=== PATIENT | female | born 1945 | race Caucasian/White ===

== ENCOUNTER 2016-06-20 07:09 | Inpatient (IN) | payer OTHER ==
[~2016-06-20] VITALS: Ht 154.9 cm; Wt 57.9 kg
[2016-06-20] MEDS ORDERED: MULT-506 PO (07:33)
[2016-06-20] MEDS ORDERED: ASCO10003 PO (07:33)
--- NOTE | 2016-06-20 07:47 | DIAGNOSTIC IMAGING REPORT ---
CHEST ONE VIEW PORTABLE CLINICAL HISTORY: Shortness of breath COMPARISON STUDY: 08/23/2013 FINDINGS: Postmastectomy changes are visualized in the right. The heart is normal in size. There is no failure. There is no focal pulmonary consolidation. There are no pleural effusions.[ IMPRESSION: AP portable study. No acute findings. Electronically signed by: Rock Epstein M.D. 06/20/2016 7:46 AM Dictated Date/Time: 06/20/2016 7:45 AM
[2016-06-20 08:09] LABS: BASO % 0.4 %; BASO ABS # 0.04 K/uL (0-0.2); EOS % 1.4 %; HEMATOCRIT 27.2 % (37-47); IG% 0.3 %; LYMPH % 24.8 %; LYMPH ABS # 2.33 K/uL (1.2-3.4); MEAN CELL VOLUME 68.7 fL (80-100); MEAN CORPUSCULAR HEMOGLOBIN 21.5 pg (25-34); MEAN CORPUSCULAR HGB CONC 31.3 g/dl (32-36); MEAN PLATELET VOLUME 8.9 fL (7.4-10.4); MONO % 6.4 %; NEUT % 66.7 %; PLATELET COUNT 407 K/uL (130-400); RED BLOOD COUNT 3.96 M/uL (4.2-5.4); WHITE BLOOD COUNT 9.41 K/uL (4.8-10.8)
[2016-06-20 08:18] LABS: PARTIAL THROMBOPLASTIN RATIO 0.9; PROTHROMBIN TIME (PATIENT) 10.6 SECONDS (9.0-12.0)
[2016-06-20 08:37] LABS: COMPLETE YES; MICROCYTOSIS PRESENT; TARGET CELLS 1+
[2016-06-20 08:39] LABS: BUN/CREATININE RATIO 23.9 (10-20); CALCIUM 9.9 mg/dl (8.5-10.1); CREATININE 0.88 mg/dl (0.60-1.20)
[2016-06-20 08:45] LABS: ALB/GLOB RATIO 0.8 (0.9-2); CKMB/CK RATIO 1.7 (0-3.0)
--- NOTE | 2016-06-20 09:54 | DIAGNOSTIC IMAGING REPORT ---
CHEST CTA for PULMONARY ARTERIES CT DOSE: 625.99 mGycm HISTORY: Chest pain. Dyspnea. TECHNIQUE: Multiaxial CT images of the chest were performed following the intravenous administration of contrast to evaluate the pulmonary arteries. Maximal intensity projection images were also obtained. COMPARISON STUDY: 08/23/2013 FINDINGS: Moderate atherosclerotic change thoracic aorta. Intraluminal thrombus formation considered to be a nonacute finding. Anterior mediastinal node measuring 2.2 cm versus residual findings. Right breast mass moderately increased in volume to a maximum dimension of 5.1 cm transaxially. Additional mass medial aspect right breast currently measuring 1.7 cm. Increased right axillary adenopathy with nodes measuring up to 1.4 cm anterior chest wall collaterals unchanged several indeterminate mediastinal nodes. Lungs are considered clear. Findings of diffuse lytic metastatic change throughout all major components of the chest and vertebral column. Lytic changes are also seen in the shoulders bilaterally.. IMPRESSION: 1. Study is negative for pulmonary embolus. 2. lungs are grossly clear. 3. Progressive right breast multifocal masses with pathologic right axillary adenopathy. 4. Interval diffuse bony metastatic disease Electronically signed by: Cresencio Melo M.D. 06/20/2016 9:53 AM Dictated Date/Time: 06/20/2016 9:45 AM
--- NOTE | 2016-06-20 10:32 | EMERGENCY ROOM VISIT NOTE ---
History Report prepared by Tierney: Idnia Schaefer Under the Supervision of: Dr. Mook Carlisle D.O. First contact with patient: 07:14 Chief Complaint: SHORTNESS OF BREATH Stated Complaint: SOB History of Present Illness The patient is a 70 year old female who presents to the Emergency Room with complaints of a worsening mass on the right breast starting about 3 years ago. She has applied Neosporin on the mass without relief. She also complains of severe weakness, shortness of breath, right sided chest pain radiating to the right side of the back, right arm pain, and right leg pain. 3 years ago, she was diagnosed with right sided breast cancer but did not receive treatment for it. She denies fevers, chills, or any other complaints. Source of History: patient Onset: 3 years ago Position: other (right breast) Quality: other (mass) Timing: worsening Modifying Factors (Relieving): other (Neosporin without relief) Associated Symptoms: + SOB, + chest pain, + weakness, No chills, No fevers Review of Systems See HPI for pertinent positives & negatives. A total of 10 systems reviewed and were otherwise negative. Past Medical & Surgical Medical Problems: (1) AAA (abdominal aortic aneurysm) (2) Hyperkalemia (3) Hypoxia (4) Hypoxia (5) Pleural effusion, right (6) Respiratory acidosis (7) Respiratory acidosis (8) Respiratory failure (9) Respiratory failure (10) UTI (lower urinary tract infection) (11) UTI (lower urinary tract infection) (12) UTI (lower urinary tract infection) Surgical Problems: (1) H/O tracheostomy (2) S/P cholecystectomy Family History Patient reports no known family medical history. Social History Smoking Status: Former Smoker Alcohol Use: none Marital Status: Housing Status: lives with family Current/Historical Medications Scheduled Ascorbic Acid (Vitamin C), 3,000 MG PO BID Multivitamin (Multivitamin), 1 TAB PO DAILY Allergies Coded Allergies: No Known Allergies (Unverified , 06/20/16) Physical Exam Vital Signs Date Time Temp Pulse Resp B/P Pulse Ox O2 Delivery O2 Flow Rate FiO2 06/20/16 09:22 104 20 153/90 96 Room Air 06/20/16 08:23 105 20 160/94 95 Room Air 06/20/16 07:18 113 06/20/16 07:10 95 Room Air 06/20/16 07:10 36.7 108 18 179/98 95 Room Air Physical Exam CONSTITUTIONAL/VITAL SIGNS: Reviewed / noted above. GENERAL: Non-toxic in appearance. INTEGUMENTARY: Warm, dry, and [place]. HEAD: Normocephalic. EYES: without scleral icterus or trauma. ENT/OROPHARYNX: clear and moist. LYMPHADENOPATHY/NECK: Is supple without lymphadenopathy or meningismus. CHEST: Large mass on the right breast likely related to malignancy. Discomfort with movement in the right posterior chest wall. RESPIRATORY: Lungs clear and equal. CARDIOVASCULAR: Regular rate and rhythm. GI/ABDOMEN: Soft and nontender. No organomegaly or pulsatile mass. No rebound or guarding. Normal bowel sounds. EXTREMITIES: Warm and well perfused. BACK: No CVA tenderness. NEUROLOGICAL: Intact without focal deficits. PSYCHIATRIC: normal affect. MUSCULOSKELETAL: Normally developed with good muscle tone. Medical Decision & Procedures ER Provider Diagnostic Interpretation: X ray results and stated below per my interpretation and radiologist interpretation. CTA results and stated below per my review and radiologist interpretation: CHEST CTA for PULMONARY ARTERIES CT DOSE: 625.99 mGycm HISTORY: Chest pain. Dyspnea. TECHNIQUE: Multiaxial CT images of the chest were performed following the intravenous administration of contrast to evaluate the pulmonary arteries. Maximal intensity projection images were also obtained. COMPARISON STUDY: 08/23/2013 FINDINGS: Moderate atherosclerotic change thoracic aorta. Intraluminal thrombus formation considered to be a nonacute finding. Anterior mediastinal node measuring 2.2 cm versus residual findings. Right breast mass moderately increased in volume to a maximum dimension of 5.1 cm transaxially. Additional mass medial aspect right breast currently measuring 1.7 cm. Increased right axillary adenopathy with nodes measuring up to 1.4 cm anterior chest wall collaterals unchanged several indeterminate mediastinal nodes. Lungs are considered clear. Findings of diffuse lytic metastatic change throughout all major components of the chest and vertebral column. Lytic changes are also seen in the shoulders bilaterally.. IMPRESSION: 1. Study is negative for pulmonary embolus. 2. lungs are grossly clear. 3. Progressive right breast multifocal masses with pathologic right axillary adenopathy. 4. Interval diffuse bony metastatic disease Electronically signed by: Cresencio Melo M.D. 06/20/2016 9:53 AM Dictated Date/Time: 06/20/2016 9:45 AM CHEST ONE VIEW PORTABLE CLINICAL HISTORY: Shortness of breath COMPARISON STUDY: 08/23/2013 FINDINGS: Postmastectomy changes are visualized in the right. The heart is normal in size. There is no failure. There is no focal pulmonary consolidation. There are no pleural effusions.[ IMPRESSION: AP portable study. No acute findings. Electronically signed by: Rock Epstein M.D. 06/20/2016 7:46 AM Dictated Date/Time: 06/20/2016 7:45 AM Laboratory Results 06/20/16 07:55 Red Blood Count 3.96, Mean Corpuscular Volume 68.7, Mean Corpuscular Hemoglobin 21.5, Mean Corpuscular Hemoglobin Concent 31.3, Mean Platelet Volume 8.9, Neutrophils (%) (Auto) 66.7, Lymphocytes (%) (Auto) 24.8, Monocytes (%) (Auto) 6.4, Eosinophils (%) (Auto) 1.4, Basophils (%) (Auto) 0.4, Neutrophils # (Auto) 6.28, Lymphocytes # (Auto) 2.33, Monocytes # (Auto) 0.60, Eosinophils # (Auto) 0.13, Basophils # (Auto) 0.04 06/20/16 07:55 Test 06/20/16 07:55 White Blood Count 9.41 K/uL (4.8-10.8) Red Blood Count 3.96 M/uL (4.2-5.4) Hemoglobin 8.5 g/dL (12.0-16.0) Hematocrit 27.2 % (37-47) Mean Corpuscular Volume 68.7 fL (80-100) Mean Corpuscular Hemoglobin 21.5 pg (25-34) Mean Corpuscular Hemoglobin Concent 31.3 g/dl (32-36) Platelet Count 407 K/uL (130-400) Mean Platelet Volume 8.9 fL (7.4-10.4) Neutrophils (%) (Auto) 66.7 % Lymphocytes (%) (Auto) 24.8 % Monocytes (%) (Auto) 6.4 % Eosinophils (%) (Auto) 1.4 % Basophils (%) (Auto) 0.4 % Neutrophils # (Auto) 6.28 K/uL (1.4-6.5) Lymphocytes # (Auto) 2.33 K/uL (1.2-3.4) Monocytes # (Auto) 0.60 K/uL (0.11-0.59) Eosinophils # (Auto) 0.13 K/uL (0-0.5) Basophils # (Auto) 0.04 K/uL (0-0.2) RDW Standard Deviation 46.4 fL (36.4-46.3) RDW Coefficient of Variation 18.4 % (11.5-14.5) Immature Granulocyte % (Auto) 0.3 % Immature Granulocyte # (Auto) 0.03 K/uL (0.00-0.02) Microcytosis PRESENT Target Cells 1+ Prothrombin Time 10.6 SECONDS (9.0-12.0) Prothromb Time International Ratio 1.0 (0.9-1.1) Activated Partial Thromboplast Time 22.9 SECONDS (21.0-31.0) Partial Thromboplastin Ratio 0.9 Anion Gap 11.0 mmol/L (3-11) Est Creatinine Clear Calc Drug Dose 50.9 ml/min Estimated GFR () 77.2 Estimated GFR (Non- 66.6 BUN/Creatinine Ratio 23.9 (10-20) Calcium Level 9.9 mg/dl (8.5-10.1) Total Bilirubin 0.8 mg/dl (0.2-1) Aspartate Amino Transf (AST/SGOT) 33 U/L (15-37) Alanine Aminotransferase (ALT/SGPT) 45 U/L (12-78) Alkaline Phosphatase 241 U/L (45-117) Total Creatine Kinase 41 U/L (26-192) Creatine Kinase MB 0.7 ng/ml (0.5-3.6) Creatine Kinase MB Ratio 1.7 (0-3.0) Troponin I 0.075 ng/ml (0-0.045) Pro-B-Type Natriuretic Peptide 1441 pg/ml (0-900) Total Protein 7.2 gm/dl (6.4-8.2) Albumin 3.3 gm/dl (3.4-5.0) Globulin 3.9 gm/dl (2.5-4.0) Albumin/Globulin Ratio 0.8 (0.9-2) Laboratory results as stated above per my review. ECG Indication: SOB/dyspnea Rate (beats per minute): 111 Rhythm: sinus tachycardia Findings: no acute ischemic change, no ectopy ED Course 0714: Previous medical records were reviewed. The patient was evaluated in room A02. A complete history and physical examination was performed. 1033: On reevaluation, the patient is resting comfortably. I discussed the results and findings with her. She verbalized agreement of the treatment plan. The patient will be evaluated for further management and care. 1039: I spoke with Arianne Lozada of the [facility] Service. Medical Decision the differential was considered includes acute myocardial infarction, acute coronary syndrome, myocarditis, pericarditis, pericardial effusions /tamponad, esophageal perforation, pulmonary embolism, pneumonia, pneumothorax, cardiomyopathy, congestive heart, anemia , COPD/asthma exacerbation. This is a 70-year-old female who presents to the ED with a chief complaint of shortness of breath. The patient states that she is very weak as well. She is unable to get around well at home. She significant pain in her chest wall with movement. The patient's symptoms have progressively worsened. The patient reports that she has been told that she has right breast cancer previously after having had open heart surgery. The patient has not had this addressed. She states that she is at a point where she needs help. The patient's vital signs are stable. She is afebrile. Exam reveals a large right breast mass consistent with neoplasm. The patient has immediate pain with attempting to roll or move. She is unable to sit up because of pain. EKG shows a sinus tach at a rate of 111. Her hemoglobin is 8.5. Troponin is elevated at 0.075. BNP is 1441. Chest x-ray did not show acute disease. CT scan of the chest reveals no evidence of PE. There is a right breast mass that has pathologic right axillary lymphadenopathy as well as diffuse bony metastases. The patient was told the results. I spoke with the hospitalist, who will see the patient for further inpatient care and evaluation. Consults Time Called: 1035 Consulting Physician: Arianne Lozada of the [facility] Returned Call: [phone] I spoke with Arianne Lozada of the [facility]. Impression Primary Impression: Metastatic breast carcinoma Additional Impressions: Elevated troponin Anemia Weakness Pain, chest wall Bony metastasis Scribe Attestation The scribe's documentation has been prepared under my direction and personally reviewed by me in its entirety. I confirm that the note above accurately reflects all work, treatment, procedures, and medical decision making performed by me. Departure Information Dispostion Being Evaluated By Hospitalist Referrals SnyderTadeo (PCP) Forms HOME CARE DOCUMENTATION FORM, IMPORTANT VISIT INFORMATION Patient Instructions My [facility] Health Problem Qualifiers
[2016-06-20] MEDS ORDERED: MoRPHine SULFATE 2 MG/ML CARP IV PRN (12:30)
[2016-06-20] MEDS ORDERED: ALUMINUM/MAGNESIUM/SIMETH (MAALOX MAX) 30 ML UDC PO PRN (12:30)
[2016-06-20] MEDS ORDERED: MAGNESIUM HYDROXIDE SUSP 30 ML UDC PO PRN (12:30)
[2016-06-20] MEDS ORDERED: HydrALAZINE HCL 20 MG/ML VIAL IV. PRN (12:30)
[2016-06-20] MEDS ORDERED: ONDANSETRON INJ 2 MG/ML 2 ML VIAL IV PRN (12:30)
[2016-06-20] MEDS ORDERED: METOPROLOL TARTRATE 25 MG TAB PO ONE ×2 (12:30→14:00)
--- NOTE | 2016-06-20 13:43 | HISTORY & PHYSICAL EXAMINATION ---
DATE OF ADMISSION: 06/20/2016 CHIEF COMPLAINT: Generalized weakness, shortness of breath. HISTORY OF PRESENT ILLNESS: This 70-year-old female with past history significant for abdominal aortic aneurysm rupture status post repair at [place]. She had a non-ST elevated NV during the procedure and postop was complicated by C. diff diarrhea which got improved and at that time she was found to have acute systolic and diastolic CHF with EF of around 30% and also severe mitral regurgitation. At that time she was also found to have a right breast mass fungating. Biopsy was done which showed adenocarcinoma. She was advised to follow with oncology, but patient refused. The patient did not accept of the diagnosis and never went to see oncologist as per the documented notes on the follow-up exam by vascular surgery. The patient says she was at [facility] and she was discharged home, she was taking care of her fungating mass herself, she thought it could be sebaceous cyst but it has gotten worse and worse and she states she has a strong personality and she wanted to take care herself all the things. But the mass was getting bigger and bigger and yesterday it started to bleed. When her told her that we needed to get help but patient says tomorrow might be a better day but when she got up in the morning she felt short of breath and at that time she decided to come to the ER. She says she gets pain in the right breast mass area and also feeling weakness in his lower extremities, thinks muscle weakness. She uses walker but not walking much. She is using a walker since her surgery in [place] but not walking much lately and she sits in a chair for most of the time. She states that her appetite is okay. No weight loss or weight gain. Normal bowel and bladder movements. Once in a while she feels dizzy. She has chronic blurred visions. Uses glasses. No nausea, vomiting, no abdominal pain. Currently somewhat tearful but is comfortably, hemodynamically stable. She is supposed to be taking medications for heart failure, hypertension and hypothyroidism but currently she is taking only multivitamin and ascorbic acid and she does not follow with any doctors. ALLERGIES: No known drug allergies. PAST MEDICAL HISTORY: As mentioned above. PAST SURGICAL HISTORY: Partial hysterectomy, tonsillectomy, cholecystectomy, open repair of the ruptured abdominal aortic aneurysm on 08/24/2013 at [facility]. MEDICATIONS: Supposed to be on metoprolol, levothyroxine, furosemide, lisinopril, aspirin, nitroglycerin, Klor-Con, multivitamins, but patient is taking only multivitamins and vitamin C tablets. FAMILY HISTORY: Significant for no family history on file. SOCIAL HISTORY: Former smoker, quit in 2013, smoked 1 pack a day for 40 years. No alcohol use. No drug use. Lives with her . REVIEW OF SYMPTOMS: As per HPI. Rest of review of systems negative. PHYSICAL EXAMINATION: GENERAL: The patient is of moderate build, not in distress. VITAL SIGNS: Temperature 36.7, pulse 108, respiratory rate 18, blood pressure 149/80, oxygen 93% on room air. HEAD, EYES, EARS, NOSE, AND THROAT: No pallor, no icterus. Pupils equal, round, and reactive to light. NECK: No JVD, no neck masses, no carotid bruits. CARDIOVASCULAR: S1, S2 heard, regular rate and rhythm, no murmur, no gallop. RESPIRATORY SYSTEM: Clear to auscultation bilaterally. No wheezing, no crackles. ABDOMEN: Soft, bowel sounds present, nontender, no distention. BREAST EXAMINATION: Has fungating mass on the right breast about 5 x 5 x 2 cm. Some mild drainage and some mild bleeding seen. EXTREMITIES: Mild pedal edema present. No erythema seen. LABORATORIES: Sodium 143, potassium 4, chloride 107, bicarbonate 25, BUN 21, creatinine 0.8, serum glucose 88, calcium 9.9, total bilirubin 0.8, AST 33, ALT 45, alkaline phosphatase 241. Troponin I 0.075. BNP 14 and 41. WBC 9.4, hemoglobin 8.5, hematocrit 27.2, platelets 407. PT 10.6, INR 1, PTT 22.9. CT of the chest negative for pulmonary embolism. Lungs are grossly clear. Progressive right breast multifocal masses with pathological right axillary adenopathy, interval diffuse bony metastatic disease. EKG: Shows sinus tachycardia at rate of 111. Prior infarct, age undetermined. No acute ST changes seen. ASSESSMENT AND PLAN: This is a 70-year-old female who presents with shortness of breath, generalized weakness and found to have diffuse metastatic breast cancer. 1. Metastatic breast cancer, large fungating mass in the right breast. The patient was found to have this fungating mass in 2013, but does not seek any help and it is getting bigger, not able to take care of at home. The patient decided to get help now. She is okay with being seen by oncologist now. CAT scan shows diffuse bony metastatic disease, involvement of axillary lymph nodes. We will admit to medical floor. Pain control. Consult oncology. . We will follow the oncologist's recommendations. 2. Shortness of breath currently is stable. Could be from above disease, but she has history of chronic systolic and diastolic CHF not take any medications. Has mild pedal edema. Chest x-ray is clear. We will follow the repeat echocardiogram. 3. History of hypertension. Not taking any medications. Blood pressure is slightly on the higher side. Supposed to be on lisinopril, Lopressor, and Lasix. Will start Lopressor low dose and titrate the medications and follow the blood pressure in the hospital. 4. History of hypothyroidism, not on any medication. We will follow thyroid profile. 5. History of abdominal aortic aneurysm status post repair. 6. History of systolic and diastolic CHF with EF 30%, severe mitral regurgitation due to diastolic dysfunction. Not on any diuretics. We will follow the echocardiogram. 7. Mild troponin elevation. HAs chest pain secondary to breast mass mostly. we will trend o the enzymes and follow echocardiogram. 8. Anemia, probably from the breast cancer. We will follow the stool for Hemoccult and iron studies, vitamin B12 and folic levels and follow the hemoglobin. If it goes below 8 we will transfuse PRBCs. 9. Deep venous thrombosis prophylaxis, SCDs and Lovenox for now. 10. Disposition: Admit to medical floor. LEVEL 1 FULL CODE. Social service to help with discharge planning. Await oncology evaluation. MTDD
[2016-06-20 14:00] VITALS: Ht 154.9 cm; Wt 57.9 kg
[2016-06-20 14:03] VITALS: BP 161/79; PULSE 103; TEMP 36.9; O2SAT 94
[2016-06-20 16:14] VITALS: BP 130/81; PULSE 100; TEMP 37.2; O2SAT 94
[2016-06-20 16:22] VITALS: O2SAT 94
--- NOTE | 2016-06-20 18:03 | Medical Consult ---
Consultation Date of Consultation: Jun 20, 2016. Attending Physician: Linda Mckeon DO Reason for Consultation: Stage IV breast cancer with locally advanced tumor burden and extensive bone metastases on admission imaging History of Present Illness Mrs. Paige is a pleasant 70 yr old female new to the consulting medical oncology service; Consult was placed when upon admission to the emergency room it was noted that she had a locally advanced right breast tumor, fungating, and with right axillary adenopathy and diffuse bone metastases when CT of the chest was obtained. 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 Her aneurysm repair surgery was complicated by an intraoperative NSTEMI. The tumor was estrogen positive, progesterone negative, Her [address] scans from this hospitalization showed the breast mass at 4 cm and with borderline right axillary lymph nodes. Prior to this hospitalization in 2013, she had not seen a physician in 18 years , per the records. She states that by the time she was released from the hospital, she was completely overwhelmed by her cardiac issues and states " could not deal with the breast cancer issue." There is an element to her history where it is apparent that she may not have believed her breast cancer diagnosis. She states that when she was hospitalized at [facility] that the right breast had blisters on it (though the discharge summary physical exam describes a large ulcerated fungating mass draining foul purulent material). Over the past 3 years, the area has progressively grown to involve most of the bottom portion of her breast, replacing the nipple. She went from using 3 bandages over the area to very large bandage is across her chest. She is unable to say when the area really enlarged, broke down started to bleed. She repeatedly stated that at times the area seemed to be healing. Although, she states that her has had to help her with many of the grizzlyman is over the past year or more due to her physical limitations with her chest. In the past few months, she got to the point where her had to help her with ADLs. The patient reports that her insisted she come to the emergency room today when she was unable to get herself up out of bed. She states that her right shoulder became sore today when she awoke and this precluded her from being able to get out of bed. In general, her chest mass has inhibited her ability to perform ADLs or grizzlyman over the past year or two. She also states that she injured her right ankle a few years ago when her left knee jammed into it on a fall. She did not follow up for this injury. Ever since, she has had right ankle pain that intermittently radiates up to her knee. She started using a walker to get around around the time of the injury and has continued to require it. She also has middle thoracic spine pain, more recent in onset. She has not noted cervical or axillary adenopathy. She denies cough, dyspnea. She reports a good appetite and has not had nausea, bowel irregularity , hematochezia or melena. She denies any hematuria. She has not noted dizziness or headaches. Her vision remains unchanged, she requires magnification lenses. Past Medical/Surgical History Medical Problems: (1) Anemia Status: Acute (2) Bony metastasis Status: Acute (3) Elevated troponin Status: Acute (4) Metastatic breast carcinoma Status: Acute (5) Pain, chest wall Status: Acute (6) Weakness Status: Acute Family History Patient reports no known family medical history. Social History Smoking Status: Former Smoker Marital Status: Housing Status: lives with family Allergies Coded Allergies: No Known Allergies (Unverified , 07/08/16) Current Inpatient Medications Current Inpatient Medications Medications (Trade) Dose Ordered Sig/Sudarshan Route Start Time Stop Time Status Last Admin Dose Admin Enoxaparin Sodium (Lovenox Inj) 40 mg Q24H SQ 06/20/16 21:00 07/20/16 20:59 Acetaminophen (Tylenol Tab) 650 mg Q4H PRN PO 06/20/16 12:30 07/20/16 12:29 Al Hydrox/Mg Hydrox/Simethicone (Maalox Max Susp) 15 ml Q4H PRN PO 06/20/16 12:30 07/20/16 12:29 Magnesium Hydroxide (Milk Of Magnesia Susp) 30 ml Q6H PRN PO 06/20/16 12:30 07/20/16 12:29 Ondansetron HCl (Zofran Inj) 4 mg Q6H PRN IV 06/20/16 12:30 07/20/16 12:29 Multivitamins (Multivitamin Tab) 1 tab DAILY PO 06/21/16 08:00 07/21/16 08:59 Ascorbic Acid (Vitamin C Tab) 3,000 mg BID PO 06/20/16 20:00 07/20/16 20:59 Morphine Sulfate (MoRPHine SULFATE INJ) 2 mg Q3HWA PRN IV 06/20/16 12:30 07/04/16 12:29 Hydralazine HCl (HydrALAZINE INJ) 5 mg Q6 PRN IV. 06/20/16 12:30 07/20/16 12:29 Metoprolol Tartrate (Lopressor Tab) 25 mg BID PO 06/20/16 20:00 07/20/16 20:59 Review of Systems Constitutional: + weakness, No chills, No fever Eyes: No diplopia, No worsening of vision Respiratory: No cough, No shortness of breath, No sputum, No wheezing Cardiovascular: No chest pain, No edema Abdomen: No GI bleeding, No constipation, No diarrhea, No nausea, No pain, No vomiting Musculoskeletal: + problem reported (see HPI- multiple areas of pain) Genitourinary - Female: No hematuria Neurologic: + weakness (of right arm- s), No memory loss, No vertigo Psychiatric: No anxiety, No depression symptoms Integumentary: + problem reported (see HPI) Physical Exam Date Time Temp Pulse Resp B/P Pulse Ox O2 Delivery O2 Flow Rate FiO2 06/20/16 16:14 37.2 100 16 130/81 94 Room Air 06/20/16 14:03 36.9 103 17 161/79 94 Room Air 06/20/16 14:00 Room Air 06/20/16 12:36 109 18 160/83 96 Room Air 06/20/16 12:11 108 06/20/16 11:12 107 18 149/80 93 Room Air 06/20/16 09:22 104 20 153/90 96 Room Air 06/20/16 08:23 105 20 160/94 95 Room Air 06/20/16 07:18 113 06/20/16 07:10 95 Room Air 06/20/16 07:10 36.7 108 18 179/98 95 Room Air General Appearance: WD/WN, no apparent distress, + pertinent finding (appears older than stated age) ENT: hearing grossly normal Neck: supple, + adenopathy present (?right supraclavicular adenopathy, no other cervical or left supraclavicular adenopathy noted) Respiratory/Chest: lungs clear, no respiratory distress, no accessory muscle use Cardiovascular: regular rate, rhythm, no edema Abdomen/GI: normal bowel sounds, non tender, soft Back: + pertinent finding (unable to assess due to pain of patient's right chest/arm, cannot sit up unsupported) Extremities/Musculoskelatal: no calf tenderness, no pedal edema, + pertinent finding (right ankle joint enlarged, from prior reported injury, tender) Neurologic/Psych: alert, normal mood/affect, oriented x 3 Skin: warm/dry, + pertinent finding (right breast with lare fungating mass replacing bottom half of right breast, no discernible nipple, medial satellite lesion to this about the size of a quarter, fungating, 2 smaller erythematous nodules medial ) Lymphatic: + axillary node abnormality (right axillary tiffany induration) Laboratory Results 06/20/16 07:55 Red Blood Count 3.96, Mean Corpuscular Volume 68.7, Mean Corpuscular Hemoglobin 21.5, Mean Corpuscular Hemoglobin Concent 31.3, Mean Platelet Volume 8.9, Neutrophils (%) (Auto) 66.7, Lymphocytes (%) (Auto) 24.8, Monocytes (%) (Auto) 6.4, Eosinophils (%) (Auto) 1.4, Basophils (%) (Auto) 0.4, Neutrophils # (Auto) 6.28, Lymphocytes # (Auto) 2.33, Monocytes # (Auto) 0.60, Eosinophils # (Auto) 0.13, Basophils # (Auto) 0.04 06/20/16 07:55 Test 06/20/16 07:55 06/20/16 17:00 White Blood Count 9.41 K/uL (4.8-10.8) Red Blood Count 3.96 M/uL (4.2-5.4) Hemoglobin 8.5 g/dL (12.0-16.0) Hematocrit 27.2 % (37-47) Mean Corpuscular Volume 68.7 fL (80-100) Mean Corpuscular Hemoglobin 21.5 pg (25-34) Mean Corpuscular Hemoglobin Concent 31.3 g/dl (32-36) Platelet Count 407 K/uL (130-400) Mean Platelet Volume 8.9 fL (7.4-10.4) Neutrophils (%) (Auto) 66.7 % Lymphocytes (%) (Auto) 24.8 % Monocytes (%) (Auto) 6.4 % Eosinophils (%) (Auto) 1.4 % Basophils (%) (Auto) 0.4 % Neutrophils # (Auto) 6.28 K/uL (1.4-6.5) Lymphocytes # (Auto) 2.33 K/uL (1.2-3.4) Monocytes # (Auto) 0.60 K/uL (0.11-0.59) Eosinophils # (Auto) 0.13 K/uL (0-0.5) Basophils # (Auto) 0.04 K/uL (0-0.2) RDW Standard Deviation 46.4 fL (36.4-46.3) RDW Coefficient of Variation 18.4 % (11.5-14.5) Immature Granulocyte % (Auto) 0.3 % Immature Granulocyte # (Auto) 0.03 K/uL (0.00-0.02) Microcytosis PRESENT Target Cells 1+ Prothrombin Time 10.6 SECONDS (9.0-12.0) Prothromb Time International Ratio 1.0 (0.9-1.1) Activated Partial Thromboplast Time 22.9 SECONDS (21.0-31.0) Partial Thromboplastin Ratio 0.9 Anion Gap 11.0 mmol/L (3-11) Est Creatinine Clear Calc Drug Dose 50.9 ml/min Estimated GFR () 77.2 Estimated GFR (Non- 66.6 BUN/Creatinine Ratio 23.9 (10-20) Calcium Level 9.9 mg/dl (8.5-10.1) Total Bilirubin 0.8 mg/dl (0.2-1) Aspartate Amino Transf (AST/SGOT) 33 U/L (15-37) Alanine Aminotransferase (ALT/SGPT) 45 U/L (12-78) Alkaline Phosphatase 241 U/L (45-117) Total Creatine Kinase 41 U/L (26-192) Creatine Kinase MB 0.7 ng/ml (0.5-3.6) Creatine Kinase MB Ratio 1.7 (0-3.0) Troponin I 0.075 ng/ml (0-0.045) Pro-B-Type Natriuretic Peptide 1441 pg/ml (0-900) Total Protein 7.2 gm/dl (6.4-8.2) Albumin 3.3 gm/dl (3.4-5.0) Globulin 3.9 gm/dl (2.5-4.0) Albumin/Globulin Ratio 0.8 (0.9-2) Chest x-ray from 06/20/2016: The heart is normal in size without failure. No focal pulmonary consolidation. No pleural effusions. CT of the chest from 06/20/2016: Moderate atherosclerotic change of the thoracic aorta. Intraluminal thrombus formation considered to be non acute finding. Anterior mediastinal node measuring 2.2 cm versus residual findings. Right breast mass moderately increase in volume to maximum dimension of 5.1 cm. Additional mass medial aspect right breast measuring 1.7 cm. Increased right axillary adenopathy with nodes measuring up to 1.4 cm. Anterior chest wall collaterals unchanged, several indeterminate mediastinal nodes. Findings of diffuse lytic metastatic change throughout all major components of the chest and vertebral column. Also with lytic changes in the shoulders bilaterally. No pulmonary embolus. Assessment & Plan (1) Metastatic breast carcinoma Status: Acute Permanent Comment: [id number], stage IV Invasive ductal carcinoma, ER positive/MD negative/Her2 positive, grade 2 Last Edited By: Clau Sinha on Jun 21, 2016 14:24 (2) Secondary malignant neoplasm of bone and bone marrow Permanent Comment: Reason for Deletion: Last Edited By: Minda Guillen on Jun 21, 2016 16:33 Assessment & Plan: See above discussion- will defer to RO about further imaging of right humerus and thoracic spine, as these areas are most painful for patient and may benefit from palliative RT. (3) Microcytic anemia Permanent Comment: Reason for Deletion: Last Edited By: Minda Guillen on Jun 21, 2016 16:33 Assessment & Plan: Iron studies, FOBT ordered by hospitalist. Likely from prolonged blood loss from fungating right breast mass. Patient denies any other active bleeding. Treatment can be advised pending results. Patient was diagnosed with ductal caricinoma, ER+, MD-, Her-2 alessia + on 08/25/13 at [facility] when she was hospitalized for ruptured AAA. The mass was apparently [address] imaging at that time and the skin was also involved at that time per the discharge summary stating she had a large fungating breast mass. She may have had right axillary adenopathy at that time as well, as on CT imaging they are noted as borderline. She refused to follow up after her hospitalization because she stated she wanted to focus on her cardiac issues. Of note, she was essentially lost to follow up from PCP and specialty aspects until she has been brought to the ER today. There is a record from 08/2013 where [facility] was contacted to set up an appt and the documentation sates patient refused appt. She now has locally advanced disease of her right breast/axilla. She has been losing blood from this lesion for an undetermined amount of time, per the patient, but likely since diagnosis if the mass was fungating at that time, probably accounting for her microcytic anemia, iron studies and FOBT pending. Discussed with patient that she needs complete restaging evaluation to include CT of abdomen/pelvis w/ contrast, brain MRI w/ contrast and bone scan. She is agreeable to this work up while in the hospital. Discussed for local control of the right breast mass- discussed having radiation oncology meet with patient as well as breast surgery. The patient was not agreeable at this time for breast surgery to meet with her, but she would like to see what radiation oncology could offer for palliation of the breast mass. We also discussed as she is symptomatic in her right humerus and midthoracic spine (unable to examine today), that she could potentially receive palliative RT to these areas. We discussed briefly about hormonal oral agents for systemic treatment, unable to discuss with her about Xgeva or Zometa for bone metastasis as she was somewhat overwhelmed about work up/treatment. As her tumor was Her-2 positive at diagnosis, typically we would consider for Her-2 directed therapy. However, her last echocardiogram in 2013 revealed decreased LVEF around 30%. Repeat echocardiogram is planned for this hospitalization, but at this time we are not planning for Her-2 directed therapy based on prior history of CHF. Discussed above plan with Dr. Corrigan and he is agreeable. I performed a history and physical examination of the patient and discussed the management with Lucrecia Beltre PA-C . I reviewed her note and agree with the documented findings and plan of care. In summary she is a case of locally advanced breast carcinoma for which she did not seek any medical or surgical treatment, now she has fungating breast mass with bony metastatic disease, will start anastrozole, she is not a candidate for Herceptin based chemotherapy for Her2/Alessia positive breast cancer because of abnormal cardiac function tests. Will have radiation oncology consultation. Will start bone modifying agent is an outpatient. Dr. Casey Sinah Hem/Onc (This note was completed using the dictation program Fluency Direct. As such, there may be misspellings, word substitutions, or other variations that should not change the essence of the clinical content of this encounter note. If there is need for further clarification, please direct questions to the provider listed above.)
[2016-06-20] MEDS: METOPROLOL TARTRATE 25 MG TAB PO SCH (20:35)
[2016-06-20] MEDS: ACETAMINOPHEN 325 MG TAB PO PRN (20:35)
[2016-06-20] MEDS: ASCORBIC ACID 500 MG TAB PO SCH (20:36)
[2016-06-20] MEDS: ENOXAPARIN 40 MG/0.4 ML SYR SQ SCH (20:37)
[2016-06-20] MEDS ORDERED: METOPROLOL TARTRATE 25 MG TAB PO SCH (21:00)
[2016-06-20 23:26] VITALS: BP 111/71; PULSE 78; TEMP 36.8; O2SAT 95
[2016-06-21] MEDS: ACETAMINOPHEN 325 MG TAB PO PRN (00:15)
[2016-06-21] MEDS: ACETAMINOPHEN IV 650 MG in EMPTY BAG 0 ML IV SCH ×4 (03:21→21:05)
[2016-06-21 06:31] LABS: BASO % 0.2 %; BASO ABS # 0.02 K/uL (0-0.2); EOS % 3.1 %; HEMATOCRIT 26.6 % (37-47); IG% 0.3 %; LYMPH % 29.8 %; LYMPH ABS # 2.76 K/uL (1.2-3.4); MEAN CELL VOLUME 68.7 fL (80-100); MEAN CORPUSCULAR HEMOGLOBIN 21.2 pg (25-34); MEAN CORPUSCULAR HGB CONC 30.8 g/dl (32-36); MEAN PLATELET VOLUME 9.1 fL (7.4-10.4); MONO % 7.8 %; NEUT % 58.8 %; PLATELET COUNT 444 K/uL (130-400); RED BLOOD COUNT 3.87 M/uL (4.2-5.4); WHITE BLOOD COUNT 9.27 K/uL (4.8-10.8)
[2016-06-21] MEDS: OXYCODONE HCL IR 5 MG TAB (IMMEDIATE RELEASE) PO PRN ×2 (06:34→21:14)
[2016-06-21 06:55] LABS: COMPLETE YES; GIANT PLATELETS 1+; MICROCYTOSIS PRESENT; POLYCHROMASIA 1+
[2016-06-21 06:59] LABS: CALCIUM 10.2 mg/dl (8.5-10.1); CREATININE 0.91 mg/dl (0.60-1.20); MAGNESIUM 2.3 mg/dl (1.8-2.4); POTASSIUM 4.1 mmol/L (3.5-5.1)
[2016-06-21 07:11] LABS: FERRITIN 26.8 ng/ml (8.0-388.0); PHOSPHORUS 3.6 mg/dl (2.5-4.9); THYROID STIMULATING HORMONE 9.45 uIu/ml (0.300-4.500)
[2016-06-21 08:00] VITALS: BP 109/77; PULSE 85; TEMP 36.9; O2SAT 94
[2016-06-21] MEDS: METOPROLOL TARTRATE 25 MG TAB PO SCH ×2 (08:08→21:04)
[2016-06-21 08:09] VITALS: O2SAT 94
[2016-06-21] MEDS: MULTIVITAMIN TAB PO SCH (08:09)
[2016-06-21] MEDS: ASCORBIC ACID 500 MG TAB PO SCH ×3 (08:10→17:01)
--- NOTE | 2016-06-21 10:41 | DIAGNOSTIC IMAGING REPORT ---
CT ABD/PELVIS IV CONTRAST ONLY CLINICAL HISTORY: metastatic breast cancer COMPARISON STUDY: 08/23/2013 TECHNIQUE: Following the IV administration of 93 mL of Optiray-320, CT scan of the abdomen and pelvis was performed from the lung bases to the proximal femurs. Images are reviewed in the axial, sagittal, and coronal planes. IV contrast was administered without complication. CT DOSE: 732.81 mGycm FINDINGS: Lower chest: There is a 7.4 cm right breast/chest wall mass. There is a 1 cm soft tissue nodule within the right anterior lateral chest wall. There are moderate atherosclerotic changes with thin the distal thoracic aorta. Liver: There is mild central ductal prominence. No space-occupying masses are visualized. Gallbladder: Surgically absent Spleen: Normal in size and attenuation. Pancreas: Unremarkable. Adrenal glands: Unremarkable. Kidneys: There is a 9 mm left renal cyst. No solid renal masses are visualized Bowel: There are no transition zones indicate bowel obstruction. There is no acute diverticulitis. There is no evidence of acute appendicitis. Peritoneum: There is no intraperitoneal free air or abdominal ascites. There is a fat-containing left inguinal hernia Vasculature: The patient is status post abdominal aortic aneurysm repair. There are advanced atheromatous changes within the lower thoracic and upper abdominal aorta with areas of ulcerated plaque. Adenopathy: None. Pelvic viscera: The uterus appears surgically absent Skeletal structures: There is extensive lytic bony disease with involvement of multiple ribs, all the visible vertebra, as well as the bony pelvis. IMPRESSION: 1. Widespread lytic bony metastatic disease 2. 7.5 cm right breast/chest wall mass consistent with neoplasm. There is a 1 cm soft tissue satellite nodule 3. No evidence of hepatic metastasis 4. No evidence of bowel obstruction. No evidence of free air 5. Advanced atheromatous changes within the distal thoracic and upper abdominal aorta with areas of ulcerated plaque Electronically signed by: Rock Epstein M.D. 06/21/2016 10:40 AM Dictated Date/Time: 06/21/2016 10:34 AM
[2016-06-21] MEDS ORDERED: OPTIRAY 320 IV PRN (10:45)
--- NOTE | 2016-06-21 11:19 | Radiation Oncology Consult ---
Radiation Oncology Consult Date / Reason Jun 21, 2016. Physicians Radiation Oncologist: Dr. 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 Paige in consultation at the request of Dr. Mckeon. ECOG PS: 3 - 4 Ms. Paige is a 70-year-old female who was initially diagnosed with right breast cancer in July 2013 during hospital admission at [facility] in [place], [place] for CHF and ruptured AAA. The patient did have an FNA biopsy of the left breast on 08/25/2013 which revealed malignant ductal adenocarcinoma that was estrogen receptor positive and HER-2 receptor positive and progesterone receptor negative. According to the patient, she did not pursue any therapy at all and she has developed a large right necrotic breast mass. More recently, the patient is a been having significant weakness and pain involving her right shoulder and right hip. The patient could not further take care of herself so she did present to the emergency room at [facility]. During her admission, she did have a CT chest angiogram on which revealed: "IMPRESSION: 1. Study is negative for pulmonary embolus. 2. lungs are grossly clear. 3. Progressive right breast multifocal masses with pathologic right axillary adenopathy. 4. Interval diffuse bony metastatic disease." We were asked to evaluate the patient for consideration of palliative radiation therapy. Medical oncology has also been consult to see the patient as well. Currently, the patient is complaining of pain in her right shoulder as well as her right hip and right chest wall. She notes that there is some discomfort in her right breast as well. Social History Smoking Status: Former Smoker Hx Tobacco Use In Past Year?: No (quit smoking in 2001 ) Do You Dip or Chew Tobacco: No Hx Alcohol Use: No Hx Substance Use : No Allergies Coded Allergies: No Known Allergies (Unverified , 06/20/16) Home Medications Scheduled Ascorbic Acid (Vitamin C), 3,000 MG PO BID Multivitamin (Multivitamin), 1 TAB PO DAILY Review of Systems Edema: Present?: Yes Location Body Site Modifier: Right Type: Non-pitting Degree: Trace Sexuality-Female: Patient ?: No Pain Management Side: Right Pain Location: Right chest Patient Preferred Pain Scale: 0 - 10 Initial Pain Intensity: 4.0 Physical Exam Height: 5 (Feet) 1.00 (Inches) 154.9 (Centimeters) 1.5494 (Meters) Weight: 132 (Pounds) 7.9 (Ounces) 60.100 (Kilograms) 34283.000 (Grams) Date Time Temp Pulse Resp B/P Pulse Ox O2 Delivery O2 Flow Rate FiO2 06/21/16 08:09 94 Room Air 06/21/16 08:00 94 Room Air 06/21/16 08:00 36.9 85 14 109/77 94 Room Air 06/21/16 01:30 Room Air 06/20/16 23:26 36.8 78 20 111/71 95 Room Air 06/20/16 16:22 94 Room Air 06/20/16 16:14 37.2 100 16 130/81 94 Room Air 06/20/16 14:03 36.9 103 17 161/79 94 Room Air 06/20/16 14:00 Room Air 06/20/16 12:36 109 18 160/83 96 Room Air 06/20/16 12:11 108 06/20/16 11:12 107 18 149/80 93 Room Air General Appearance: + mild distress Head: normocephalic, atraumatic Eyes: normal inspection, PERRL, EOMI ENT: normal ENT inspection Neck: supple, no adenopathy Breast: Right breast: Locally advanced breast mass involving the skin (red, vascular) with several satelite cutaneous lesions at least 3 - 4 cm in diameter. Minimal bleeding from the masses. Masses were partially covered by wound dressings. 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 Dyspnea. TECHNIQUE: Multiaxial CT images of the chest were performed following the intravenous administration of contrast to evaluate the pulmonary arteries. Maximal intensity projection images were also obtained. COMPARISON STUDY: 08/23/2013 FINDINGS: Moderate atherosclerotic change thoracic aorta. Intraluminal thrombus formation considered to be a nonacute finding. Anterior mediastinal node measuring 2.2 cm versus residual findings. Right breast mass moderately increased in volume to a maximum dimension of 5.1 cm transaxially. Additional mass medial aspect right breast currently measuring 1.7 cm. Increased right axillary adenopathy with nodes measuring up to 1.4 cm anterior chest wall collaterals unchanged several indeterminate mediastinal nodes. Lungs are considered clear. Findings of diffuse lytic metastatic change throughout all major components of the chest and vertebral column. Lytic changes are also seen in the shoulders bilaterally.. IMPRESSION: 1. Study is negative for pulmonary embolus. 2. lungs are grossly clear. 3. Progressive right breast multifocal masses with pathologic right axillary adenopathy. 4. Interval diffuse bony metastatic disease CT ABD/PELVIS IV CONTRAST ONLY - 06/20/2016 CLINICAL HISTORY: metastatic breast cancer COMPARISON STUDY: 08/23/2013 TECHNIQUE: Following the IV administration of 93 mL of Optiray-320, CT scan of the abdomen and pelvis was performed from the lung bases to the proximal femurs. Images are reviewed in the axial, sagittal, and coronal planes. IV contrast was administered without complication. CT DOSE: 732.81 mGycm FINDINGS: Lower chest: There is a 7.4 cm right breast/chest wall mass. There is a 1 cm soft tissue nodule within the right anterior lateral chest wall. There are moderate atherosclerotic changes with thin the distal thoracic aorta. Liver: There is mild central ductal prominence. No space-occupying masses are visualized. Gallbladder: Surgically absent Spleen: Normal in size and attenuation. Pancreas: Unremarkable. Adrenal glands: Unremarkable. Kidneys: There is a 9 mm left renal cyst. No solid renal masses are visualized Bowel: There are no transition zones indicate bowel obstruction. There is no acute diverticulitis. There is no evidence of acute appendicitis. Peritoneum: There is no intraperitoneal free air or abdominal ascites. There is a fat-containing left inguinal hernia Vasculature: The patient is status post abdominal aortic aneurysm repair. There are advanced atheromatous changes within the lower thoracic and upper abdominal aorta with areas of ulcerated plaque. Adenopathy: None. Pelvic viscera: The uterus appears surgically absent Skeletal structures: There is extensive lytic bony disease with involvement of multiple ribs, all the visible vertebra, as well as the bony pelvis. IMPRESSION: 1. Widespread lytic bony metastatic disease 2. 7.5 cm right breast/chest wall mass consistent with neoplasm. There is a 1 cm soft tissue satellite nodule 3. No evidence of hepatic metastasis 4. No evidence of bowel obstruction. No evidence of free air 5. Advanced atheromatous changes within the distal thoracic and upper abdominal aorta with areas of ulcerated plaque Assessment & Recommendations Ms. Paige is a 70-year-old female with widespread metastatic breast cancer to bone. She was initially diagnosed in 2013 and her pathology revealed invasive ductal carcinoma that was estrogen receptor positive and HER-2 positive. The patient did not pursue any form of therapy. Unfortunately, the breast mass became more locally advanced is involve the skin with multiple satellite cutaneous masses. Additionally, the patient now has widespread disease involving the bones and is now having significant pain in several regions. We have been asked to evaluate the patient for consideration of radiation therapy. The patient is still pending medical oncology consultation. Today, I did have a linwood conversation with the patient that we are now unfortunately dealing with incurable metastatic breast cancer. I did explain to her that she should talk with medical oncology and discuss potential systemic options including anti-hormonal therapy which may or may not be an option for the patient. We then focused our conversation on the role of radiation therapy. At this point, I am recommending palliative radiation therapy to the areas where she is having significant pain (potentially right humerus, thoracic/ lumbar spine and right hip). The patient is agreeable and we will have the patient come to our department today for CT simulation for treatment planning. We will appreciate input from medical oncology. Palliative care consultation would also be reasonable. We have explained the indications, alternatives, benefits, risks and side effects of radiation therapy. We have explained the most common side effects including but are not limited to skin erythema, skin break down, hair loss, fibrosis, adhesion development, radiation pneumonitis, rib and bone fracture, heart failure and heart disease, esophagitis, bowel obstruction, urinary symptoms, thyroid disorders, mucositis, nauesea, vomiting, diarrhea, anemia, fatigue and development of secondary malignancy. Women may also have early onset ovarian failure leading to premature menopause and may experience infertility issues depending on her age. We have explained the CT simulation process and treatment planning. We explained what to expect before, during and after treatment on a regular basis. The patient understands and would be willing to consent to treatment. The patient and family had multiple questions which were answered to their full satisfaction. Thank you for allowing us to participate in the care of this patient. This chart was completed in part utilizing [employer] Speech Voice Recognition software. Attempts were made to minimize the grammatical errors, random word insertions, pronoun errors and incomplete sentences. Any formal questions or concerns about the content, text or information contained within the body of this dictation should be directly addressed to the provider for clarification. Clau Sinha MD Department of Radiation Oncology [facility] jeff Benitez Efraín [facility] Total Time In Consultation I spent 30 minutes examining and counseling the patient. I spent 15 minutes completing this note.
--- NOTE | 2016-06-21 14:12 | DIAGNOSTIC IMAGING REPORT ---
NUCLEAR MEDICINE WHOLE-BODY BONE SCAN CLINICAL HISTORY: metastatic breast cancer COMPARISON STUDY: Abdominal pelvic CT scan dated 06/19/2016 FINDINGS: The patient was injected with 26.1 mCi of technetium 99m MDP. Three-hour delayed whole body images were acquired. There are extensive foci of abnormal increased uptake involving the cervical, thoracic, and lumbar spines. There is abnormal increased uptake within the pelvis left proximal humerus multiple ribs as well as both proximal femurs. The findings are consistent with widespread skeletal metastasis. IMPRESSION: Scintigraphic evidence of widespread skeletal metastasis. Electronically signed by: Rock Epstein M.D. 06/21/2016 2:11 PM Dictated Date/Time: 06/21/2016 2:08 PM
--- NOTE | 2016-06-21 14:45 | DIAGNOSTIC IMAGING REPORT ---
MRI OF THE BRAIN WITHOUT AND WITH IV CONTRAST CLINICAL HISTORY: metastatic breast cancer mental status change COMPARISON STUDY: No previous studies for comparison. TECHNIQUE: Utilizing a 1.5 Amara magnet and dedicated coil, multiplanar, multiecho imaging of the brain was performed pre and postcontrast administration. IV administration of 8.5 mL of Gadavist contrast was uneventful. FINDINGS: Small old infarct left occipital lobe. Age-related chronic small vessel change. Mild atrophic change. No evidence for postcontrast enhancement of significance. No midline shift. IMPRESSION: 1. Old left occipital infarct. 2. No evidence for intracranial metastatic disease Electronically signed by: Cresencio Melo M.D. 06/21/2016 2:44 PM Dictated Date/Time: 06/21/2016 2:41 PM
[2016-06-21 16:21] VITALS: BP 144/74; PULSE 81; TEMP 36.8; O2SAT 95
[2016-06-21 17:00] VITALS: O2SAT 95
--- NOTE | 2016-06-21 19:09 | Progress Note ---
Subjective Date of Service: Jun 21, 2016. Subjective Pt evaluation today including: conversation w/ patient, physical exam, lab review, review of studies, conversation w/ [facility] consultant, review of inpatient medication list Saw/examined the patient in room 418 She presented to the ER with some shortness of breath states that those symptoms have since resolved She also has chronic back pain and bone pain; also has a mass on the right breast with ulceration She has a history of breast CA for which she has not received any treatment. 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, grade 2 Status: Acute Review of Systems Constitutional: + fatigue, + weakness, No chills, No fever Respiratory: No cough, No dyspnea at rest, No dyspnea on exertion, No hemoptysis, No shortness of breath, No sputum, No wheezing Cardiac: No chest pain Abdomen: No diarrhea, No nausea, No pain, No vomiting Musculoskeletal: + joint pain (back pain, leg pain) Heme: No abnormal bleeding/bruising Skin: + problem reported (wound on right breast) Medications Current Inpatient Medications Medications (Trade) Dose Ordered Sig/Sudarshan Route Start Time Stop Time Status Last Admin Dose Admin Enoxaparin Sodium (Lovenox Inj) 40 mg Q24H SQ 06/20/16 21:00 07/20/16 20:59 06/20/16 20:37 40 MG Acetaminophen (Tylenol Tab) 650 mg Q4H PRN PO 06/20/16 12:30 07/20/16 12:29 Future Hold 06/21/16 00:15 650 MG Al Hydrox/Mg Hydrox/Simethicone (Maalox Max Susp) 15 ml Q4H PRN PO 06/20/16 12:30 07/20/16 12:29 Magnesium Hydroxide (Milk Of Magnesia Susp) 30 ml Q6H PRN PO 06/20/16 12:30 07/20/16 12:29 Ondansetron HCl (Zofran Inj) 4 mg Q6H PRN IV 06/20/16 12:30 07/20/16 12:29 Multivitamins (Multivitamin Tab) 1 tab DAILY PO 06/21/16 08:00 07/21/16 08:59 06/21/16 08:09 1 TAB Ascorbic Acid (Vitamin C Tab) 3,000 mg BID PO 06/20/16 20:00 07/20/16 20:59 06/21/16 17:01 1,500 MG Morphine Sulfate (MoRPHine SULFATE INJ) 2 mg Q3HWA PRN IV 06/20/16 12:30 07/04/16 12:29 Hydralazine HCl (HydrALAZINE INJ) 5 mg Q6 PRN IV. 06/20/16 12:30 07/20/16 12:29 Metoprolol Tartrate 25 mg 25 mg BID PO 06/20/16 20:00 07/20/16 20:59 06/21/16 08:08 25 MG Acetaminophen/ Empty Bag (Ofirmev IV/ Empty Iv Bag 100ml) 65 ml @ 260 mls/hr Q6H IV 06/21/16 03:00 06/23/16 02:59 06/21/16 16:16 260 MLS/HR Oxycodone HCl (Roxicodone Immediate Rel Tab) 5 mg Q4H PRN PO 06/21/16 03:00 07/05/16 02:59 06/21/16 06:34 5 MG Ioversol (Optiray 320) 125 ml UD PRN IV 06/21/16 10:45 06/25/16 10:44 Enteral Nutritional Formula (Boost) 1 can BID PO 06/21/16 20:00 07/21/16 19:59 Objective Vital Signs Date Time Temp Pulse Resp B/P Pulse Ox O2 Delivery O2 Flow Rate FiO2 06/21/16 17:00 95 Room Air 06/21/16 16:21 36.8 81 16 144/74 95 Room Air 06/21/16 08:09 94 Room Air 06/21/16 08:00 94 Room Air 06/21/16 08:00 36.9 85 14 109/77 94 Room Air 06/21/16 01:30 Room Air 06/20/16 23:26 36.8 78 20 111/71 95 Room Air Physical Exam General Appearance: no apparent distress ENT: + pertinent finding (chronic dental issues) Respiratory/Chest: lungs clear, normal breath sounds, no respiratory distress, no accessory muscle use, + pertinent finding (right breast with ulcerative wound noted, it is bandaged) Cardiovascular: regular rate, rhythm, no edema, no murmur Abdomen: normal bowel sounds, non tender, soft Extremities: normal inspection, no pedal edema, + pertinent finding (painful ROM, difficulty with back flexion) 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, no motor/sensory deficits, alert, normal mood/affect, oriented x 3 Skin: normal color Laboratory Results Last 24 Hours Test 06/21/16 05:34 White Blood Count 9.27 K/uL Red Blood Count 3.87 M/uL Hemoglobin 8.2 g/dL Hematocrit 26.6 % Mean Corpuscular Volume 68.7 fL Mean Corpuscular Hemoglobin 21.2 pg Mean Corpuscular Hemoglobin Concent 30.8 g/dl Platelet Count 444 K/uL Mean Platelet Volume 9.1 fL Neutrophils (%) (Auto) 58.8 % Lymphocytes (%) (Auto) 29.8 % Monocytes (%) (Auto) 7.8 % Eosinophils (%) (Auto) 3.1 % Basophils (%) (Auto) 0.2 % Neutrophils # (Auto) 5.45 K/uL Lymphocytes # (Auto) 2.76 K/uL Monocytes # (Auto) 0.72 K/uL Eosinophils # (Auto) 0.29 K/uL Basophils # (Auto) 0.02 K/uL RDW Standard Deviation 47.1 fL RDW Coefficient of Variation 18.7 % Immature Granulocyte % (Auto) 0.3 % Immature Granulocyte # (Auto) 0.03 K/uL Giant Platelets 1+ Polychromasia 1+ Microcytosis PRESENT Sodium Level 143 mmol/L Potassium Level 4.1 mmol/L Chloride Level 107 mmol/L Carbon Dioxide Level 24 mmol/L Anion Gap 12.0 mmol/L Blood Urea Nitrogen 25 mg/dl Creatinine 0.91 mg/dl Est Creatinine Clear Calc Drug Dose 47.9 ml/min Estimated GFR () 74.1 Estimated GFR (Non- 63.9 BUN/Creatinine Ratio 27.0 Random Glucose 84 mg/dl Calcium Level 10.2 mg/dl Phosphorus Level 3.6 mg/dl Magnesium Level 2.3 mg/dl Iron Level 14 mcg/dl Total Iron Binding Capacity 389 mcg/dl Transferrin 276 mg/dl Transferrin % Saturation 4 % Ferritin 26.8 ng/ml Troponin I 0.070 ng/ml Vitamin B12 Level 827 pg/mL Folate > 24.00 ng/mL Thyroid Stimulating Hormone (TSH) 9.450 uIu/ml Free Thyroxine 0.79 ng/dl Free Triiodothyronine 2.24 pg/ml Assessment and Plan This is a 70 year old female with PMH of AAA rupture and repair, systolic/ diastolic CHF, valvular disease with severe mitral regurgitation, and adenocarcinoma of the right breast presents with some shortness of breath as well as bleeding right breast mass Metastatic Right Breast Adenocarcinoma patient has had this diagnosed in the past but did not want any treatment at that time She has been managing the breast mass ulceration/bleeding wound herself at home Noted that the bleeding worsened yesterday presented here: had imaging done including CT abdominal/pelvis, bone scan, Brain MRI Bone Scan and CT abdomen/pelvis confirm widespread lytic bony metastatic lesions Brain MRI - no acute process appreciate medical oncology and radiation oncology input Plan in terms of radiation is for palliative radiation which will be started on 06/22 Possible medications for palliation purposes as per medical oncology placed a palliative care consultation as well Wound care nurse consulted for the bleeding mass on the right breast IV morphine, IV Tylenol and PO Percocet PRN for pain Shortness of Breath in the setting of Mixed Systolic-Diastolic CHF Valvular Heart Disease/Severe Mitral Regurgitation currently breathing status is at baseline repeat echo is pending - may be difficult with the fungating mass on the right breast monitor for fluid overload Anemia anemia of inflammation secondary to metastatic cancer will check anemia studies, iron, etc. Hgb is around 8, will monitor Hypothyroidism TSH elevated at ~9 low Free T4 started low dose Synthroid HTN blood pressure improved since admission will monitor and adjust medications accordingly DVT ppx Lovenox FULL CODE
[2016-06-21] MEDS: BOOST VANILLA PO SCH ×2 (20:00)
[2016-06-21] MEDS: ENOXAPARIN 40 MG/0.4 ML SYR SQ SCH (21:03)
[2016-06-22 00:14] VITALS: BP 120/72; PULSE 82; TEMP 36.6; O2SAT 97
[2016-06-22] MEDS: ACETAMINOPHEN IV 650 MG in EMPTY BAG 0 ML IV SCH ×4 (03:23→20:57)
[2016-06-22 06:26] LABS: BASO % 0.2 %; BASO ABS # 0.02 K/uL (0-0.2); HEMATOCRIT 24.8 % (37-47); IG% 0.5 %; LYMPH % 25.1 %; LYMPH ABS # 2.14 K/uL (1.2-3.4); MEAN CELL VOLUME 68.7 fL (80-100); MEAN CORPUSCULAR HEMOGLOBIN 21.6 pg (25-34); MEAN CORPUSCULAR HGB CONC 31.5 g/dl (32-36); MEAN PLATELET VOLUME 8.6 fL (7.4-10.4); MONO % 8.6 %; NEUT % 61.6 %; PLATELET COUNT 392 K/uL (130-400); RED BLOOD COUNT 3.61 M/uL (4.2-5.4); WHITE BLOOD COUNT 8.53 K/uL (4.8-10.8)
[2016-06-22] MEDS: LEVOTHYROXINE 25 MCG TAB PO SCH (06:30)
[2016-06-22 06:55] LABS: BUN/CREATININE RATIO 27.6 (10-20); CALCIUM 9.5 mg/dl (8.5-10.1); MAGNESIUM 2.2 mg/dl (1.8-2.4); POTASSIUM 3.7 mmol/L (3.5-5.1)
[2016-06-22 07:00] LABS: ANISOCYTOSIS PRESENT; COMPLETE YES; HYPOCHROMIA PRESENT; POLYCHROMASIA 1+; TARGET CELLS 1+
[2016-06-22 07:19] VITALS: BP 118/75; PULSE 84; TEMP 36.6; O2SAT 93
[2016-06-22] MEDS: METOPROLOL TARTRATE 25 MG TAB PO SCH ×2 (09:18→20:59)
[2016-06-22] MEDS: BOOST VANILLA PO SCH ×4 (09:19→20:00)
[2016-06-22] MEDS: MULTIVITAMIN TAB PO SCH (09:20)
[2016-06-22] MEDS: ASCORBIC ACID 500 MG TAB PO SCH ×3 (09:20→21:00)
--- NOTE | 2016-06-22 13:08 | Palliative Care Consultation ---
Consultation Date of Consultation: Jun 22, 2016. Requesting Physician: Dr. Mckeon Attending Physician: Dr. Mckeon Reason for Consultation: Goals of care History of Present Illness This 70 year old female patient presented to the ED two days ago with complaints of SOB, weakness, pain in her right shoulder and right breast, and a bleeding mass on her right breast. Apparently this patient has had a growing mass of the right breast for the last three years, which was diagnosed as breast adenocarcinoma at that time. In July of 2013, patient had a ruptured AAA which she had repaired at [facility] in [place]. The breast was found at that time and she had a biopsy. After her stay in [place], she was released to [facility] for rehab. It was while she was in [facility] that she received the diagnosis of breast adenocarcinoma. She states that she was so overwhelmed that she chose to "take care of it herself," and never sought out treatment. Up until recently, patient was functioning normally and living her life until the pain and weakness developed. The day that she came into the hospital, she couldn't even get out of bed, her pain was much worse, and the mass on her breast began to bleed. In ED, a fungating right breast mass was discovered. Patient had been covering it with Neosporin and band-aids. Inpatient wound images available in EMR. CTA of the chest showed, "IMPRESSION: 1. Study is negative for pulmonary embolus. 2. lungs are grossly clear. 3. Progressive right breast multifocal masses with pathologic right axillary adenopathy. 4. Interval diffuse bony metastatic disease." She was seen by medical oncology and was subsequently referred to radiation oncology as she declined meeting with a breast surgeon but did agree to talk about radiation. They ordered an MRI of brain which showed no metastatic disease, and a nuclear medicine bone scan which showed, "There are extensive foci of abnormal increased uptake involving the cervical, thoracic, and lumbar spines. There is abnormal increased uptake within the pelvis left proximal humerus multiple ribs as well as both proximal femurs. The findings are consistent with widespread skeletal metastasis." She has agreed to and been marked for radiation therapy that was to begin today. Palliative care consulted to establish goals of care and provide support. I met with the patient in her room. She is awake, alert and oriented. She c/o pain 4/10 in her right shoulder and pain in her back only when she moves. Patient appeared uncomfortable in the bed, as if she was afraid to move. We had a long discussion about her diagnoses. She states that back in 2013, after her AAA repair, she was feeling so overwhelmed that she could not possibly deal with this diagnosis of breast cancer. Patient began to cry while speaking with me and stated that the ruptured AAA was so traumatic for her that she was afraid to even discuss the breast cancer. She decided at that time that she was just going to go home and, "live the life that I chose." She frequently was tearful during our conversation. She now just wants to get some pain relief from the radiation therapy so that she can go home and continue to do the things she enjoys. She understands that this will not cure her disease. When I discussed her symptoms, patient was very resistant towards any further pain medication. She stated, "I want to feel the pain. I want to know what I'm going through and not be numb." I gave education on pain medication, but she continues to decline at this time and states that the IV Tylenol and PRN Roxicodone work well enough for her. She had one episode of vomiting on Sunday, but states she is no longer nauseated. Denies any other complaints. Past Medical/Surgical History Medical History: AAA rupture NSTEMI C. difficile CHF, systolic and diastolic Severe mitral regurgitation Right breast adenocarcinoma Surgical History: AAA repair Partial hysterectomy Tonsillectomy Cholecystectomy Social History Smoking Status: Former Smoker History of Alcohol Use: No Marital Status: Housing Status: lives with family Review of Systems Constitutional: + weakness, No chills, No fever Respiratory: No cough, No shortness of breath (resolved) Cardiac: No chest pain, No edema Abdomen: No nausea, No pain Female : No problem reported Psychiatric: + anxiety (due to situation) Heme: + problem reported (bleeding from right breast fungating mass) Allergies Coded Allergies: No Known Allergies (Unverified , 06/20/16) Medications Current Inpatient Medications Medications (Trade) Dose Ordered Sig/Sudarshan Route Start Time Stop Time Status Last Admin Dose Admin Enoxaparin Sodium (Lovenox Inj) 40 mg Q24H SQ 06/20/16 21:00 07/20/16 20:59 06/21/16 21:03 40 MG Acetaminophen (Tylenol Tab) 650 mg Q4H PRN PO 2/21/17 12:30 07/20/16 12:29 Future Hold 06/21/16 00:15 650 MG Al Hydrox/Mg Hydrox/Simethicone (Maalox Max Susp) 15 ml Q4H PRN PO 06/20/16 12:30 07/20/16 12:29 Magnesium Hydroxide (Milk Of Magnesia Susp) 30 ml Q6H PRN PO 06/20/16 12:30 07/20/16 12:29 Ondansetron HCl (Zofran Inj) 4 mg Q6H PRN IV 06/20/16 12:30 07/20/16 12:29 Multivitamins (Multivitamin Tab) 1 tab DAILY PO 06/21/16 08:00 07/21/16 08:59 06/22/16 09:20 1 TAB Ascorbic Acid (Vitamin C Tab) 3,000 mg BID PO 06/20/16 20:00 07/20/16 20:59 06/22/16 09:20 3,000 MG Morphine Sulfate (MoRPHine SULFATE INJ) 2 mg Q3HWA PRN IV 06/20/16 12:30 07/04/16 12:29 Hydralazine HCl (HydrALAZINE INJ) 5 mg Q6 PRN IV. 06/20/16 12:30 07/20/16 12:29 Metoprolol Tartrate 25 mg 25 mg BID PO 06/20/16 20:00 07/20/16 20:59 06/21/16 21:04 25 MG Acetaminophen/ Empty Bag (Ofirmev IV/ Empty Iv Bag 100ml) 65 ml @ 260 mls/hr Q6H IV 06/21/16 03:00 06/23/16 02:59 06/22/16 09:26 260 MLS/HR Oxycodone HCl (Roxicodone Immediate Rel Tab) 5 mg Q4H PRN PO 06/21/16 03:00 07/05/16 02:59 06/21/16 21:14 5 MG Ioversol (Optiray 320) 125 ml UD PRN IV 06/21/16 10:45 06/25/16 10:44 Enteral Nutritional Formula (Boost) 1 can BID PO 06/21/16 20:00 07/21/16 19:59 Levothyroxine Sodium (Synthroid Tab) 25 mcg DAILYBB PO 06/22/16 06:30 07/22/16 06:29 Physical Exam Date Time Temp Pulse Resp B/P Pulse Ox O2 Delivery O2 Flow Rate FiO2 06/22/16 07:19 36.6 84 20 118/75 93 06/22/16 00:45 Room Air 06/22/16 00:14 36.6 82 20 120/72 97 Room Air 06/21/16 17:00 95 Room Air 06/21/16 16:21 36.8 81 16 144/74 95 Room Air General Appearance: no apparent distress Neck: no JVD Respiratory: normal breath sounds, no respiratory distress, no accessory muscle use, + decreased breath sounds Cardiovascular: regular rate, rhythm, no edema, + normal peripheral pulses Abdomen: normal bowel sounds, non tender, soft Neurologic/Psychiatric: alert, normal mood/affect, oriented x 3 Skin: + pertinent finding (right breast fungating mass, taking up most of breast. See inpatient wound images. Currently has a bandage on) Laboratory Results Last 24 Hours Test 06/22/16 06:10 White Blood Count 8.53 K/uL Red Blood Count 3.61 M/uL Hemoglobin 7.8 g/dL Hematocrit 24.8 % Mean Corpuscular Volume 68.7 fL Mean Corpuscular Hemoglobin 21.6 pg Mean Corpuscular Hemoglobin Concent 31.5 g/dl Platelet Count 392 K/uL Mean Platelet Volume 8.6 fL Neutrophils (%) (Auto) 61.6 % Lymphocytes (%) (Auto) 25.1 % Monocytes (%) (Auto) 8.6 % Eosinophils (%) (Auto) 4.0 % Basophils (%) (Auto) 0.2 % Neutrophils # (Auto) 5.26 K/uL Lymphocytes # (Auto) 2.14 K/uL Monocytes # (Auto) 0.73 K/uL Eosinophils # (Auto) 0.34 K/uL Basophils # (Auto) 0.02 K/uL RDW Standard Deviation 47.2 fL RDW Coefficient of Variation 18.6 % Immature Granulocyte % (Auto) 0.5 % Immature Granulocyte # (Auto) 0.04 K/uL Polychromasia 1+ Hypochromasia PRESENT Anisocytosis PRESENT Target Cells 1+ Sodium Level 137 mmol/L Potassium Level 3.7 mmol/L Chloride Level 104 mmol/L Carbon Dioxide Level 25 mmol/L Anion Gap 8.0 mmol/L Blood Urea Nitrogen 28 mg/dl Creatinine 1.00 mg/dl Est Creatinine Clear Calc Drug Dose 43.9 ml/min Estimated GFR () 66.1 Estimated GFR (Non- 57.0 BUN/Creatinine Ratio 27.6 Random Glucose 86 mg/dl Calcium Level 9.5 mg/dl Magnesium Level 2.2 mg/dl Assessment & Plan Palliative Performance Scale: 50 % Problem list: Pain, back and right shoulder Anxiety Shortness of breath- resolved Weakness Fungating mass of right breast Metastatic breast adenocarcinoma Bony metastases Goals of care (Z51.5) Palliative care plan: -Patient's goal is to be at home and maintain quality of life. She does not yet know how much strength she is going to be able to regain, but she wants to be home with her . -Plan is to receive palliative radiation as recommended and managed by Dr. Sinha with radiation oncology. Patient still being followed by medical oncology- - she is uncertain about hormone therapy. -Continue current pain medications. Patient was resistant to idea of fentanyl patch and declines at this time. -Discharge planning will be ongoing as well as goals of care conversation. Thank you kindly for this consult. I will continue to follow.
[2016-06-22 15:33] VITALS: BP 100/64; PULSE 95; TEMP 37.1; O2SAT 95
--- NOTE | 2016-06-22 17:35 | Progress Note ---
Subjective Date of Service: Jun 22, 2016. 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, grade 2 Status: Acute Review of Systems Constitutional: No chills, No fever Respiratory: No cough, No shortness of breath, No sputum Cardiac: No chest pain, No edema, No palpitations Breast: + problem reported (+wound, right breast) Musculoskeletal: + joint pain (back pain) Medications Current Inpatient Medications Medications (Trade) Dose Ordered Sig/Sudarshan Route Start Time Stop Time Status Last Admin Dose Admin Enoxaparin Sodium (Lovenox Inj) 40 mg Q24H SQ 06/20/16 21:00 07/20/16 20:59 06/21/16 21:03 40 MG Acetaminophen (Tylenol Tab) 650 mg Q4H PRN PO 06/20/16 12:30 07/20/16 12:29 Future Hold 06/21/16 00:15 650 MG Al Hydrox/Mg Hydrox/Simethicone (Maalox Max Susp) 15 ml Q4H PRN PO 06/20/16 12:30 07/20/16 12:29 Magnesium Hydroxide (Milk Of Magnesia Susp) 30 ml Q6H PRN PO 06/20/16 12:30 07/20/16 12:29 Ondansetron HCl (Zofran Inj) 4 mg Q6H PRN IV 06/20/16 12:30 07/20/16 12:29 Multivitamins (Multivitamin Tab) 1 tab DAILY PO 06/21/16 08:00 07/21/16 08:59 06/22/16 09:20 1 TAB Ascorbic Acid (Vitamin C Tab) 3,000 mg BID PO 06/20/16 20:00 07/20/16 20:59 06/22/16 09:20 3,000 MG Morphine Sulfate (MoRPHine SULFATE INJ) 2 mg Q3HWA PRN IV 06/20/16 12:30 07/04/16 12:29 Hydralazine HCl (HydrALAZINE INJ) 5 mg Q6 PRN IV. 06/20/16 12:30 07/20/16 12:29 Metoprolol Tartrate 25 mg 25 mg BID PO 06/20/16 20:00 07/20/16 20:59 06/21/16 21:04 25 MG Acetaminophen/ Empty Bag (Ofirmev IV/ Empty Iv Bag 100ml) 65 ml @ 260 mls/hr Q6H IV 06/21/16 03:00 06/23/16 02:59 06/22/16 15:00 260 MLS/HR Oxycodone HCl (Roxicodone Immediate Rel Tab) 5 mg Q4H PRN PO 06/21/16 03:00 07/05/16 02:59 06/21/16 21:14 5 MG Ioversol (Optiray 320) 125 ml UD PRN IV 06/21/16 10:45 06/25/16 10:44 Enteral Nutritional Formula (Boost) 1 can BID PO 06/21/16 20:00 07/21/16 19:59 Levothyroxine Sodium (Synthroid Tab) 25 mcg DAILYBB PO 06/22/16 06:30 07/22/16 06:29 Objective Vital Signs Date Time Temp Pulse Resp B/P Pulse Ox O2 Delivery O2 Flow Rate FiO2 06/22/16 15:33 37.1 95 18 100/64 95 Room Air 06/22/16 09:15 Room Air 06/22/16 07:19 36.6 84 20 118/75 93 06/22/16 00:45 Room Air 06/22/16 00:14 36.6 82 20 120/72 97 Room Air Physical Exam General Appearance: no apparent distress Respiratory/Chest: chest non-tender, lungs clear, normal breath sounds, no respiratory distress, no accessory muscle use, + pertinent finding (+breast ulceration/wound) Cardiovascular: regular rate, rhythm, no edema, no murmur Abdomen: normal bowel sounds, non tender, soft Laboratory Results Last 24 Hours Test 06/22/16 06:10 White Blood Count 8.53 K/uL Red Blood Count 3.61 M/uL Hemoglobin 7.8 g/dL Hematocrit 24.8 % Mean Corpuscular Volume 68.7 fL Mean Corpuscular Hemoglobin 21.6 pg Mean Corpuscular Hemoglobin Concent 31.5 g/dl Platelet Count 392 K/uL Mean Platelet Volume 8.6 fL Neutrophils (%) (Auto) 61.6 % Lymphocytes (%) (Auto) 25.1 % Monocytes (%) (Auto) 8.6 % Eosinophils (%) (Auto) 4.0 % Basophils (%) (Auto) 0.2 % Neutrophils # (Auto) 5.26 K/uL Lymphocytes # (Auto) 2.14 K/uL Monocytes # (Auto) 0.73 K/uL Eosinophils # (Auto) 0.34 K/uL Basophils # (Auto) 0.02 K/uL RDW Standard Deviation 47.2 fL RDW Coefficient of Variation 18.6 % Immature Granulocyte % (Auto) 0.5 % Immature Granulocyte # (Auto) 0.04 K/uL Polychromasia 1+ Hypochromasia PRESENT Anisocytosis PRESENT Target Cells 1+ Sodium Level 137 mmol/L Potassium Level 3.7 mmol/L Chloride Level 104 mmol/L Carbon Dioxide Level 25 mmol/L Anion Gap 8.0 mmol/L Blood Urea Nitrogen 28 mg/dl Creatinine 1.00 mg/dl Est Creatinine Clear Calc Drug Dose 43.9 ml/min Estimated GFR () 66.1 Estimated GFR (Non- 57.0 BUN/Creatinine Ratio 27.6 Random Glucose 86 mg/dl Calcium Level 9.5 mg/dl Magnesium Level 2.2 mg/dl Assessment and Plan This is a 70 year old female with PMH of AAA rupture and repair, systolic/ diastolic CHF, valvular disease with severe mitral regurgitation, and adenocarcinoma of the right breast presents with some shortness of breath as well as bleeding right breast mass Metastatic Right Breast Adenocarcinoma 06/22 patient is doing okay today; pain is controlled she is using IV tylenol and oxycodone at night plan is to have palliative care talk to the patient palliative radiation as per rad/onc medical oncology to discuss medication options will recheck Hgb in AM, if remains < 8, may need to transfuse 06/21 patient has had this diagnosed in the past but did not want any treatment at that time She has been managing the breast mass ulceration/bleeding wound herself at home Noted that the bleeding worsened yesterday presented here: had imaging done including CT abdominal/pelvis, bone scan, Brain MRI Bone Scan and CT abdomen/pelvis confirm widespread lytic bony metastatic lesions Brain MRI - no acute process appreciate medical oncology and radiation oncology input Plan in terms of radiation is for palliative radiation which will be started on 06/22 Possible medications for palliation purposes as per medical oncology placed a palliative care consultation as well Wound care nurse consulted for the bleeding mass on the right breast IV morphine, IV Tylenol and PO Percocet PRN for pain Shortness of Breath in the setting of Mixed Systolic-Diastolic CHF Valvular Heart Disease/Severe Mitral Regurgitation currently breathing status is at baseline repeat echo is pending - may be difficult with the fungating mass on the right breast monitor for fluid overload Anemia anemia of inflammation secondary to metastatic cancer will check anemia studies, iron, etc. Hgb is around 8, will monitor Hypothyroidism TSH elevated at ~9 low Free T4 started low dose Synthroid HTN blood pressure improved since admission will monitor and adjust medications accordingly DVT ppx Lovenox FULL CODE
--- NOTE | 2016-06-22 17:35 | ECHOCARDIOGRAM REPORT ---
*NOTICE TO RECEIVING [employer] This information is strictly Confidential and protected under [place] law. [place] law prohibits you from making any further disclosure of this information unless further disclosure is expressly permitted by the written consent of the person to whom it pertains or is authorized by law. A general authorization for the release of medical or other information is not sufficient for this purpose. Hospital accepts no responsibility if the information is made available to any other person, INCLUDING THE PATIENT. Interpretation Summary * Name: TING SOLIS Study Date: 06/21/2016 11:04 AM BP: 160/83 mmHg * Patient Location: .4E\S\E418\S\1 HR: 78 * : 1945 (M/d/yyy) Gender: Female Height: 61 in * Age: 70 yrs Ethnicity: [place] Weight: 140 lb * Ordering Physician: Raj Corrigan * Referring Physician: Self, Referred * Performed By: Gail Heck RCS * * Reason For Study: Hx of CHF, SOB, Breast CA Mets * BSA: 1.6 m2 * -- Conclusions -- * There is a large sized apical, inferior and inferalateral wall motion abnormalities with akinesis of the segments. * Left ventricular systolic function is moderately reduced. * The qualitative LV ejection fraction is 35-39% (moderately reduced). * Aortic valve sclerosis mild, without significant aortic valvular stenosis. * There is severe mitral regurgitation. * Doppler findings do not suggest pulmonary hypertension. * Grade I diastolic dysfunction, (abnormal relaxation pattern). * Compared to the report of the study dated, 08/25/2013, the LVEF and mitral regurgiation is unchanged. Procedure Details * A complete two-dimensional transthoracic echocardiogram was performed (2D, M-mode, Doppler and color flow Doppler). * There were technical limitations due to patient'spoor positioning * Patient supine for imagining Left Ventricle * The left ventricle is normal in size. * There is normal left ventricular wall thickness. * The qualitative LV ejection fraction is 35-39% (moderately reduced). * Left ventricular systolic function is moderately reduced. * There is a large sized apical, inferior and inferalateral wall motion abnormalities with akinesis of the segments. Right Ventricle * The right ventricle is normal size. * The right ventricular systolic function is normal as assessed by tricuspid annular plane systolic excursion (TAPSE) (normal >1.5 cm). Atria * The left atrial size is normal. * Right atrial size is normal. * There is no evidence of atrial septal defect, but resolution does not allow assessment for a patent foramen ovale. Mitral Valve * The mitral valve is normal. * There is no mitral valve stenosis. * There is severe mitral regurgitation. Tricuspid Valve * The tricuspid valve is normal. * There is no tricuspid stenosis. * Significant tricuspid regurgitation is absent. * Doppler findings do not suggest pulmonary hypertension. Aortic Valve * The aortic valve is trileaflet. * Aortic valve sclerosis mild, without significant aortic valvular stenosis. * Aortic stenosis is absent. * There is no significant aortic regurgitation. Pulmonic Valve * The pulmonary valve is not well seen, but the Doppler examination is normal without significant regurgitation or stenosis. Great Vessels * The aortic root and proximal ascending aorta are normal sized. Pericardium/Pleural * There is no pericardial effusion. Great Vessels * Normal inferior vena cava diameter and respiratory variation suggests normal central venous pressure. * Normal inferior vena cava size and collapsability with sniff indicates a normal right atrial pressure of 3 mmHg Left Ventricular Diastolic Function * Grade I diastolic dysfunction, (abnormal relaxation pattern). MMode 2D Measurements and Calculations IVSd 1.0 cm IVSs 1.2 cm LVIDd 4.4 cm LVIDs 3.0 cm LVPWd 1.0 cm LVPWs 1.2 cm IVS/LVPW 0.97 FS 32.4 % EDV(Teich) 88.5 ml ESV(Teich) 34.6 ml EF(Teich) 60.8 % EDV(cubed) 86.2 ml ESV(cubed) 26.7 ml EF(cubed) 69.1 % % IVS thick 15.6 % % LVPW thick 16.1 % LV mass(C)d 153.6 grams LV mass(C)dI 94.6 grams/m\S\2 LV mass(C)s 106.5 grams LV mass(C)sI 65.6 grams/m\S\2 CO(Teich) 4.1 l/min CI(Teich) 2.5 l/min/m\S\2 SV(Teich) 53.8 ml SI(Teich) 33.2 ml/m\S\2 CO(cubed) 4.5 l/min CI(cubed) 2.8 l/min/m\S\2 SV(cubed) 59.5 ml SI(cubed) 36.6 ml/m\S\2 Ao root diam 3.3 cm Ao root area 8.3 cm\S\2 ACS 1.4 cm LA dimension 2.5 cm LA/Ao 0.76 LVAd ap4 37.5 cm\S\2 LVLd ap4 8.9 cm EDV(MOD-sp4) 132.0 ml LVAs ap4 24.8 cm\S\2 LVLs ap4 7.9 cm ESV(MOD-sp4) 67.0 ml EF(MOD-sp4) 49.2 % LVAd ap2 35.9 cm\S\2 LVLd ap2 9.2 cm EDV(MOD-sp2) 114.0 ml LVAs ap2 24.8 cm\S\2 LVLs ap2 7.8 cm ESV(MOD-sp2) 66.0 ml EF(MOD-sp2) 42.1 % CO(MOD-sp4) 4.9 l/min CI(MOD-sp4) 3.0 l/min/m\S\2 SV(MOD-sp4) 65.0 ml SI(MOD-sp4) 40.0 ml/m\S\2 CO(MOD-sp2) 3.6 l/min CI(MOD-sp2) 2.2 l/min/m\S\2 SV(MOD-sp2) 48.0 ml SI(MOD-sp2) 29.6 ml/m\S\2 Doppler Measurements and Calculations MV E max aliza 127.8 cm/sec MV A max aliza 124.5 cm/sec MV E/A 1.0 MV P1/2t max aliza 120.0 cm/sec MV P1/2t 50.6 msec MVA(P1/2t) 4.3 cm\S\2 MV dec slope 693.9 cm/sec\S\2 MV dec time 0.19 sec Ao V2 max 173.6 cm/sec Ao max PG 12.0 mmHg Ao max PG (full) 8.4 mmHg LV V1 max PG 3.6 mmHg LV V1 max 95.4 cm/sec PA V2 max 116.4 cm/sec PA max PG 5.4 mmHg TR max aliza 188.4 cm/sec
[2016-06-22] MEDS: OXYCODONE HCL IR 5 MG TAB (IMMEDIATE RELEASE) PO PRN (20:57)
[2016-06-22] MEDS: ENOXAPARIN 40 MG/0.4 ML SYR SQ SCH (21:00)
[2016-06-22 21:04] VITALS: BP 134/83; PULSE 97
[2016-06-22 23:37] VITALS: BP 122/77; PULSE 87; TEMP 36.5; O2SAT 94
[2016-06-23] MEDS: OXYCODONE HCL IR 5 MG TAB (IMMEDIATE RELEASE) PO PRN ×4 (02:26→20:37)
[2016-06-23] MEDS: LEVOTHYROXINE 25 MCG TAB PO SCH (06:20)
[2016-06-23 06:24] LABS: BASO % 0.2 %; BASO ABS # 0.03 K/uL (0-0.2); EOS % 2.9 %; HEMATOCRIT 24.5 % (37-47); IG% 0.4 %; LYMPH % 14.4 %; LYMPH ABS # 1.79 K/uL (1.2-3.4); MEAN CELL VOLUME 68.4 fL (80-100); MEAN CORPUSCULAR HEMOGLOBIN 21.5 pg (25-34); MEAN CORPUSCULAR HGB CONC 31.4 g/dl (32-36); MEAN PLATELET VOLUME 9.1 fL (7.4-10.4); MONO % 5.1 %; PLATELET COUNT 385 K/uL (130-400); RED BLOOD COUNT 3.58 M/uL (4.2-5.4)
[2016-06-23 07:00] LABS: BUN/CREATININE RATIO 33.1 (10-20); CREATININE 0.84 mg/dl (0.60-1.20); MAGNESIUM 2.2 mg/dl (1.8-2.4); POTASSIUM 3.9 mmol/L (3.5-5.1)
[2016-06-23 07:12] LABS: CALCIUM 9.7 mg/dl (8.5-10.1)
[2016-06-23 07:23] LABS: COMPLETE YES; MICROCYTOSIS PRESENT; POLYCHROMASIA 1+; TARGET CELLS 1+
[2016-06-23 07:41] VITALS: BP 112/65; PULSE 89; TEMP 36.8; O2SAT 91
[2016-06-23] MEDS: ASCORBIC ACID 500 MG TAB PO SCH ×2 (08:58→20:42)
[2016-06-23] MEDS: MULTIVITAMIN TAB PO SCH (08:58)
[2016-06-23] MEDS: BOOST VANILLA PO SCH ×4 (08:59→20:42)
[2016-06-23] MEDS: METOPROLOL TARTRATE 25 MG TAB PO SCH ×2 (08:59→20:42)
[2016-06-23 16:36] VITALS: BP 99/64; PULSE 85; TEMP 37; O2SAT 91
--- NOTE | 2016-06-23 18:40 | Progress Note ---
Subjective Date of Service: Jun 23, 2016. 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, grade 2 Status: Acute Review of Systems Constitutional: + weakness, No chills, No fever Respiratory: No cough, No shortness of breath, No sputum Cardiac: No chest pain, No edema, No palpitations Breast: + problem reported (+wound at right breast) Abdomen: No diarrhea, No nausea, No pain, No vomiting Musculoskeletal: + joint pain (back pain) Medications Current Inpatient Medications Medications (Trade) Dose Ordered Sig/Sudarshan Route Start Time Stop Time Status Last Admin Dose Admin Enoxaparin Sodium (Lovenox Inj) 40 mg Q24H SQ 06/20/16 21:00 07/20/16 20:59 06/21/16 21:03 40 MG Acetaminophen (Tylenol Tab) 650 mg Q4H PRN PO 06/20/16 12:30 07/20/16 12:29 Future Hold 06/21/16 00:15 650 MG Al Hydrox/Mg Hydrox/Simethicone (Maalox Max Susp) 15 ml Q4H PRN PO 06/20/16 12:30 07/20/16 12:29 Magnesium Hydroxide (Milk Of Magnesia Susp) 30 ml Q6H PRN PO 06/20/16 12:30 07/20/16 12:29 Ondansetron HCl (Zofran Inj) 4 mg Q6H PRN IV 06/20/16 12:30 07/20/16 12:29 Multivitamins (Multivitamin Tab) 1 tab DAILY PO 06/21/16 08:00 07/21/16 08:59 06/23/16 08:58 1 TAB Ascorbic Acid (Vitamin C Tab) 3,000 mg BID PO 06/20/16 20:00 07/20/16 20:59 06/23/16 08:58 3,000 MG Morphine Sulfate (MoRPHine SULFATE INJ) 2 mg Q3HWA PRN IV 06/20/16 12:30 07/04/16 12:29 Hydralazine HCl (HydrALAZINE INJ) 5 mg Q6 PRN IV. 06/20/16 12:30 07/20/16 12:29 Metoprolol Tartrate (Lopressor Tab) 25 mg BID PO 06/20/16 20:00 07/20/16 20:59 06/23/16 08:59 25 MG Oxycodone HCl (Roxicodone Immediate Rel Tab) 5 mg Q4H PRN PO 06/21/16 03:00 07/05/16 02:59 06/23/16 14:43 5 MG Ioversol (Optiray 320) 125 ml UD PRN IV 06/21/16 10:45 06/25/16 10:44 Enteral Nutritional Formula (Boost) 1 can BID PO 06/21/16 20:00 07/21/16 19:59 Levothyroxine Sodium (Synthroid Tab) 25 mcg DAILYBB PO 06/22/16 06:30 07/22/16 06:29 Objective Vital Signs Date Time Temp Pulse Resp B/P Pulse Ox O2 Delivery O2 Flow Rate FiO2 06/23/16 16:36 37.0 85 24 99/64 91 Room Air 06/23/16 09:00 Room Air 06/23/16 07:41 36.8 89 22 112/65 91 Room Air 06/23/16 00:00 Room Air 06/22/16 23:37 36.5 87 20 122/77 94 Room Air 06/22/16 21:04 97 134/83 06/22/16 21:00 Room Air Physical Exam General Appearance: no apparent distress Respiratory/Chest: chest non-tender, lungs clear, normal breath sounds, no respiratory distress, no accessory muscle use, + pertinent finding (+fungating mass at the right breast, dressing changed today) Cardiovascular: regular rate, rhythm, no edema, no murmur Abdomen: normal bowel sounds, non tender, soft Extremities: normal inspection, no pedal edema, + pertinent finding (decreased and painful ROM of the back) Laboratory Results Last 24 Hours Test 06/23/16 05:55 White Blood Count 12.40 K/uL Red Blood Count 3.58 M/uL Hemoglobin 7.7 g/dL Hematocrit 24.5 % Mean Corpuscular Volume 68.4 fL Mean Corpuscular Hemoglobin 21.5 pg Mean Corpuscular Hemoglobin Concent 31.4 g/dl Platelet Count 385 K/uL Mean Platelet Volume 9.1 fL Neutrophils (%) (Auto) 77.0 % Lymphocytes (%) (Auto) 14.4 % Monocytes (%) (Auto) 5.1 % Eosinophils (%) (Auto) 2.9 % Basophils (%) (Auto) 0.2 % Neutrophils # (Auto) 9.54 K/uL Lymphocytes # (Auto) 1.79 K/uL Monocytes # (Auto) 0.63 K/uL Eosinophils # (Auto) 0.36 K/uL Basophils # (Auto) 0.03 K/uL RDW Standard Deviation 47.0 fL RDW Coefficient of Variation 18.6 % Immature Granulocyte % (Auto) 0.4 % Immature Granulocyte # (Auto) 0.05 K/uL Polychromasia 1+ Microcytosis PRESENT Target Cells 1+ Sodium Level 144 mmol/L Potassium Level 3.9 mmol/L Chloride Level 109 mmol/L Carbon Dioxide Level 25 mmol/L Anion Gap 10.0 mmol/L Blood Urea Nitrogen 28 mg/dl Creatinine 0.84 mg/dl Est Creatinine Clear Calc Drug Dose 51.7 ml/min Estimated GFR () 81.6 Estimated GFR (Non- 70.4 BUN/Creatinine Ratio 33.1 Random Glucose 88 mg/dl Calcium Level 9.7 mg/dl Magnesium Level 2.2 mg/dl Assessment and Plan This is a 70 year old female with PMH of AAA rupture and repair, systolic/ diastolic CHF, valvular disease with severe mitral regurgitation, and adenocarcinoma of the right breast presents with some shortness of breath as well as bleeding right breast mass Metastatic Right Breast Adenocarcinoma 06/23 clinically stable radiation treatments to the back, hip, and right arm today continue tylenol and oxycodone for pain wound care for her right breast mass/wound ordered PT and OT evaluations - uses walker at baseline will most likely need rehab on discharge with outpatient Hem/Onc and Rad/Onc follow-ups 06/22 patient is doing okay today; pain is controlled she is using IV tylenol and oxycodone at night plan is to have palliative care talk to the patient palliative radiation as per rad/onc medical oncology to discuss medication options will recheck Hgb in AM, if remains < 8, may need to transfuse 06/21 patient has had this diagnosed in the past but did not want any treatment at that time She has been managing the breast mass ulceration/bleeding wound herself at home Noted that the bleeding worsened yesterday presented here: had imaging done including CT abdominal/pelvis, bone scan, Brain MRI Bone Scan and CT abdomen/pelvis confirm widespread lytic bony metastatic lesions Brain MRI - no acute process appreciate medical oncology and radiation oncology input Plan in terms of radiation is for palliative radiation which will be started on 06/22 Possible medications for palliation purposes as per medical oncology placed a palliative care consultation as well Wound care nurse consulted for the bleeding mass on the right breast IV morphine, IV Tylenol and PO Percocet PRN for pain Shortness of Breath in the setting of Mixed Systolic-Diastolic CHF Valvular Heart Disease/Severe Mitral Regurgitation currently breathing status is at baseline repeat echo is pending - may be difficult with the fungating mass on the right breast monitor for fluid overload Anemia anemia of inflammation secondary to metastatic cancer will check anemia studies, iron, etc. Hgb is around 8, will monitor Hypothyroidism TSH elevated at ~9 low Free T4 started low dose Synthroid HTN blood pressure improved since admission will monitor and adjust medications accordingly DVT ppx Lovenox FULL CODE
[2016-06-23 19:31] VITALS: BP 96/73; PULSE 90; TEMP 37; O2SAT 92
[2016-06-23] MEDS: ENOXAPARIN 40 MG/0.4 ML SYR SQ SCH (20:43)
[2016-06-24] VITALS (20 sets, daily range): BP systolic 100–139; BP diastolic 58–85; PULSE 70–102; TEMP 36.5–37.2; O2SAT 91–97
[2016-06-24 07:07] LABS: HEMATOCRIT 21.8 % (37-47); MEAN CORPUSCULAR HEMOGLOBIN 21.5 pg (25-34); MEAN CORPUSCULAR HGB CONC 31.2 g/dl (32-36); MEAN PLATELET VOLUME 8.6 fL (7.4-10.4); PLATELET COUNT 409 K/uL (130-400); RED BLOOD COUNT 3.16 M/uL (4.2-5.4); WHITE BLOOD COUNT 7.94 K/uL (4.8-10.8)
[2016-06-24 07:19] LABS: BUN/CREATININE RATIO 35.2 (10-20); CALCIUM 9.6 mg/dl (8.5-10.1); CREATININE 0.94 mg/dl (0.60-1.20); MAGNESIUM 2.1 mg/dl (1.8-2.4); POTASSIUM 4.4 mmol/L (3.5-5.1)
[2016-06-24] MEDS: OXYCODONE HCL IR 5 MG TAB (IMMEDIATE RELEASE) PO PRN ×2 (08:13→11:15)
[2016-06-24] MEDS: MULTIVITAMIN TAB PO SCH (08:23)
[2016-06-24] MEDS: ASCORBIC ACID 500 MG TAB PO SCH ×2 (08:25→20:00)
[2016-06-24] MEDS: BOOST VANILLA PO SCH ×4 (09:48→20:00)
[2016-06-24] MEDS: METOPROLOL TARTRATE 25 MG TAB PO SCH (09:48)
[2016-06-24] MEDS: LEVOTHYROXINE 25 MCG TAB PO SCH (09:48)
[2016-06-24] MEDS ORDERED: FUROSEMIDE INJ 20 MG in SYRINGE 0 ML IV SCH (10:00)
[2016-06-24] MEDS ORDERED: LORAZEPAM 0.5 MG TAB PO PRN (11:00)
[2016-06-24] MEDS ORDERED: LORAZEPAM 2 MG/ML 1 ML VIAL IV PRN (11:00)
[2016-06-24] MEDS ORDERED: BISACODYL 10 MG SUPP PR PRN (11:00)
[2016-06-24] MEDS ORDERED: LORAZEPAM INJ 0.5 MG in SYRINGE 0.75 ML IV PRN (11:15)
[2016-06-24] MEDS: FENTANYL 12 MCG/HR TDSY TD SCH (11:22)
[2016-06-24] MEDS: POLYETHYLENE (MIRALAX) 17 GM PACK PO SCH ×2 (12:00→17:00)
--- NOTE | 2016-06-24 15:58 | Progress Note ---
Internal Med Progress Note Date of Service: Jun 24, 2016. Provider Documentation: SUBJECTIVE: complains of pain in back and hip area no fever or chills unable to move or lift left arm , having worsening of swelling no fever or chills generalized weakness /fatigue no bleeding episode form the Fungating rt breath mass OBJECTIVE: Vital Signs-as noted below Exam: General-chronically ill appearing Eyes-sclera non icteric ENT-very poor dentition Neck-no thyromegaly Lungs-breath sound diminished Heart-regular S1/S2 Abdomen-soft, non tender Extremities-rt arm -significant lymphadenopathy , pitting edema , fungating mass on rt breath , bandage present Neuro-no focal neurological deficit Lab data as noted below. ASSESSMENT & PLAN: STAGE 4 METASTATIC DUCTAL ADENOCA OF BREAST : advanced stage with widespread bone mets , fungating/ulcerative rt breast mass with rt axillary lymph node involvement Dx in July [address] [facility] as ductal Adeno Carcinoma of rt breast tumor was estrogen positive , progesterone negative, Her [address] scan in 2013 shoed beast mas at 4 cm with borderline rt axially lymph node involvement pt refused to have follow up and seek treatment for her breast malignancy presented with worsening of SOB , diffuse bone pain bleeding ulcerative mass of rt breast -destroying rt lower breast and rt Nipple Malignancy work up so far : CTA of chest: no evidence of PE progressively right breath multifocal masses with pathologic rt axillary lymphadenopathy Interval diffuse bony metastatic disease CT abdomen /pelvis : wide spread lytic bony metastatic disease 7.5 cm rt breast /chest wall mass consistent with neoplasm , There is a 1 cm soft tissue satellite nodule NC BONE SCAN : extensive foci of abnormal increased uptake involving cervical , thoracic and lumber spines, There is abnormal increased uptake within the pelvis left proximal humerus, multiple ribs as well both proximal femurs-findings consistent with widespread skeletal metastasis . Heme onc and Radiation oncology consulted started on Palliative radiation tx -on Rt humerus and mid thoracic area extremely poor prognosis limited option for systemic chemo due to poor functional status /underlying CHF palliative care consulted pt still having hard time coping with her diagnosis , every step of the management and discussion regarding treatment option causing anxiety attack wound culture on rt breast mass : staph aureus IV Vancomycin ordered RT ARM SWELLING : due to above -has rt axially LN mets avoid lab draws , BP measure on rt arm ANEMIA: due to wide spread metastatic process and acute on chronic blood loss has locally advanced disease of rt breast and Axilla with ongoing bleeding for indeterminate time pt mentions her dress was saturated with blood , shoes were soaked due to bleeding she continued to apply bandages , did not seek any medical help Hb 6.8 today , with microcytic anemia MCV 68 suggestive of acute on chronic blood loss ordered to transfuse 2 units of PRBC today pt was initially reluctant for transfusion -later agreed very poor prognosis DIFFUSE BONY METASTATIC DISEASE due to metastatic breast ca getting Palliative Radiation tx appreciate input form Radiation oncology cont pain control ordered for Fentanyl Patch on PRN oxy IR , IV Morphine bowel regimen ordered to prevent narcotic induced constipation Pain management consulted HX OF NSTEMI : required emergent infrarenal ruptured aortic aneurysm repair in July 2013 - surgery complicated by intra operative NSTEMI ECHO : in 2013 ischemic cardiomyopathy EF 30 % repeat ECHO 06/22/16 There is a large sized apical, inferior and inferalateral wall motion abnormalities with akinesis of the segments. Left ventricular systolic function is moderately reduced. The qualitative LV ejection fraction is 35-39% (moderately reduced). Aortic valve sclerosis mild, without significant aortic valvular stenosis. There is severe mitral regurgitation. Doppler findings do not suggest pulmonary hypertension. Grade I diastolic dysfunction, (abnormal relaxation pattern). mild elevation of troponin could be secondary to cardiac strain due to severe anemia /ischemia cardiomyopathy very poor medication compliance not a candidate for Aspirin -fungating bleed mass /profound anemia pt refused to take Metoprolol -feels she does not need it any more poor prognosis COMBINED SYSTOLIC AND DIASTOLIC HEART FAILURE ISCHEMIC CARDIOMYOPATHY : due to above pt has not be taking Lasix /ACEI in past no evidence of vol overload at present monitor vol status while receiving PRBC transfusion 20 mg IV Lasix in between units to prevent vol over load ( CHF with EF 30 % ) HYPOTHYROIDISM : TSH elevated > 9 pt does not want to take Levothyroxine given the extent of her disease process /palliative care is appropriate HTN BP now on lower side Metoprolol D/yovani as pt refused to take any additional meds other than her Malignancy treatment FULL CODE DVT PROPHYLAXIS High risk for DVT due to metastatic breath ca sub Q Lovenox DISPOSITION to be determined very poor prognosis with wide spread metastatic breast CA terminal stage no curable treatment possible except for palliative care -Rad tx /chemo for pain control Palliative care consulted -appreciate input given pt's disease process Hospice would be appropriate However pt is still in denial to the extent of her disease process feels that she will be able to survive the malignancy now in its advance stage , while refused to seek medical help in last 3 years gets extremely anxious while discussing prognosis social service consulted for discharge planning Functional status remains extremely poor to return home independently options are either return home with Hospice -if adequate family support available or Nursing facility with Hospice care -which pt may not be agreeable Vital Signs: Date Time Temp Pulse Resp B/P Pulse Ox O2 Delivery O2 Flow Rate FiO2 06/24/16 15:31 86 122/76 06/24/16 14:22 36.6 89 18 108/67 06/24/16 13:00 36.9 91 18 109/70 93 06/24/16 12:30 37.1 97 18 100/65 93 06/24/16 12:01 37.2 95 20 105/67 06/24/16 11:45 37.2 96 18 107/68 06/24/16 11:20 37.2 96 18 118/72 06/24/16 08:35 36.9 95 16 103/69 93 Room Air 06/24/16 08:00 Room Air 06/24/16 04:17 36.9 78 16 113/58 93 Room Air 06/24/16 00:25 37.0 94 16 107/69 97 Room Air 06/24/16 00:00 92 Room Air 06/23/16 19:31 37.0 90 16 96/73 92 Room Air Lab Results: Results Past 24 Hours Test 06/24/16 06:41 Range/Units White Blood Count 7.94 4.8-10.8 K/uL Red Blood Count 3.16 4.2-5.4 M/uL Hemoglobin 6.8 12.0-16.0 g/dL Hematocrit 21.8 37-47 % Mean Corpuscular Volume 69.0 80-100 fL Mean Corpuscular Hemoglobin 21.5 25-34 pg Mean Corpuscular Hemoglobin Concent 31.2 32-36 g/dl RDW Standard Deviation 48.0 36.4-46.3 fL RDW Coefficient of Variation 18.9 11.5-14.5 % Platelet Count 409 130-400 K/uL Mean Platelet Volume 8.6 7.4-10.4 fL Sodium Level 138 136-145 mmol/L Potassium Level 4.4 3.5-5.1 mmol/L Chloride Level 103 98-107 mmol/L Carbon Dioxide Level 26 21-32 mmol/L Anion Gap 9.0 3-11 mmol/L Blood Urea Nitrogen 33 7-18 mg/dl Creatinine 0.94 0.60-1.20 mg/dl Est Creatinine Clear Calc Drug Dose 46.7 ml/min Estimated GFR () 71.2 Estimated GFR (Non- 61.5 BUN/Creatinine Ratio 35.2 10-20 Random Glucose 85 70-99 mg/dl Calcium Level 9.6 8.5-10.1 mg/dl Magnesium Level 2.1 1.8-2.4 mg/dl
[2016-06-24] MEDS: CHECK FENTANYL PATCH PLACEMENT SCH (16:00)
--- NOTE | 2016-06-24 16:12 | Pharmacy Progress Note ---
Pharmacy Antibiotic Consult Date of Service: Jun 24, 2016. Pharmacy Dosing Scope Pharmacy is consulted to initiate vancomycin IV dosing therapy, order appropriate labs and adjust drug dose/frequency. Subjective The patient is a 70 year old female admitted on Jun 20, 2016 at 12:24 with difficulty breathing, pain, and weakness from right breast mass. She was diagnosed with breast cancer three years ago but has not sought treatment. The tumor has continued to grow until now. She is now receiving palliative radiation to the location. Objective Height (Feet): 5 Height (Inches): 1.00 Weight (Kilograms): 61.000 Lab Results (24hrs): Laboratory Tests Test 06/24/16 06:41 BUN/Creatinine Ratio 35.2 Blood Urea Nitrogen 33 mg/dl Creatinine 0.94 mg/dl White Blood Count 7.94 K/uL Micro Results: RUN DATE: 06/22/16 [facility] PAGE 1 RUN TIME: 1011 Specimen Inquiry PATIENT: TING SOLIS LOC: [facility] U # : [id number] AGE/SX: 70/F ROOM: E418 REG : 06/20/[address]: Linda Mckeon, DO : 1945 BED: 1 DIS : STATUS: ADM IN TLOC: SPEC #: [id number] MAITE: 06/20/16 STATUS: COMP REQ #: [id number] RECD: 06/20/[address]: Raj Corrigan MD SOURCE: SKIN ENTR: 06/20/[address]: Linda Mckeon DO SPDESC: BREAST, R Arianne Lozada CRNP No Doctor, Casey Robledo M.D. ORDERED: SURF OLIMPIA ALMANZAR/KANIKA COMMENTS: Has Specimen Been Obtained/Collected? Y Procedure Result Verified Site GRAM STAIN Final 06/21/16 RESULT RARE EPITHELIAL CELLS NO ORGANISMS SEEN SURFACE WOUND CULTURE Final 06/22/16-1011 Organism 1 COAG NEG STAPHYLOCOCCUS QUANITY MODERATE SENS NO SENSITIVITY TO FOLLOW Organism 2 COAG NEG STAPHYLOCOCCUS#2 QUANITY MODERATE SENS NO SENSITIVITY TO FOLLOW Assessment & Plan Loading dose: vancomycin 1500 mg IV X 1 dose then: vancomycin 900 mg IV every 18 hours (population pharmacokinetics suggest a half-life of 16 hours with an elimination constant of 0.043 hr-1). Goal peak level estimate: between 35 - 40 mcg/mL. Goal trough level estimate: between 10 - 15 mcg/mL (diagnosis is cellulitis and may be higher due to risk for MRSA). Trough has been ordered for: prior to the fourth dose Pharmacy will continue to follow and will adjust dose/frequency as necessary. Thank you
[2016-06-24] MEDS ORDERED: VANCOMYCIN INJ 1,500 MG in SODIUM CHLORIDE 0.9% 500ML 500 ML IV ONE (16:15)
[2016-06-24] MEDS ORDERED: VANCOMYCIN CONSULT ACTIVE PRN (16:15)
[2016-06-24] MEDS: DOCUSATE SODIUM 100 MG CAP PO SCH (20:00)
[2016-06-24] MEDS: ENOXAPARIN 40 MG/0.4 ML SYR SQ SCH (20:16)
[2016-06-24] MEDS: SENNA 8.6 MG TAB PO SCH (20:16)
[2016-06-25] MEDS: CHECK FENTANYL PATCH PLACEMENT SCH ×3 (00:01→15:49)
[2016-06-25 03:41] VITALS: BP 116/73; PULSE 97; TEMP 36.7; O2SAT 92
[2016-06-25 06:52] LABS: MEAN CELL VOLUME 73.7 fL (80-100); MEAN CORPUSCULAR HEMOGLOBIN 24.3 pg (25-34); MEAN PLATELET VOLUME 9.1 fL (7.4-10.4); PLATELET COUNT 343 K/uL (130-400); RED BLOOD COUNT 4.07 M/uL (4.2-5.4)
[2016-06-25 07:20] LABS: CREATININE 0.72 mg/dl (0.60-1.20)
[2016-06-25] MEDS: BOOST VANILLA PO SCH ×4 (08:00→20:00)
[2016-06-25 08:01] VITALS: BP 121/77; PULSE 98; TEMP 36.9; O2SAT 94
[2016-06-25] MEDS: DOCUSATE SODIUM 100 MG CAP PO SCH ×2 (08:26→20:00)
[2016-06-25] MEDS: MULTIVITAMIN TAB PO SCH (08:28)
[2016-06-25] MEDS: ASCORBIC ACID 500 MG TAB PO SCH ×2 (08:28→20:00)
[2016-06-25] MEDS: POLYETHYLENE (MIRALAX) 17 GM PACK PO SCH (08:31)
[2016-06-25 11:41] VITALS: BP 100/66; PULSE 88; TEMP 36.9; O2SAT 92
[2016-06-25] MEDS: OXYCODONE HCL IR 5 MG TAB (IMMEDIATE RELEASE) PO PRN ×2 (14:31→21:50)
[2016-06-25] MEDS: VANCOMYCIN INJ 900 MG in SODIUM CHLORIDE 0.9% 250ML 250 ML IV SCH (14:31)
[2016-06-25 16:00] VITALS: O2SAT 92
[2016-06-25 19:18] VITALS: BP 111/71; PULSE 92; TEMP 36.8; O2SAT 91
[2016-06-25] MEDS: SENNA 8.6 MG TAB PO SCH (20:34)
[2016-06-25] MEDS: ENOXAPARIN 40 MG/0.4 ML SYR SQ SCH (20:34)
--- NOTE | 2016-06-25 21:30 | Progress Note ---
Internal Med Progress Note Date of Service: Jun 25, 2016. Provider Documentation: SUBJECTIVE: experiencing more back pain today no bleeding form the rt breast fungating mass OBJECTIVE: Vital Signs-as noted below Exam: General-chronically ill appearing Eyes-sclera non icteric ENT-very poor dentition Neck-no thyromegaly Lungs-breath sound diminished Heart-regular S1/S2 Abdomen-soft, non tender Extremities-rt arm -significant lymphadenopathy , pitting edema , fungating mass on rt breath , bandage present Neuro-no focal neurological deficit Lab data as noted below. ASSESSMENT & PLAN: STAGE 4 METASTATIC DUCTAL ADENOCA OF BREAST : advanced stage with widespread bone mets , fungating/ulcerative rt breast mass with rt axillary lymph node involvement Dx in July 2013 in [facility] as ductal Adeno Carcinoma of rt breast tumor was estrogen positive , progesterone negative, Her [address] scan in 2013 shoed beast mas at 4 cm with borderline rt axially lymph node involvement pt refused to have follow up and seek treatment for her breast malignancy presented with worsening of SOB , diffuse bone pain bleeding ulcerative mass of rt breast -destroying rt lower breast and rt Nipple Malignancy work up so far : CTA of chest: no evidence of PE progressively right breath multifocal masses with pathologic rt axillary lymphadenopathy Interval diffuse bony metastatic disease CT abdomen /pelvis : wide spread lytic bony metastatic disease 7.5 cm rt breast /chest wall mass consistent with neoplasm , There is a 1 cm soft tissue satellite nodule NC BONE SCAN : extensive foci of abnormal increased uptake involving cervical , thoracic and lumber spines, There is abnormal increased uptake within the pelvis left proximal humerus, multiple ribs as well both proximal femurs-findings consistent with widespread skeletal metastasis . Heme onc and Radiation oncology consulted started on Palliative radiation tx -on Rt humerus and mid thoracic area extremely poor prognosis limited option for systemic chemo due to poor functional status /underlying CHF palliative care consulted -appreciate input pt still having hard time coping with her diagnosis , every step of the management and discussion regarding treatment option causing anxiety attack wound culture on rt breast mass : staph aureus IV Vancomycin ordered RT ARM SWELLING : due to above -has rt axially LN mets avoid lab draws , BP measure on rt arm ANEMIA: microcytic anemia MCV 68 suggestive of acute on chronic blood loss due to wide spread metastatic process and acute on chronic blood loss has locally advanced disease of rt breast and Axilla with ongoing bleeding for indeterminate time pt mentions her dress was saturated with blood , shoes were soaked due to bleeding she continued to apply bandages , did not seek any medical help Hb improved 6.8 _> 9 remains stable post 2 units PRBC transfusion very poor prognosis DIFFUSE BONY METASTATIC DISEASE due to metastatic breast ca getting Palliative Radiation tx appreciate input form Radiation oncology cont pain control ordered for Fentanyl Patch on PRN oxy IR , IV Morphine bowel regimen ordered to prevent narcotic induced constipation Pain management consulted HX OF NSTEMI : required emergent infrarenal ruptured aortic aneurysm repair in July 2013 - surgery complicated by intra operative NSTEMI ECHO : in 2013 ischemic cardiomyopathy EF 30 % repeat ECHO 06/22/16 There is a large sized apical, inferior and inferalateral wall motion abnormalities with akinesis of the segments. Left ventricular systolic function is moderately reduced. The qualitative LV ejection fraction is 35-39% (moderately reduced). Aortic valve sclerosis mild, without significant aortic valvular stenosis. There is severe mitral regurgitation. Doppler findings do not suggest pulmonary hypertension. Grade I diastolic dysfunction, (abnormal relaxation pattern). mild elevation of troponin could be secondary to cardiac strain due to severe anemia /ischemia cardiomyopathy very poor medication compliance not a candidate for Aspirin -fungating bleed mass /profound anemia pt refused to take Metoprolol -feels she does not need it any more poor prognosis COMBINED SYSTOLIC AND DIASTOLIC HEART FAILURE ISCHEMIC CARDIOMYOPATHY : due to above pt has not be taking Lasix /ACEI in past no evidence of vol overload at present monitor vol status while receiving PRBC transfusion 20 mg IV Lasix in between units to prevent vol over load ( CHF with EF 30 % ) HYPOTHYROIDISM : TSH elevated > 9 pt does not want to take Levothyroxine given the extent of her disease process /palliative care is appropriate HTN BP now on lower side Metoprolol D/yovani as pt refused to take any additional meds other than her Malignancy treatment FULL CODE DVT PROPHYLAXIS High risk for DVT due to metastatic breath ca sub Q Lovenox DISPOSITION to be determined very poor prognosis with wide spread metastatic breast CA terminal stage no curable treatment possible except for palliative care -Rad tx /chemo for pain control Palliative care consulted -appreciate input given pt's disease process Hospice would be appropriate However pt is still in denial to the extent of her disease process feels that she will be able to survive the malignancy now in its advance stage , while refused to seek medical help in last 3 years gets extremely anxious while discussing prognosis social service consulted for discharge planning Functional status remains extremely poor to return home independently options are either return home with Hospice -if adequate family support available or Nursing facility with Hospice care -which pt may not be agreeable Vital Signs: Date Time Temp Pulse Resp B/P Pulse Ox O2 Delivery O2 Flow Rate FiO2 06/26/16 19:42 37.4 93 20 124/79 98 Nasal Cannula 1.0 06/26/16 17:00 97 Nasal Cannula 2.0 06/26/16 15:55 37.3 96 16 119/60 97 2.0 06/26/16 11:29 37.1 91 20 98/63 90 06/26/16 08:00 Room Air 06/26/16 07:55 36.8 88 20 108/69 92 06/26/16 03:56 36.8 92 18 114/74 91 Room Air 06/26/16 00:14 36.8 70 16 133/76 94 Room Air 06/26/16 00:00 92 Room Air Lab Results: Results Past 24 Hours Test 06/26/16 01:19 06/26/16 06:30 Range/Units Vancomycin Level Trough 14.9 SEE COMMENT mcg/ml Creatinine 0.75 0.60-1.20 mg/dl Est Creatinine Clear Calc Drug Dose 58.5 ml/min Estimated GFR () 93.6 Estimated GFR (Non- 80.8
[2016-06-26] VITALS (10 sets, daily range): BP systolic 98–133; BP diastolic 60–79; PULSE 70–97; TEMP 36.8–37.4; O2SAT 90–98
[2016-06-26] MEDS: OXYCODONE HCL IR 5 MG TAB (IMMEDIATE RELEASE) PO PRN ×5 (01:06→19:00)
[2016-06-26] MEDS: CHECK FENTANYL PATCH PLACEMENT SCH ×3 (01:07→16:38)
[2016-06-26] MEDS ORDERED: VANCOMYCIN TROUGH SCH (01:30)
[2016-06-26 07:40] LABS: CREATININE 0.75 mg/dl (0.60-1.20)
[2016-06-26] MEDS: VANCOMYCIN INJ 900 MG in SODIUM CHLORIDE 0.9% 250ML 250 ML IV SCH ×2 (07:43→14:42)
[2016-06-26] MEDS: DOCUSATE SODIUM 100 MG CAP PO SCH ×2 (07:43→20:01)
[2016-06-26] MEDS: ASCORBIC ACID 500 MG TAB PO SCH ×2 (07:44→20:03)
[2016-06-26] MEDS: MULTIVITAMIN TAB PO SCH (07:44)
[2016-06-26] MEDS: POLYETHYLENE (MIRALAX) 17 GM PACK PO SCH (07:44)
[2016-06-26] MEDS: BOOST VANILLA PO SCH ×4 (07:56→20:00)
[2016-06-26] MEDS ORDERED: MICONAZOLE NITRATE POWDER 43 GM ONE (08:02)
[2016-06-26] MEDS ORDERED: NURSING VERBAL MED ORDER ONE (08:15)
[2016-06-26] MEDS ORDERED: MICONAZOLE NITRATE POWDER 43 GM EXT PRN (08:30)
--- NOTE | 2016-06-26 10:11 | CONSULTATION REPORT ---
DATE OF CONSULTATION: 06/26/2016 Plan of care discussed with Dr. Aguilera. CHIEF COMPLAINT: Chest wall and axial back pain in the setting of metastatic breast cancer. HISTORY OF PRESENT ILLNESS: Ms. Paige is a 70-year-old female who was recently admitted due to worsening mass on the right breast which initially began approximately 3 years ago. The patient was found to have a right-sided fungating breast mass approximately 3 years ago in which she has refused oncology treatment. The patient reported onset of some bleeding and progressive increase in size of the mass which led to inpatient admission. She is describing pain in the right breast area as well as the chest wall slightly left greater than right sided as well as the axial spine extending from the lumbar region through the upper thoracic spinal location. She has been found to have diffuse metastatic disease upon this admission involving the cervical, thoracic and lumbar spines as well as the left proximal humerus, multiple ribs as well as proximal femurs bilaterally. The patient is receiving palliative radiation treatment upon this admission. She reports minimal pain while in the supine position. She reports any movement tends to exacerbate pain in multiple locations which is nonlocalized. She is indicating improved pain control with initiation of fentanyl at 12 mcg q. 72 hours. She is also finding utilization of oxycodone to be efficacious at pain control with planned activities such as transporting for radiation therapy. She is reportedly tolerating the medication without notable side effects. The patient denies radicular pattern to her pain complaints. She is not experiencing any bowel or bladder incontinence. She has no further constitutional complaints at this time. PAST MEDICAL HISTORY: 1. Anemia. 2. Diffuse bony metastatic disease. 3. Metastatic breast carcinoma with right-sided fungating mass. 4. Chest wall pain. 5. Hypertension. 6. History of NE. 7. CHF. 8. Hypothyroidism. PAST SURGICAL HISTORY: 1. Partial hysterectomy. 2. Tonsillectomy. 3. Cholecystectomy. 4. Open repair of ruptured abdominal aortic aneurysm 08/24/2013 at [facility] in [place]. FAMILY HISTORY: Unremarkable. SOCIAL HISTORY: The patient is a former smoker, quitting in 2013; she reports a 13-ikps-pvax history. She denies alcohol or illicit drug use. The patient is currently residing at home with her . ALLERGIES: No known drug allergies. CURRENT MEDICATIONS: Reviewed extensively in EMR -- refer to current listing. REVIEW OF SYSTEMS: The patient denies complaints related to cardiac, pulmonary, GI, , endocrine, neurologic, hepatic, renal, ENT, dermatologic, musculoskeletal other than described above in the HPI. PHYSICAL EXAMINATION: VITAL SIGNS: Temperature 36.8 degrees Celsius, pulse 88, respirations 20, BP 108/69, pulse oximetry 92 on room air. GENERAL: Ms. Paige is lying flat upon entering the room, in no obvious acute distress. Speech and thought process appeared to be appropriate. Her cognition was intact. HEAD: Normocephalic and atraumatic. NECK: Without adenopathy. CHEST: The patient is moderately tender to palpation over the lateral and anterior chest wall bilaterally, left greater than right sided. The patient has a large bandage in place over the right breast which was not removed for visual inspection at the site of reported fungating mass. The area was malodorous. ABDOMEN: Soft and nondistended. No organomegaly is appreciated. 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 No intrinsic muscular atrophy. The patient has some generalized weakness of the right arm with biceps and triceps maneuvering. LOWER EXTREMITIES: No evidence of edema. She is generally tender to palpation over the pretibial location bilaterally, slightly right greater than left sided. NEUROLOGIC: Ambulatory function was not witnessed. IMAGING: Were reviewed in EMR -- refer to EMR for reports on bone scan, brain MRI, chest/thorax CT and chest x-ray. ASSESSMENT: 1. Right breast mass - large, fungating, with metastasis. 2. Extensive bony metastatic disease secondary to #1. TREATMENT AND RECOMMENDATIONS: 1. The patient will remain undergoing palliative radiation therapy at this time per radiation oncology. 2. Would recommend maintaining fentanyl at 12 mcg q. 72 hours at this time as she has used minimal oxycodone for p.r.n. breakthrough pain over the past 24 hours. Would plan to follow and adjust fentanyl based on oxycodone utilization moving forward. The patient was encouraged to utilize oxycodone on an as-needed basis for breakthrough pain. Her need will likely increase along with increased ambulatory activities. 3. The patient may utilize morphine IV for p.r.n. breakthrough pain not well controlled with oxycodone. 4. We discussed involvement with behavioral health but the patient deferred. 5. Will continue to follow during hospitalization. Thank you for the consultation of Ms. Paige. DENNIS
[2016-06-26] MEDS ORDERED: VANCOMYCIN INJ 900 MG in SODIUM CHLORIDE 0.9% 250ML 250 ML IV SCH (14:00)
--- NOTE | 2016-06-26 15:58 | Hematology/Oncology Prog Note ---
Hematology/Onc Progress Note Date of Service Jun 26, 2016. Diagnoses 1. Stage IV hormonal positive, Her-2 positive breast cancer with extensive bone metastases 2. Iron deficiency anemia secondary to chronic blood loss from breast lesion 3. Bilateral calf tenderness 4. Acute onset of left anterior lower rib pain x 2 days Medications the patient reports feeling overall fair. She started on palliative radiation on Sunday to her right humerus, thoracolumbar spine and the right femur. She states she is no longer experiencing back pain. Over the weekend she started to have lower anterior left rib pain. She states any movement or breathing deeply makes the pain worse. she also has the pain at rest. She reports feeling generally weak. She states her appetite is decreased, but she is eating regularly. She has not had nausea or vomiting, but her last bowel movement was greater than week ago prior to admission. She is currently on stool softener MiraLax. She has been started on fentanyl 12 mcg and has morphine 2 mg and oxycodone 5 mg PRN. She does not have cough, feels mild dyspnea if she were to sit up. She stated that her catheterization felt sore, only during examination. She is currently on vancomycin for superinfection of her breast mass. Vital Signs Vital Signs Past 12 Hours Date Time Temp Pulse Resp B/P Pulse Ox O2 Delivery O2 Flow Rate FiO2 06/26/16 11:29 37.1 91 20 98/63 90 06/26/16 08:00 Room Air 06/26/16 07:55 36.8 88 20 108/69 92 06/26/16 03:56 36.8 92 18 114/74 91 Room Air Physical Exam Constitutional: General Apperance: well-nourished, well-developed Level of Distress: chronically ill ENMT: hearing grossly normal Lungs: Respiratory Effort: good air movement Auscuitation: no wheezing, no rhonchi Cardiovascular: Heart Auscultation: RRR Abdomen: Inspection & Palpation: soft, non-distended, pertinent finding (tender to palpation of LUQ, anterior portion of lower left ribs) Extremities: no cyanosis, edema (left ankle), pertinent finding (tender to palpation of bilateral calves) Laboratory 06/24/16 06:41 06/25/16 06:15 06/24/16 06:41 06/25/16 06:15 06/26/16 06:30 Test 06/24/16 06:41 06/25/16 06:15 06/26/16 01:19 06/26/16 06:30 Red Blood Count 3.16 M/uL (4.2-5.4) 4.07 M/uL (4.2-5.4) Mean Corpuscular Volume 69.0 fL (80-100) 73.7 fL (80-100) Mean Corpuscular Hemoglobin 21.5 pg (25-34) 24.3 pg (25-34) Mean Corpuscular Hemoglobin Concent 31.2 g/dl (32-36) 33.0 g/dl (32-36) RDW Standard Deviation 48.0 fL (36.4-46.3) 53.5 fL (36.4-46.3) RDW Coefficient of Variation 18.9 % (11.5-14.5) 19.7 % (11.5-14.5) Mean Platelet Volume 8.6 fL (7.4-10.4) 9.1 fL (7.4-10.4) Anion Gap 9.0 mmol/L (3-11) Est Creatinine Clear Calc Drug Dose 46.7 ml/min 60.8 ml/min 58.5 ml/min Estimated GFR () 71.2 98.3 93.6 Estimated GFR (Non- 61.5 84.9 80.8 BUN/Creatinine Ratio 35.2 (10-20) Calcium Level 9.6 mg/dl (8.5-10.1) Magnesium Level 2.1 mg/dl (1.8-2.4) Nucleated RBC Absolute Count (auto) 0.04 K/uL (0-0) Nucleated Red Blood Cells % 0.5 % Vancomycin Level Trough 14.9 mcg/ml (SEE COMMENT) Date/Time Source Procedure Growth Status 06/24/16 23:20 Nasal MRSA DNA Surveillance Screen - Final Specimen Negative for MRSA by DNA Probe Complete CT of the abdomen/pelvis from 06/20/2016: 7.4 centimeter right breast/chest wall mass. 1 centimeter soft tissue nodule within the right anterior lateral chest wall. No space-occupying masses of the liver. No adenopathy intra- abdominally. Extensive lytic bony disease with involvement of multiple ribs, vertebra and the bony pelvis. Brain MRI from 06/21/2016: Old left occipital infarct. No evidence for intracranial metastatic disease. Bone scan from 06/21/2016: Widespread skeletal metastasis. Extensive foci of abnormal increased uptake involving the cervical, thoracic and lumbar spines. Abnormal increased uptake within the pelvis and left proximal humerus, multiple ribs as well as both proximal femurs. 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 She has locally advanced disease with a large necrotic breast mass and axillary adenopathy. She has widespread bony metastatic disease. Radiation Oncology has evaluated the patient and started her on palliative RT of the right humerus, thoracolumbar spine and the right femur. Discuss with Radiation Oncology today to consider for palliative breast radiation to control bleeding, as patient developed iron deficiency anemia from blood loss over [address] lesion[address] Sinha of Radiation Oncology plans to discuss palliative breast radiation further with Dr. Sinha of Medical Oncology in the near future. Dr. Sinha is agreeable with starting the patient while hospitalized on anastrozole 1 milligram daily for the hormonal component of her breast cancer. Her echocardiogram during this hospitalization has revealed decreased LVEF from 35-39%, so anti her 2 Alina therapy would not be considered in her case. Patient was seen by pain mgmt today and is been recommend to continue to titrate fentanyl based upon pain, utilization of p.r.n. oxycodone. Plan to start patient on Xgeva in the outpatient setting for her bone metastasis. (2) Iron deficiency anemia due to chronic blood loss Status: Chronic Assessment & Plan: Discussed with Dr. Vernon today to administer Venofer 300 milligram x 1 dose hospitalized for blood loss from advanced right breast mass. (3) Rib pain on left side Permanent Comment: Reason for Deletion: Last Edited By: Arianne Lozada on Jun 10:57 Assessment & Plan: Discussed with Dr. Vernon to obtain left-sided rib series to evaluate if acute pathologic fracture has occurred from bony metastasis. Also discussed the onset of this symptom with Dr. Sinha of Radiation Oncology and he will take a look at her films to see if a lesion is present amenable to radiation therapy. (4) Calf tenderness Permanent Comment: Reason for Deletion: Last Edited By: Arianne Lozada on Jun 10:57 Assessment & Plan: Discussed with Dr. Vernon, we will obtain bilateral Doppler to evaluate for DVT. She is currently on Lovenox for DVT prophylaxis.
--- NOTE | 2016-06-26 16:44 | Progress Note ---
Progress Note Date of Service Jun 26, 2016. 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
[2016-06-26] MEDS ORDERED: IRON SUCROSE INJ 300 MG in SODIUM CHLORIDE 0.9% 100ML 100 ML IV SCH (18:00)
--- NOTE | 2016-06-26 19:55 | DIAGNOSTIC IMAGING REPORT ---
BILATERAL LOWER EXTREMITY VENOUS DOPPLER CLINICAL HISTORY: Lower extremity pain and swelling. Metastatic breast cancer. COMPARISON STUDY: No previous studies for comparison. TECHNIQUE: Sonography of the deep venous system of the bilateral lower extremities was performed. Compression and augmentation were evaluated. FINDINGS: Deep venous thrombus was noted within the right common femoral and superficial femoral veins. No deep venous thrombus was identified within the left lower extremity. IMPRESSION: 1. Deep venous thrombus within the right common femoral and superficial femoral veins. 2. No deep venous thrombus within the left lower extremity. Electronically signed by: Michael Almonte M.D. 06/26/2016 7:54 PM Dictated Date/Time: 06/26/2016 7:52 PM
[2016-06-26] MEDS: SENNA 8.6 MG TAB PO SCH (20:03)
[2016-06-26] MEDS: ENOXAPARIN 40 MG/0.4 ML SYR SQ SCH (20:07)
--- NOTE | 2016-06-26 21:29 | Progress Note ---
Internal Med Progress Note Date of Service: Jun 26, 2016. Provider Documentation: SUBJECTIVE: complaining of more pain on left rib area worsened with taking deep breath had radiation tx earlier today -feels pain has improved some what taking Oxycodone as needed having pain /soreness on rt lower ext , specially on upper calf area remains anxious and partial denial of her advanced malignancy Lang catheter ordered as pt was having pain with minimum movement OBJECTIVE: Vital Signs-as noted below Exam: General-chronically ill appearing , anxious Eyes-sclera non icteric ENT-very poor dentition Neck-no thyromegaly Lungs-breath sound diminished Heart-regular S1/S2 Abdomen-soft, non tender Extremities-rt arm -significant lymphadenopathy , pitting edema , fungating mass on rt breath , bandage present pain and tenderness on left upper chest wall /rib area pain on rt lower ext on palpation , no erythema or edema noted on bilat lower ext Neuro-no focal neurological deficit Lab data as noted below. ASSESSMENT & PLAN: STAGE 4 METASTATIC DUCTAL ADENOCA OF BREAST : advanced stage with widespread bone mets , fungating/ulcerative rt breast mass with rt axillary lymph node involvement Dx in July [address] [facility] as ductal Adeno Carcinoma of rt breast tumor was estrogen positive , progesterone negative, Her [address] scan in 2013 shoed beast mas at 4 cm with borderline rt axially lymph node involvement pt refused to have follow up and seek treatment for her breast malignancy presented with worsening of SOB , diffuse bone pain bleeding ulcerative mass of rt breast -destroying rt lower breast and rt Nipple Malignancy work up so far : CTA of chest: no evidence of PE progressively right breath multifocal masses with pathologic rt axillary lymphadenopathy Interval diffuse bony metastatic disease CT abdomen /pelvis : wide spread lytic bony metastatic disease 7.5 cm rt breast /chest wall mass consistent with neoplasm , There is a 1 cm soft tissue satellite nodule NC BONE SCAN : extensive foci of abnormal increased uptake involving cervical , thoracic and lumber spines, There is abnormal increased uptake within the pelvis left proximal humerus, multiple ribs as well both proximal femurs-findings consistent with widespread skeletal metastasis . Heme onc and Radiation oncology consulted started on Palliative radiation tx -on Rt humerus and mid thoracic area , and right femur extremely poor prognosis limited option for systemic chemo due to poor functional status /underlying CHF palliative care consulted -appreciate input pt still having hard time coping with her diagnosis , every step of the management and discussion regarding treatment option causing anxiety attack wound culture on rt breast mass : staph aureus IV Vancomycin ordered RT LOWER EXT DVT : Doppler shows : 1. Deep venous thrombus within the right common femoral and superficial femoral veins. 2. No deep venous thrombus within the left lower extremity. pt is ordered Lovenox sc daily for DVT prophylaxis since admission has been refusing for concern for bleeding of her breast mass got 2 doses on 06/20 and 06/21 no Lovenox shot form 06/22 to 06/26 as pt refused pt is counselled the risk for DVT leading to fatal PE high risk given wide spread metastatic process agreeable for now , but wants to discontinue with any evidence of bleeding repeat CT of chest ordered to R/O PE Lovenox therapeutic dose 1 mg /Kg Q12 SC Vascular surgery consulted for IVC filter placement very poor prognosis RT ARM SWELLING : due to above -has rt axially LN mets avoid lab draws , BP measure on rt arm ANEMIA: Hb improved ~ 9 post transfusion ' remains stable no active bleeding noted on rt breast mass microcytic anemia MCV 68 suggestive of acute on chronic blood loss due to wide spread metastatic process and acute on chronic blood loss has locally advanced disease of rt breast and Axilla with ongoing bleeding for indeterminate time pt mentions her dress was saturated with blood , shoes were soaked due to bleeding she continued to apply bandages , did not seek any medical help Hb improved 6.8 _> 9 remains stable post 2 units PRBC transfusion very poor prognosis DIFFUSE BONY METASTATIC DISEASE due to metastatic breast ca getting Palliative Radiation tx appreciate input form Radiation oncology cont pain control ordered for Fentanyl Patch on PRN oxy IR , IV Morphine bowel regimen ordered to prevent narcotic induced constipation Pain management consulted -appreciate input will be started on Xgeva ( Denosumab ) by Oncology as out patient HX OF NSTEMI : required emergent infrarenal ruptured aortic aneurysm repair in July 2013 - surgery complicated by intra operative NSTEMI ECHO : in 2013 ischemic cardiomyopathy EF 30 % repeat ECHO 06/22/16 There is a large sized apical, inferior and inferalateral wall motion abnormalities with akinesis of the segments. Left ventricular systolic function is moderately reduced. The qualitative LV ejection fraction is 35-39% (moderately reduced). Aortic valve sclerosis mild, without significant aortic valvular stenosis. There is severe mitral regurgitation. Doppler findings do not suggest pulmonary hypertension. Grade I diastolic dysfunction, (abnormal relaxation pattern). mild elevation of troponin could be secondary to cardiac strain due to severe anemia /ischemia cardiomyopathy very poor medication compliance not a candidate for Aspirin -fungating bleed mass /profound anemia pt refused to take Metoprolol -feels she does not need it any more poor prognosis COMBINED SYSTOLIC AND DIASTOLIC HEART FAILURE ISCHEMIC CARDIOMYOPATHY : due to above pt has not be taking Lasix /ACEI in past no evidence of vol overload at present monitor vol status while receiving PRBC transfusion 20 mg IV Lasix in between units to prevent vol over load ( CHF with EF 30 % ) HYPOTHYROIDISM : TSH elevated > 9 pt does not want to take Levothyroxine given the extent of her disease process /palliative care is appropriate HTN BP now on lower side Metoprolol D/yovani as pt refused to take any additional meds other than her Malignancy treatment FULL CODE DVT PROPHYLAXIS High risk for DVT has been refusing DVT prophylaxis with Lovenox therapeutic sub Q Lovenox -ordered for Rt lower ext DVT DISPOSITION to be determined very poor prognosis with wide spread metastatic breast CA terminal stage no curable treatment possible except for palliative care -Rad tx /chemo for pain control Palliative care consulted -appreciate input given pt's disease process Hospice would be appropriate However pt is still in denial to the extent of her disease process feels that she will be able to survive the malignancy now in its advance stage , while refused to seek medical help in last 3 years gets extremely anxious while discussing prognosis social service consulted for discharge planning Functional status remains extremely poor to return home independently options are either return home with Hospice -if adequate family support available or Nursing facility with Hospice care -which pt may not be agreeable Vital Signs: Date Time Temp Pulse Resp B/P Pulse Ox O2 Delivery O2 Flow Rate FiO2 06/26/16 19:42 37.4 93 20 124/79 98 Nasal Cannula 1.0 06/26/16 17:00 97 Nasal Cannula 2.0 06/26/16 15:55 37.3 96 16 119/60 97 2.0 06/26/16 11:29 37.1 91 20 98/63 90 06/26/16 08:00 Room Air 06/26/16 07:55 36.8 88 20 108/69 92 06/26/16 03:56 36.8 92 18 114/74 91 Room Air 06/26/16 00:14 36.8 70 16 133/76 94 Room Air 06/26/16 00:00 92 Room Air Lab Results: Results Past 24 Hours Test 06/26/16 01:19 06/26/16 06:30 Range/Units Vancomycin Level Trough 14.9 SEE COMMENT mcg/ml Creatinine 0.75 0.60-1.20 mg/dl Est Creatinine Clear Calc Drug Dose 58.5 ml/min Estimated GFR () 93.6 Estimated GFR (Non- 80.8
[2016-06-26] MEDS: ENOXAPARIN 60 MG/0.6 ML SYR SQ SCH (21:37)
[2016-06-26] MEDS: LIDODERM (LIDOCAINE) PATCH 5% TD SCH (22:20)
--- NOTE | 2016-06-26 22:33 | DIAGNOSTIC IMAGING REPORT ---
RIBS UNILATERAL WITH PA CHEST CLINICAL HISTORY: Left-sided chest pain. Metastatic breast cancer. No recent trauma. COMPARISON STUDY: Chest radiograph and chest CT June 20, 2016. FINDINGS: There is no pneumothorax or pleural effusion. Cardiomediastinal silhouette is stable. Asymmetric density projecting over the right chest wall likely corresponds to the right breast masses shown on prior CT. Innumerable lytic lesions are identified within visualized skeletal structures including the ribs and the midshaft of the right humerus. There are acute minimally displaced pathologic fractures of the anterior left eighth and ninth ribs. There may also be pathologic fractures of the anterior left 10th and 11th ribs. IMPRESSION: 1. No pneumothorax. 2. Acute minimally displaced pathologic fractures of the anterior left eighth and ninth ribs with possible minimally displaced pathologic fractures of the anterior left 10th and 11th ribs. 3. Innumerable lytic lesions within visualized skeletal structures consistent with metastatic disease. Electronically signed by: Michael Almonte M.D. 06/26/2016 10:32 PM Dictated Date/Time: 06/26/2016 10:20 PM
[2016-06-27] VITALS (11 sets, daily range): BP systolic 105–131; BP diastolic 67–77; PULSE 96–107; TEMP 36.8–37.5; O2SAT 91–98
[2016-06-27] MEDS: CHECK FENTANYL PATCH PLACEMENT SCH ×3 (00:27→16:11)
[2016-06-27] MEDS ORDERED: VANCOMYCIN TROUGH SCH (03:30)
[2016-06-27 03:51] LABS: CREATININE 0.81 mg/dl (0.60-1.20)
[2016-06-27] MEDS: VANCOMYCIN INJ 900 MG in SODIUM CHLORIDE 0.9% 250ML 250 ML IV SCH ×2 (04:14→19:53)
[2016-06-27] MEDS: POLYETHYLENE (MIRALAX) 17 GM PACK PO SCH (07:52)
[2016-06-27] MEDS: DOCUSATE SODIUM 100 MG CAP PO SCH ×2 (07:53→19:56)
[2016-06-27] MEDS: ASCORBIC ACID 500 MG TAB PO SCH ×2 (07:53→19:57)
[2016-06-27] MEDS: ENOXAPARIN 60 MG/0.6 ML SYR SQ SCH (07:53)
[2016-06-27] MEDS: MULTIVITAMIN TAB PO SCH (07:54)
[2016-06-27] MEDS: OXYCODONE HCL IR 5 MG TAB (IMMEDIATE RELEASE) PO PRN (07:54)
[2016-06-27] MEDS: BOOST VANILLA PO SCH ×4 (07:55→20:00)
[2016-06-27] MEDS: FENTANYL 12 MCG/HR TDSY TD SCH (07:57)
[2016-06-27] MEDS: ANASTROZOLE 1 MG TAB PO SCH (08:00)
[2016-06-27] MEDS: FENTANYL PATCH REMOVE & WASTE SCH (08:01)
[2016-06-27] MEDS ORDERED: OPTIRAY 320 IV PRN (09:15)
[2016-06-27 09:20] LABS: URINE APPEARANCE TURBID (CLEAR); URINE BILIRUBIN NEG (NEG); URINE COLOR DK YELLOW; URINE EPITHELIAL CELL AUTO >30 /lpf (0-5); URINE NITRITE NEG (NEG); URINE SPECIFIC GRAVITY 1.025 (1.000-1.030); UROBILINOGEN NEG (NEG); ZZURINE CULT IF INDIC CATH YES
--- NOTE | 2016-06-27 09:25 | DIAGNOSTIC IMAGING REPORT ---
CHEST CTA for PULMONARY ARTERIES CT DOSE: 529.87 mGy.cm HISTORY: Chest pain metastatic disease. TECHNIQUE: Multiaxial CT images of the chest were performed following the intravenous administration of contrast to evaluate the pulmonary arteries. Maximal intensity projection images were also obtained. COMPARISON STUDY: 06/20/2016 FINDINGS: Pulmonary vasculature remains negative for filling defect. Atherosclerotic change and ectasia thoracic aorta is again noted and is stable. Diffuse metastatic bone disease with several pathologic left-sided rib fractures are similar. The right breast mass or pathologic adenopathy involving the right chest wall and right axillary region are similar. Patient is developing retrocrural adenopathy. No evidence for compression deformity. Extensive lytic and blastic metastatic change throughout. IMPRESSION: 1. Study is negative for pulmonary embolus. 2. Lungs are grossly clear. 3. Diffuse metastatic change involving the osseous structures throughout with several pathologic rib fractures which have been discussed previously. 4. Mildly progressive upper abdominal retroperitoneal adenopathy Electronically signed by: Cresencio Melo M.D. 06/27/2016 9:24 AM Dictated Date/Time: 06/27/2016 9:12 AM
[2016-06-27 09:26] LABS: MANUAL MICROSCOPIC REQUIRED? NO; REVIEW REQ? YES
--- NOTE | 2016-06-27 09:41 | Progress Note ---
Progress Note Date of Service Jun 27, 2016. Progress Note Patient was seen, examined, and chart reviewed. Agree with exam and treatment plan of the Vascular PA. Recommend insertion of IVC filter. This will be done this morning. I have discussed the risks options and benefits of the procedure with the patient. The patient understands the risks options and benefits and agrees to the procedure. Thank you very much for letting me participate in the care of this patient.
--- NOTE | 2016-06-27 10:11 | Surgery Consultation ---
Consultation Date of Service Jun 27, 2016. Chief Complaint DVT, bleeding History of Present Illness The patient is a 70 year old female with hx of noncompliance, admitted with bleeding fungating R breast mass and metastatic breast ca, seen in consultation today for possible IVC filter insertion d/t DVT and bleeding. Pt states hx of previous DVT/PE 4 yrs ago. Pt states she was feeling SOB and generally weak from the bleeding from her R breast "wound," and came to [facility] for eval. Pt denies GOMEZ, fever, chills, chest pain, SOB presently, abd pain, N/V, rest pain, claudication, other complaints. Vitals Vital Signs Past 12 Hours Date Time Temp Pulse Resp B/P Pulse Ox O2 Delivery O2 Flow Rate FiO2 06/27/16 09:58 37.5 99 17 114/71 94 Room Air 1.0 06/27/16 09:56 37.5 99 17 114/71 94 Room Air 1.0 06/27/16 08:00 Room Air 06/27/16 07:15 37.5 99 17 114/71 94 Room Air 06/27/16 04:20 36.9 96 18 120/77 97 Nasal Cannula 1.0 06/27/16 00:00 Nasal Cannula 1.0 06/26/16 23:29 37.2 97 18 127/77 93 Nasal Cannula 1.0 Allergies Coded Allergies: No Known Allergies (Unverified , 06/20/16) Home Medications Scheduled Ascorbic Acid (Vitamin C), 3,000 MG PO BID Multivitamin (Multivitamin), 1 TAB PO DAILY Problem List Medical Problems: (1) AAA (abdominal aortic aneurysm) (2) CAD (coronary artery disease) (3) Calf tenderness (4) Heart failure, systolic (5) HTN (hypertension) (6) Hypothyroidism (7) Iron deficiency anemia due to chronic blood loss (8) Rib pain on left side Surgical Problems: (1) H/O tracheostomy (2) History of AAA (abdominal aortic aneurysm) repair (3) History of hysterectomy (4) History of tonsillectomy (5) S/P cholecystectomy Surgical / Medical History Hx Cardiac Surgery: Yes Hx Abdominal Surgery: Yes (Cholecystectomy and Appendectomy 1973) Hx Cancer Surgery: No Hx Thoracic Surgery: Yes (Viral pneumonia 1969 with tracheotomy ) Hx Orthopedic: No Hx Urinary Tract Surgery: No HX Other Surgery: Yes (Tonsillectomy ) Past Medical/Surgical History: Hypertension, Thyroid Disease Family History Patient reports no known family medical history. Social History Smoking Status: Former Smoker Hx Tobacco Use In Past Year?: No (quit smoking in 2001 ) Hx Alcohol Use - Type & Amnt: No Hx Substance Use -Type & Amnt: No Review of Systems Constitutional: + malaise, No chills, No fever Skin: + lesions, No change in color Eyes: No visual changes ENMT: No sore throat Respiratory: No FULLER, No cough, No hemoptysis Cardiovascular: No chest pain, No edema, No intermittent claudication, No palpitations, No syncope Gastrointestinal: No abdominal pain, No nausea, No vomiting Genitourinary - Female: No dysuria, No hematuria Neurologic: + weakness, No dizziness, No headache, No lethargy, No numbness, No tingling Physical Exam Constitutional: General Apperance: well-nourished, well-developed Level of Distress: NAD, acutely ill, chronically ill Psychiatric: Mental Status: active & alert, normal mood, normal affect Orientation: oriented except where noted, to time, to place, to person Memory: recent memory normal, remote memory normal Head: normocephalic, atraumatic Eyes: EOM: EOMI ENMT: normal ENT inspection, hearing grossly normal Neck: supple, trachea midline Lungs: Respiratory effort: no dyspnea, pertinent finding (R breast fungating mass, + mild bleeding noted) Auscultation: no wheezing, no rales/crackles, no rhonchi Cardiovascular: Apical Impulse: not displaced Heart Auscultation: RRR, no murmurs, no rubs, no gallops Peripheral Pulses: Pulses: full and equal, in all extremities except if noted Bruits: none appreciated Carotid Pulse: normal on the left, normal on the right Brachial Pulses: normal on the left, normal on the right Radial Pulse: normal on the left, normal on the right Femoral Pulse: normal on the left, normal on the right Posterior Tibialis Pulse: decreased on the left, decreased on the right Dorsalis Pedis Pulse: decreased on the left, decreased on the right Abdomen: Bowel Sounds: normal Inspection & Palpation: soft, non-distended, no tenderness, guarding & rebound Musculoskeletal: normal strength (5/5 throughout), normal tone Extremities: Upper Right: no cyanosis, no varicosities, edema (+2) Upper Left: no cyanosis, no edema, no varicosities Lower Right: no cyanosis, no edema, no varicosities Lower Left: no cyanosis, no edema, no varicosities Neurologic: Cranial Nerves: grossly intact Sensation: grossly intact Assessment and Plan ASSESSMENT and PLAN: DVT Failed anticoagulation Bleeding R breast mass Metastatic breast ca Pt also seen by Dr Moon, recommends IVC filter insertion this AM. Procedure, risks, benefits, and alternatives discussed with pt, she expresses understanding and agreement.
--- NOTE | 2016-06-27 10:18 | Pharmacy Progress Note ---
Pharmacy Antibiotic Prog Note Date of Service: Jun 27, 2016. Subjective: The patient is currently receiving vancomycin 900 mg IV every 14 hours (has had one dose of vancomycin 900 mg on the q14 hours). The patient is currently on day # 4 of IV therapy. Objective: Height (Feet): 5 Height (Inches): 1.00 Weight (Kilograms): 62.300 Levels: Item Value Date Time Vancomycin Level Trough 14.9 mcg/ml 06/26/16 0119 Vancomycin Level Trough 19.4 mcg/ml 06/27/16 0326 Lab Results (24hrs): Laboratory Tests Test 06/27/16 03:26 Creatinine 0.81 mg/dl Micro Results: RUN DATE: 06/22/16 [facility] LAB PAGE 1 RUN TIME: 1011 Specimen Inquiry PATIENT: TING SOLIS LOC: [facility] U # : [id number] AGE/SX: 70/F ROOM: 18 REG : 06/20/[address]: Linda Mckeon DO : 1945 BED: 1 DIS : STATUS: ADM IN TLOC: SPEC #: [id number] MAITE: 06/20/16 STATUS: WILLIAMS REQ #: [id number] RECD: 06/20/[address]: Raj Corrigan MD SOURCE: SKIN ENTR: 06/20/16-[address]: Linda Mckeon DO SPDESC: BREAST, R Arianne Lozada, ANDREA No Doctor, Casey Robledo M.D. ORDERED: SURF WND CU/KANIKA COMMENTS: Has Specimen Been Obtained/Collected? Y Procedure Result Verified Site GRAM STAIN Final 06/21/16-810 RESULT RARE EPITHELIAL CELLS NO ORGANISMS SEEN SURFACE WOUND CULTURE Final 06/22/16-1011 Organism 1 COAG NEG STAPHYLOCOCCUS QUANITY MODERATE SENS NO SENSITIVITY TO FOLLOW Organism 2 COAG NEG STAPHYLOCOCCUS#2 QUANITY MODERATE SENS NO SENSITIVITY TO FOLLOW Assessment & Plan: This drug level is: Therapeutic BUT THIS IS NOT A TRUE TROUGH Change to vancomycin 900 mg IV every 16 hours. (The previous regimen of q14 Hours appeared to be very aggressive especially with renal function fluctuating slightly each day. Therefore, chose a less aggressive regimen) Goal peak level estimate: between 35 - 40 mcg/mL. Goal trough level estimate: between 10 - 15 mcg/mL (indication: cellulitis). Trough has been ordered prior to the 06/29/16 0400 dose Pharmacy will continue to follow and will adjust dose/frequency as necessary. Thank you
[2016-06-27] MEDS ORDERED: LIDOCAINE HCL 1% 20 ML VIAL INFIL ONE (10:53)
[2016-06-27] MEDS ORDERED: IODIXANOL (VISIPAQUE) 270 MG/ML 50ML IV ONE (10:53)
--- NOTE | 2016-06-27 11:03 | [facility] Post Operative Brief Note ---
Immediate Operative Summary Operative Date Jun 27, 2016. Pre-Operative Diagnosis DVT Failed anticoagulation Bleeding R breast mass Metastatic breast ca Post-Operative Diagnosis Same Procedure(s) Performed Insertion of Inferior Vena Cava Filter, Left Femoral Approach Ultrasound Localization of Left Common Femoral Vein Fluoro for Positioning Surgeon Red Visual Artist Surgeon(s) None Estimated Blood Loss 5 Findings No cava clot noted. Filter in upright position below the renal veins Specimens None Anesthesia Local Complication(s) None Disposition
--- NOTE | 2016-06-27 11:35 | DIAGNOSTIC IMAGING REPORT ---
DATE OF PROCEDURE: 06/27/2016 PREOPERATIVE DIAGNOSIS: Acute deep venous thrombosis, hypercoagulable state, and bleeding breast mass. Also failed anticoagulation. POSTOPERATIVE DIAGNOSIS: Same. PROCEDURE: Insertion of inferior vena cava filter. SURGEON: Dr. Moon. ANESTHETIC: Local. PROCEDURE INDICATIONS: The patient is a 70-year-old female with a fungating breast mass and numerous bony metastases. She has developed an acute deep venous thrombosis of right lower extremity while on Lovenox. Due to her hypercoagulable state and the failed anticoagulation and bleeding from her fungating breast mass, a filter was recommended. She understood the risks, options and benefits and agreed to go ahead with this procedure. The patient was taken to the angiogram suite and placed in supine position. After the left groin was prepped and draped in a sterile manner, local anesthetic was administered. Using ultrasound, the left femoral vein was punctured. A 0.035 wire was passed centrally. The puncture site was dilated and the filter sheath was inserted. A venacavogram was performed which showed that the cava had no clot. There appeared to be some mild extrinsic compression of the distal inferior vena cava. On the injection you could see the flush from the renal veins. The filter was then inserted. It was deployed in an upright position below the renal veins. The sheath was then removed. Pressure was applied. Adequate hemostasis was obtained. The patient left the angio suite in good condition and tolerated the procedure well.
--- NOTE | 2016-06-27 16:19 | Hematology/Oncology Prog Note ---
Hematology/Onc Progress Note Date of Service Jun 27, 2016. Diagnoses 1. Stage IV hormonal positive, Her-2 positive breast cancer with extensive bone metastases 2. Iron deficiency anemia secondary to chronic blood loss from breast lesion 3. Right femoral DVT- dx 06/26/16 4. Pathologic left rib fractures 8-11 Medications Medications Administered Medications (Trade) Dose Ordered Sig/Sudarshan Route Start Time Stop Time Status Last Admin Dose Admin Enoxaparin Sodium (Lovenox Inj) 40 mg Q24H SQ 06/20/16 21:00 06/26/16 21:01 DC 06/21/16 21:03 40 MG Acetaminophen (Tylenol Tab) 650 mg Q4H PRN PO 06/20/16 12:30 07/20/16 12:29 Future Hold 06/21/16 00:15 650 MG Multivitamins (Multivitamin Tab) 1 tab DAILY PO 06/21/16 08:00 07/21/16 08:59 06/27/16 07:54 1 TAB Ascorbic Acid (Vitamin C Tab) 3,000 mg BID PO 06/20/16 20:00 07/20/16 20:59 06/27/16 07:53 3,000 MG Morphine Sulfate (MoRPHine SULFATE INJ) 2 mg Q3HWA PRN IV 06/20/16 12:30 07/04/16 12:29 06/23/16 22:46 2 MG Metoprolol Tartrate (Lopressor Tab) 25 mg BID PO 06/20/16 20:00 06/24/16 10:52 DC 06/23/16 08:59 25 MG Metoprolol Tartrate 25 mg 25 mg NOW ONCE PO 06/20/16 14:00 06/20/16 14:01 DC 06/20/16 14:34 25 MG Acetaminophen/ Empty Bag (Ofirmev IV/ Empty Iv Bag 100ml) 65 ml @ 260 mls/hr Q6H IV 06/21/16 03:00 06/23/16 02:59 DC 06/22/16 20:57 260 MLS/HR Oxycodone HCl 5 mg 5 mg Q4H PRN PO 06/21/16 03:00 06/24/16 12:00 DC 06/24/16 08:13 5 MG Furosemide/Syringe (Lasix Inj/ Syringe) 2 ml @ 4 mls/min TODAY@1000 IV 06/24/16 10:00 06/24/16 23:59 DC 06/24/16 15:30 4 MLS/MIN Oxycodone HCl (Roxicodone Immediate Rel Tab) 5 mg Q2H PRN PO 06/24/16 11:00 07/08/16 10:59 06/27/16 07:54 5 MG Polyethylene (Miralax Powder Packet) 17 gm DAILY PO 06/24/16 12:00 07/24/16 11:59 06/27/16 07:52 17 GM Docusate Sodium (coLACE CAP) 100 mg BID PO 06/24/16 20:00 07/24/16 19:59 06/27/16 07:53 100 MG Senna (Senokot Tab) 8.6 mg HS PO 06/24/16 21:00 07/24/16 20:59 06/26/16 20:03 8.6 MG Fentanyl (Duragesic Patch) 12 mcg Q3D@0900 TD 06/24/16 11:15 07/08/16 11:14 06/27/16 07:57 12 MCG Miscellaneous (Fentanyl Patch Remove & Waste) 1 ea Q3D@0859 N/A 06/27/16 08:59 07/27/16 08:58 06/27/16 08:01 1 EA Miscellaneous Information 1 ea 1 ea QS N/A 06/24/16 16:00 07/24/16 15:59 06/27/16 07:55 1 EA Vancomycin HCl 1500 mg/Sodium Chloride 530 ml @ 200 mls/hr NOW ONCE IV 06/24/16 16:15 06/24/16 18:53 DC 06/24/16 20:10 200 MLS/HR Vancomycin HCl/ Sodium Chloride (Vancomycin Inj/ Nss 250ml) 268 ml @ 125 mls/hr Q18H IV 06/25/16 14:00 06/26/16 14:03 DC 06/26/16 07:43 125 MLS/HR Miconazole Nitrate 43 appln 43 appln STK-MED ONCE .ROUTE 06/26/16 08:02 06/26/16 08:05 DC 06/26/16 08:43 43 APPLN Vancomycin HCl/ Sodium Chloride (Vancomycin Inj/ Nss 250ml) 268 ml @ 125 mls/hr Q14H IV 06/26/16 14:00 06/27/16 10:06 DC 06/27/16 04:14 125 MLS/HR Anastrozole 1 mg 1 mg QAM PO 06/27/16 08:00 07/27/16 07:59 06/27/16 08:00 1 MG Iron Sucrose/ Sodium Chloride (Venofer Inj/Nss 100ml) 115 ml @ 175 mls/hr TODAY@1800 IV 06/26/16 18:00 06/26/16 18:40 DC 06/26/16 18:44 175 MLS/HR Enoxaparin Sodium (Lovenox Inj) 60 mg Q12 SQ 06/26/16 21:15 07/26/16 21:14 06/27/16 07:53 60 MG Lidocaine (Lidoderm Patch 5%) 1 patch PM TD 06/26/16 21:15 07/26/16 21:14 06/26/16 22:20 1 PATCH Miscellaneous (Remove Lidoderm Patch) 1 ea DAILY@0900 N/A 06/27/16 09:00 07/27/16 08:59 06/27/16 07:56 1 EA Heparin Sodium/ Sodium Chloride (Heparin Sod/Ns 2 Units/Ml) 1,000 unit STK-MED ONCE .ROUTE 06/27/16 10:06 06/27/16 10:09 DC 06/27/16 10:06 10 UNIT Lidocaine HCl (Xylocaine 1% Inj (Local)) 15 ml ONE ONCE INFIL 06/27/16 10:53 06/27/16 10:54 DC 06/27/16 10:53 15 ML Iodixanol (Visipaque 50ml) 6,750 mg ONE ONCE IV 06/27/16 10:53 06/27/16 10:54 DC 06/27/16 10:53 6,750 MG Subjective Mrs. PaigeReports no major change in baseline. She reports her only area of pain today 's her left lower ribs, which by x-ray and CT of the chest confirmed left lower rib pathologic fractures from metastatic breast cancer. In the past couple days she has noted right upper extremity edema, but no erythema. She has chronic pain of this extremity and it has not changed in nature. she has not had cough or dyspnea. Her appetite remains fair. No bowel movement today at. No calf pain. Review of Systems: Respiratory: + see HPI Abdomen: + see HPI Musculoskeletal: + see HPI Vital Signs Vital Signs Past 12 Hours Date Time Temp Pulse Resp B/P Pulse Ox O2 Delivery O2 Flow Rate FiO2 06/27/16 12:27 37.0 107 17 131/67 98 Nasal Cannula 4.0 06/27/16 11:40 36.8 97 17 105/69 98 Nasal Cannula 4.0 06/27/16 11:15 37.3 104 17 117/69 91 Nasal Cannula 4.0 06/27/16 09:58 37.5 99 17 114/71 94 Room Air 1.0 06/27/16 09:56 37.5 99 17 114/71 94 Room Air 1.0 06/27/16 08:00 Room Air 06/27/16 07:15 37.5 99 17 114/71 94 Room Air 06/27/16 04:20 36.9 96 18 120/77 97 Nasal Cannula 1.0 Physical Exam Constitutional: General Apperance: well-nourished, well-developed Level of Distress: chronically ill ENMT: hearing grossly normal Lungs: Respiratory Effort: good air movement Auscuitation: no wheezing, no rhonchi Cardiovascular: Heart Auscultation: RRR Abdomen: Inspection & Palpation: soft, non-distended, pertinent finding Extremities: no cyanosis, edema (of RUE from hand to upper arm, no erythema or induration; chronic bilateral ankle edema, stable), pertinent finding Indurated right axillary nodes palpated. Laboratory 06/25/16 06:15 06/25/16 06:15 06/26/16 06:30 06/27/16 03:26 Test 06/25/16 06:15 06/26/16 01:19 06/26/16 06:30 06/27/16 03:26 Red Blood Count 4.07 M/uL (4.2-5.4) Mean Corpuscular Volume 73.7 fL (80-100) Mean Corpuscular Hemoglobin 24.3 pg (25-34) Mean Corpuscular Hemoglobin Concent 33.0 g/dl (32-36) RDW Standard Deviation 53.5 fL (36.4-46.3) RDW Coefficient of Variation 19.7 % (11.5-14.5) Mean Platelet Volume 9.1 fL (7.4-10.4) Nucleated RBC Absolute Count (auto) 0.04 K/uL (0-0) Nucleated Red Blood Cells % 0.5 % Est Creatinine Clear Calc Drug Dose 60.8 ml/min 58.5 ml/min 54.2 ml/min Estimated GFR () 98.3 93.6 85.3 Estimated GFR (Non- 84.9 80.8 73.6 Vancomycin Level Trough 14.9 mcg/ml (SEE COMMENT) 19.4 mcg/ml (SEE COMMENT) Test 06/27/16 08:45 Urine Color DK YELLOW Urine Appearance TURBID (CLEAR) Urine pH 5.0 (4.5-7.5) Urine Specific [place] 1.025 (1.000-1.030) Urine Protein 1+ (NEG) Urine Glucose (UA) NEG (NEG) Urine Ketones TRACE (NEG) Urine Occult Blood 3+ (NEG) Urine Nitrite NEG (NEG) Urine Bilirubin NEG (NEG) Urine Urobilinogen NEG (NEG) Urine Leukocyte Esterase MODERATE (NEG) Urine WBC (Auto) >30 /hpf (0-5) Urine RBC (Auto) >30 /hpf (0-4) Urine Hyaline Casts (Auto) 1-5 /lpf (0-5) Urine Epithelial Cells (Auto) >30 /lpf (0-5) Urine Bacteria (Auto) NEG (NEG) Urine Crystals See comments (NONE PRSENT) Urine Pathogenic Casts /lpf (0) Date/Time Source Procedure Growth Status 06/24/16 23:20 Nasal MRSA DNA Surveillance Screen - Final Specimen Negative for MRSA by DNA Probe Complete Left rib chest x-ray from 06/26/16: Innumerable lytic lesions identified within visualized skeletal structures including the ribs in the midshaft of the right humerus. Acute minimally displaced pathologic fractures of anterior left 8th and 9th ribs. May also be pathologic fractures of the anterior left 10th and 11th ribs. Bilateral lower extremity venous Doppler from 06/26/2016: Deep venous thrombus within the right common femoral and superficial femoral veins. No deep venous thrombus within the left extremity. CTA from 06/27/2016: Study negative for pulmonary embolus. Diffuse metastatic change involving osseous structures throughout with several pathologic rib fractures. Mildly progressive upper abdominal retroperitoneal adenopathy. Radiology See above. Assessment & Plan (1) Metastatic breast carcinoma Status: Acute Permanent Comment: [id number], stage IV Invasive ductal carcinoma, ER positive/NE negative/Her2 positive, grade 2 Last Edited By: Clau Sinha on Jun 21, 2016 14:24 Assessment & Plan: Patient has undergone staging evaluation with CT of the chest/abdomen / pelvis, brain MRI and bone scan. She has locally advanced disease with a large necrotic breast mass and axillary adenopathy. She has widespread bony metastatic disease. Radiation Oncology has evaluated the patient and started her on palliative RT of the right humerus, thoracolumbar spine and the right femur. Dr. Sinha is agreeable with starting the patient while hospitalized on anastrozole 1 milligram daily for the hormonal component of her breast cancer- started today. Her echocardiogram during this hospitalization has revealed decreased LVEF from 35-39%, so anti her 2 Alina therapy would not be considered in her case. Dr. Sinha of is deferring breast RT at this time, continue to monitor breast lesion for bleeding, may see control with antihormonal therapy. Patient was seen by pain mgmt today and is been recommend to continue to titrate fentanyl based upon pain, utilization of p.r.n. oxycodone. Plan to start patient on Xgeva in the outpatient setting for her bone metastasis. (2) Iron deficiency anemia due to chronic blood loss Status: Chronic Assessment & Plan: Received Venofer 300 milligram x 1 dose hospitalized for blood loss from advanced right breast mass on 06/26/16. Monitor CBC daily and blood loss from right breast mass. (3) Rib pain on left side Permanent Comment: Reason for Deletion: Last Edited By: Arianne Lozada on Jun 10:57 Assessment & Plan: Rib XRs and CTA reveal acute pathologic displaced fractures of 8th/9th left ribs as well as pathologic fractures of ribs 10-11. Also discussed the onset of this symptom with Dr. Sinha of Radiation Oncology and he will take a look at her films to see if a lesion is present amenable to radiation therapy. (4) Right femoral vein DVT Status: Chronic Assessment & Plan: Patient received 2 dose therapeutic Lovenox prior to IVC filter placement by Dr. Moon today as AC contraindicated with bleeding right breast mass with complication of significant LJ. Discussed with Dr. Sinha and we recommend to discontinue Lovenox at this time as patient has had IVC filter placement. (5) Edema of upper extremity Permanent Comment: Reason for Deletion: Last Edited By: Arianne Lozada on Jun 11:05 Assessment & Plan: Discussed with Dr. Sinha- monitor for now, could be due to altered lymphatic drainage from large right breast mass.
--- NOTE | 2016-06-27 18:12 | Progress Note ---
Internal Med Progress Note Date of Service: Jun 27, 2016. Provider Documentation: SUBJECTIVE: Patient is seen and examined at bedside. States her left rib pain and back pain has much improved. Had radiation therapy today. Denies any other symptoms. Denies any urinary symptoms. OBJECTIVE: Vital Signs-as noted below Physical Exam: General Appearance:Chronically ill appearing Head: normocephalic, Atraumatic Eyes: normal inspection, EOMI, PERRLA Neck: supple, no JVD, Trachea midline Respiratory/Chest: Diminished breath sounds, CTA Cardiovascular: S1, S2, Tachycardia, No murmur Abdomen/GI:Soft, Non tender, Bowel sounds present Extremities/Musculoskelatal:Right arm:+lymphadenopathy, +edema Chest:fungating mass on rt breast , bandage present Neurologic/Psych:AAOX3, grossly no focal neurological deficits Skin: erythematous rash on face Lab data as noted below. 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 , fungating/ulcerative rt breast mass with rt axillary lymph node involvement Dx in July 2013 in [facility] as ductal Adeno Carcinoma of rt breast Tumor was estrogen positive , progesterone negative, Her [address] scan in 2013 shoed beast mass at 4 cm with borderline rt axially lymph node involvement Pt refused to have follow up and seek treatment for her breast malignancy Currently presented with worsening of SOB , diffuse bone pain bleeding ulcerative mass of rt breast -destroying rt lower breast and rt Nipple Heme/oncology and Radiation oncology on board started on Palliative radiation tx -on Rt humerus and mid thoracic area , and right femur Poor prognosis limited option for systemic chemo due to poor functional status /underlying CHF Palliative care on board wound culture on rt breast mass : staph aureus: Follow up cultures Continue IV Vancomycin for now Anastrazole started by Heme/oncology ECHO showed decreased LVEF from 35-39%, so anti her 2 Alessia therapy would not be considered as per oncology RT LOWER EXT DVT: S/P IVC filter Appreciate vascular surgery help Lovenox discontinued per recommendations from oncology Pt refused lovenox secondary to concerns for bleeding in breast CTA: Negative for PE continue with any evidence of bleeding RT ARM SWELLING: due to above -has rt axially LN mets avoid lab draws , BP measure on rt arm R/O UTI: Denies any urinary symptoms Recheck UA Follow up urine culture ANEMIA: Hb improved ~ 9 post transfusion ' remains stable no active bleeding noted on rt breast mass Microcytic anemia MCV 68 suggestive of acute on chronic blood loss S/P 2 units PRBC transfusion DIFFUSE BONY METASTATIC DISEASE due to metastatic breast ca getting Palliative Radiation tx continue pain control On Fentanyl Patch on PRN oxy IR , IV Morphine bowel regimen to prevent narcotic induced constipation Pain management consulted -appreciate input Will be started on Xgeva ( Denosumab ) by Oncology as out patient H/O NSTEMI : required emergent infrarenal ruptured aortic aneurysm repair in July 2013 - surgery complicated by intra operative NSTEMI ECHO : in 2013: Ischemic cardiomyopathy EF 30 % repeat ECHO 06/22/16 There is a large sized apical, inferior and inferalateral wall motion abnormalities with akinesis of the segments. Left ventricular systolic function is moderately reduced. The qualitative LV ejection fraction is 35-39% (moderately reduced). Aortic valve sclerosis mild, without significant aortic valvular stenosis. There is severe mitral regurgitation. Doppler findings do not suggest pulmonary hypertension. Grade I diastolic dysfunction, (abnormal relaxation pattern). mild elevation of troponin could be secondary to cardiac strain due to severe anemia /ischemia cardiomyopathy very poor medication compliance not a candidate for Aspirin -fungating bleed mass /profound anemia pt refused to take Metoprolol-feels she does not need it COMBINED CHRONIC SYSTOLIC AND DIASTOLIC HEART FAILURE ISCHEMIC CARDIOMYOPATHY : due to above pt has not been taking Lasix /ACEI in past no evidence of volume overload at present monitor volume status Last EF: 30% ) HYPOTHYROIDISM: TSH elevated > 9 pt refuses to take Levothyroxine HTN BP well controlled jackie Metoprolol D/yovani as pt refused to take any additional meds other than her Malignancy treatment Code Status: FULL CODE DVT PX: High risk for DVT S/P IVC filter Lovenox discontinued per recommendations from oncology DISPOSITION to be determined very poor prognosis with wide spread metastatic breast CA terminal stage no curable treatment possible except for palliative care -Rad tx /chemo for pain control Palliative care consulted given pt's disease process Hospice would be appropriate: Pt may not be agreeable social service consulted PROCEDURES: CTA: 1. Study is negative for pulmonary embolus. 2. Lungs are grossly clear. 3. Diffuse metastatic change involving the osseous structures throughout with several pathologic rib fractures which have been discussed previously. 4. Mildly progressive upper abdominal retroperitoneal adenopathy CT abdomen /pelvis : wide spread lytic bony metastatic disease 7.5 cm rt breast /chest wall mass consistent with neoplasm , There is a 1 cm soft tissue satellite nodule NC BONE SCAN : extensive foci of abnormal increased uptake involving cervical , thoracic and lumber spines, There is abnormal increased uptake within the pelvis left proximal humerus, multiple ribs as well both proximal femurs-findings consistent with widespread skeletal metastasis . Doppler: Doppler shows : 1. Deep venous thrombus within the right common femoral and superficial femoral veins. 2. No deep venous thrombus within the left lower extremity. Vital Signs: Date Time Temp Pulse Resp B/P Pulse Ox O2 Delivery O2 Flow Rate FiO2 06/27/16 13:35 36.8 97 19 119/71 96 Nasal Cannula 3.0 06/27/16 12:27 37.0 107 17 131/67 98 Nasal Cannula 4.0 06/27/16 11:40 36.8 97 17 105/69 98 Nasal Cannula 4.0 06/27/16 11:15 37.3 104 17 117/69 91 Nasal Cannula 4.0 06/27/16 09:58 37.5 99 17 114/71 94 Room Air 1.0 06/27/16 09:56 37.5 99 17 114/71 94 Room Air 1.0 06/27/16 08:00 Room Air 06/27/16 07:15 37.5 99 17 114/71 94 Room Air 06/27/16 04:20 36.9 96 18 120/77 97 Nasal Cannula 1.0 06/27/16 00:00 Nasal Cannula 1.0 06/26/16 23:29 37.2 97 18 127/77 93 Nasal Cannula 1.0 06/26/16 20:00 97 Room Air 1.0 Lab Results: Results Past 24 Hours Test 06/27/16 03:26 06/27/16 08:45 Range/Units Creatinine 0.81 0.60-1.20 mg/dl Est Creatinine Clear Calc Drug Dose 54.2 ml/min Estimated GFR () 85.3 Estimated GFR (Non- 73.6 Vancomycin Level Trough 19.4 SEE COMMENT mcg/ml Urine Color DK YELLOW Urine Appearance TURBID CLEAR Urine pH 5.0 4.5-7.5 Urine Specific [place] 1.025 1.000-1.030 Urine Protein 1+ NEG Urine Glucose (UA) NEG NEG Urine Ketones TRACE NEG Urine Occult Blood 3+ NEG Urine Nitrite NEG NEG Urine Bilirubin NEG NEG Urine Urobilinogen NEG NEG Urine Leukocyte Esterase MODERATE NEG Urine WBC (Auto) >30 0-5 /hpf Urine RBC (Auto) >30 0-4 /hpf Urine Hyaline Casts (Auto) 1-5 0-5 /lpf Urine Epithelial Cells (Auto) >30 0-5 /lpf Urine Bacteria (Auto) NEG NEG Urine Crystals See comments NONE PRSENT Urine Pathogenic Casts 0 /lpf Microbiology Results 06/27/16 Urine Culture, Received Pending
[2016-06-27] MEDS: SENNA 8.6 MG TAB PO SCH (21:00)
[2016-06-27] MEDS: LIDODERM (LIDOCAINE) PATCH 5% TD SCH (21:01)
[2016-06-28] VITALS (7 sets, daily range): BP systolic 107–119; BP diastolic 61–72; PULSE 92–107; TEMP 36.7–37.1; O2SAT 95–99
[2016-06-28] MEDS: BOOST VANILLA PO SCH ×2 (08:00)
[2016-06-28] MEDS: CHECK FENTANYL PATCH PLACEMENT SCH ×2 (09:25→17:06)
[2016-06-28] MEDS: POLYETHYLENE (MIRALAX) 17 GM PACK PO SCH (09:27)
[2016-06-28] MEDS: MULTIVITAMIN TAB PO SCH (09:27)
[2016-06-28] MEDS: ASCORBIC ACID 500 MG TAB PO SCH ×2 (09:27→22:47)
[2016-06-28] MEDS: DOCUSATE SODIUM 100 MG CAP PO SCH ×2 (09:27→22:47)
[2016-06-28] MEDS: ANASTROZOLE 1 MG TAB PO SCH (09:31)
[2016-06-28] MEDS: VANCOMYCIN INJ 900 MG in SODIUM CHLORIDE 0.9% 250ML 250 ML IV SCH (12:14)
--- NOTE | 2016-06-28 15:36 | Progress Note ---
Internal Med Progress Note Date of Service: Jun 28, 2016. Provider Documentation: SUBJECTIVE: Patient is seen and examined at bedside. Had radiation therapy today. States having mild left rib pain. Denies any other symptoms. OBJECTIVE: Vital Signs-as noted below Physical Exam: General Appearance:Chronically ill appearing Head: normocephalic, Atraumatic Eyes: normal inspection, EOMI, PERRLA Neck: supple, no JVD, Trachea midline Respiratory/Chest: Diminished breath sounds, CTA Cardiovascular: S1, S2, Tachycardia, No murmur Abdomen/GI:Soft, Non tender, Bowel sounds present Extremities/Musculoskelatal:Right arm:+lymphadenopathy, +edema Chest:fungating mass on rt breast , bandage present Neurologic/Psych:AAOX3, grossly no focal neurological deficits Skin: erythematous rash on face Lab data as noted below. 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 , fungating/ulcerative rt breast mass with rt axillary lymph node involvement Dx in July 2013 in [facility] as ductal Adeno Carcinoma of rt breast Tumor was estrogen positive , progesterone negative, Her [address] scan in 2013 shoed beast mass at 4 cm with borderline rt axially lymph node involvement Pt refused to have follow up and seek treatment for her breast malignancy Currently presented with worsening of SOB , diffuse bone pain bleeding ulcerative mass of rt breast -destroying rt lower breast and rt Nipple Heme/oncology and Radiation oncology on board started on Palliative radiation tx -on Rt humerus and mid thoracic area , and right femur Poor prognosis limited option for systemic chemo due to poor functional status /underlying CHF Palliative care on board wound culture on rt breast mass : Coagulase negative staph On IV Vancomycin, will consider to DC/switch to PO abx Anastrazole started by Heme/oncology for the hormonal component of her breast cancer ECHO showed decreased LVEF from 35-39%, so anti her 2 Alessia therapy would not be considered as per oncology Dr. Sinha (Radiation Oncology) deferred breast RT at this time Continue radiation therapy to metastatic bone disease Pain control with fentanyl, oxycodone PRN Plan to start on Xgeva as outpatient for bone metastasis RT LOWER EXT DVT: S/P IVC filter Appreciate vascular surgery help Lovenox discontinued per recommendations from oncology Pt refused Lovenox secondary to concerns for bleeding in breast CTA: Negative for PE Monitor for any evidence of bleeding RT ARM SWELLING: Likely due to altered lymphatic drainage from large right breast mass avoid lab draws , BP measure on rt arm R/O UTI: Denies any urinary symptoms urine culture: No growth ANEMIA: Hb improved ~ 9 post transfusion ' remains stable no active bleeding noted on rt breast mass Microcytic anemia MCV 68 suggestive of acute on chronic blood loss S/P 2 units PRBC transfusion DIFFUSE BONY METASTATIC DISEASE due to metastatic breast ca getting Palliative Radiation tx continue pain control On Fentanyl Patch on PRN oxy IR , IV Morphine bowel regimen to prevent narcotic induced constipation Pain management consulted -appreciate input Will be started on Xgeva ( Denosumab ) by Oncology as out patient H/O NSTEMI : required emergent infrarenal ruptured aortic aneurysm repair in July 2013 - surgery complicated by intra operative NSTEMI ECHO : in 2013: Ischemic cardiomyopathy EF 30 % repeat ECHO 06/22/16 There is a large sized apical, inferior and inferalateral wall motion abnormalities with akinesis of the segments. Left ventricular systolic function is moderately reduced. The qualitative LV ejection fraction is 35-39% (moderately reduced). Aortic valve sclerosis mild, without significant aortic valvular stenosis. There is severe mitral regurgitation. Doppler findings do not suggest pulmonary hypertension. Grade I diastolic dysfunction, (abnormal relaxation pattern). mild elevation of troponin could be secondary to cardiac strain due to severe anemia /ischemia cardiomyopathy very poor medication compliance not a candidate for Aspirin -fungating bleed mass /profound anemia pt refused Metoprolol-feels she does not need it COMBINED CHRONIC SYSTOLIC AND DIASTOLIC HEART FAILURE ISCHEMIC CARDIOMYOPATHY : due to above pt has not been taking Lasix /ACEI in past no evidence of volume overload at present monitor volume status Last EF: 30% ) HYPOTHYROIDISM: TSH elevated > 9 pt refuses to take Levothyroxine HTN BP well controlled jackie Metoprolol D/yovani as pt refused to take any additional meds other than her Malignancy treatment Code Status: FULL CODE DVT PX: High risk for DVT S/P IVC filter Lovenox discontinued per recommendations from oncology DISPOSITION to be determined: Patient currently not interested to discuss about Rehab/ Palliative care very poor prognosis with wide spread metastatic breast CA terminal stage no curable treatment possible except for palliative care -Rad tx /chemo for pain control given pt's disease process Hospice would be appropriate: Pt may not be agreeable social service consulted PT/OT ordered PROCEDURES: CTA: 1. Study is negative for pulmonary embolus. 2. Lungs are grossly clear. 3. Diffuse metastatic change involving the osseous structures throughout with several pathologic rib fractures which have been discussed previously. 4. Mildly progressive upper abdominal retroperitoneal adenopathy CT abdomen /pelvis : wide spread lytic bony metastatic disease 7.5 cm rt breast /chest wall mass consistent with neoplasm , There is a 1 cm soft tissue satellite nodule NC BONE SCAN : extensive foci of abnormal increased uptake involving cervical , thoracic and lumber spines, There is abnormal increased uptake within the pelvis left proximal humerus, multiple ribs as well both proximal femurs-findings consistent with widespread skeletal metastasis . Doppler: Doppler shows : 1. Deep venous thrombus within the right common femoral and superficial femoral veins. 2. No deep venous thrombus within the left lower extremity. Vital Signs: Date Time Temp Pulse Resp B/P Pulse Ox O2 Delivery O2 Flow Rate FiO2 06/28/16 11:46 36.8 93 19 107/69 99 Room Air 06/28/16 08:00 Nasal Cannula 1.0 06/28/16 07:20 36.7 101 19 111/70 95 Nasal Cannula 2.0 06/28/16 00:15 37.1 107 20 108/61 98 1.0 06/27/16 23:55 96 Nasal Cannula 1.0 06/27/16 20:49 37.0 105 20 118/72 96 1.0 Lab Results: Results Past 24 Hours Test 06/27/16 18:20 Range/Units
[2016-06-28] MEDS ORDERED: BOOST VANILLA PO SCH ×2 (20:00)
[2016-06-28] MEDS: LIDODERM (LIDOCAINE) PATCH 5% TD SCH (22:46)
[2016-06-28] MEDS: SENNA 8.6 MG TAB PO SCH (22:47)
[2016-06-28] MEDS: OXYCODONE HCL IR 5 MG TAB (IMMEDIATE RELEASE) PO PRN (22:56)
[2016-06-29] VITALS (7 sets, daily range): BP systolic 97–126; BP diastolic 60–77; PULSE 89–96; TEMP 36.6–37; O2SAT 96–100
[2016-06-29] MEDS: CHECK FENTANYL PATCH PLACEMENT SCH ×4 (00:20→23:59)
[2016-06-29] MEDS ORDERED: VANCOMYCIN TROUGH SCH (03:30)
[2016-06-29 04:25] LABS: CREATININE 0.71 mg/dl (0.60-1.20)
[2016-06-29] MEDS: VANCOMYCIN INJ 900 MG in SODIUM CHLORIDE 0.9% 250ML 250 ML IV SCH ×2 (06:23→21:39)
[2016-06-29] MEDS: POLYETHYLENE (MIRALAX) 17 GM PACK PO SCH (07:56)
[2016-06-29] MEDS: MULTIVITAMIN TAB PO SCH (07:57)
[2016-06-29] MEDS: DOCUSATE SODIUM 100 MG CAP PO SCH ×2 (07:57→21:30)
[2016-06-29] MEDS: ASCORBIC ACID 500 MG TAB PO SCH ×2 (07:57→21:30)
[2016-06-29] MEDS: ANASTROZOLE 1 MG TAB PO SCH (07:58)
--- NOTE | 2016-06-29 10:43 | Pharmacy Progress Note ---
Pharmacy Antibiotic Prog Note Date of Service: Jun 29, 2016. Subjective: The patient is currently receiving vancomycin 900 mg iv q 16 for cellulitis infection. The patient is currently on day # 6 of IV therapy. Objective: Height (Feet): 5 Height (Inches): 1.00 Weight (Kilograms): 60.400 Lab Results (24hrs): Item Value Date Time Vancomycin Level Trough 15.0 mcg/ml 06/29/16 0330 Laboratory Tests Test 06/29/16 03:30 Creatinine 0.71 mg/dl Micro Results: Item Value Date Time Urine Culture - Final Complete 06/27/16 0845 Urine,Catheterized NO GROWTH - LESS THAN 1,000 COLONIES/ML MRSA DNA Surveillance Screen - Final Complete 06/24/16 2320 Nasal Specimen Negative for MRSA by DNA Probe Gram Stain - Final Complete 06/20/16 1630 Skin Breast, Right Blood Culture - Final Complete 06/20/16 0800 Blood NO GROWTH Blood Culture - Final Complete 06/20/16 0755 Blood NO GROWTH Assessment & Plan: Patient currently receiving vancomycin for possible cellulitis infection. Wound cultures growing coag negative staph. BC are no growth to date. Vancomycin: * Level this am therapeutic at ~15 mcg/ml (within goal for cellulitis infection) * Will continue with current regimen of 900 mg iv q 16 hrs * Renal function appears stable over past few days (CrCl ~62 ml/min) * Will consider rechecking trough in next 2-3 days if vancomycin is to be continued Pharmacy will continue to follow and will adjust dose/frequency as necessary. Thank you
[2016-06-29 11:02] LABS: HEMATOCRIT 27.1 % (37-47); MEAN CELL VOLUME 76.8 fL (80-100); MEAN CORPUSCULAR HEMOGLOBIN 24.6 pg (25-34); MEAN CORPUSCULAR HGB CONC 32.1 g/dl (32-36); MEAN PLATELET VOLUME 9.6 fL (7.4-10.4); PLATELET COUNT 339 K/uL (130-400); RED BLOOD COUNT 3.53 M/uL (4.2-5.4); WHITE BLOOD COUNT 5.47 K/uL (4.8-10.8)
--- NOTE | 2016-06-29 11:34 | Palliative Care Progress Note ---
Palliative Care Progress Note Date of Service Jun 29, 2016. Subjective Pt evaluation today including: conversation w/ patient, chart review, conversation w/ change consultant, review of inpatient medication list (pain medications) Pain: 4/10 in left ribs PO Intake: tolerating diet Voiding: meyer catheter in place -Patient is awake, alert and oriented. C/o pain 4/10 in left ribs at site of pathological fractures. -Still lying still in bed, somewhat stiff and appears to not want to move at all while talking. -Has not been out of bed at all since admission as she states, "there's no reason to get out of bed." But when asked about her goals of care she states, " I dream of walking out of here, and I'm feeling stronger." -Discussed with her what "Plan B" would be in the case that she does not "get better", but patient was very resistant to talk about this. She does verbalize understanding that her diagnosis is incurable, but then she states, "I just need to get better. After radiation I'll feel a lot better and can get back to my life." -I tired to discuss with patient about her family dynamics with her and son. She stated that her and her son had a good relationship while he was growing up. They spent a lot of time together while her was away at [employer] school and in the [employer]. She said that once her son was old enough to care for himself he, "declared his independence." They do not talk much any more. I asked why and she got very angry and said, "It's none of your business. I don't need help with my or my son. You're digging into things that get me very upset." I apologized and offered my support. No physical exam was done due to patient's agitation and anger. Review of Systems Constitutional: + weakness, No chills, No fever Respiratory: No cough, No dyspnea on exertion, No shortness of breath Cardiac: No chest pain, No edema (none cardiac related) Abdomen: + constipation (relieved yesterday with two bowel movements), + nausea (occasionally, not at this time), No pain Musculoskeletal: + problem reported (left rib pain), + swelling (right arm edema r/t radiation treatments) Female : No problem reported (has meyer catheter) Psychiatric: + anxiety (related to situation) Objective Vital Signs Date Time Temp Pulse Resp B/P Pulse Ox O2 Delivery O2 Flow Rate FiO2 06/29/16 07:48 36.6 89 18 124/76 100 Nasal Cannula 1.0 06/29/16 04:19 37.0 90 20 104/64 99 Nasal Cannula 2.0 06/29/16 00:10 96 Nasal Cannula 1.0 06/28/16 23:54 36.9 92 20 116/72 97 Nasal Cannula 2.0 06/28/16 20:12 36.8 95 16 119/65 97 Room Air 2.0 06/28/16 20:00 96 Nasal Cannula 1.0 06/28/16 16:10 99 Room Air 1.0 06/28/16 11:46 36.8 93 19 107/69 99 Room Air Laboratory Results Last 24 Hours Test 06/29/16 03:30 White Blood Count 5.47 K/uL Red Blood Count 3.53 M/uL Hemoglobin 8.7 g/dL Hematocrit 27.1 % Mean Corpuscular Volume 76.8 fL Mean Corpuscular Hemoglobin 24.6 pg Mean Corpuscular Hemoglobin Concent 32.1 g/dl RDW Standard Deviation 61.9 fL RDW Coefficient of Variation 23.1 % Platelet Count 339 K/uL Mean Platelet Volume 9.6 fL Creatinine 0.71 mg/dl Est Creatinine Clear Calc Drug Dose 62.5 ml/min Estimated GFR () 100.0 Estimated GFR (Non- 86.3 Vancomycin Level Trough 15.0 mcg/ml Assessment and Plan Problem list: Pain, back and right shoulder, now left ribs where there are pathological fractures Anxiety Shortness of breath- resolved Weakness Fungating mass of right breast Anemia Metastatic breast adenocarcinoma with bony metastases Goals of care (Z51.5) Palliative care plan: -Patient's goal is to go home and be ambulatory again. She believes that she will be stronger after radiation therapy, but has been refusing to get OOB per nursing staff. PT/OT now ordered by Dr. Harris. -Patient does not want to discuss other goals of care with me at this time. -She still has pain 4-5/10. Does have lidoderm patch ordered for night time to left ribs. Declines any increase in her pain medication. Although I do believe she would benefit from increase in fentanyl patch to 25mcg/hr Q72h. -I think patient would benefit greatly from a psychiatry consult given her seemingly difficult time coping with this diagnosis. She is not willing to discuss much and does not want to talk about how she is realistically going to do as far as going home. Patient became very angry and agitated when I attempted to discuss these things with her. She was previously refusing a psych consult, but this needs to be addressed with her. -Disposition and discharge planning uncertain at this time. I will follow peripherally for now. Please contact me if there are any palliative care needs. Palliative Performance Scale: 30 % Continued [facility] stay due to: multiple IV medications needed, home environment unsafe for pt Discharge planning: uncertain
[2016-06-29] MEDS: OXYCODONE HCL IR 5 MG TAB (IMMEDIATE RELEASE) PO PRN ×2 (14:49→23:58)
--- NOTE | 2016-06-29 17:59 | Progress Note ---
Medicine Progress Note Date & Time of Visit: Jun 29, 2016 at 17:25. Subjective Pt was seen and examined Lying in bed with no acute distress Pt said that she feels weak she got upset when i tried to encourage her to participate to physical therapy She said that she needs to rest she said that after completing her radiation therapy that she will be stronger she strongly believe that when she is ready to discharge that she will be able to walk out of the hospital pt said that she feels depressed and anxious. she refused to see psych for held she said that her breathing feels much better denies any chest pain, palpitation and dizziness. Objective Last 8 Hrs Date Time Temp Pulse Resp B/P Pulse Ox O2 Delivery O2 Flow Rate FiO2 06/29/16 15:56 36.8 96 18 126/73 96 Nasal Cannula 1.0 06/29/16 14:30 Nasal Cannula 1.0 06/29/16 11:43 36.9 91 16 124/77 96 Nasal Cannula 1.0 Physical Exam: General- No acute distress Head- atraumatic Eyes- PERRL, EOMI ENT- oropharynx clear Neck- supple, no JVD Lungs- No wheezing, no crackle Heart- regular rhythm; no murmur Abdomen- normal bowel sounds, soft Extremities- no calf tenderness Neuro- alert, oriented x 3; PERRL, EOMI; no facial palsy Skin- warm & dry Laboratory Results: Last 24 Hours Test 06/29/16 03:30 White Blood Count 5.47 K/uL Red Blood Count 3.53 M/uL Hemoglobin 8.7 g/dL Hematocrit 27.1 % Mean Corpuscular Volume 76.8 fL Mean Corpuscular Hemoglobin 24.6 pg Mean Corpuscular Hemoglobin Concent 32.1 g/dl RDW Standard Deviation 61.9 fL RDW Coefficient of Variation 23.1 % Platelet Count 339 K/uL Mean Platelet Volume 9.6 fL Creatinine 0.71 mg/dl Est Creatinine Clear Calc Drug Dose 62.5 ml/min Estimated GFR () 100.0 Estimated GFR (Non- 86.3 Vancomycin Level Trough 15.0 mcg/ml Assessment & Plan 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: advanced stage with widespread bone mets , fungating/ulcerative rt breast mass with rt axillary lymph node involvement Dx in July 2013 in [facility] as ductal Adeno Carcinoma of rt breast Tumor was estrogen positive , progesterone negative, Her [address] scan in 2013 shoed beast mass at 4 cm with borderline rt axially lymph node involvement Pt refused to have follow up and seek treatment for her breast malignancy back then Currently presented with worsening of SOB , diffuse bone pain bleeding ulcerative mass of rt breast -destroying rt lower breast and rt Nipple Heme/oncology and Radiation oncology on board started on Palliative radiation tx -on Rt humerus and mid thoracic area , and right femur Poor prognosis limited option for systemic chemo due to poor functional status /underlying CHF Palliative care on board wound culture on rt breast mass : Coagulase negative staph On IV Vancomycin, will consider to DC/switch to PO abx Anastrazole started by Heme/oncology for the hormonal component of her breast cancer ECHO showed decreased LVEF from 35-39%, so anti her 2 Alessia therapy would not be considered as per oncology Dr. Sinha (Radiation Oncology) deferred breast RT at this time Continue radiation therapy to metastatic bone disease Pain control with fentanyl, oxycodone PRN Plan to start on Xgeva as outpatient for bone metastasis / Continue radiation therapy Poor prognosis Palliative care consulted, refused to discuss plan of care Oncology on board, planning to start Xgeva as an outpatient for bone met RT LOWER EXT DVT: S/P IVC filter placed due to concern for bleeding from the breast by dr. Moon As per oncology recommended to discontinue Lovenox d CTA chest Negative for PE Continue monitor for any evidence of bleeding Stable RT ARM SWELLING: Likely due to altered lymphatic drainage from large right breast mass avoid lab draws , BP measure on rt arm Stable Abnormal UA Asymptomatic urine cx showed no growth Depression/Anxiety Denies any suicidal thought Refused psych consult ANEMIA: S/p 2 units prbc on 06/24 Hgb today dropped to 8.7 no active bleeding noted on rt breast mass will monitor h/h, if hgb drops below 8, will transfuse prbc DIFFUSE BONY METASTATIC DISEASE due to metastatic breast ca getting Palliative Radiation tx Pain control on Fentanyl patch on PRN oxy IR , IV Morphine bowel regimen to prevent narcotic induced constipation Pain management consulted on board Xgeva( Denosumab ) will start by Oncology as out patient H/O NSTEMI : required emergent infrarenal ruptured aortic aneurysm repair in July 2013 - surgery complicated by intra operative NSTEMI ECHO : in 2013: Ischemic cardiomyopathy EF 30 % repeat ECHO 06/22/16 There is a large sized apical, inferior and inferalateral wall motion abnormalities with akinesis of the segments. Left ventricular systolic function is moderately reduced. The qualitative LV ejection fraction is 35-39% (moderately reduced). Aortic valve sclerosis mild, without significant aortic valvular stenosis. There is severe mitral regurgitation. Doppler findings do not suggest pulmonary hypertension. Grade I diastolic dysfunction, (abnormal relaxation pattern). Refused medically management at this time Elevated troponin Possible secondary to cardiac strain due to severe anemia / demand ischemia EKG on admission showed no significant ST changes Not on aspirin due to fungating bleed mass /profound anemia Refused to take Metoprolol denies any chest pain currently COMBINED CHRONIC SYSTOLIC AND DIASTOLIC HEART FAILURE ISCHEMIC CARDIOMYOPATHY : due to above pt has not been taking Lasix /ACEI in past Refused to take lasix, metoprol and ACEI no evidence of volume overload at present monitor volume status Last EF: 30% ) HYPOTHYROIDISM: TSH elevated > 9 pt refuses to take Levothyroxine HTN BP well controlled jackie Metoprolol D/yovani as pt refused to take any additional meds other than her Malignancy treatment Code Status: FULL CODE DVT PX: High risk for DVT S/P IVC filter Lovenox discontinued per recommendations from oncology DISPOSITION Poor prognosis Continue radiation therapy Refused to discuss goal of care with Palliative care social service consulted PT/OT ordered - Refused to participate Continued [facility] stay due to: multiple IV medications needed, home environment unsafe for pt Discharge planning: uncertain Procedures: CTA Chest: 1. Study is negative for pulmonary embolus. 2. Lungs are grossly clear. 3. Diffuse metastatic change involving the osseous structures throughout with several pathologic rib fractures which have been discussed previously. 4. Mildly progressive upper abdominal retroperitoneal adenopathy CT abdomen /pelvis : wide spread lytic bony metastatic disease 7.5 cm rt breast /chest wall mass consistent with neoplasm , There is a 1 cm soft tissue satellite nodule NC BONE SCAN : extensive foci of abnormal increased uptake involving cervical , thoracic and lumber spines, There is abnormal increased uptake within the pelvis left proximal humerus, multiple ribs as well both proximal femurs-findings consistent with widespread skeletal metastasis . Doppler: Doppler shows : 1. Deep venous thrombus within the right common femoral and superficial femoral veins. 2. No deep venous thrombus within the left lower extremity. Current Inpatient Medications: Current Inpatient Medications Medications (Trade) Dose Ordered Sig/Sudarshan Route Start Time Stop Time Status Last Admin Dose Admin Acetaminophen (Tylenol Tab) 650 mg Q4H PRN PO 06/20/16 12:30 07/20/16 12:29 Future Hold 06/21/16 00:15 650 MG Al Hydrox/Mg Hydrox/Simethicone (Maalox Max Susp) 15 ml Q4H PRN PO 06/20/16 12:30 07/20/16 12:29 Magnesium Hydroxide (Milk Of Magnesia Susp) 30 ml Q6H PRN PO 06/20/16 12:30 07/20/16 12:29 Ondansetron HCl (Zofran Inj) 4 mg Q6H PRN IV 06/20/16 12:30 07/20/16 12:29 06/29/16 07:57 4 MG Multivitamins (Multivitamin Tab) 1 tab DAILY PO 06/21/16 08:00 07/21/16 08:59 06/29/16 07:57 1 TAB Ascorbic Acid (Vitamin C Tab) 3,000 mg BID PO 06/20/16 20:00 07/20/16 20:59 06/29/16 07:57 3,000 MG Morphine Sulfate (MoRPHine SULFATE INJ) 2 mg Q3HWA PRN IV 06/20/16 12:30 07/04/16 12:29 06/23/16 22:46 2 MG Oxycodone HCl (Roxicodone Immediate Rel Tab) 5 mg Q2H PRN PO 06/24/16 11:00 07/08/16 10:59 06/29/16 14:49 5 MG Lorazepam (Ativan Tab) 0.5 mg Q4 PRN PO 06/24/16 11:00 07/24/16 10:59 Lorazepam (Ativan Inj) 0.5 mg Q6 PRN IV 06/24/16 11:00 07/24/16 10:59 Polyethylene (Miralax Powder Packet) 17 gm DAILY PO 06/24/16 12:00 07/24/16 11:59 06/28/16 09:27 17 GM Docusate Sodium (coLACE CAP) 100 mg BID PO 06/24/16 20:00 07/24/16 19:59 06/29/16 07:57 100 MG Bisacodyl (Dulcolax Supp) 10 mg DAILY PRN TX 06/24/16 11:00 07/24/16 10:59 Senna (Senokot Tab) 8.6 mg HS PO 06/24/16 21:00 07/24/16 20:59 06/28/16 22:47 8.6 MG Fentanyl (Duragesic Patch) 12 mcg Q3D@0900 TD 06/24/16 11:15 07/08/16 11:14 06/27/16 07:57 12 MCG Miscellaneous (Fentanyl Patch Remove & Waste) 1 ea Q3D@0859 N/A 06/27/16 08:59 07/27/16 08:58 06/27/16 08:01 1 EA Miscellaneous Information 1 ea 1 ea QS N/A 06/24/16 16:00 07/24/16 15:59 06/29/16 16:22 1 EA Lorazepam/Syringe (Ativan Inj/ Syringe) 1 ml @ 1 mls/min Q6H PRN IV 06/24/16 11:15 07/24/16 11:14 Vancomycin HCl (Consult) 1 ea UD PRN N/A 06/24/16 16:15 07/24/16 16:14 Miconazole Nitrate (Desenex Powder) 1 appln PRN PRN EXT 06/26/16 08:30 07/26/16 08:29 Anastrozole (Arimidex Tab) 1 mg QAM PO 06/27/16 08:00 07/27/16 07:59 06/29/16 07:58 1 MG Lidocaine (Lidoderm Patch 5%) 1 patch PM TD 06/26/16 21:15 07/26/16 21:14 06/28/16 22:46 1 PATCH Miscellaneous (Remove Lidoderm Patch) 1 ea DAILY@0900 N/A 06/27/16 09:00 07/27/16 08:59 06/29/16 08:06 1 EA Ioversol 100 ml 100 ml UD PRN IV 06/27/16 09:15 07/01/16 09:14 Vancomycin HCl/ Sodium Chloride (Vancomycin Inj/ Nss 250ml) 268 ml @ 125 mls/hr Q16H IV 06/27/16 20:00 07/03/16 23:59 06/29/16 06:23 125 MLS/HR
[2016-06-29] MEDS: SENNA 8.6 MG TAB PO SCH (21:30)
[2016-06-29] MEDS: LIDODERM (LIDOCAINE) PATCH 5% TD SCH (21:30)
[2016-06-30 04:16] VITALS: BP 99/61; PULSE 79; TEMP 36.6; O2SAT 100
[2016-06-30 07:13] LABS: HEMATOCRIT 25.7 % (37-47); MEAN CELL VOLUME 77.6 fL (80-100); MEAN CORPUSCULAR HEMOGLOBIN 24.8 pg (25-34); MEAN CORPUSCULAR HGB CONC 31.9 g/dl (32-36); MEAN PLATELET VOLUME 8.6 fL (7.4-10.4); PLATELET COUNT 287 K/uL (130-400); RED BLOOD COUNT 3.31 M/uL (4.2-5.4); WHITE BLOOD COUNT 5.23 K/uL (4.8-10.8)
[2016-06-30 07:41] LABS: BUN/CREATININE RATIO 38.7 (10-20); CALCIUM 9.8 mg/dl (8.5-10.1); CREATININE 0.53 mg/dl (0.60-1.20); POTASSIUM 4.3 mmol/L (3.5-5.1)
[2016-06-30] MEDS: POLYETHYLENE (MIRALAX) 17 GM PACK PO SCH (08:00)
[2016-06-30] MEDS: DOCUSATE SODIUM 100 MG CAP PO SCH ×2 (08:00→20:00)
[2016-06-30 08:12] VITALS: BP 120/60; PULSE 86; TEMP 36.8; O2SAT 98
[2016-06-30] MEDS: ANASTROZOLE 1 MG TAB PO SCH (08:28)
[2016-06-30] MEDS: CHECK FENTANYL PATCH PLACEMENT SCH ×2 (08:29→16:00)
[2016-06-30] MEDS: MULTIVITAMIN TAB PO SCH (08:29)
[2016-06-30] MEDS: ASCORBIC ACID 500 MG TAB PO SCH ×2 (08:29→21:01)
[2016-06-30] MEDS: FENTANYL PATCH REMOVE & WASTE SCH (08:59)
[2016-06-30] MEDS: FENTANYL 12 MCG/HR TDSY TD SCH (09:57)
[2016-06-30] MEDS: VANCOMYCIN INJ 900 MG in SODIUM CHLORIDE 0.9% 250ML 250 ML IV SCH (11:22)
[2016-06-30 12:23] VITALS: BP 122/64; PULSE 85; TEMP 36.8; O2SAT 97
--- NOTE | 2016-06-30 14:09 | Hematology/Oncology Prog Note ---
Hematology/Onc Progress Note Date of Service Jun 30, 2016. Diagnoses 1. Stage IV hormonal positive, Her-2 positive breast cancer with extensive bone metastases 2. Iron deficiency anemia secondary to chronic blood loss from breast lesion 3. Right femoral DVT- dx 06/26/16- s/p IVC filter placement 06/27/16 4. Pathologic left rib fractures 8-11 Medications Medications Administered Medications (Trade) Dose Ordered Sig/Sudarshan Route Start Time Stop Time Status Last Admin Dose Admin Enoxaparin Sodium (Lovenox Inj) 40 mg Q24H SQ 06/20/16 21:00 06/26/16 21:01 DC 06/21/16 21:03 40 MG Acetaminophen (Tylenol Tab) 650 mg Q4H PRN PO 06/20/16 12:30 07/20/16 12:29 Future Hold 06/21/16 00:15 650 MG Ondansetron HCl (Zofran Inj) 4 mg Q6H PRN IV 06/20/16 12:30 07/20/16 12:29 06/29/16 07:57 4 MG Multivitamins (Multivitamin Tab) 1 tab DAILY PO 06/21/16 08:00 07/21/16 08:59 06/30/16 08:29 1 TAB Ascorbic Acid (Vitamin C Tab) 3,000 mg BID PO 06/20/16 20:00 07/20/16 20:59 06/30/16 08:29 3,000 MG Morphine Sulfate (MoRPHine SULFATE INJ) 2 mg Q3HWA PRN IV 06/20/16 12:30 07/04/16 12:29 06/23/16 22:46 2 MG Metoprolol Tartrate (Lopressor Tab) 25 mg BID PO 06/20/16 20:00 06/24/16 10:52 DC 06/23/16 08:59 25 MG Metoprolol Tartrate 25 mg 25 mg NOW ONCE PO 06/20/16 14:00 06/20/16 14:01 DC 06/20/16 14:34 25 MG Acetaminophen/ Empty Bag (Ofirmev IV/ Empty Iv Bag 100ml) 65 ml @ 260 mls/hr Q6H IV 06/21/16 03:00 06/23/16 02:59 DC 06/22/16 20:57 260 MLS/HR Oxycodone HCl 5 mg 5 mg Q4H PRN PO 06/21/16 03:00 06/24/16 12:00 DC 06/24/16 08:13 5 MG Furosemide/Syringe (Lasix Inj/ Syringe) 2 ml @ 4 mls/min TODAY@1000 IV 06/24/16 10:00 06/24/16 23:59 DC 06/24/16 15:30 4 MLS/MIN Oxycodone HCl (Roxicodone Immediate Rel Tab) 5 mg Q2H PRN PO 06/24/16 11:00 07/08/16 10:59 06/29/16 23:58 5 MG Polyethylene (Miralax Powder Packet) 17 gm DAILY PO 06/24/16 12:00 07/24/16 11:59 06/28/16 09:27 17 GM Docusate Sodium (coLACE CAP) 100 mg BID PO 06/24/16 20:00 07/24/16 19:59 06/29/16 21:30 100 MG Senna (Senokot Tab) 8.6 mg HS PO 06/24/16 21:00 07/24/16 20:59 06/29/16 21:30 8.6 MG Fentanyl (Duragesic Patch) 12 mcg Q3D@0900 TD 06/24/16 11:15 07/08/16 11:14 06/30/16 09:57 12 MCG Miscellaneous (Fentanyl Patch Remove & Waste) 1 ea Q3D@0859 N/A 06/27/16 08:59 07/27/16 08:58 06/30/16 08:59 1 EA Miscellaneous Information 1 ea 1 ea QS N/A 06/24/16 16:00 07/24/16 15:59 06/30/16 08:29 1 EA Vancomycin HCl 1500 mg/Sodium Chloride 530 ml @ 200 mls/hr NOW ONCE IV 06/24/16 16:15 06/24/16 18:53 DC 06/24/16 20:10 200 MLS/HR Vancomycin HCl/ Sodium Chloride (Vancomycin Inj/ Nss 250ml) 268 ml @ 125 mls/hr Q18H IV 06/25/16 14:00 06/26/16 14:03 DC 06/26/16 07:43 125 MLS/HR Miconazole Nitrate 43 appln 43 appln STK-MED ONCE .ROUTE 06/26/16 08:02 06/26/16 08:05 DC 06/26/16 08:43 43 APPLN Vancomycin HCl/ Sodium Chloride (Vancomycin Inj/ Nss 250ml) 268 ml @ 125 mls/hr Q14H IV 06/26/16 14:00 06/27/16 10:06 DC 06/27/16 04:14 125 MLS/HR Anastrozole 1 mg 1 mg QAM PO 06/27/16 08:00 07/27/16 07:59 06/30/16 08:28 1 MG Iron Sucrose/ Sodium Chloride (Venofer Inj/Nss 100ml) 115 ml @ 175 mls/hr TODAY@1800 IV 06/26/16 18:00 06/26/16 18:40 DC 06/26/16 18:44 175 MLS/HR Enoxaparin Sodium (Lovenox Inj) 60 mg Q12 SQ 06/26/16 21:15 06/27/16 18:05 DC 06/27/16 07:53 60 MG Lidocaine (Lidoderm Patch 5%) 1 patch PM TD 06/26/16 21:15 07/26/16 21:14 06/29/16 21:30 1 PATCH Miscellaneous 1 ea 1 ea DAILY@0900 N/A 06/27/16 09:00 07/27/16 08:59 06/30/16 09:00 1 EA Vancomycin HCl/ Sodium Chloride (Vancomycin Inj/ Nss 250ml) 268 ml @ 125 mls/hr Q16H IV 06/27/16 20:00 07/03/16 23:59 06/30/16 11:22 125 MLS/HR Heparin Sodium/ Sodium Chloride (Heparin Sod/Ns 2 Units/Ml) 1,000 unit STK-MED ONCE .ROUTE 06/27/16 10:06 06/27/16 10:09 DC 06/27/16 10:06 10 UNIT Lidocaine HCl (Xylocaine 1% Inj (Local)) 15 ml ONE ONCE INFIL 06/27/16 10:53 06/27/16 10:54 DC 06/27/16 10:53 15 ML Iodixanol (Visipaque 50ml) 6,750 mg ONE ONCE IV 06/27/16 10:53 06/27/16 10:54 DC 06/27/16 10:53 6,750 MG Subjective Mrs. Paige reports feeling "a little better today." She is experiencing pain in her right upper extremity, which has not changed in nature since she was hospitalized. Her edema of the right upper extremity has improved since she was last evaluated by Medical Oncology. She is currently receiving palliative RT to her spine and right hip. Her right humerus RT be completed after these 2 areas. She reports the Lidoderm patch was placed over her pathologic rib fractures on the left, which she believes has helped control the pain. She states she was started on supplemental oxygen a couple of days ago because she was breathing shallowly from the rib fractures. She is currently on 1 liter with a preserved oxygen saturation. She did have some cough yesterday she states, but is not experiencing it today. She has not noted dyspnea. Her appetite remains fair. She is not having nausea and she did have a bowel movement within the past few days. She has not had bloody or black stool. She retains Lang catheter as she has not been OOB. She has met with physical therapy and plans to start ambulating in the near future. She does have concerns that when she walks her breast mass will bleed, as this has occurred in the past in her private home over the past few years. She reports 1 dressing change this week with a large amount of blood loss. Review of Systems: Constitutional: + see HPI Respiratory: + see HPI Breast: + see HPI Abdomen: + see HPI Musculoskeletal: + see HPI Female : + see HPI Heme: + see HPI Vital Signs Vital Signs Past 12 Hours Date Time Temp Pulse Resp B/P Pulse Ox O2 Delivery O2 Flow Rate FiO2 06/30/16 12:23 36.8 85 20 122/64 97 Nasal Cannula 1.0 06/30/16 08:12 36.8 86 20 120/60 98 Nasal Cannula 2.0 06/30/16 08:00 Nasal Cannula 2.0 06/30/16 04:16 36.6 79 15 99/61 100 Nasal Cannula 2.0 Physical Exam Constitutional: General Apperance: well-nourished, well-developed Level of Distress: chronically ill ENMT: hearing grossly normal Lungs: Auscuitation: no rhonchi, deminished air movement, inspiratory wheezing Cardiovascular: Heart Auscultation: RRR Abdomen: Inspection & Palpation: soft, non-distended, pertinent finding Extremities: no cyanosis, edema (of RUE from hand to upper arm, no erythema or induration; chronic bilateral ankle edema) Laboratory 3/2/17 03:30 06/30/16 06:35 06/29/16 03:30 06/30/16 06:35 Test 06/29/16 03:30 06/30/16 06:35 Red Blood Count 3.53 M/uL (4.2-5.4) 3.31 M/uL (4.2-5.4) Mean Corpuscular Volume 76.8 fL (80-100) 77.6 fL (80-100) Mean Corpuscular Hemoglobin 24.6 pg (25-34) 24.8 pg (25-34) Mean Corpuscular Hemoglobin Concent 32.1 g/dl (32-36) 31.9 g/dl (32-36) RDW Standard Deviation 61.9 fL (36.4-46.3) 63.3 fL (36.4-46.3) RDW Coefficient of Variation 23.1 % (11.5-14.5) 23.2 % (11.5-14.5) Mean Platelet Volume 9.6 fL (7.4-10.4) 8.6 fL (7.4-10.4) Est Creatinine Clear Calc Drug Dose 62.5 ml/min 83.4 ml/min Estimated GFR () 100.0 111.5 Estimated GFR (Non- 86.3 96.2 Vancomycin Level Trough 15.0 mcg/ml (SEE COMMENT) Anion Gap 7.0 mmol/L (3-11) BUN/Creatinine Ratio 38.7 (10-20) Calcium Level 9.8 mg/dl (8.5-10.1) Radiology CXR from 06/30/16 pending at time of note Assessment & Plan (1) Metastatic breast carcinoma Status: Acute Permanent Comment: [id number], stage IV Invasive ductal carcinoma, ER positive/KS negative/Her2 positive, grade 2 Last Edited By: Clau Sinha on Jun 21, 2016 14:24 Assessment & Plan: Patient has undergone staging evaluation with CT of the chest/abdomen / pelvis, brain MRI and bone scan. She has locally advanced disease with a large necrotic breast mass and axillary adenopathy. She has widespread bony metastatic disease. Radiation Oncology has evaluated the patient and started her on palliative RT of the thoracolumbar spine and the right femur. Right humerus and left pathologic rib fractures will be done subsequently. Patient has been on anastrozole 1 milligram daily for the hormonal component of her breast cancer- started 06/27/16. Her echocardiogram during this hospitalization has revealed decreased LVEF from 35-39%, so anti her 2 Alina therapy would not be considered in her case. Dr. Sinha of [facility] is deferring breast RT at this time, continue to monitor breast lesion for bleeding, may see control with antihormonal therapy. Patient reports adequate pain control with fentanyl 12 mcg q72h, PRN oxycodone 5 mg (last dose last evening) and lidoderm patch applied to left lower anterior rib fractures. Patient is on vancomycin currently for right breast infection. Plan to start patient on Xgeva in the outpatient setting for her bone metastasis. (2) Iron deficiency anemia due to chronic blood loss Status: Chronic Assessment & Plan: Received Venofer 300 milligram x 1 dose hospitalized for blood loss from advanced right breast mass on 06/26/16. Monitor CBC daily and blood loss from right breast mass. Consider second infusion Venofer 07/03/16. (3) Right femoral vein DVT Status: Chronic Assessment & Plan: Patient received 2 dose therapeutic Lovenox prior to IVC filter placement by Dr. Moon 06/27/16 as AC contraindicated with bleeding right breast mass with complication of significant LJ. Patient is not currently on AC. (4) Edema of upper extremity Permanent Comment: Reason for Deletion: Last Edited By: Arianne Lozada on Jun 11:05 Assessment & Plan: Monitor for now, could be due to altered lymphatic drainage from large right breast mass. Has improved since last assessment on 06/27/16. (5) Pathological fracture of rib of left side Status: Chronic Assessment & Plan: Rib XRs and CTA reveal acute pathologic displaced fractures of 8th/9th left ribs as well as pathologic fractures of ribs 10-11. Dr. Sinha of [facility] plans to palliatively radiate this area when RT to right femur and spine complete. (6) Wheezing Permanent Comment: Reason for Deletion: Last Edited By: Arianne Lozada on Jun 10:57 Assessment & Plan: Discussed with Dr. Harris today re: symptom as Dr. Craig' s note yesterday does not note wheezing. Diffuse over anterior chest; discussed that O2 sat is preserved on 1 L O2 and pulse, BP normal. He agreed to check CXR. Await results.
[2016-06-30] MEDS: OXYCODONE HCL IR 5 MG TAB (IMMEDIATE RELEASE) PO PRN (14:59)
--- NOTE | 2016-06-30 15:41 | DIAGNOSTIC IMAGING REPORT ---
SINGLE VIEW CHEST CLINICAL HISTORY: Wheezing. Generalized weakness. FINDINGS: An AP, portable, upright chest radiograph is compared to study dated 06/26/2016 and correlated with chest CT dated 06/27/2016. The examination is degraded by portable technique and patient rotation. The heart is enlarged and there is atherosclerotic calcification of the thoracic aorta. The pulmonary vasculature is noncongested. Chronic interstitial thickening is similar to previous. No airspace consolidation, pleural effusion, or pneumothorax is seen. The skeletal structures are osteopenic. The bony thorax is grossly intact. IMPRESSION: Cardiomegaly with no acute cardiopulmonary abnormality. Electronically signed by: Micheal Santamaria M.D. 06/30/2016 3:39 PM Dictated Date/Time: 06/30/2016 3:38 PM
--- NOTE | 2016-06-30 19:06 | Progress Note ---
Internal Med Progress Note Date of Service: Jun 30, 2016. Provider Documentation: SUBJECTIVE: Patient is seen and examined at bedside. Reports intermittent dry cough and has wheezing on exam which she attributes to shallow breathing. Had radiation therapy today. Has mild left rib pain. Denies any other symptoms. Denies any chest pain, SOB. Willing to cooperate with PT/OT. CXR: no acute findings OBJECTIVE: Vital Signs-as noted below Physical Exam: General Appearance:Chronically ill appearing Head: normocephalic, Atraumatic Eyes: normal inspection, EOMI, PERRLA Neck: supple, no JVD, Trachea midline Respiratory/Chest: Diminished breath sounds, b/l wheezing Cardiovascular: S1, S2, No murmur Abdomen/GI:Soft, Non tender, Bowel sounds present Extremities/Musculoskelatal:Right arm:+lymphadenopathy, +edema Chest:fungating mass on rt breast , bandage present Neurologic/Psych:AAOX3, grossly no focal neurological deficits Skin: erythematous rash on face Lab data as noted below. 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 , fungating/ulcerative rt breast mass with rt axillary lymph node involvement Dx in July 2013 in [facility] as ductal Adeno Carcinoma of rt breast Tumor was estrogen positive , progesterone negative, Her [address] scan in 2013 shoed beast mass at 4 cm with borderline rt axially lymph node involvement Pt refused to have follow up and seek treatment for her breast malignancy Currently presented with worsening of SOB , diffuse bone pain bleeding ulcerative mass of rt breast -destroying rt lower breast and rt Nipple Heme/oncology and Radiation oncology on board started on Palliative radiation tx -of thoracolumbar spine and the right femur. Right humerus and left pathologic rib fractures to be done subsequently. Poor prognosis limited option for systemic chemo due to poor functional status /underlying CHF Palliative care on board wound culture on rt breast mass : Coagulase negative staph On IV Vancomycin # 5/7 Anastrazole started by Heme/oncology for the hormonal component of her breast cancer ECHO showed decreased LVEF from 35-39%, so anti her 2 Alessia therapy would not be considered as per oncology Dr. Sinha (Radiation Oncology) deferred breast RT at this time Continue radiation therapy to metastatic bone disease Pain control with fentanyl, oxycodone PRN Plan to start on Xgeva as outpatient for bone metastasis B/L Wheezing: H/O CHF, Anemia CXR: no acute findings Patient shallow breathing secondary to rib pain On oxygen 1L NC Titrate to room air as able Will start on duonebs Check BNP Will give a trial of lasix RT LOWER EXT DVT: S/P IVC filter Appreciate vascular surgery help Lovenox discontinued per recommendations from oncology Pt refused Lovenox secondary to concerns for bleeding in breast CTA: Negative for PE Monitor for any evidence of bleeding RT ARM SWELLING: Likely due to altered lymphatic drainage from large right breast mass avoid lab draws , BP measure on rt arm R/O UTI: Denies any urinary symptoms urine culture: No growth ANEMIA: Hb improved ~ 9 post transfusion ' remains stable no active bleeding noted on rt breast mass Microcytic anemia MCV 68 suggestive of acute on chronic blood loss S/P 2 units PRBC transfusion DIFFUSE BONY METASTATIC DISEASE due to metastatic breast ca getting Palliative Radiation tx continue pain control On Fentanyl Patch on PRN oxy IR , IV Morphine bowel regimen to prevent narcotic induced constipation Pain management consulted -appreciate input Will be started on Xgeva ( Denosumab ) by Oncology as out patient H/O NSTEMI : required emergent infrarenal ruptured aortic aneurysm repair in July 2013 - surgery complicated by intra operative NSTEMI ECHO : in 2013: Ischemic cardiomyopathy EF 30 % repeat ECHO 06/22/16 There is a large sized apical, inferior and inferalateral wall motion abnormalities with akinesis of the segments. Left ventricular systolic function is moderately reduced. The qualitative LV ejection fraction is 35-39% (moderately reduced). Aortic valve sclerosis mild, without significant aortic valvular stenosis. There is severe mitral regurgitation. Doppler findings do not suggest pulmonary hypertension. Grade I diastolic dysfunction, (abnormal relaxation pattern). mild elevation of troponin could be secondary to cardiac strain due to severe anemia /ischemia cardiomyopathy very poor medication compliance not a candidate for Aspirin -fungating bleed mass /profound anemia pt refused Metoprolol-feels she does not need it COMBINED CHRONIC SYSTOLIC AND DIASTOLIC HEART FAILURE ISCHEMIC CARDIOMYOPATHY : due to above pt has not been taking Lasix /ACEI in past no evidence of volume overload at present monitor volume status Last EF: 30% ) HYPOTHYROIDISM: TSH elevated > 9 pt refuses to take Levothyroxine HTN BP well controlled jackie Metoprolol D/yovani as pt refused to take any additional meds other than her Malignancy treatment Code Status: FULL CODE DVT PX: High risk for DVT S/P IVC filter Lovenox discontinued per recommendations from oncology (Secondary to R breast bleeding) DISPOSITION to be determined: Patient currently not interested to discuss about Rehab/ Palliative care very poor prognosis with wide spread metastatic breast CA terminal stage no curable treatment possible except for palliative care -Rad tx /chemo for pain control given pt's disease process Hospice would be appropriate: Pt may not be agreeable social service consulted PT/OT ordered PROCEDURES: CTA: 1. Study is negative for pulmonary embolus. 2. Lungs are grossly clear. 3. Diffuse metastatic change involving the osseous structures throughout with several pathologic rib fractures which have been discussed previously. 4. Mildly progressive upper abdominal retroperitoneal adenopathy CT abdomen /pelvis : wide spread lytic bony metastatic disease 7.5 cm rt breast /chest wall mass consistent with neoplasm , There is a 1 cm soft tissue satellite nodule NC BONE SCAN : extensive foci of abnormal increased uptake involving cervical , thoracic and lumber spines, There is abnormal increased uptake within the pelvis left proximal humerus, multiple ribs as well both proximal femurs-findings consistent with widespread skeletal metastasis . Doppler: Doppler shows : 1. Deep venous thrombus within the right common femoral and superficial femoral veins. 2. No deep venous thrombus within the left lower extremity. Vital Signs: Date Time Temp Pulse Resp B/P Pulse Ox O2 Delivery O2 Flow Rate FiO2 06/30/16 12:23 36.8 85 20 122/64 97 Nasal Cannula 1.0 06/30/16 08:12 36.8 86 20 120/60 98 Nasal Cannula 2.0 06/30/16 08:00 Nasal Cannula 2.0 06/30/16 04:16 36.6 79 15 99/61 100 Nasal Cannula 2.0 06/30/16 00:00 Nasal Cannula 1.0 06/29/16 20:00 36.8 90 18 97/60 99 Nasal Cannula 2.0 Lab Results: Results Past 24 Hours Test 06/30/16 06:35 Range/Units White Blood Count 5.23 4.8-10.8 K/uL Red Blood Count 3.31 4.2-5.4 M/uL Hemoglobin 8.2 12.0-16.0 g/dL Hematocrit 25.7 37-47 % Mean Corpuscular Volume 77.6 80-100 fL Mean Corpuscular Hemoglobin 24.8 25-34 pg Mean Corpuscular Hemoglobin Concent 31.9 32-36 g/dl RDW Standard Deviation 63.3 36.4-46.3 fL RDW Coefficient of Variation 23.2 11.5-14.5 % Platelet Count 287 130-400 K/uL Mean Platelet Volume 8.6 7.4-10.4 fL Sodium Level 146 136-145 mmol/L Potassium Level 4.3 3.5-5.1 mmol/L Chloride Level 112 98-107 mmol/L Carbon Dioxide Level 27 21-32 mmol/L Anion Gap 7.0 3-11 mmol/L Blood Urea Nitrogen 21 7-18 mg/dl Creatinine 0.53 0.60-1.20 mg/dl Est Creatinine Clear Calc Drug Dose 83.4 ml/min Estimated GFR () 111.5 Estimated GFR (Non- 96.2 BUN/Creatinine Ratio 38.7 10-20 Random Glucose 81 70-99 mg/dl Calcium Level 9.8 8.5-10.1 mg/dl
[2016-06-30] MEDS ORDERED: FUROSEMIDE 40 MG TAB PO ONE (19:45)
[2016-06-30] MEDS: SENNA 8.6 MG TAB PO SCH (21:00)
[2016-06-30] MEDS: LIDODERM (LIDOCAINE) PATCH 5% TD SCH (21:07)
[2016-06-30 21:10] VITALS: PULSE 74; O2SAT 97
[2016-06-30] MEDS: ALBUT/IPRATROP 3MG/0.5MG NEB 3 ML VIAL INH SCH (21:10)
[2016-06-30 21:16] VITALS: BP 106/68; PULSE 84; TEMP 36.6; O2SAT 100
[2016-06-30 23:28] VITALS: BP 104/66; PULSE 95; TEMP 36.8; O2SAT 97
[2016-07-01] VITALS (10 sets, daily range): BP systolic 83–110; BP diastolic 54–69; PULSE 87–116; TEMP 36.6–36.9; O2SAT 95–100
[2016-07-01] MEDS: CHECK FENTANYL PATCH PLACEMENT SCH ×3 (00:42→15:34)
[2016-07-01] MEDS: VANCOMYCIN INJ 900 MG in SODIUM CHLORIDE 0.9% 250ML 250 ML IV SCH ×2 (04:30→19:54)
[2016-07-01] MEDS: ALBUT/IPRATROP 3MG/0.5MG NEB 3 ML VIAL INH SCH ×4 (07:12→19:25)
[2016-07-01] MEDS: DOCUSATE SODIUM 100 MG CAP PO SCH ×2 (07:37→19:47)
[2016-07-01] MEDS: POLYETHYLENE (MIRALAX) 17 GM PACK PO SCH (07:37)
[2016-07-01] MEDS: ANASTROZOLE 1 MG TAB PO SCH (07:41)
[2016-07-01] MEDS: MULTIVITAMIN TAB PO SCH (07:41)
[2016-07-01] MEDS: ASCORBIC ACID 500 MG TAB PO SCH ×2 (07:42→19:46)
[2016-07-01] MEDS ORDERED: SODIUM CHLORIDE 0.9% 500ML 500 ML IV ONE (08:15)
[2016-07-01] MEDS ORDERED: NURSING VERBAL MED ORDER ONE (08:15)
--- NOTE | 2016-07-01 18:39 | Progress Note ---
Internal Med Progress Note Date of Service: Jul 01, 2016. Provider Documentation: SUBJECTIVE: Patient is seen and examined at bedside. Feels better today. States her SOB and wheezing is much improved. Denies any other symptoms. OBJECTIVE: Vital Signs-as noted below Physical Exam: General Appearance:Chronically ill appearing Head: normocephalic, Atraumatic Eyes: normal inspection, EOMI, PERRLA Neck: supple, no JVD, Trachea midline Respiratory/Chest: Normal breath sounds, CTA Cardiovascular: S1, S2, No murmur Abdomen/GI:Soft, Non tender, Bowel sounds present Extremities/Musculoskelatal:Right arm:+lymphadenopathy, +edema RUE Chest:fungating mass on rt breast , bandage present Neurologic/Psych:AAOX3, grossly no focal neurological deficits Skin: erythematous rash on face Lab data as noted below. 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 , fungating/ulcerative rt breast mass with rt axillary lymph node involvement Dx in July 2013 in [facility] as ductal Adeno Carcinoma of rt breast Tumor was estrogen positive , progesterone negative, Her [address] scan in 2013 shoed beast mass at 4 cm with borderline rt axially lymph node involvement Pt refused to have follow up and seek treatment for her breast malignancy Currently presented with worsening of SOB , diffuse bone pain bleeding ulcerative mass of rt breast -destroying rt lower breast and rt Nipple Heme/oncology and Radiation oncology on board started on Palliative radiation tx -of thoracolumbar spine and the right femur. Right humerus and left pathologic rib fractures to be done subsequently. Poor prognosis limited option for systemic chemo due to poor functional status /underlying CHF Palliative care on board wound culture on rt breast mass : Coagulase negative staph On IV Vancomycin # 6/7 Anastrazole started by Heme/oncology for the hormonal component of her breast cancer ECHO showed decreased LVEF from 35-39%, so anti her 2 Alessia therapy would not be considered as per oncology Dr. Sinha (Radiation Oncology) deferred breast RT at this time Continue radiation therapy to metastatic bone disease Pain control with fentanyl, oxycodone PRN Plan to start on Xgeva as outpatient for bone metastasis B/L Wheezing: H/O CHF, Anemia CXR: no acute findings Patient shallow breathing secondary to rib pain On oxygen 2L NC, Titrate to room air as able Continue duonebs for now BNP:elevated Gentle diuresis given borderline low BP RT LOWER EXT DVT: S/P IVC filter Appreciate vascular surgery help Lovenox discontinued per recommendations from oncology Pt refused Lovenox secondary to concerns for bleeding in breast CTA: Negative for PE Monitor for any evidence of bleeding RT ARM SWELLING: Likely due to altered lymphatic drainage from large right breast mass avoid lab draws , BP measure on rt arm R/O UTI: Denies any urinary symptoms urine culture: No growth ANEMIA: Hb improved ~ 9 post transfusion ' remains stable no active bleeding noted on rt breast mass Microcytic anemia MCV 68 suggestive of acute on chronic blood loss S/P 2 units PRBC transfusion DIFFUSE BONY METASTATIC DISEASE due to metastatic breast ca getting Palliative Radiation tx continue pain control On Fentanyl Patch on PRN oxy IR , IV Morphine bowel regimen to prevent narcotic induced constipation Pain management consulted -appreciate input Will be started on Xgeva ( Denosumab ) by Oncology as out patient H/O NSTEMI : required emergent infrarenal ruptured aortic aneurysm repair in July 2013 - surgery complicated by intra operative NSTEMI ECHO : in 2013: Ischemic cardiomyopathy EF 30 % repeat ECHO 06/22/16 There is a large sized apical, inferior and inferalateral wall motion abnormalities with akinesis of the segments. Left ventricular systolic function is moderately reduced. The qualitative LV ejection fraction is 35-39% (moderately reduced). Aortic valve sclerosis mild, without significant aortic valvular stenosis. There is severe mitral regurgitation. Doppler findings do not suggest pulmonary hypertension. Grade I diastolic dysfunction, (abnormal relaxation pattern). mild elevation of troponin could be secondary to cardiac strain due to severe anemia /ischemia cardiomyopathy very poor medication compliance not a candidate for Aspirin -fungating bleed mass /profound anemia pt refused Metoprolol-feels she does not need it COMBINED CHRONIC SYSTOLIC AND DIASTOLIC HEART FAILURE ISCHEMIC CARDIOMYOPATHY : due to above pt has not been taking Lasix /ACEI in past monitor volume status Last EF: 30% Started on lasix 20mg daily HYPOTHYROIDISM: TSH elevated > 9 pt refuses to take Levothyroxine HTN BP well controlled jackie Metoprolol D/yovani as pt refused to take any additional meds other than her Malignancy treatment Code Status: FULL CODE DVT PX: High risk for DVT S/P IVC filter Lovenox discontinued per recommendations from oncology (Secondary to R breast bleeding) DISPOSITION to be determined: Patient currently not interested to discuss about Rehab/ Palliative care very poor prognosis with wide spread metastatic breast CA Terminal stage no curable treatment possible except for palliative care -Rad tx /chemo for pain control Given pt's disease process Hospice would be appropriate: Pt may not be agreeable social service consulted PT/OT ordered PROCEDURES: CTA: 1. Study is negative for pulmonary embolus. 2. Lungs are grossly clear. 3. Diffuse metastatic change involving the osseous structures throughout with several pathologic rib fractures which have been discussed previously. 4. Mildly progressive upper abdominal retroperitoneal adenopathy CT abdomen /pelvis : wide spread lytic bony metastatic disease 7.5 cm rt breast /chest wall mass consistent with neoplasm , There is a 1 cm soft tissue satellite nodule NC BONE SCAN : extensive foci of abnormal increased uptake involving cervical , thoracic and lumber spines, There is abnormal increased uptake within the pelvis left proximal humerus, multiple ribs as well both proximal femurs-findings consistent with widespread skeletal metastasis . Doppler: Doppler shows : 1. Deep venous thrombus within the right common femoral and superficial femoral veins. 2. No deep venous thrombus within the left lower extremity. Vital Signs: Date Time Temp Pulse Resp B/P Pulse Ox O2 Delivery O2 Flow Rate FiO2 07/01/16 16:00 Nasal Cannula 2.0 07/01/16 15:58 36.8 106 18 98/63 99 Nasal Cannula 2.0 07/01/16 12:02 36.9 112 20 90/54 97 Nasal Cannula 3.0 07/01/16 11:14 103 18 98 Nasal Cannula 2.0 07/01/16 08:10 112 109/68 07/01/16 08:00 Nasal Cannula 2.0 07/01/16 07:51 36.8 101 18 83/55 95 Nasal Cannula 3.0 07/01/16 07:12 87 18 98 Nasal Cannula 2.0 07/01/16 03:52 36.6 87 20 109/69 100 Nasal Cannula 3.0 07/01/16 01:30 Nasal Cannula 2.0 06/30/16 23:28 36.8 95 20 104/66 97 Nasal Cannula 2.0 06/30/16 21:16 36.6 84 20 106/68 100 Nasal Cannula 2.0 06/30/16 21:10 74 20 97 Nasal Cannula 2.0 Lab Results: Results Past 24 Hours Test 07/01/16 05:18 Range/Units Pro-B-Type Natriuretic Peptide 1045 0-900 pg/ml Microbiology Results 07/01/16 C.difficile Toxin B Gene (PCR) - Final, Complete No C. difficile toxin B gene detected
[2016-07-01] MEDS: SENNA 8.6 MG TAB PO SCH (19:48)
[2016-07-01] MEDS: LIDODERM (LIDOCAINE) PATCH 5% TD SCH (19:50)
[2016-07-02] VITALS (12 sets, daily range): BP systolic 94–134; BP diastolic 58–84; PULSE 76–113; TEMP 36.8–37.3; O2SAT 91–100
[2016-07-02 05:57] LABS: MEAN CELL VOLUME 77.4 fL (80-100); MEAN CORPUSCULAR HEMOGLOBIN 25.1 pg (25-34); MEAN CORPUSCULAR HGB CONC 32.4 g/dl (32-36); MEAN PLATELET VOLUME 9.1 fL (7.4-10.4); PLATELET COUNT 278 K/uL (130-400); RED BLOOD COUNT 3.23 M/uL (4.2-5.4); WHITE BLOOD COUNT 5.31 K/uL (4.8-10.8)
[2016-07-02 07:11] LABS: BUN/CREATININE RATIO 37.1 (10-20); CALCIUM 9.2 mg/dl (8.5-10.1); CREATININE 0.55 mg/dl (0.60-1.20)
[2016-07-02] MEDS: ALBUT/IPRATROP 3MG/0.5MG NEB 3 ML VIAL INH SCH ×3 (07:28→15:27)
[2016-07-02] MEDS: POLYETHYLENE (MIRALAX) 17 GM PACK PO SCH (08:00)
[2016-07-02] MEDS: DOCUSATE SODIUM 100 MG CAP PO SCH ×2 (08:00→20:00)
[2016-07-02] MEDS: CHECK FENTANYL PATCH PLACEMENT SCH ×3 (08:15→23:38)
[2016-07-02] MEDS: ANASTROZOLE 1 MG TAB PO SCH (08:23)
[2016-07-02] MEDS: MULTIVITAMIN TAB PO SCH (08:24)
[2016-07-02] MEDS: ASCORBIC ACID 500 MG TAB PO SCH ×2 (08:24→20:14)
[2016-07-02] MEDS: FUROSEMIDE 20 MG TAB PO SCH (08:24)
[2016-07-02] MEDS: VANCOMYCIN INJ 900 MG in SODIUM CHLORIDE 0.9% 250ML 250 ML IV SCH (12:14)
[2016-07-02] MEDS: OXYCODONE HCL IR 5 MG TAB (IMMEDIATE RELEASE) PO PRN (15:42)
--- NOTE | 2016-07-02 16:10 | Progress Note ---
Internal Med Progress Note Date of Service: Jul 02, 2016. Provider Documentation: SUBJECTIVE: Patient is seen and examined at bedside. States right rib pain resolved. Denies any SOB, wheezing, chest pain. Minimal bleeding in R breast while dressing change per patient. Denies any other symptoms. OBJECTIVE: Vital Signs-as noted below Physical Exam: General Appearance:Chronically ill appearing Head: normocephalic, Atraumatic Eyes: normal inspection, EOMI, PERRLA Neck: supple, no JVD, Trachea midline Respiratory/Chest: Normal breath sounds, CTA Cardiovascular: S1, S2, No murmur Abdomen/GI:Soft, Non tender, Bowel sounds present Extremities/Musculoskelatal:Right arm:+lymphadenopathy, +edema RUE Chest:fungating mass on rt breast , bandage present Neurologic/Psych:AAOX3, grossly no focal neurological deficits Skin: erythematous rash on face Lab data as noted below. 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 , fungating/ulcerative rt breast mass with rt axillary lymph node involvement Dx in July 2013 in [facility] as ductal Adeno Carcinoma of rt breast Tumor was estrogen positive , progesterone negative, Her [address] scan in 2013 shoed beast mass at 4 cm with borderline rt axially lymph node involvement Pt refused to have follow up and seek treatment for her breast malignancy Currently presented with worsening of SOB , diffuse bone pain bleeding ulcerative mass of rt breast -destroying rt lower breast and rt Nipple Heme/oncology and Radiation oncology on board started on Palliative radiation tx -of thoracolumbar spine and the right femur. Right humerus and left pathologic rib fractures to be done subsequently. Poor prognosis limited option for systemic chemo due to poor functional status /underlying CHF Palliative care on board wound culture on rt breast mass : Coagulase negative staph To complete IV Vancomycin today Anastrazole started by Heme/oncology for the hormonal component of her breast cancer ECHO showed decreased LVEF from 35-39%, so anti her 2 Alessia therapy would not be considered as per oncology Dr. Sinha (Radiation Oncology) deferred breast RT at this time Continue radiation therapy to metastatic bone disease Pain control with fentanyl, oxycodone PRN Plan to start on Xgeva as outpatient for bone metastasis B/L Wheezing: H/O CHF, Anemia CXR: no acute findings Patient shallow breathing secondary to rib pain On oxygen 1L NC, Titrate to room air as able Continue duonebs PRN for now BNP:elevated Gentle diuresis given borderline low BP; continue lasix RT LOWER EXT DVT: S/P IVC filter Appreciate vascular surgery help Lovenox discontinued per recommendations from oncology Pt refused Lovenox secondary to concerns for bleeding in breast CTA: Negative for PE Monitor for any evidence of bleeding RT ARM SWELLING: Likely due to altered lymphatic drainage from large right breast mass avoid lab draws , BP measure on rt arm R/O UTI: Denies any urinary symptoms urine culture: No growth ANEMIA: Hb improved ~ 9 post transfusion ' remains stable: at around 8.0 no active bleeding noted on rt breast mass Microcytic anemia MCV 68 suggestive of acute on chronic blood loss S/P 2 units PRBC transfusion DIFFUSE BONY METASTATIC DISEASE due to metastatic breast ca getting Palliative Radiation tx continue pain control On Fentanyl Patch on PRN oxy IR , IV Morphine bowel regimen to prevent narcotic induced constipation Pain management consulted -appreciate input Will be started on Xgeva ( Denosumab ) by Oncology as out patient H/O NSTEMI : required emergent infrarenal ruptured aortic aneurysm repair in July 2013 - surgery complicated by intra operative NSTEMI ECHO : in 2013: Ischemic cardiomyopathy EF 30 % repeat ECHO 06/22/16 There is a large sized apical, inferior and inferalateral wall motion abnormalities with akinesis of the segments. Left ventricular systolic function is moderately reduced. The qualitative LV ejection fraction is 35-39% (moderately reduced). Aortic valve sclerosis mild, without significant aortic valvular stenosis. There is severe mitral regurgitation. Doppler findings do not suggest pulmonary hypertension. Grade I diastolic dysfunction, (abnormal relaxation pattern). mild elevation of troponin could be secondary to cardiac strain due to severe anemia /ischemia cardiomyopathy very poor medication compliance not a candidate for Aspirin -fungating bleed mass /profound anemia pt refused Metoprolol-feels she does not need it COMBINED CHRONIC SYSTOLIC AND DIASTOLIC HEART FAILURE ISCHEMIC CARDIOMYOPATHY : due to above pt has not been taking Lasix /ACEI in past monitor volume status Last EF: 30% Continue lasix 20mg daily HYPOTHYROIDISM: TSH elevated > 9 pt refuses to take Levothyroxine HTN BP well controlled jackie Metoprolol D/yovani as pt refused to take any additional meds other than her Malignancy treatment Code Status: FULL CODE DVT PX: High risk for DVT S/P IVC filter Lovenox discontinued per recommendations from oncology (Secondary to R breast bleeding) DISPOSITION to be determined: Patient currently not interested to discuss about Rehab/ Palliative care very poor prognosis with wide spread metastatic breast CA Terminal stage no curable treatment possible except for palliative care -Rad tx /chemo for pain control Given pt's disease process Hospice would be appropriate: Pt may not be agreeable social service consulted PT/OT ordered PROCEDURES: CTA: 1. Study is negative for pulmonary embolus. 2. Lungs are grossly clear. 3. Diffuse metastatic change involving the osseous structures throughout with several pathologic rib fractures which have been discussed previously. 4. Mildly progressive upper abdominal retroperitoneal adenopathy CT abdomen /pelvis : wide spread lytic bony metastatic disease 7.5 cm rt breast /chest wall mass consistent with neoplasm , There is a 1 cm soft tissue satellite nodule NC BONE SCAN : extensive foci of abnormal increased uptake involving cervical , thoracic and lumber spines, There is abnormal increased uptake within the pelvis left proximal humerus, multiple ribs as well both proximal femurs-findings consistent with widespread skeletal metastasis . Doppler: Doppler shows : 1. Deep venous thrombus within the right common femoral and superficial femoral veins. 2. No deep venous thrombus within the left lower extremity. Vital Signs: Date Time Temp Pulse Resp B/P Pulse Ox O2 Delivery O2 Flow Rate FiO2 07/02/16 15:27 83 18 91 Nasal Cannula 1.0 07/02/16 14:35 99 Nasal Cannula 1.0 07/02/16 13:00 91 Room Air 07/02/16 12:00 37.2 113 14 94/65 96 Nasal Cannula 2.0 07/02/16 11:11 108 18 98 Nasal Cannula 2.0 07/02/16 08:00 Nasal Cannula 2.0 07/02/16 07:30 36.8 95 20 134/84 98 Nasal Cannula 2.0 07/02/16 07:28 93 18 98 Nasal Cannula 2.0 07/02/16 03:20 36.8 93 20 119/75 99 Nasal Cannula 2.0 07/02/16 00:10 36.8 100 18 113/71 100 Nasal Cannula 2.0 07/01/16 23:56 Nasal Cannula 2.0 07/01/16 20:29 36.7 116 20 110/67 100 Nasal Cannula 2.0 07/01/16 19:25 100 18 98 Nasal Cannula 2.0 Lab Results: Results Past 24 Hours Test 07/02/16 05:27 Range/Units White Blood Count 5.31 4.8-10.8 K/uL Red Blood Count 3.23 4.2-5.4 M/uL Hemoglobin 8.1 12.0-16.0 g/dL Hematocrit 25.0 37-47 % Mean Corpuscular Volume 77.4 80-100 fL Mean Corpuscular Hemoglobin 25.1 25-34 pg Mean Corpuscular Hemoglobin Concent 32.4 32-36 g/dl RDW Standard Deviation 66.8 36.4-46.3 fL RDW Coefficient of Variation 24.1 11.5-14.5 % Platelet Count 278 130-400 K/uL Mean Platelet Volume 9.1 7.4-10.4 fL Sodium Level 145 136-145 mmol/L Potassium Level 4.0 3.5-5.1 mmol/L Chloride Level 110 98-107 mmol/L Carbon Dioxide Level 29 21-32 mmol/L Anion Gap 6.0 3-11 mmol/L Blood Urea Nitrogen 20 7-18 mg/dl Creatinine 0.55 0.60-1.20 mg/dl Est Creatinine Clear Calc Drug Dose 81.0 ml/min Estimated GFR () 110.1 Estimated GFR (Non- 95.0 BUN/Creatinine Ratio 37.1 10-20 Random Glucose 87 70-99 mg/dl Calcium Level 9.2 8.5-10.1 mg/dl Pro-B-Type Natriuretic Peptide 1102 0-900 pg/ml
[2016-07-02] MEDS: SENNA 8.6 MG TAB PO SCH (20:14)
[2016-07-02] MEDS: LIDODERM (LIDOCAINE) PATCH 5% TD SCH (20:14)
[2016-07-02] MEDS: ALBUT/IPRATROP 3MG/0.5MG NEB 3 ML VIAL INH PRN (23:17)
[2016-07-03] VITALS (7 sets, daily range): BP systolic 95–134; BP diastolic 58–78; PULSE 84–97; TEMP 36.7–37; O2SAT 97–100
[2016-07-03] MEDS: VANCOMYCIN INJ 900 MG in SODIUM CHLORIDE 0.9% 250ML 250 ML IV SCH (03:30)
[2016-07-03] MEDS: OXYCODONE HCL IR 5 MG TAB (IMMEDIATE RELEASE) PO PRN ×3 (05:52→21:56)
[2016-07-03] MEDS: DOCUSATE SODIUM 100 MG CAP PO SCH ×2 (08:39→21:14)
[2016-07-03] MEDS: POLYETHYLENE (MIRALAX) 17 GM PACK PO SCH (08:40)
[2016-07-03] MEDS: ASCORBIC ACID 500 MG TAB PO SCH ×2 (08:40→21:16)
[2016-07-03] MEDS: MULTIVITAMIN TAB PO SCH (08:40)
[2016-07-03] MEDS: FUROSEMIDE 20 MG TAB PO SCH (08:40)
[2016-07-03] MEDS: ANASTROZOLE 1 MG TAB PO SCH (08:44)
[2016-07-03] MEDS: FENTANYL PATCH REMOVE & WASTE SCH (08:45)
[2016-07-03] MEDS: CHECK FENTANYL PATCH PLACEMENT SCH ×3 (08:46→23:22)
[2016-07-03] MEDS: FENTANYL 12 MCG/HR TDSY TD SCH (08:46)
--- NOTE | 2016-07-03 15:29 | Hematology/Oncology Prog Note ---
Hematology/Onc Progress Note Date of Service Jul 03, 2016. Diagnoses 1. 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 Iron deficiency anemia secondary to chronic blood loss from breast lesion- received Venofer 300 mg x 1 dose last wk 3. Right femoral DVT- dx 06/26/16- s/p IVC filter placement 06/27/16 4. Pathologic left rib fractures 8-11 Subjective Mrs. Paige reports feeling "increasingly better." She is experiencing pain in her right upper extremity, which has not changed in nature since she was hospitalized. Her other areas of pain (back, right hip) are resolved. She started to have right lower rib pain after an ancillary health worker fell on her this weekend during exam. She reports the Lidoderm patch was placed over this area, which she believes has helped control the pain. She remains on supplemental oxygen since last week because she was breathing shallowly from the rib fractures. She is currently on 2 liter with a preserved oxygen saturation. She had wheezing on Sunday and over weekend; yesterday she received 3 Duonebs with improvement. She has not noted dyspnea, wheezing or cough. She did have a bowel movement within the past few days- plans to request Miralax if no BM by tomorrow. She retains Lang catheter as she has not been OOB. She has met with physical therapy and plans to start ambulating today as her brought in her walker from home. Her most recent breast mass bandage change did not have much in the way of blood loss, per patient. Review of Systems: Constitutional: + see HPI Respiratory: + see HPI Breast: + see HPI Abdomen: + see HPI Musculoskeletal: + see HPI Skin: + see HPI Vital Signs Vital Signs Past 12 Hours Date Time Temp Pulse Resp B/P Pulse Ox O2 Delivery O2 Flow Rate FiO2 07/03/16 11:00 36.7 87 17 95/61 98 Humidified Oxygen 2.0 07/03/16 08:33 36.8 84 17 120/78 100 Nasal Cannula 4.0 07/03/16 08:30 Nasal Cannula 2.0 07/03/16 05:05 36.7 90 20 103/68 100 2.0 Physical Exam Constitutional: General Apperance: well-nourished, well-developed Level of Distress: chronically ill ENMT: hearing grossly normal Lungs: Auscuitation: breath sounds normal, no wheezing, no rhonchi Cardiovascular: Heart Auscultation: RRR Abdomen: Inspection & Palpation: soft, non-distended Extremities: no cyanosis, edema (chronic bilateral ankle edema) Laboratory 07/02/16 05:27 07/02/16 05:27 Test 07/01/16 05:18 07/02/16 05:27 Pro-B-Type Natriuretic Peptide 1045 pg/ml (0-900) 1102 pg/ml (0-900) Red Blood Count 3.23 M/uL (4.2-5.4) Mean Corpuscular Volume 77.4 fL (80-100) Mean Corpuscular Hemoglobin 25.1 pg (25-34) Mean Corpuscular Hemoglobin Concent 32.4 g/dl (32-36) RDW Standard Deviation 66.8 fL (36.4-46.3) RDW Coefficient of Variation 24.1 % (11.5-14.5) Mean Platelet Volume 9.1 fL (7.4-10.4) Anion Gap 6.0 mmol/L (3-11) Est Creatinine Clear Calc Drug Dose 81.0 ml/min Estimated GFR () 110.1 Estimated GFR (Non- 95.0 BUN/Creatinine Ratio 37.1 (10-20) Calcium Level 9.2 mg/dl (8.5-10.1) Date/Time Source Procedure Growth Status 07/01/16 09:25 Stool C.difficile Toxin B Gene (PCR) - Final No C. difficile toxin B gene detected Complete Radiology Chest x-ray from 06/30/2016: Heart is enlarged and there is atherosclerotic calcification of the thoracic aorta. Pulmonary vasculature non congested. Chronic interstitial thickening similar to previous. No airspace consolidation , pleural effusion or pneumothorax seen. Skeletal structures osteopenic. Assessment & Plan (1) Metastatic breast carcinoma Status: Acute Permanent Comment: [id number], stage IV Invasive ductal carcinoma, ER positive/SD negative/Her2 positive, grade 2 Last Edited By: Clau Sinha on Jun 21, 2016 14:24 Assessment & Plan: Patient has undergone staging evaluation with CT of the chest/abdomen / pelvis, brain MRI and bone scan. She has locally advanced disease with a large necrotic breast mass and axillary adenopathy. She has widespread bony metastatic disease. Radiation Oncology has evaluated the patient and started her on palliative RT of the thoracolumbar spine and the right femur. Right humerus and left pathologic rib fractures will be done subsequently. Patient has been on anastrozole 1 milligram daily for the hormonal component of her breast cancer- started 06/27/16. Her echocardiogram during this hospitalization has revealed decreased LVEF from 35-39%, so anti her 2 Alina therapy would not be considered in her case. Dr. Sinha of [facility] is deferring breast RT at this time, continue to monitor breast lesion for bleeding, may see control with antihormonal therapy. Patient reports adequate pain control with fentanyl 12 mcg q72h, PRN oxycodone 5 mg (last dose this AM) and lidoderm patch applied ribs. Patient is on vancomycin currently for right breast infection. Plan to start patient on Xgeva in the outpatient setting for her bone metastasis. (2) Iron deficiency anemia due to chronic blood loss Status: Chronic Assessment & Plan: Received Venofer 300 milligram x 1 dose hospitalized for blood loss from advanced right breast mass on 06/26/16. Monitor CBC daily and blood loss from right breast mass. Recommend second infusion Venofer week of 07/03/16. (3) Right femoral vein DVT Status: Chronic Assessment & Plan: Patient received 2 dose therapeutic Lovenox prior to IVC filter placement by Dr. Moon 06/27/16 as AC contraindicated with bleeding right breast mass with complication of significant LJ. Patient is not currently on AC. (4) Wheezing Permanent Comment: Reason for Deletion: Last Edited By: Arianne Lozada on Jun 10:57 Assessment & Plan: CXR from 06/30/16 without acute process; patient started on Duonebs x 3 yesterday with improvement, also now on humidified oxygen.
--- NOTE | 2016-07-03 17:51 | Progress Note ---
Internal Med Progress Note Date of Service: Jul 03, 2016. Provider Documentation: SUBJECTIVE: Patient is seen and examined at bedside. States her pain is well controlled. Denies SOB, wheezing, chest pain. Doesn't want to try bowel regimen for constipation day. Reports her weakness is better. Had radiation therapy today. Denies any other symptoms. OBJECTIVE: Vital Signs-as noted below Physical Exam: General Appearance:Chronically ill appearing Head: normocephalic, Atraumatic Eyes: normal inspection, EOMI, PERRLA Neck: supple, no JVD, Trachea midline Respiratory/Chest: Normal breath sounds, CTA Cardiovascular: S1, S2, Tachycardia, No murmur Abdomen/GI:Soft, Non tender, Bowel sounds present Extremities/Musculoskelatal:Right arm:+lymphadenopathy, +edema RUE Chest:fungating mass on rt breast , bandage present Neurologic/Psych:AAOX3, grossly no focal neurological deficits Skin: erythematous rash on face Lab data as noted below. 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 , fungating/ulcerative rt breast mass with rt axillary lymph node involvement Dx in July 2013 in [facility] as ductal Adeno Carcinoma of rt breast Tumor was estrogen positive , progesterone negative, Her [address] scan in 2013 shoed beast mass at 4 cm with borderline rt axially lymph node involvement Pt refused to have follow up and seek treatment for her breast malignancy Currently presented with worsening of SOB , diffuse bone pain bleeding ulcerative mass of rt breast -destroying rt lower breast and rt Nipple Heme/oncology and Radiation oncology on board started on Palliative radiation tx -of thoracolumbar spine and the right femur. Right humerus and left pathologic rib fractures to be done subsequently. Poor prognosis limited option for systemic chemo due to poor functional status /underlying CHF Palliative care on board wound culture on rt breast mass : Coagulase negative staph To complete IV Vancomycin today Anastrazole started by Heme/oncology for the hormonal component of her breast cancer ECHO showed decreased LVEF from 35-39%, so anti her 2 Alessia therapy would not be considered as per oncology Dr. Sinha (Radiation Oncology) deferred breast RT at this time Continue radiation therapy to metastatic bone disease Pain control with fentanyl, oxycodone PRN Plan to start on Xgeva as outpatient for bone metastasis Bowel regimen for constipation if patient agrees B/L Wheezing: H/O CHF, Anemia CXR: no acute findings Patient shallow breathing secondary to rib pain On oxygen 2L NC, Titrate to room air as able Continue duonebs PRN for now BNP:elevated Gentle diuresis given borderline low BP; continue lasix RT LOWER EXT DVT: S/P IVC filter Appreciate vascular surgery help Lovenox discontinued per recommendations from oncology Pt refused Lovenox secondary to concerns for bleeding in breast CTA: Negative for PE Monitor for any evidence of bleeding RT ARM SWELLING: Likely due to altered lymphatic drainage from large right breast mass avoid lab draws , BP measure on rt arm Continues to have mild pain of RUE R/O UTI: Denies any urinary symptoms urine culture: No growth ANEMIA: Hb improved ~ 9 post transfusion ' remains stable: at around 8.0 no active bleeding noted on rt breast mass Microcytic anemia MCV 68 suggestive of acute on chronic blood loss S/P 2 units PRBC transfusion DIFFUSE BONY METASTATIC DISEASE due to metastatic breast ca getting Palliative Radiation tx continue pain control On Fentanyl Patch on PRN oxy IR , IV Morphine bowel regimen to prevent narcotic induced constipation Pain management consulted -appreciate input Will be started on Xgeva ( Denosumab ) by Oncology as out patient H/O NSTEMI : required emergent infrarenal ruptured aortic aneurysm repair in July 2013 - surgery complicated by intra operative NSTEMI ECHO : in 2013: Ischemic cardiomyopathy EF 30 % repeat ECHO 06/22/16 There is a large sized apical, inferior and inferalateral wall motion abnormalities with akinesis of the segments. Left ventricular systolic function is moderately reduced. The qualitative LV ejection fraction is 35-39% (moderately reduced). Aortic valve sclerosis mild, without significant aortic valvular stenosis. There is severe mitral regurgitation. Doppler findings do not suggest pulmonary hypertension. Grade I diastolic dysfunction, (abnormal relaxation pattern). mild elevation of troponin could be secondary to cardiac strain due to severe anemia /ischemia cardiomyopathy very poor medication compliance not a candidate for Aspirin -fungating bleed mass /profound anemia pt refused Metoprolol-feels she does not need it COMBINED CHRONIC SYSTOLIC AND DIASTOLIC HEART FAILURE ISCHEMIC CARDIOMYOPATHY : due to above pt has not been taking Lasix /ACEI in past monitor volume status Last EF: 30% Continue lasix 20mg daily, BP stable HYPOTHYROIDISM: TSH elevated > 9 pt refuses to take Levothyroxine HTN BP well controlled jackie Metoprolol D/yovani as pt refused to take any additional meds other than her Malignancy treatment Code Status: FULL CODE DVT PX: High risk for DVT S/P IVC filter Lovenox discontinued per recommendations from oncology (Secondary to R breast bleeding) DISPOSITION to be determined: Patient currently not interested to discuss about Rehab/ Palliative care very poor prognosis with wide spread metastatic breast CA Terminal stage no curable treatment possible except for palliative care -Rad tx /chemo for pain control Given pt's disease process Hospice would be appropriate: Pt may not be agreeable social service consulted PT/OT ordered PROCEDURES: CTA: 1. Study is negative for pulmonary embolus. 2. Lungs are grossly clear. 3. Diffuse metastatic change involving the osseous structures throughout with several pathologic rib fractures which have been discussed previously. 4. Mildly progressive upper abdominal retroperitoneal adenopathy CT abdomen /pelvis : wide spread lytic bony metastatic disease 7.5 cm rt breast /chest wall mass consistent with neoplasm , There is a 1 cm soft tissue satellite nodule NC BONE SCAN : extensive foci of abnormal increased uptake involving cervical , thoracic and lumber spines, There is abnormal increased uptake within the pelvis left proximal humerus, multiple ribs as well both proximal femurs-findings consistent with widespread skeletal metastasis . Doppler: Doppler shows : 1. Deep venous thrombus within the right common femoral and superficial femoral veins. 2. No deep venous thrombus within the left lower extremity. Vital Signs: Date Time Temp Pulse Resp B/P Pulse Ox O2 Delivery O2 Flow Rate FiO2 07/03/16 17:00 Nasal Cannula 2.0 07/03/16 15:41 37.0 95 20 134/64 98 07/03/16 11:00 36.7 87 17 95/61 98 Humidified Oxygen 2.0 07/03/16 08:33 36.8 84 17 120/78 100 Nasal Cannula 4.0 07/03/16 08:30 Nasal Cannula 2.0 07/03/16 05:05 36.7 90 20 103/68 100 2.0 07/03/16 00:24 36.9 97 20 104/66 99 2.0 07/03/16 00:00 Room Air 07/02/16 23:17 76 16 97 Nasal Cannula 2.0 07/02/16 20:16 36.8 98 20 120/75 100 Nasal Cannula 2.0 07/02/16 20:00 Room Air
[2016-07-03] MEDS: SENNA 8.6 MG TAB PO SCH (21:00)
[2016-07-03] MEDS: LIDODERM (LIDOCAINE) PATCH 5% TD SCH ×2 (21:00→21:30)
[2016-07-04] VITALS (9 sets, daily range): BP systolic 89–131; BP diastolic 56–77; PULSE 85–101; TEMP 36.8–37.3; O2SAT 93–100
[2016-07-04] MEDS: POLYETHYLENE (MIRALAX) 17 GM PACK PO SCH (08:00)
[2016-07-04 08:19] LABS: BUN/CREATININE RATIO 27.9 (10-20); CALCIUM 9.9 mg/dl (8.5-10.1); CREATININE 0.58 mg/dl (0.60-1.20); POTASSIUM 3.6 mmol/L (3.5-5.1)
[2016-07-04] MEDS: DOCUSATE SODIUM 100 MG CAP PO SCH ×2 (08:23→20:34)
[2016-07-04] MEDS: ASCORBIC ACID 500 MG TAB PO SCH ×2 (08:24→20:37)
[2016-07-04] MEDS: FUROSEMIDE 20 MG TAB PO SCH (08:24)
[2016-07-04] MEDS: MULTIVITAMIN TAB PO SCH (08:24)
[2016-07-04] MEDS: CHECK FENTANYL PATCH PLACEMENT SCH ×2 (08:25→16:46)
[2016-07-04] MEDS: ANASTROZOLE 1 MG TAB PO SCH (08:26)
[2016-07-04] MEDS: ALBUT/IPRATROP 3MG/0.5MG NEB 3 ML VIAL INH PRN (08:31)
--- NOTE | 2016-07-04 14:39 | Progress Note ---
Subjective Date of Service: Jul 04, 2016. Subjective Pt evaluation today including: conversation w/ patient, physical exam, lab review, review of studies, conversation w/ sap plant maintenance consultant, review of inpatient medication list Saw/examined the patient in room 418 patient is in good spirits worked with therapy, using walker now seated in chair pain much improved with fentanyl patch and medications Problem List Medical Problems: (1) Metastatic breast carcinoma Permanent Comment: [id number], stage IV Invasive ductal carcinoma, ER positive/DE negative/Her2 positive, grade 2 Status: Acute Review of Systems Constitutional: + fatigue, + weakness, No chills, No fever Respiratory: + cough, + shortness of breath, No dyspnea at rest, No dyspnea on exertion, No hemoptysis, No sputum, No wheezing Cardiac: + edema (right arm), No chest pain, No palpitations Abdomen: No diarrhea, No nausea, No pain, No vomiting Musculoskeletal: + joint pain (right hip, right arm) Female : No dysuria, No urinary frequency Heme: + abnormal bleeding/bruising (right breast) Medications Current Inpatient Medications Medications (Trade) Dose Ordered Sig/Sudarshan Route Start Time Stop Time Status Last Admin Dose Admin Acetaminophen (Tylenol Tab) 650 mg Q4H PRN PO 06/20/16 12:30 07/20/16 12:29 Future Hold 06/21/16 00:15 650 MG Al Hydrox/Mg Hydrox/Simethicone (Maalox Max Susp) 15 ml Q4H PRN PO 06/20/16 12:30 07/20/16 12:29 Magnesium Hydroxide (Milk Of Magnesia Susp) 30 ml Q6H PRN PO 06/20/16 12:30 07/20/16 12:29 Ondansetron HCl (Zofran Inj) 4 mg Q6H PRN IV 06/20/16 12:30 07/20/16 12:29 06/29/16 07:57 4 MG Multivitamins (Multivitamin Tab) 1 tab DAILY PO 06/21/16 08:00 07/21/16 08:59 07/04/16 08:24 1 TAB Ascorbic Acid (Vitamin C Tab) 3,000 mg BID PO 06/20/16 20:00 07/20/16 20:59 07/04/16 08:24 3,000 MG Oxycodone HCl (Roxicodone Immediate Rel Tab) 5 mg Q2H PRN PO 06/24/16 11:00 07/08/16 10:59 07/03/16 21:56 5 MG Lorazepam (Ativan Tab) 0.5 mg Q4 PRN PO 06/24/16 11:00 07/24/16 10:59 Lorazepam (Ativan Inj) 0.5 mg Q6 PRN IV 06/24/16 11:00 07/24/16 10:59 Polyethylene (Miralax Powder Packet) 17 gm DAILY PO 06/24/16 12:00 07/24/16 11:59 06/28/16 09:27 17 GM Docusate Sodium (coLACE CAP) 100 mg BID PO 06/24/16 20:00 07/24/16 19:59 07/04/16 08:23 100 MG Bisacodyl (Dulcolax Supp) 10 mg DAILY PRN DE 06/24/16 11:00 07/24/16 10:59 Senna (Senokot Tab) 8.6 mg HS PO 06/24/16 21:00 07/24/16 20:59 06/29/16 21:30 8.6 MG Fentanyl (Duragesic Patch) 12 mcg Q3D@0900 TD 06/24/16 11:15 07/08/16 11:14 07/03/16 08:46 12 MCG Miscellaneous (Fentanyl Patch Remove & Waste) 1 ea Q3D@0859 N/A 06/27/16 08:59 07/27/16 08:58 07/03/16 08:45 1 EA Miscellaneous Information 1 ea 1 ea QS N/A 06/24/16 16:00 07/24/16 15:59 07/04/16 08:25 1 EA Lorazepam/Syringe (Ativan Inj/ Syringe) 1 ml @ 1 mls/min Q6H PRN IV 06/24/16 11:15 07/24/16 11:14 Miconazole Nitrate (Desenex Powder) 1 appln PRN PRN EXT 06/26/16 08:30 07/26/16 08:29 Anastrozole (Arimidex Tab) 1 mg QAM PO 06/27/16 08:00 07/27/16 07:59 07/04/16 08:26 1 MG Lidocaine (Lidoderm Patch 5%) 1 patch PM TD 06/26/16 21:15 3/29/17 21:14 07/03/16 21:30 1 PATCH Miscellaneous (Remove Lidoderm Patch) 1 ea DAILY@0900 N/A 06/27/16 09:00 07/27/16 08:59 07/04/16 08:25 1 EA Furosemide (Lasix Tab) 20 mg QAM PO 07/02/16 08:00 08/01/16 07:59 07/04/16 08:24 20 MG Albuterol/ Ipratropium 3 ml 3 ml QIDR PRN INH 07/02/16 20:00 08/01/16 19:59 07/04/16 08:31 3 ML Iron Sucrose/ Sodium Chloride (Venofer Inj/Nss 100ml) 105 ml @ 420 mls/hr TODAY IV 07/04/16 14:15 07/06/16 14:29 UNV Objective Vital Signs Date Time Temp Pulse Resp B/P Pulse Ox O2 Delivery O2 Flow Rate FiO2 07/04/16 11:56 37.3 96 19 100/64 100 Nasal Cannula 3.0 07/04/16 09:42 101 94 07/04/16 08:45 Nasal Cannula 2.0 07/04/16 08:31 85 19 95 Nasal Cannula 2.0 07/04/16 07:24 36.9 99 16 131/77 96 3.0 07/04/16 04:10 36.9 91 20 96/56 93 2.0 07/04/16 00:00 Nasal Cannula 2.0 07/03/16 23:54 36.8 93 20 96/58 97 2.0 07/03/16 19:36 36.9 89 20 106/69 97 2.0 07/03/16 17:00 Nasal Cannula 2.0 07/03/16 15:41 37.0 95 20 134/64 98 Physical Exam General Appearance: no apparent distress Respiratory/Chest: no respiratory distress, no accessory muscle use, + decreased breath sounds Cardiovascular: regular rate, rhythm, no edema (no lower extremity edema), no murmur Abdomen: normal bowel sounds, non tender, soft Extremities: + pertinent finding (+2 pitting edema of right arm) Neurologic/Psychiatric: chair lift operator II-XII nml as tested, no motor/sensory deficits, alert, normal mood/affect, oriented x 3 Skin: normal color Lymphatic: no adenopathy Laboratory Results Last 24 Hours Test 07/04/16 07:24 Sodium Level 143 mmol/L Potassium Level 3.6 mmol/L Chloride Level 106 mmol/L Carbon Dioxide Level 28 mmol/L Anion Gap 9.0 mmol/L Blood Urea Nitrogen 16 mg/dl Creatinine 0.58 mg/dl Est Creatinine Clear Calc Drug Dose 77.9 ml/min Estimated GFR () 108.2 Estimated GFR (Non- 93.4 BUN/Creatinine Ratio 27.9 Random Glucose 82 mg/dl Calcium Level 9.9 mg/dl Assessment and Plan This is a 70 year old female with PMH of AAA rupture and repair, systolic/ diastolic CHF, valvular disease with severe mitral regurgitation, and adenocarcinoma of the right breast presents with some shortness of breath as well as bleeding right breast mass Metastatic Right Breast Adenocarcinoma 07/04 palliative radiation as per radiation oncology currently on hold continue when able as per RO anastrazole started as per Hem/Onc continue fentanyl patch and oxycodone for now off of antibiotics for the ulcerative mass continue wound care continue PT/OT discharge planning to rehab later this week outpatient radiation onc and hem-onc follow-ups 06/23 clinically stable radiation treatments to the back, hip, and right arm today continue tylenol and oxycodone for pain wound care for her right breast mass/wound ordered PT and OT evaluations - uses walker at baseline will most likely need rehab on discharge with outpatient Hem/Onc and Rad/Onc follow-ups 06/22 patient is doing okay today; pain is controlled she is using IV tylenol and oxycodone at night plan is to have palliative care talk to the patient palliative radiation as per rad/onc medical oncology to discuss medication options will recheck Hgb in AM, if remains < 8, may need to transfuse 06/21 patient has had this diagnosed in the past but did not want any treatment at that time She has been managing the breast mass ulceration/bleeding wound herself at home Noted that the bleeding worsened yesterday presented here: had imaging done including CT abdominal/pelvis, bone scan, Brain MRI Bone Scan and CT abdomen/pelvis confirm widespread lytic bony metastatic lesions Brain MRI - no acute process appreciate medical oncology and radiation oncology input Plan in terms of radiation is for palliative radiation which will be started on 06/22 Possible medications for palliation purposes as per medical oncology placed a palliative care consultation as well Wound care nurse consulted for the bleeding mass on the right breast IV morphine, IV Tylenol and PO Percocet PRN for pain Iron Deficiency Anemia anemia of inflammation secondary to metastatic cancer as well as iron deficiency anemia due to blood loss from ulceration on right breast appreciate Hem-Onc input will give another dose of Venofer 300mg x 1 today Hgb is down to 8.1, will monitor while inpatient Shortness of Breath in the setting of Mixed Systolic-Diastolic CHF Valvular Heart Disease/Severe Mitral Regurgitation currently breathing status is at baseline repeat echo is pending - may be difficult with the fungating mass on the right breast monitor for fluid overload patient currently on 2L of O2, saturating well, in no distress CXR no acute findings patient was wheezing yesterday (07/03) requiring neb treatments also was diuresed with low dose Lasix, will monitor Right Lower Extremity DVT s/p IVC filter appreciate vascular input off of Lovenox now due to bleeding Right Arm Swelling likely due to right sided breast CA/mass - decreased lymphatic drainage should improve with more PT/OT and ambulation Hypothyroidism TSH elevated at ~9 low Free T4 started low dose Synthroid - patient seems to be refusing medications HTN blood pressure improved since admission will monitor and adjust medications accordingly patient is refusing medications other than palliative medications DVT ppx s/p IVC filter FULL CODE Continued [facility] stay due to: multiple IV medications needed, home environment unsafe for pt Discharge planning: uncertain
[2016-07-04] MEDS: OXYCODONE HCL IR 5 MG TAB (IMMEDIATE RELEASE) PO PRN (14:52)
[2016-07-04] MEDS: IRON SUCROSE INJ 100 MG in SODIUM CHLORIDE 0.9% 100ML 100 ML IV SCH (16:46)
[2016-07-04] MEDS: SENNA 8.6 MG TAB PO SCH (20:34)
[2016-07-04] MEDS: LIDODERM (LIDOCAINE) PATCH 5% TD SCH (20:39)
[2016-07-05] VITALS (9 sets, daily range): BP systolic 97–123; BP diastolic 64–74; PULSE 79–108; TEMP 36.6–37.4; O2SAT 90–100
[2016-07-05] MEDS: CHECK FENTANYL PATCH PLACEMENT SCH ×3 (00:04→15:27)
[2016-07-05] MEDS: ALBUT/IPRATROP 3MG/0.5MG NEB 3 ML VIAL INH PRN (06:35)
[2016-07-05 07:39] LABS: MEAN CELL VOLUME 78.9 fL (80-100); MEAN CORPUSCULAR HEMOGLOBIN 25.1 pg (25-34); MEAN CORPUSCULAR HGB CONC 31.9 g/dl (32-36); MEAN PLATELET VOLUME 9.1 fL (7.4-10.4); PLATELET COUNT 212 K/uL (130-400); RED BLOOD COUNT 3.42 M/uL (4.2-5.4); WHITE BLOOD COUNT 4.21 K/uL (4.8-10.8)
[2016-07-05 08:04] LABS: CREATININE 0.53 mg/dl (0.60-1.20)
[2016-07-05 08:05] LABS: BUN/CREATININE RATIO 37.4 (10-20); CALCIUM 9.7 mg/dl (8.5-10.1); MAGNESIUM 1.9 mg/dl (1.8-2.4); POTASSIUM 3.3 mmol/L (3.5-5.1)
[2016-07-05] MEDS: FUROSEMIDE 20 MG TAB PO SCH (08:56)
[2016-07-05] MEDS: DOCUSATE SODIUM 100 MG CAP PO SCH ×2 (08:56→20:00)
[2016-07-05] MEDS: MULTIVITAMIN TAB PO SCH (08:59)
[2016-07-05] MEDS: POLYETHYLENE (MIRALAX) 17 GM PACK PO SCH (08:59)
[2016-07-05] MEDS: ANASTROZOLE 1 MG TAB PO SCH (08:59)
[2016-07-05] MEDS: ASCORBIC ACID 500 MG TAB PO SCH ×2 (09:00→20:21)
[2016-07-05] MEDS: OXYCODONE HCL IR 5 MG TAB (IMMEDIATE RELEASE) PO PRN (14:44)
[2016-07-05] MEDS ORDERED: POTASSIUM CHLORIDE 10 MEQ TABCR PO STA (15:38)
--- NOTE | 2016-07-05 15:41 | Progress Note ---
Subjective Date of Service: Jul 05, 2016. 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, grade 2 Status: Acute Review of Systems Constitutional: + weakness, No chills, No fever Respiratory: No shortness of breath Cardiac: No chest pain Abdomen: No diarrhea, No nausea, No pain, No vomiting Musculoskeletal: + joint pain (multiple joints) Neurologic: + balance problems, + weakness, No memory loss, No numbness/ tingling, No paralysis, No vertigo Heme: No abnormal bleeding/bruising Medications Current Inpatient Medications Medications (Trade) Dose Ordered Sig/Sudarshan Route Start Time Stop Time Status Last Admin Dose Admin Acetaminophen (Tylenol Tab) 650 mg Q4H PRN PO 06/20/16 12:30 07/20/16 12:29 Future Hold 06/21/16 00:15 650 MG Al Hydrox/Mg Hydrox/Simethicone (Maalox Max Susp) 15 ml Q4H PRN PO 06/20/16 12:30 07/20/16 12:29 Magnesium Hydroxide (Milk Of Magnesia Susp) 30 ml Q6H PRN PO 06/20/16 12:30 07/20/16 12:29 Ondansetron HCl (Zofran Inj) 4 mg Q6H PRN IV 06/20/16 12:30 07/20/16 12:29 06/29/16 07:57 4 MG Multivitamins (Multivitamin Tab) 1 tab DAILY PO 06/21/16 08:00 07/21/16 08:59 07/05/16 08:59 1 TAB Ascorbic Acid (Vitamin C Tab) 3,000 mg BID PO 06/20/16 20:00 07/20/16 20:59 07/05/16 09:00 3,000 MG Oxycodone HCl (Roxicodone Immediate Rel Tab) 5 mg Q2H PRN PO 06/24/16 11:00 07/08/16 10:59 07/05/16 14:44 5 MG Lorazepam (Ativan Tab) 0.5 mg Q4 PRN PO 06/24/16 11:00 07/24/16 10:59 Lorazepam (Ativan Inj) 0.5 mg Q6 PRN IV 06/24/16 11:00 07/24/16 10:59 Polyethylene (Miralax Powder Packet) 17 gm DAILY PO 06/24/16 12:00 07/24/16 11:59 07/05/16 08:59 17 GM Docusate Sodium (coLACE CAP) 100 mg BID PO 06/24/16 20:00 07/24/16 19:59 07/05/16 08:56 100 MG Bisacodyl (Dulcolax Supp) 10 mg DAILY PRN AL 06/24/16 11:00 07/24/16 10:59 Senna (Senokot Tab) 8.6 mg HS PO 06/24/16 21:00 07/24/16 20:59 06/29/16 21:30 8.6 MG Fentanyl (Duragesic Patch) 12 mcg Q3D@0900 TD 06/24/16 11:15 07/08/16 11:14 07/03/16 08:46 12 MCG Miscellaneous (Fentanyl Patch Remove & Waste) 1 ea Q3D@0859 N/A 06/27/16 08:59 07/27/16 08:58 07/03/16 08:45 1 EA Miscellaneous Information 1 ea 1 ea QS N/A 06/24/16 16:00 07/24/16 15:59 07/05/16 15:27 1 EA Lorazepam/Syringe (Ativan Inj/ Syringe) 1 ml @ 1 mls/min Q6H PRN IV 06/24/16 11:15 07/24/16 11:14 Miconazole Nitrate (Desenex Powder) 1 appln PRN PRN EXT 06/26/16 08:30 07/26/16 08:29 Anastrozole (Arimidex Tab) 1 mg QAM PO 06/27/16 08:00 07/27/16 07:59 07/05/16 08:59 1 MG Lidocaine (Lidoderm Patch 5%) 1 patch PM TD 06/26/16 21:15 07/26/16 21:14 07/04/16 20:39 1 PATCH Miscellaneous (Remove Lidoderm Patch) 1 ea DAILY@0900 N/A 06/27/16 09:00 07/27/16 08:59 07/05/16 09:00 1 EA Furosemide (Lasix Tab) 20 mg QAM PO 07/02/16 08:00 08/01/16 07:59 07/05/16 08:56 20 MG Albuterol/ Ipratropium 3 ml 3 ml QIDR PRN INH 07/02/16 20:00 08/01/16 19:59 07/05/16 06:35 3 ML Iron Sucrose/ Sodium Chloride (Venofer Inj/Nss 100ml) 105 ml @ 420 mls/hr DAILY@1600 IV 07/04/16 16:00 07/06/16 16:14 07/04/16 16:46 420 MLS/HR Objective Vital Signs Date Time Temp Pulse Resp B/P Pulse Ox O2 Delivery O2 Flow Rate FiO2 07/05/16 15:05 36.8 102 18 98/64 100 Nasal Cannula 2.0 07/05/16 11:47 Nasal Cannula 1.0 07/05/16 11:04 36.6 102 20 97/64 93 Nasal Cannula 1.0 07/05/16 07:35 36.8 108 20 113/74 91 1.0 07/05/16 07:32 91 Nasal Cannula 1.0 07/05/16 06:36 79 20 94 Nasal Cannula 1.0 07/05/16 04:05 37.0 95 18 113/73 98 Nasal Cannula 3.0 07/05/16 00:25 Nasal Cannula 2.0 07/04/16 23:34 37.1 96 16 115/76 96 Nasal Cannula 1.0 07/04/16 19:27 36.8 96 20 94/60 94 Nasal Cannula 2.0 07/04/16 16:55 37.1 92 16 89/59 99 Nasal Cannula 2.0 07/04/16 16:30 Nasal Cannula 2.0 Physical Exam General Appearance: no apparent distress Respiratory/Chest: lungs clear, normal breath sounds, no respiratory distress, no accessory muscle use Cardiovascular: regular rate, rhythm, no edema, no murmur Abdomen: normal bowel sounds, non tender, soft Extremities: normal inspection, no pedal edema Neurologic/Psychiatric: no motor/sensory deficits, alert, + depressed affect Laboratory Results Last 24 Hours Test 07/05/16 07:20 White Blood Count 4.21 K/uL Red Blood Count 3.42 M/uL Hemoglobin 8.6 g/dL Hematocrit 27.0 % Mean Corpuscular Volume 78.9 fL Mean Corpuscular Hemoglobin 25.1 pg Mean Corpuscular Hemoglobin Concent 31.9 g/dl RDW Standard Deviation 71.4 fL RDW Coefficient of Variation 25.6 % Platelet Count 212 K/uL Mean Platelet Volume 9.1 fL Sodium Level 143 mmol/L Potassium Level 3.3 mmol/L Chloride Level 105 mmol/L Carbon Dioxide Level 26 mmol/L Anion Gap 12.0 mmol/L Blood Urea Nitrogen 20 mg/dl Creatinine 0.53 mg/dl Est Creatinine Clear Calc Drug Dose 83.5 ml/min Estimated GFR () 111.5 Estimated GFR (Non- 96.2 BUN/Creatinine Ratio 37.4 Random Glucose 94 mg/dl Calcium Level 9.7 mg/dl Magnesium Level 1.9 mg/dl Assessment and Plan This is a 70 year old female with PMH of AAA rupture and repair, systolic/ diastolic CHF, valvular disease with severe mitral regurgitation, and adenocarcinoma of the right breast presents with some shortness of breath as well as bleeding right breast mass Metastatic Right Breast Adenocarcinoma 07/05 Plan for this patient is to continue fentanyl patch and oxycodone for pain control palliative radiation - 1-2 more treatments as per radiation oncologist continue anastrazole and wound care d/c planning soon to rehab vs. SNF - patient refusing until she can go home with home health outpatient radiation onc and hem-onc follow-ups continue PT/OT while inpatient 07/04 palliative radiation as per radiation oncology currently on hold continue when able as per RO anastrazole started as per Hem/Onc continue fentanyl patch and oxycodone for now off of antibiotics for the ulcerative mass continue wound care continue PT/OT discharge planning to rehab later this week outpatient radiation onc and hem-onc follow-ups 06/23 clinically stable radiation treatments to the back, hip, and right arm today continue tylenol and oxycodone for pain wound care for her right breast mass/wound ordered PT and OT evaluations - uses walker at baseline will most likely need rehab on discharge with outpatient Hem/Onc and Rad/Onc follow-ups 06/22 patient is doing okay today; pain is controlled she is using IV tylenol and oxycodone at night plan is to have palliative care talk to the patient palliative radiation as per rad/onc medical oncology to discuss medication options will recheck Hgb in AM, if remains < 8, may need to transfuse 06/21 patient has had this diagnosed in the past but did not want any treatment at that time She has been managing the breast mass ulceration/bleeding wound herself at home Noted that the bleeding worsened yesterday presented here: had imaging done including CT abdominal/pelvis, bone scan, Brain MRI Bone Scan and CT abdomen/pelvis confirm widespread lytic bony metastatic lesions Brain MRI - no acute process appreciate medical oncology and radiation oncology input Plan in terms of radiation is for palliative radiation which will be started on 06/22 Possible medications for palliation purposes as per medical oncology placed a palliative care consultation as well Wound care nurse consulted for the bleeding mass on the right breast IV morphine, IV Tylenol and PO Percocet PRN for pain Iron Deficiency Anemia 07/05 Hgb up to 8.6 she received Venofer yesterday for her anemia 07/04 anemia of inflammation secondary to metastatic cancer as well as iron deficiency anemia due to blood loss from ulceration on right breast appreciate Hem-Onc input will give another dose of Venofer 300mg x 1 today Hgb is down to 8.1, will monitor while inpatient Shortness of Breath in the setting of Mixed Systolic-Diastolic CHF Valvular Heart Disease/Severe Mitral Regurgitation currently breathing status is at baseline repeat echo is pending - may be difficult with the fungating mass on the right breast monitor for fluid overload patient currently on 2L of O2, saturating well, in no distress CXR no acute findings patient was wheezing yesterday (07/03) requiring neb treatments also was diuresed with low dose Lasix, will monitor Right Lower Extremity DVT s/p IVC filter appreciate vascular input off of Lovenox now due to bleeding Right Arm Swelling likely due to right sided breast CA/mass - decreased lymphatic drainage should improve with more PT/OT and ambulation Hypothyroidism TSH elevated at ~9 low Free T4 started low dose Synthroid - patient seems to be refusing medications HTN blood pressure improved since admission will monitor and adjust medications accordingly patient is refusing medications other than palliative medications DVT ppx s/p IVC filter FULL CODE Continued [facility] stay due to: multiple IV medications needed, home environment unsafe for pt Discharge planning: uncertain
[2016-07-05] MEDS: IRON SUCROSE INJ 100 MG in SODIUM CHLORIDE 0.9% 100ML 100 ML IV SCH (16:44)
[2016-07-05] MEDS: SENNA 8.6 MG TAB PO SCH (20:20)
[2016-07-05] MEDS: LIDODERM (LIDOCAINE) PATCH 5% TD SCH (20:23)
[2016-07-06] MEDS: CHECK FENTANYL PATCH PLACEMENT SCH ×4 (00:28→23:28)
[2016-07-06 04:27] VITALS: BP 142/74; PULSE 102; TEMP 36.7; O2SAT 95
[2016-07-06 07:16] VITALS: BP 117/74; PULSE 90; TEMP 37; O2SAT 98
[2016-07-06] MEDS: POLYETHYLENE (MIRALAX) 17 GM PACK PO SCH (07:47)
[2016-07-06] MEDS: DOCUSATE SODIUM 100 MG CAP PO SCH ×2 (07:47→19:45)
[2016-07-06] MEDS: FUROSEMIDE 20 MG TAB PO SCH (07:47)
[2016-07-06] MEDS: ASCORBIC ACID 500 MG TAB PO SCH ×2 (07:47→19:47)
[2016-07-06] MEDS: MULTIVITAMIN TAB PO SCH (07:47)
[2016-07-06] MEDS: FENTANYL 12 MCG/HR TDSY TD SCH (07:48)
[2016-07-06] MEDS: ANASTROZOLE 1 MG TAB PO SCH (07:54)
[2016-07-06] MEDS: FENTANYL PATCH REMOVE & WASTE SCH (07:54)
[2016-07-06 08:01] LABS: BUN/CREATININE RATIO 31.9 (10-20); CALCIUM 9.7 mg/dl (8.5-10.1); CREATININE 0.62 mg/dl (0.60-1.20); POTASSIUM 4.1 mmol/L (3.5-5.1)
--- NOTE | 2016-07-06 10:35 | Progress Note ---
Subjective Date of Service: Jul 06, 2016. Subjective Pt evaluation today including: conversation w/ patient, physical exam, lab review, review of studies, review of inpatient medication list Saw/examined the patient in room 418 She is doing well, pain controlled with medications She is anxious/tearful - does not want to go to rehab or SNF - wants to go home with home health Problem List Medical Problems: (1) Metastatic breast carcinoma Permanent Comment: [id number], stage IV Invasive ductal carcinoma, ER positive/RI negative/Her2 positive, grade 2 Status: Acute Review of Systems Constitutional: + weakness, No chills, No fever Respiratory: No cough, No dyspnea at rest, No dyspnea on exertion, No hemoptysis, No shortness of breath, No sputum, No wheezing Cardiac: No chest pain, No edema, No palpitations Abdomen: No diarrhea, No nausea, No pain, No vomiting Musculoskeletal: + joint pain (back pain, right hip, multiple joints) Medications Current Inpatient Medications Medications (Trade) Dose Ordered Sig/Sudarshan Route Start Time Stop Time Status Last Admin Dose Admin Acetaminophen (Tylenol Tab) 650 mg Q4H PRN PO 06/20/16 12:30 07/20/16 12:29 Future Hold 06/21/16 00:15 650 MG Al Hydrox/Mg Hydrox/Simethicone (Maalox Max Susp) 15 ml Q4H PRN PO 06/20/16 12:30 07/20/16 12:29 Magnesium Hydroxide (Milk Of Magnesia Susp) 30 ml Q6H PRN PO 06/20/16 12:30 07/20/16 12:29 Ondansetron HCl (Zofran Inj) 4 mg Q6H PRN IV 06/20/16 12:30 07/20/16 12:29 06/29/16 07:57 4 MG Multivitamins (Multivitamin Tab) 1 tab DAILY PO 06/21/16 08:00 07/21/16 08:59 07/06/16 07:47 1 TAB Ascorbic Acid (Vitamin C Tab) 3,000 mg BID PO 06/20/16 20:00 07/20/16 20:59 07/06/16 07:47 3,000 MG Oxycodone HCl (Roxicodone Immediate Rel Tab) 5 mg Q2H PRN PO 06/24/16 11:00 07/08/16 10:59 07/05/16 14:44 5 MG Lorazepam (Ativan Tab) 0.5 mg Q4 PRN PO 06/24/16 11:00 07/24/16 10:59 Lorazepam (Ativan Inj) 0.5 mg Q6 PRN IV 06/24/16 11:00 07/24/16 10:59 Polyethylene (Miralax Powder Packet) 17 gm DAILY PO 06/24/16 12:00 07/24/16 11:59 07/06/16 07:47 17 GM Docusate Sodium (coLACE CAP) 100 mg BID PO 06/24/16 20:00 07/24/16 19:59 07/06/16 07:47 100 MG Bisacodyl (Dulcolax Supp) 10 mg DAILY PRN RI 06/24/16 11:00 07/24/16 10:59 Senna (Senokot Tab) 8.6 mg HS PO 06/24/16 21:00 07/24/16 20:59 06/29/16 21:30 8.6 MG Fentanyl (Duragesic Patch) 12 mcg Q3D@0900 TD 06/24/16 11:15 07/08/16 11:14 07/06/16 07:48 12 MCG Miscellaneous (Fentanyl Patch Remove & Waste) 1 ea Q3D@0859 N/A 06/27/16 08:59 07/27/16 08:58 07/06/16 07:54 1 EA Miscellaneous Information 1 ea 1 ea QS N/A 06/24/16 16:00 07/24/16 15:59 07/06/16 07:49 1 EA Lorazepam/Syringe (Ativan Inj/ Syringe) 1 ml @ 1 mls/min Q6H PRN IV 06/24/16 11:15 07/24/16 11:14 Miconazole Nitrate (Desenex Powder) 1 appln PRN PRN EXT 06/26/16 08:30 07/26/16 08:29 Anastrozole (Arimidex Tab) 1 mg QAM PO 06/27/16 08:00 07/27/16 07:59 07/06/16 07:54 1 MG Lidocaine (Lidoderm Patch 5%) 1 patch PM TD 06/26/16 21:15 07/26/16 21:14 07/04/16 20:39 1 PATCH Miscellaneous (Remove Lidoderm Patch) 1 ea DAILY@0900 N/A 06/27/16 09:00 07/27/16 08:59 07/06/16 07:54 1 EA Furosemide (Lasix Tab) 20 mg QAM PO 07/02/16 08:00 08/01/16 07:59 07/06/16 07:47 20 MG Albuterol/ Ipratropium 3 ml 3 ml QIDR PRN INH 07/02/16 20:00 08/01/16 19:59 07/05/16 06:35 3 ML Iron Sucrose/ Sodium Chloride (Venofer Inj/Nss 100ml) 105 ml @ 420 mls/hr DAILY@1600 IV 07/04/16 16:00 07/06/16 16:14 07/05/16 16:44 420 MLS/HR Objective Vital Signs Date Time Temp Pulse Resp B/P Pulse Ox O2 Delivery O2 Flow Rate FiO2 07/06/16 08:14 Nasal Cannula 1.5 07/06/16 07:16 37.0 90 18 117/74 98 Nasal Cannula 1.5 07/06/16 04:27 36.7 102 20 142/74 95 2.0 07/06/16 00:30 Nasal Cannula 1.0 07/05/16 23:41 37.4 105 18 123/72 90 2.0 07/05/16 20:00 37.0 104 18 104/67 91 Room Air 07/05/16 16:00 94 Room Air 07/05/16 15:05 36.8 102 18 98/64 100 Nasal Cannula 2.0 07/05/16 11:47 Nasal Cannula 1.0 07/05/16 11:04 36.6 102 20 97/64 93 Nasal Cannula 1.0 Physical Exam General Appearance: no apparent distress Respiratory/Chest: lungs clear, normal breath sounds, no respiratory distress, no accessory muscle use Cardiovascular: regular rate, rhythm, no edema, no murmur Abdomen: normal bowel sounds, non tender, soft Extremities: + pertinent finding (swelling of right arm - decreased and painful ROM diffusely, including back) Neurologic/Psychiatric: no motor/sensory deficits, alert, + pertinent finding ( +anxious) Laboratory Results Last 24 Hours Test 07/06/16 07:03 Sodium Level 144 mmol/L Potassium Level 4.1 mmol/L Chloride Level 108 mmol/L Carbon Dioxide Level 30 mmol/L Anion Gap 6.0 mmol/L Blood Urea Nitrogen 20 mg/dl Creatinine 0.62 mg/dl Est Creatinine Clear Calc Drug Dose 71.9 ml/min Estimated GFR () 105.9 Estimated GFR (Non- 91.4 BUN/Creatinine Ratio 31.9 Random Glucose 82 mg/dl Calcium Level 9.7 mg/dl Assessment and Plan This is a 70 year old female with PMH of AAA rupture and repair, systolic/ diastolic CHF, valvular disease with severe mitral regurgitation, and adenocarcinoma of the right breast presents with some shortness of breath as well as bleeding right breast mass Metastatic Right Breast Adenocarcinoma 07/06 patient is doing well today will receive palliative radiation therapy today - last dose continue fentanyl patch/oxycodone refusing rehab - I recommended this multiple times possible home with home health, home PT, wound care nurse visits 07/05 Plan for this patient is to continue fentanyl patch and oxycodone for pain control palliative radiation - 1-2 more treatments as per radiation oncologist continue anastrazole and wound care d/c planning soon to rehab vs. SNF - patient refusing until she can go home with home health outpatient radiation onc and hem-onc follow-ups continue PT/OT while inpatient 07/04 palliative radiation as per radiation oncology currently on hold continue when able as per RO anastrazole started as per Hem/Onc continue fentanyl patch and oxycodone for now off of antibiotics for the ulcerative mass continue wound care continue PT/OT discharge planning to rehab later this week outpatient radiation onc and hem-onc follow-ups 06/23 clinically stable radiation treatments to the back, hip, and right arm today continue tylenol and oxycodone for pain wound care for her right breast mass/wound ordered PT and OT evaluations - uses walker at baseline will most likely need rehab on discharge with outpatient Hem/Onc and Rad/Onc follow-ups 06/22 patient is doing okay today; pain is controlled she is using IV tylenol and oxycodone at night plan is to have palliative care talk to the patient palliative radiation as per rad/onc medical oncology to discuss medication options will recheck Hgb in AM, if remains < 8, may need to transfuse 06/21 patient has had this diagnosed in the past but did not want any treatment at that time She has been managing the breast mass ulceration/bleeding wound herself at home Noted that the bleeding worsened yesterday presented here: had imaging done including CT abdominal/pelvis, bone scan, Brain MRI Bone Scan and CT abdomen/pelvis confirm widespread lytic bony metastatic lesions Brain MRI - no acute process appreciate medical oncology and radiation oncology input Plan in terms of radiation is for palliative radiation which will be started on 06/22 Possible medications for palliation purposes as per medical oncology placed a palliative care consultation as well Wound care nurse consulted for the bleeding mass on the right breast IV morphine, IV Tylenol and PO Percocet PRN for pain Iron Deficiency Anemia 07/05 Hgb up to 8.6 she received Venofer yesterday for her anemia 07/04 anemia of inflammation secondary to metastatic cancer as well as iron deficiency anemia due to blood loss from ulceration on right breast appreciate Hem-Onc input will give another dose of Venofer 300mg x 1 today Hgb is down to 8.1, will monitor while inpatient Shortness of Breath in the setting of Mixed Systolic-Diastolic CHF Valvular Heart Disease/Severe Mitral Regurgitation currently breathing status is at baseline repeat echo is pending - may be difficult with the fungating mass on the right breast monitor for fluid overload patient currently on 2L of O2, saturating well, in no distress CXR no acute findings patient was wheezing yesterday (07/03) requiring neb treatments also was diuresed with low dose Lasix, will monitor Right Lower Extremity DVT s/p IVC filter appreciate vascular input off of Lovenox now due to bleeding Right Arm Swelling likely due to right sided breast CA/mass - decreased lymphatic drainage should improve with more PT/OT and ambulation Hypothyroidism TSH elevated at ~9 low Free T4 started low dose Synthroid - patient seems to be refusing medications HTN blood pressure improved since admission will monitor and adjust medications accordingly patient is refusing medications other than palliative medications DVT ppx s/p IVC filter FULL CODE Continued [facility] stay due to: multiple IV medications needed, home environment unsafe for pt Discharge planning: uncertain
[2016-07-06 11:19] VITALS: BP 145/80; PULSE 101; TEMP 36.8; O2SAT 100
[2016-07-06] MEDS: OXYCODONE HCL IR 5 MG TAB (IMMEDIATE RELEASE) PO PRN (15:04)
[2016-07-06] MEDS: IRON SUCROSE INJ 100 MG in SODIUM CHLORIDE 0.9% 100ML 100 ML IV SCH (16:51)
[2016-07-06 19:40] VITALS: BP 98/65; PULSE 96; TEMP 36.9; O2SAT 94
[2016-07-06] MEDS: LIDODERM (LIDOCAINE) PATCH 5% TD SCH (19:48)
[2016-07-06] MEDS: SENNA 8.6 MG TAB PO SCH (19:48)
[2016-07-06 23:30] VITALS: BP 107/70; PULSE 96; TEMP 37.1; O2SAT 97
[2016-07-07 04:03] VITALS: BP 109/71; PULSE 96; TEMP 36.9; O2SAT 97
[2016-07-07 06:33] LABS: HEMATOCRIT 24.3 % (37-47); MEAN CELL VOLUME 77.9 fL (80-100); MEAN CORPUSCULAR HGB CONC 32.1 g/dl (32-36); MEAN PLATELET VOLUME 9.3 fL (7.4-10.4); PLATELET COUNT 194 K/uL (130-400); RED BLOOD COUNT 3.12 M/uL (4.2-5.4); WHITE BLOOD COUNT 3.23 K/uL (4.8-10.8)
[2016-07-07 07:05] LABS: BUN/CREATININE RATIO 34.4 (10-20); CALCIUM 9.2 mg/dl (8.5-10.1); CREATININE 0.63 mg/dl (0.60-1.20); POTASSIUM 3.6 mmol/L (3.5-5.1)
[2016-07-07 07:39] VITALS: BP 109/69; PULSE 94; TEMP 36.7; O2SAT 99
[2016-07-07] MEDS: POLYETHYLENE (MIRALAX) 17 GM PACK PO SCH (08:00)
[2016-07-07] MEDS: CHECK FENTANYL PATCH PLACEMENT SCH (08:29)
[2016-07-07] MEDS: MULTIVITAMIN TAB PO SCH (08:29)
[2016-07-07] MEDS: ANASTROZOLE 1 MG TAB PO SCH (08:29)
[2016-07-07] MEDS: ASCORBIC ACID 500 MG TAB PO SCH (08:29)
[2016-07-07] MEDS: FUROSEMIDE 20 MG TAB PO SCH (08:29)
[2016-07-07] MEDS: DOCUSATE SODIUM 100 MG CAP PO SCH (08:30)
[2016-07-07 08:50] VITALS: BP 110/70; PULSE 90; TEMP 36.7; O2SAT 99
[2016-07-07 11:11] VITALS: BP 110/70; PULSE 90; TEMP 36.7; O2SAT 99
--- NOTE | 2016-07-07 12:08 | Progress Note ---
Subjective Date of Service: Jul 07, 2016. 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, grade 2 Status: Acute Review of Systems Constitutional: + weakness Respiratory: No shortness of breath Cardiac: No chest pain Abdomen: No diarrhea, No nausea, No pain, No vomiting Musculoskeletal: + joint pain (right hip, low back) Medications Current Inpatient Medications Medications (Trade) Dose Ordered Sig/Sudarshan Route Start Time Stop Time Status Last Admin Dose Admin Acetaminophen (Tylenol Tab) 650 mg Q4H PRN PO 06/20/16 12:30 07/20/16 12:29 Future Hold 06/21/16 00:15 650 MG Al Hydrox/Mg Hydrox/Simethicone (Maalox Max Susp) 15 ml Q4H PRN PO 06/20/16 12:30 07/20/16 12:29 Magnesium Hydroxide (Milk Of Magnesia Susp) 30 ml Q6H PRN PO 06/20/16 12:30 07/20/16 12:29 Ondansetron HCl (Zofran Inj) 4 mg Q6H PRN IV 06/20/16 12:30 07/20/16 12:29 06/29/16 07:57 4 MG Multivitamins (Multivitamin Tab) 1 tab DAILY PO 06/21/16 08:00 07/21/16 08:59 07/07/16 08:29 1 TAB Ascorbic Acid (Vitamin C Tab) 3,000 mg BID PO 06/20/16 20:00 07/20/16 20:59 07/07/16 08:29 3,000 MG Oxycodone HCl (Roxicodone Immediate Rel Tab) 5 mg Q2H PRN PO 06/24/16 11:00 07/08/16 10:59 07/06/16 15:04 5 MG Lorazepam (Ativan Tab) 0.5 mg Q4 PRN PO 06/24/16 11:00 07/24/16 10:59 Lorazepam (Ativan Inj) 0.5 mg Q6 PRN IV 06/24/16 11:00 07/24/16 10:59 Polyethylene (Miralax Powder Packet) 17 gm DAILY PO 06/24/16 12:00 07/24/16 11:59 07/06/16 07:47 17 GM Docusate Sodium (coLACE CAP) 100 mg BID PO 06/24/16 20:00 07/24/16 19:59 07/06/16 19:45 100 MG Bisacodyl (Dulcolax Supp) 10 mg DAILY PRN MO 06/24/16 11:00 07/24/16 10:59 Senna (Senokot Tab) 8.6 mg HS PO 06/24/16 21:00 07/24/16 20:59 07/06/16 19:48 8.6 MG Fentanyl (Duragesic Patch) 12 mcg Q3D@0900 TD 06/24/16 11:15 07/08/16 11:14 07/06/16 07:48 12 MCG Miscellaneous (Fentanyl Patch Remove & Waste) 1 ea Q3D@0859 N/A 06/27/16 08:59 07/27/16 08:58 07/06/16 07:54 1 EA Miscellaneous Information 1 ea 1 ea QS N/A 06/24/16 16:00 07/24/16 15:59 07/07/16 08:29 1 EA Lorazepam/Syringe (Ativan Inj/ Syringe) 1 ml @ 1 mls/min Q6H PRN IV 06/24/16 11:15 07/24/16 11:14 Miconazole Nitrate (Desenex Powder) 1 appln PRN PRN EXT 06/26/16 08:30 07/26/16 08:29 Anastrozole (Arimidex Tab) 1 mg QAM PO 06/27/16 08:00 07/27/16 07:59 07/07/16 08:29 1 MG Lidocaine (Lidoderm Patch 5%) 1 patch PM TD 06/26/16 21:15 07/26/16 21:14 07/06/16 19:48 1 PATCH Miscellaneous (Remove Lidoderm Patch) 1 ea DAILY@0900 N/A 06/27/16 09:00 07/27/16 08:59 07/07/16 08:29 1 EA Furosemide (Lasix Tab) 20 mg QAM PO 07/02/16 08:00 08/01/16 07:59 07/07/16 08:29 20 MG Albuterol/ Ipratropium (Duoneb) 3 ml QIDR PRN INH 07/02/16 20:00 08/01/16 19:59 07/05/16 06:35 3 ML Objective Vital Signs Date Time Temp Pulse Resp B/P Pulse Ox O2 Delivery O2 Flow Rate FiO2 07/07/16 11:11 36.7 90 16 99 Room Air 07/07/16 09:50 Nasal Cannula 1.5 07/07/16 08:50 36.7 90 16 110/70 99 Nasal Cannula 07/07/16 07:39 36.7 94 18 109/69 99 Nasal Cannula 2.0 07/07/16 04:03 36.9 96 20 109/71 97 Nasal Cannula 2.0 07/07/16 00:01 Nasal Cannula 1.0 07/06/16 23:30 37.1 96 18 107/70 97 2.0 07/06/16 19:40 36.9 96 16 98/65 94 Room Air 07/06/16 16:00 Nasal Cannula 1.0 Physical Exam General Appearance: no apparent distress Respiratory/Chest: lungs clear, normal breath sounds, no respiratory distress, no accessory muscle use Cardiovascular: regular rate, rhythm, no edema, no murmur Extremities: normal inspection, + swelling (RUE) Laboratory Results Last 24 Hours Test 07/07/16 06:07 White Blood Count 3.23 K/uL Red Blood Count 3.12 M/uL Hemoglobin 7.8 g/dL Hematocrit 24.3 % Mean Corpuscular Volume 77.9 fL Mean Corpuscular Hemoglobin 25.0 pg Mean Corpuscular Hemoglobin Concent 32.1 g/dl RDW Standard Deviation 72.5 fL RDW Coefficient of Variation 26.7 % Platelet Count 194 K/uL Mean Platelet Volume 9.3 fL Nucleated RBC Absolute Count (auto) 0.04 K/uL Nucleated Red Blood Cells % 1.2 % Sodium Level 144 mmol/L Potassium Level 3.6 mmol/L Chloride Level 106 mmol/L Carbon Dioxide Level 30 mmol/L Anion Gap 8.0 mmol/L Blood Urea Nitrogen 22 mg/dl Creatinine 0.63 mg/dl Est Creatinine Clear Calc Drug Dose 68.0 ml/min Estimated GFR () 105.3 Estimated GFR (Non- 90.9 BUN/Creatinine Ratio 34.4 Random Glucose 87 mg/dl Calcium Level 9.2 mg/dl Magnesium Level 2.0 mg/dl Assessment and Plan This is a 70 year old female with PMH of AAA rupture and repair, systolic/ diastolic CHF, valvular disease with severe mitral regurgitation, and adenocarcinoma of the right breast presents with some shortness of breath as well as bleeding right breast mass Metastatic Right Breast Adenocarcinoma 07/07 last radiation treatment yesterday patient and patient's refusing rehab - patient wants to go home with home health, home PT and wound care nursing will prescribe fentanyl patch and oxycodone for pain control as outpatient [place] drug monitoring was checked and no controlled substances found 07/06 patient is doing well today will receive palliative radiation therapy today - last dose continue fentanyl patch/oxycodone refusing rehab - I recommended this multiple times possible home with home health, home PT, wound care nurse visits 07/05 Plan for this patient is to continue fentanyl patch and oxycodone for pain control palliative radiation - 1-2 more treatments as per radiation oncologist continue anastrazole and wound care d/c planning soon to rehab vs. SNF - patient refusing until she can go home with home health outpatient radiation onc and hem-onc follow-ups continue PT/OT while inpatient 07/04 palliative radiation as per radiation oncology currently on hold continue when able as per RO anastrazole started as per Hem/Onc continue fentanyl patch and oxycodone for now off of antibiotics for the ulcerative mass continue wound care continue PT/OT discharge planning to rehab later this week outpatient radiation onc and hem-onc follow-ups 06/23 clinically stable radiation treatments to the back, hip, and right arm today continue tylenol and oxycodone for pain wound care for her right breast mass/wound ordered PT and OT evaluations - uses walker at baseline will most likely need rehab on discharge with outpatient Hem/Onc and Rad/Onc follow-ups 06/22 patient is doing okay today; pain is controlled she is using IV tylenol and oxycodone at night plan is to have palliative care talk to the patient palliative radiation as per rad/onc medical oncology to discuss medication options will recheck Hgb in AM, if remains < 8, may need to transfuse 06/21 patient has had this diagnosed in the past but did not want any treatment at that time She has been managing the breast mass ulceration/bleeding wound herself at home Noted that the bleeding worsened yesterday presented here: had imaging done including CT abdominal/pelvis, bone scan, Brain MRI Bone Scan and CT abdomen/pelvis confirm widespread lytic bony metastatic lesions Brain MRI - no acute process appreciate medical oncology and radiation oncology input Plan in terms of radiation is for palliative radiation which will be started on 06/22 Possible medications for palliation purposes as per medical oncology placed a palliative care consultation as well Wound care nurse consulted for the bleeding mass on the right breast IV morphine, IV Tylenol and PO Percocet PRN for pain Iron Deficiency Anemia 07/05 Hgb up to 8.6 she received Venofer yesterday for her anemia 07/04 anemia of inflammation secondary to metastatic cancer as well as iron deficiency anemia due to blood loss from ulceration on right breast appreciate Hem-Onc input will give another dose of Venofer 300mg x 1 today Hgb is down to 8.1, will monitor while inpatient Shortness of Breath in the setting of Mixed Systolic-Diastolic CHF Valvular Heart Disease/Severe Mitral Regurgitation currently breathing status is at baseline repeat echo is pending - may be difficult with the fungating mass on the right breast monitor for fluid overload patient currently on 2L of O2, saturating well, in no distress CXR no acute findings patient was wheezing yesterday (07/03) requiring neb treatments also was diuresed with low dose Lasix, will monitor Right Lower Extremity DVT s/p IVC filter appreciate vascular input off of Lovenox now due to bleeding Right Arm Swelling likely due to right sided breast CA/mass - decreased lymphatic drainage should improve with more PT/OT and ambulation Hypothyroidism TSH elevated at ~9 low Free T4 started low dose Synthroid - patient seems to be refusing medications HTN blood pressure improved since admission will monitor and adjust medications accordingly patient is refusing medications other than palliative medications DVT ppx s/p IVC filter FULL CODE Continued [facility] stay due to: multiple IV medications needed, home environment unsafe for pt Discharge planning: uncertain
[2016-07-07] MEDS ORDERED: ARM1 PO (12:11)
[2016-07-07] MEDS ORDERED: DRGTP12 TD (12:11)
[2016-07-07] MEDS ORDERED: RXC5 PO (12:11)
[2016-07-07] MEDS ORDERED: CLC100 PO (12:11)
[2016-07-07] MEDS ORDERED: SNK PO (12:11)
[2016-07-07] MEDS ORDERED: LSX20 PO (12:11)
--- NOTE | 2016-07-07 12:20 | Discharge Instructions ---
Discharge Instructions Date of Service Jul 07, 2016. Admission Reason for Admission: Metastatic Breast Carcinoma Weakness Discharge Discharge Diagnosis / Problem: Metastatic Breast CA Discharge Goals Goal(s): Decrease discomfort, Improve function, Diagnostic testing, Therapeutic intervention Activity Recommendations Activity Limitations: per Instructions/Follow-up section . Instructions / Follow-Up Instructions / Follow-Up Please follow-up with Dr. Mcintyre on July 13 @ 11:10AM You should follow-up with the oncologist, Dr. Sinha, as well You will be prescribed Fentanyl patch, which should be changed every 72 hours You will be prescribed Oxycodone, take every 6 hours [address] needed [address] not drive or operate heavy machinery Only ambulate with walker and with assistance to prevent falls Primary care doctor should recheck lab work including CBC, PRP, and TSH You will have home health, home PT, wound care come to the house Please call primary care if you have any difficulties at home Current Hospital Diet Patient's current hospital diet: AHA Diet (Heart Healthy) Discharge Diet Recommended Diet: Regular Diet Fluid Restriction: 1500 ml (6 cups) Procedures Procedures Performed: Insertion of Inferior Vena Cava Filter, Left Femoral Approach Ultrasound Localization of Left Common Femoral Vein Fluoro for Positioning Pending Studies Studies pending at discharge: no Medical Emergencies . Who to Call and When: Medical Emergencies: If at any time you feel your situation is an emergency, please call 911 immediately. . Non-Emergent Contact Non-Emergency issues call your: Primary Care Provider, Oncologist . . "Provider Documentation" section prepared by Linda Mckeon. VTE Core Measure Inpt VTE Proph given/why not?: Treatment not tolerated (IVC filter placed) [place] Drug Monitoring Program Search Results: patient reviewed within database, no issues identified
--- NOTE | 2016-07-07 12:22 | Discharge Summary ---
Discharge Summary Date of Service Jul 07, 2016. Discharge Summary Admission Date: Jun 20, 2016 at 12:24 Discharge Date: Jul 07, 2016 Discharge Disposition: Home with services Principal Diagnosis: Metastatic Breast CA Procedures: CTA Chest: 1. Study is negative for pulmonary embolus. 2. Lungs are grossly clear. 3. Diffuse metastatic change involving the osseous structures throughout with several pathologic rib fractures which have been discussed previously. 4. Mildly progressive upper abdominal retroperitoneal adenopathy CT abdomen /pelvis : wide spread lytic bony metastatic disease 7.5 cm rt breast /chest wall mass consistent with neoplasm , There is a 1 cm soft tissue satellite nodule NC BONE SCAN : extensive foci of abnormal increased uptake involving cervical , thoracic and lumber spines, There is abnormal increased uptake within the pelvis left proximal humerus, multiple ribs as well both proximal femurs-findings consistent with widespread skeletal metastasis . Doppler: Doppler shows : 1. Deep venous thrombus within the right common femoral and superficial femoral veins. 2. No deep venous thrombus within the left lower extremity. Medication Reconciliation New Medications: Anastrozole (Anastrozole) 1 Mg Tab 1 MG PO QAM for 30 Days, #30 TAB Docusate Sodium (Docusate Sodium) 100 Mg Cap 100 MG PO BID for 30 Days, #60 CAP Fentanyl (Fentanyl) 12 Mcg Tdsy 12 MCG TD Q3D@0900 for 30 Days, #10 PATCH Furosemide (Furosemide) 20 Mg Tab 20 MG PO QAM for 30 Days, #30 TAB Oxycodone HCl (Oxycodone HCl) 5 Mg Tab 5 MG PO Q6 PRN for Pain for 15 Days, #60 TAB Senna (Senna Lax) 8.6 Mg Tab 8.6 MG PO HS for 30 Days, #30 TAB Continued Medications: Ascorbic Acid (Vitamin C) 1,000 Mg Tab 3000 MG PO BID Multivitamin (Multivitamin) Tab 1 TAB PO DAILY, TAB Admission Information HPI (per Admitting provider): DATE OF ADMISSION: 06/20/2016 CHIEF COMPLAINT: Generalized weakness, shortness of breath. HISTORY OF PRESENT ILLNESS: This 70-year-old female with past history significant for abdominal aortic aneurysm rupture status post repair at [place]. She had a non-ST elevated MO during the procedure and postop was complicated by C. diff diarrhea which got improved and at that time she was found to have acute systolic and diastolic CHF with EF of around 30% and also severe mitral regurgitation. At that time she was also found to have a right breast mass fungating. Biopsy was done which showed adenocarcinoma. She was advised to follow with oncology, but patient refused. The patient did not accept of the diagnosis and never went to see oncologist as per the documented notes on the follow-up exam by vascular surgery. The patient says she was at [facility] and she was discharged home, she was taking care of her fungating mass herself, she thought it could be sebaceous cyst but it has gotten worse and worse and she states she has a strong personality and she wanted to take care herself all the things. But the mass was getting bigger and bigger and yesterday it started to bleed. When her told her that we needed to get help but patient says tomorrow might be a better day but when she got up in the morning she felt short of breath and at that time she decided to come to the ER. She says she gets pain in the right breast mass area and also feeling weakness in his lower extremities, thinks muscle weakness. She uses walker but not walking much. She is using a walker since her surgery in [place] but not walking much lately and she sits in a chair for most of the time. She states that her appetite is okay. No weight loss or weight gain. Normal bowel and bladder movements. Once in a while she feels dizzy. She has chronic blurred visions. Uses glasses. No nausea, vomiting, no abdominal pain. Currently somewhat tearful but is comfortably, hemodynamically stable. She is supposed to be taking medications for heart failure, hypertension and hypothyroidism but currently she is taking only multivitamin and ascorbic acid and she does not follow with any doctors. ALLERGIES: No known drug allergies. PAST MEDICAL HISTORY: As mentioned above. PAST SURGICAL HISTORY: Partial hysterectomy, tonsillectomy, cholecystectomy, open repair of the ruptured abdominal aortic aneurysm on 08/24/2013 at [facility]. MEDICATIONS: Supposed to be on metoprolol, levothyroxine, furosemide, lisinopril, aspirin, nitroglycerin, Klor-Con, multivitamins, but patient is taking only multivitamins and vitamin C tablets. FAMILY HISTORY: Significant for no family history on file. SOCIAL HISTORY: Former smoker, quit in 2013, smoked 1 pack a day for 40 years. No alcohol use. No drug use. Lives with her . REVIEW OF SYMPTOMS: As per HPI. Rest of review of systems negative. PHYSICAL EXAMINATION: GENERAL: The patient is of moderate build, not in distress. VITAL SIGNS: Temperature 36.7, pulse 108, respiratory rate 18, blood pressure 149/80, oxygen 93% on room air. HEAD, EYES, EARS, NOSE, AND THROAT: No pallor, no icterus. Pupils equal, round, and reactive to light. NECK: No JVD, no neck masses, no carotid bruits. CARDIOVASCULAR: S1, S2 heard, regular rate and rhythm, no murmur, no gallop. RESPIRATORY SYSTEM: Clear to auscultation bilaterally. No wheezing, no crackles. ABDOMEN: Soft, bowel sounds present, nontender, no distention. BREAST EXAMINATION: Has fungating mass on the right breast about 5 x 5 x 2 cm. Some mild drainage and some mild bleeding seen. EXTREMITIES: Mild pedal edema present. No erythema seen. LABORATORIES: Sodium 143, potassium 4, chloride 107, bicarbonate 25, BUN 21, creatinine 0.8, serum glucose 88, calcium 9.9, total bilirubin 0.8, AST 33, ALT 45, alkaline phosphatase 241. Troponin I 0.075. BNP 14 and 41. WBC 9.4, hemoglobin 8.5, hematocrit 27.2, platelets 407. PT 10.6, INR 1, PTT 22.9. CT of the chest negative for pulmonary embolism. Lungs are grossly clear. Progressive right breast multifocal masses with pathological right axillary adenopathy, interval diffuse bony metastatic disease. EKG: Shows sinus tachycardia at rate of 111. Prior infarct, age undetermined. No acute ST changes seen. ASSESSMENT AND PLAN: This is a 70-year-old female who presents with shortness of breath, generalized weakness and found to have diffuse metastatic breast cancer. 1. Metastatic breast cancer, large fungating mass in the right breast. The patient was found to have this fungating mass in 2013, but does not seek any help and it is getting bigger, not able to take care of at home. The patient decided to get help now. She is okay with being seen by oncologist now. CAT scan shows diffuse bony metastatic disease, involvement of axillary lymph nodes. We will admit to medical floor. Pain control. Consult oncology. . We will follow the oncologist's recommendations. 2. Shortness of breath currently is stable. Could be from above disease, but she has history of chronic systolic and diastolic CHF not take any medications. Has mild pedal edema. Chest x-ray is clear. We will follow the repeat echocardiogram. 3. History of hypertension. Not taking any medications. Blood pressure is slightly on the higher side. Supposed to be on lisinopril, Lopressor, and Lasix. Will start Lopressor low dose and titrate the medications and follow the blood pressure in the hospital. 4. History of hypothyroidism, not on any medication. We will follow thyroid profile. 5. History of abdominal aortic aneurysm status post repair. 6. History of systolic and diastolic CHF with EF 30%, severe mitral regurgitation due to diastolic dysfunction. Not on any diuretics. We will follow the echocardiogram. 7. Mild troponin elevation. HAs chest pain secondary to breast mass mostly. we will trend o the enzymes and follow echocardiogram. 8. Anemia, probably from the breast cancer. We will follow the stool for Hemoccult and iron studies, vitamin B12 and folic levels and follow the hemoglobin. If it goes below 8 we will transfuse PRBCs. 9. Deep venous thrombosis prophylaxis, SCDs and Lovenox for now. 10. Disposition: Admit to medical floor. LEVEL 1 FULL CODE. Social service to help with discharge planning. Await oncology evaluation. Hospital Course This is a 70 year old female with PMH of AAA rupture and repair, systolic/ diastolic CHF, valvular disease with severe mitral regurgitation, and adenocarcinoma of the right breast presents with some shortness of breath as well as bleeding right breast mass Metastatic Right Breast Adenocarcinoma 07/07 last radiation treatment yesterday patient and patient's refusing rehab - patient wants to go home with home health, home PT and wound care nursing will prescribe fentanyl patch and oxycodone for pain control as outpatient PA drug monitoring was checked and no controlled substances found 07/06 patient is doing well today will receive palliative radiation therapy today - last dose continue fentanyl patch/oxycodone refusing rehab - I recommended this multiple times possible home with home health, home PT, wound care nurse visits 07/05 Plan for this patient is to continue fentanyl patch and oxycodone for pain control palliative radiation - 1-2 more treatments as per radiation oncologist continue anastrazole and wound care d/c planning soon to rehab vs. SNF - patient refusing until she can go home with home health outpatient radiation onc and hem-onc follow-ups continue PT/OT while inpatient 07/04 palliative radiation as per radiation oncology currently on hold continue when able as per RO anastrazole started as per Hem/Onc continue fentanyl patch and oxycodone for now off of antibiotics for the ulcerative mass continue wound care continue PT/OT discharge planning to rehab later this week outpatient radiation onc and hem-onc follow-ups 06/23 clinically stable radiation treatments to the back, hip, and right arm today continue tylenol and oxycodone for pain wound care for her right breast mass/wound ordered PT and OT evaluations - uses walker at baseline will most likely need rehab on discharge with outpatient Hem/Onc and Rad/Onc follow-ups 06/22 patient is doing okay today; pain is controlled she is using IV tylenol and oxycodone at night plan is to have palliative care talk to the patient palliative radiation as per rad/onc medical oncology to discuss medication options will recheck Hgb in AM, if remains < 8, may need to transfuse 06/21 patient has had this diagnosed in the past but did not want any treatment at that time She has been managing the breast mass ulceration/bleeding wound herself at home Noted that the bleeding worsened yesterday presented here: had imaging done including CT abdominal/pelvis, bone scan, Brain MRI Bone Scan and CT abdomen/pelvis confirm widespread lytic bony metastatic lesions Brain MRI - no acute process appreciate medical oncology and radiation oncology input Plan in terms of radiation is for palliative radiation which will be started on 06/22 Possible medications for palliation purposes as per medical oncology placed a palliative care consultation as well Wound care nurse consulted for the bleeding mass on the right breast IV morphine, IV Tylenol and PO Percocet PRN for pain Iron Deficiency Anemia 07/05 Hgb up to 8.6 she received Venofer yesterday for her anemia 07/04 anemia of inflammation secondary to metastatic cancer as well as iron deficiency anemia due to blood loss from ulceration on right breast appreciate Hem-Onc input will give another dose of Venofer 300mg x 1 today Hgb is down to 8.1, will monitor while inpatient Shortness of Breath in the setting of Mixed Systolic-Diastolic CHF Valvular Heart Disease/Severe Mitral Regurgitation currently breathing status is at baseline repeat echo is pending - may be difficult with the fungating mass on the right breast monitor for fluid overload patient currently on 2L of O2, saturating well, in no distress CXR no acute findings patient was wheezing yesterday (07/03) requiring neb treatments also was diuresed with low dose Lasix, will monitor Right Lower Extremity DVT s/p IVC filter appreciate vascular input off of Lovenox now due to bleeding Right Arm Swelling likely due to right sided breast CA/mass - decreased lymphatic drainage should improve with more PT/OT and ambulation Hypothyroidism TSH elevated at ~9 low Free T4 started low dose Synthroid - patient seems to be refusing medications HTN blood pressure improved since admission will monitor and adjust medications accordingly patient is refusing medications other than palliative medications DVT ppx s/p IVC filter FULL CODE Continued [facility] stay due to: multiple IV medications needed, home environment unsafe for pt Discharge planning: uncertain Total time spent on discharge = 45 minutes This includes examination of the patient, discharge planning, medication reconciliation, and communication with other providers. Discharge Instructions Please follow-up with Dr. Mcintyre on July 13 @ 11:10AM You should follow-up with the oncologist, Dr. Sinha, as well You will be prescribed Fentanyl patch, which should be changed every 72 hours You will be prescribed Oxycodone, take every 6 hours as needed Do not drive or operate heavy machinery Only ambulate with walker and with assistance to prevent falls Primary care doctor should recheck lab work including CBC, PRP, and TSH You will have home health, home PT, wound care come to the house Please call primary care if you have any difficulties at home
[2016-07-07] MEDS: OXYCODONE HCL IR 5 MG TAB (IMMEDIATE RELEASE) PO PRN (12:26)
[2016-07-08] MEDS ORDERED: CLC100 PO (09:53)
[2016-07-08] MEDS ORDERED: SENN-61 PO (09:53)
--- NOTE | 2016-07-18 09:04 | Radiation Onc End of Treatmnt ---
End of Treatment Documentation Date Jul 18, 2016. Diagnosis (1) Metastatic breast carcinoma Stage: IV Permanent Comment: [id number], stage IV Invasive ductal carcinoma, ER positive/KS negative/Her2 positive, grade 2 TREATMENT: Status post completion of radiation therapy to the lower thoracic and upper lumbar spine completed 06/29/2016 received 2000 cGy Status post completion of radiation therapy to the right pelvis 07/06/2016 received 3000 cGy Status post completion of radiation therapy to the right humerus completed 07/16 received 2500 cGy Last Edited By: Debra Lake on Jul 18, 2016 08:51 History I am seeing Ms. Paige in consultation at the request of Dr. Mckeon. ECOG PS: 3 - 4 Ms. Paige is a 70-year-old female who was initially diagnosed with right breast cancer in July 2013 during hospital admission at [facility] in [place], [place] for CHF and ruptured AAA. The patient did have an FNA biopsy of the left breast on 08/25/2013 which revealed malignant ductal adenocarcinoma that was estrogen receptor positive and HER-2 receptor positive and progesterone receptor negative. According to the patient, she did not pursue any therapy at all and she has developed a large right necrotic breast mass. More recently, the patient is a been having significant weakness and pain involving her right shoulder and right hip. The patient could not further take care of herself so she did present to the emergency room at [facility]. During her admission, she did have a CT chest angiogram on which revealed: "IMPRESSION: 1. Study is negative for pulmonary embolus. 2. lungs are grossly clear. 3. Progressive right breast multifocal masses with pathologic right axillary adenopathy. 4. Interval diffuse bony metastatic disease." We were asked to evaluate the patient for consideration of palliative radiation therapy. Medical oncology has also been consult to see the patient as well. Currently, the patient is complaining of pain in her right shoulder as well as her right hip and right chest wall. She notes that there is some discomfort in her right breast as well. Physics Course Treatment Site [employer] Start Date End Date Elapsed Days # TX Daily Dose (cGy) Total Dose (cGy) C1- Spine Parallel Opposed 15X 06/23/2016 06/29/2016 7 5 400 2000 C2- Pelvis 3-field 15X 06/23/2016 07/06/2016 14 10 300 3000 C3- Humerus Parallel Opposed 6X, 15X 06/30/2016 07/06/2016 7 5 500 2500 Total Treatment Days 10 Total Elapsed Days 14 Do documented final doses agree with prescribed doses? Yes If not, explain: Is patients chart complete and accurate? Yes If not, explain: Additional Notes The patient had been admitted with severe pain. Decision was to treat for palliation. Multiple areas were treated as reviewed above. She was treated as an inpatient. There were no breaks in treatment. She had severe pain at the beginning of treatment. There was a constant level of 5 with increased with movement. At the end of treatment she gave a pain level of 7 with movement and a more constant pain level IV. She'll continue follow-up with the hospitalists. There has been discussion of treatment of her ribs but the pain was controlled with pain medication. There is discussion of transfer to rehabilitation Hospital. The patient wished to go home and have home physical therapy as well as home health nurses. Pain Management As reviewed above. Patient was discharged from the hospital with fentanyl patch and oxycodone for breakthrough. Copies To Js Mcintyre III, M.D.
[2016-07-19] MEDS ORDERED: RXC5 PO (12:39)
[2016-07-19] MEDS ORDERED: XPNINS1255 INH (12:39)
[2016-07-19] MEDS ORDERED: ATRINS INH (12:39)
[2016-07-19] MEDS ORDERED: DRGTP25 TD (12:39)
[2016-07-19] MEDS ORDERED: OXYC10SO PO (12:47)
[2016-07-19] MEDS ORDERED: SIME80CH PO (12:47)
[2016-07-19] MEDS ORDERED: SODI1ENE PR (12:47)
[2016-07-19] MEDS ORDERED: MOMLX PO (12:47)
[2016-07-19] MEDS ORDERED: OXYC15TA89 PO (12:47)
[2016-07-19] MEDS ORDERED: BISA-16 PO (12:55)
[2016-07-19] MEDS ORDERED: DOCU-94 PO (12:56)
[2016-07-19] MEDS ORDERED: ONDA8TAB62 SL (13:09)
[2016-07-19] MEDS ORDERED: ATV/1 PO (13:09)
== END 2016-07-07 13:33 | disposition home health service (06) | DRG 516 ==
LOC: ENRESERVTM → ENRESERVDT → EDBD 07:09 → C.EDA 07:11 → C.4E 12:24
PROVIDERS: ADMIT Family Medicine; ATTEND Family Medicine
PROC: B41J1ZZ Fluoroscopy of Other Lower Arteries using Low Osmolar Contrast (ICD-10-PCS; 2016-06-27)
PROC: 06H03DZ Insertion of Intraluminal Device into Inferior Vena Cava, Percutaneous Approach (ICD-10-PCS; principal; 2016-06-27 10:00)
DX: C79.51 Secondary malignant neoplasm of bone (principal); I50.42 Chronic combined systolic (congestive) and diastolic (congestive) heart failure; I82.411 Acute embolism and thrombosis of right femoral vein; C77.3 Secondary and unspecified malignant neoplasm of axilla and upper limb lymph nodes; E03.9 Hypothyroidism, unspecified; I10 Essential (primary) hypertension; Z90.49 Acquired absence of other specified parts of digestive tract; Z79.899 Other long term (current) drug therapy; Z87.891 Personal history of nicotine dependence; Z91.14 Patient's other noncompliance with medication regimen; I25.2 Old myocardial infarction; D50.9 Iron deficiency anemia, unspecified; Z51.5 Encounter for palliative care; Z90.711 Acquired absence of uterus with remaining cervical stump; I25.10 Atherosclerotic heart disease of native coronary artery without angina pectoris; Z87.01 Personal history of pneumonia (recurrent); I25.5 Ischemic cardiomyopathy; Z79.82 Long term (current) use of aspirin; F32.9 Major depressive disorder, single episode, unspecified; F41.9 Anxiety disorder, unspecified; I34.0 Nonrheumatic mitral (valve) insufficiency; C50.811 Malignant neoplasm of overlapping sites of right female breast; C79.52 Secondary malignant neoplasm of bone marrow; Z17.0 Estrogen receptor positive status [ER+]

== ENCOUNTER 2016-07-08 09:19 | Observation (INO) | payer OTHER ==
[~2016-07-08] VITALS: Ht 157.5 cm; Wt 62.8 kg
[~2016-07-08 09:19] MED LIST: ARM1 PO; ASCO10003 PO; CLC100 PO; DRGTP12 TD; LSX20 PO; MULT-506 PO; RXC5 PO; SNK PO
[2016-07-08] MEDS ORDERED: SENN-61 PO (09:53)
[2016-07-08] MEDS ORDERED: CLC100 PO (09:53)
--- NOTE | 2016-07-08 10:07 | DIAGNOSTIC IMAGING REPORT ---
CHEST ONE VIEW PORTABLE CLINICAL HISTORY: Fever and sepsis COMPARISON STUDY: 06/30/2016 FINDINGS: The heart is normal in size. There is no failure. There is no focal pulmonary consolidation. There are no pleural effusions. An equivocal 1 cm left upper lung zone nodule, likely relates to an underlying rib or scapular lesion. There is a small hiatal hernia. Several lytic foci are visualized within the skeleton consistent with the patient's known bony metastasis. [ IMPRESSION: No evidence of failure. No evidence of focal pulmonary consolidation. Electronically signed by: Rock Epstein M.D. 07/08/2016 10:06 AM Dictated Date/Time: 07/08/2016 10:03 AM
[2016-07-08 10:14] LABS: BASO % 0.8 %; BASO ABS # 0.03 K/uL (0-0.2); EOS % 5.9 %; HEMATOCRIT 25.3 % (37-47); IG% 1.1 %; LYMPH % 14.2 %; MEAN CELL VOLUME 77.8 fL (80-100); MEAN CORPUSCULAR HEMOGLOBIN 25.5 pg (25-34); MEAN CORPUSCULAR HGB CONC 32.8 g/dl (32-36); MONO % 10.2 %; NEUT % 67.8 %; PLATELET COUNT 198 K/uL (130-400); RED BLOOD COUNT 3.25 M/uL (4.2-5.4); WHITE BLOOD COUNT 3.53 K/uL (4.8-10.8)
[2016-07-08 10:34] LABS: CALCIUM 9.5 mg/dl (8.5-10.1); CREATININE 0.71 mg/dl (0.60-1.20); POTASSIUM 3.6 mmol/L (3.5-5.1)
--- NOTE | 2016-07-08 10:57 | EMERGENCY ROOM VISIT NOTE ---
History Report prepared by Tierney: Tiffani Diggs Under the Supervision of: Dr. Mook Carlisle D.O. First contact with patient: 09:22 Stated Complaint: WOUND History of Present Illness The patient is a 70 year old female who presents to the Emergency Room with complaints of persistent bleeding from a wound on her chest starting this morning. She was brought to the ED by EMS. The wound is a result of her breast cancer. She has had radiation therapy, but no surgery. The cancer has spread to her shoulder, back, and hip. The patient was discharged from the hospital yesterday with the wound. She was offered to stay at [facility], but elected to go home to be with her . She believed that she would be able to take care of the wound herself. This morning she woke up to discover that the wound was bleeding, prompting her to present to the ED. She took some oxycodone for her pain today. Source of History: patient Onset: this morning Position: chest Quality: other (bleeding) Timing: other (persistent) Review of Systems See HPI for pertinent positives & negatives. A total of 10 systems reviewed and were otherwise negative. 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 Social History Smoking Status: Former Smoker Alcohol Use: none Marital Status: Housing Status: lives with family Current/Historical Medications Scheduled Anastrozole (Anastrozole), 1 MG PO QAM Ascorbic Acid (Vitamin C), 3,000 MG PO BID Fentanyl (Fentanyl), 12 MCG TD Q3D@0900 Furosemide (Furosemide), 20 MG PO QAM Multivitamin (Multivitamin), 1 TAB PO DAILY Scheduled PRN Docusate Sodium (Docusate Sodium), 100 MG PO BID PRN for Constipation Oxycodone HCl (Oxycodone HCl), 5 MG PO Q6 PRN for Pain Senna (Senokot), 1 TAB PO HS PRN for Constipation Allergies Coded Allergies: No Known Allergies (Unverified , 07/08/16) Physical Exam Vital Signs Date Time Temp Pulse Resp B/P Pulse Ox O2 Delivery O2 Flow Rate FiO2 07/08/16 10:54 95 Room Air 07/08/16 10:35 91 18 102/52 99 07/08/16 09:40 95 Nasal Cannula 2.0 07/08/16 09:35 36.9 106 20 114/73 89 Room Air Physical Exam CONSTITUTIONAL/VITAL SIGNS: Reviewed / noted above. GENERAL: Non-toxic in appearance. INTEGUMENTARY: Warm, dry, and Adin. HEAD: Normocephalic. EYES: without scleral icterus or trauma. ENT/OROPHARYNX: clear and moist. LYMPHADENOPATHY/NECK: Is supple without lymphadenopathy or meningismus. RESPIRATORY: Lungs clear and equal. CARDIOVASCULAR: Regular rate and rhythm. CHEST: Right breast mass without active bleeding, but blood soaked bandage. GI/ABDOMEN: Soft and nontender. No organomegaly or pulsatile mass. No rebound or guarding. Normal bowel sounds. EXTREMITIES: Warm and well perfused. BACK: No CVA tenderness. NEUROLOGICAL: Intact without focal deficits. PSYCHIATRIC: normal affect. MUSCULOSKELETAL: Normally developed with good muscle tone. Medical Decision & Procedures ER Provider Diagnostic Interpretation: X ray results and stated below per my interpretation and radiology interpretation. CHEST ONE VIEW PORTABLE CLINICAL HISTORY: Fever and sepsis COMPARISON STUDY: 06/30/2016 FINDINGS: The heart is normal in size. There is no failure. There is no focal pulmonary consolidation. There are no pleural effusions. An equivocal 1 cm left upper lung zone nodule, likely relates to an underlying rib or scapular lesion. There is a small hiatal hernia. Several lytic foci are visualized within the skeleton consistent with the patient's known bony metastasis. [ IMPRESSION: No evidence of failure. No evidence of focal pulmonary consolidation. Electronically signed by: Rock Epstein M.D. 07/08/2016 10:06 AM Dictated Date/Time: 07/08/2016 10:03 AM Laboratory Results 07/08/16 09:50 Red Blood Count 3.25, Mean Corpuscular Volume 77.8, Mean Corpuscular Hemoglobin 25.5, Mean Corpuscular Hemoglobin Concent 32.8, Mean Platelet Volume 9.0, Neutrophils (%) (Auto) 67.8, Lymphocytes (%) (Auto) 14.2, Monocytes (%) (Auto) 10.2, Eosinophils (%) (Auto) 5.9, Basophils (%) (Auto) 0.8, Neutrophils # (Auto ) 2.39, Lymphocytes # (Auto) 0.50, Monocytes # (Auto) 0.36, Eosinophils # (Auto ) 0.21, Basophils # (Auto) 0.03 07/08/16 09:50 Test 07/08/16 09:50 White Blood Count 3.53 K/uL (4.8-10.8) Red Blood Count 3.25 M/uL (4.2-5.4) Hemoglobin 8.3 g/dL (12.0-16.0) Hematocrit 25.3 % (37-47) Mean Corpuscular Volume 77.8 fL (80-100) Mean Corpuscular Hemoglobin 25.5 pg (25-34) Mean Corpuscular Hemoglobin Concent 32.8 g/dl (32-36) Platelet Count 198 K/uL (130-400) Mean Platelet Volume 9.0 fL (7.4-10.4) Neutrophils (%) (Auto) 67.8 % Lymphocytes (%) (Auto) 14.2 % Monocytes (%) (Auto) 10.2 % Eosinophils (%) (Auto) 5.9 % Basophils (%) (Auto) 0.8 % Neutrophils # (Auto) 2.39 K/uL (1.4-6.5) Lymphocytes # (Auto) 0.50 K/uL (1.2-3.4) Monocytes # (Auto) 0.36 K/uL (0.11-0.59) Eosinophils # (Auto) 0.21 K/uL (0-0.5) Basophils # (Auto) 0.03 K/uL (0-0.2) RDW Standard Deviation 74.1 fL (36.4-46.3) RDW Coefficient of Variation 27.3 % (11.5-14.5) Immature Granulocyte % (Auto) 1.1 % Immature Granulocyte # (Auto) 0.04 K/uL (0.00-0.02) Nucleated RBC Absolute Count (auto) 0.04 K/uL (0-0) Nucleated Red Blood Cells % 1.3 % Anion Gap 11.0 mmol/L (3-11) Est Creatinine Clear Calc Drug Dose 64.8 ml/min Estimated GFR () 100.0 Estimated GFR (Non- 86.3 BUN/Creatinine Ratio 32.0 (10-20) Calcium Level 9.5 mg/dl (8.5-10.1) Total Creatine Kinase 44 U/L (26-192) Creatine Kinase MB 0.9 ng/ml (0.5-3.6) Creatine Kinase MB Ratio 2.0 (0-3.0) Lipase 71 U/L (73-393) Laboratory results as stated above per my review. ED Course 09: Previous medical records were reviewed. The patient was evaluated in room B3. A complete history and physical examination was performed. 1027: I discussed the patient's case with MYA Ruiz. The patient will be evaluated for further management. Medical Decision Differential includes acute coronary syndrome, myocardial infarction, CVA, TIA, anemia, infection, pneumonia, UTI, pyelonephritis, poor nutrition, dehydration, electrolyte disturbance,hypoglycemia. This is a 70-year-old female who presents to the ED with a chief complaint of bleeding from her right breast. The patient was discharged from the hospital yesterday. She declined rehabilitation services yesterday and was set up to see home health today. The bandage placed yesterday was soaked with blood on the inferior aspect of the bandage and the called home health services. They had not set up any visits for the patient as of yet. They recommended she come back to the hospital. The patient is requesting to go to rehabilitation and [facility]. Her exam reveals a right breast mass. There is no active bleeding. It was a bloodsoaked bandage on the inferior aspect of the breast. This appears to be consistent with her most recent admission. Her exam was otherwise unremarkable. She is in no distress. Vital signs are stable. Chest x-ray did not show acute disease. Hemoglobin is 8.3. This is the same as yesterday when she was discharged. I spoke with the hospitalist, who will see the patient for further inpatient evaluation and rehabilitation evaluation. Consults Time Called: 1022 Consulting Physician: MYA Ruiz Returned Call: [phone] I discussed the patient's case with her. The patient will be evaluated for further management. Impression Primary Impression: Bleeding from breast Additional Impressions: Cancer Weak Scribe Attestation The scribe's documentation has been prepared under my direction and personally reviewed by me in its entirety. I confirm that the note above accurately reflects all work, treatment, procedures, and medical decision making performed by me. Departure Information Dispostion Being Evaluated By Hospitalist Referrals No Doctor, Assigned (PCP) Problem Qualifiers
[2016-07-08] MEDS ORDERED: ACETAMINOPHEN 325 MG TAB PO PRN (11:00)
[2016-07-08] MEDS ORDERED: ONDANSETRON INJ 2 MG/ML 2 ML VIAL IV PRN (11:00)
[2016-07-08] MEDS ORDERED: DOCUSATE SODIUM 100 MG CAP PO PRN (11:00)
[2016-07-08 11:13] LABS: ANISOCYTOSIS PRESENT; COMPLETE YES; POLYCHROMASIA 1+; TARGET CELLS 1+
[2016-07-08 12:09] VITALS: Ht 157.5 cm; Wt 62.8 kg
[2016-07-08] MEDS ORDERED: IV FLUIDS COMPLETED PRN (12:45)
--- NOTE | 2016-07-08 13:49 | History and Physical ---
History & Physical Date & Time of Service: Jul 08, 2016 at 13:35 Chief Complaint: Weakness Primary Care Physician: Js Mcintyre III, M.D. History of Present Illness 70 year old female who presents to the ER with weakness. Patient was recently admitted to [facility] 06/20 - 07/07 for newly diagnosed metastatic breast cancer. Patient underwent palliative radiation treatments of some of the juan daniel mets sites. She was noted to have pathologic rib fractures. She was also diagnosed with RLE DVT and had an IVC filter placed. Patient was discharged home yesterday. She reports she is too weak to be at home. She is having difficulty preforming her ADLs and doing dressing changes of her right breast wound. She denies fever and chills. No chest pain or shortness of breath. She denies lightheadedness, dizziness, diaphoresis, or syncopal events. No abdominal pain, nausea, vomiting, or diarrhea. She denies urinary symptoms. In the ER, patient' s work up is unremarkable. 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 Social History Smoking Status: Former Smoker Drug Use: none Marital Status: Housing status: lives with family Allergies Coded Allergies: No Known Allergies (Unverified , 07/08/16) Home Medications Scheduled Anastrozole (Anastrozole), 1 MG PO QAM Ascorbic Acid (Vitamin C), 3,000 MG PO BID Fentanyl (Fentanyl), 12 MCG TD Q3D@0900 Furosemide (Furosemide), 20 MG PO QAM Multivitamin (Multivitamin), 1 TAB PO DAILY Scheduled PRN Docusate Sodium (Docusate Sodium), 100 MG PO BID PRN for Constipation Oxycodone HCl (Oxycodone HCl), 5 MG PO Q6 PRN for Pain Senna (Senokot), 1 TAB PO HS PRN for Constipation Review of Systems 10 point review of systems was completed with the pertinent positives and negatives noted per the HPI Physical Exam Vital Signs Date Time Temp Pulse Resp B/P Pulse Ox O2 Delivery O2 Flow Rate FiO2 07/08/16 12:09 Nasal Cannula 07/08/16 11:36 87 16 142/58 99 07/08/16 11:01 87 Room Air 07/08/16 10:54 95 Room Air 07/08/16 10:35 91 18 102/52 99 07/08/16 09:40 95 Nasal Cannula 2.0 07/08/16 09:35 36.9 106 20 114/73 89 Room Air General Appearance: no apparent distress Head: normocephalic Eyes: normal inspection ENT: hearing grossly normal Neck: supple, no JVD Respiratory/Chest: no respiratory distress, + decreased breath sounds (BL) Cardiovascular: regular rate, rhythm, + pertinent finding (trace edema BLLE) Abdomen/GI: normal bowel sounds, non tender, soft Extremities/Musculoskelatal: normal inspection, no calf tenderness Neurologic/Psych: no motor/sensory deficits, alert, normal mood/affect, oriented x 3 Skin: + pertinent finding (dressing dry and intact to right breast) Diagnostics Laboratory Results Results Past 24 Hours Test 07/08/16 09:50 Range/Units White Blood Count 3.53 4.8-10.8 K/uL Red Blood Count 3.25 4.2-5.4 M/uL Hemoglobin 8.3 12.0-16.0 g/dL Hematocrit 25.3 37-47 % Mean Corpuscular Volume 77.8 80-100 fL Mean Corpuscular Hemoglobin 25.5 25-34 pg Mean Corpuscular Hemoglobin Concent 32.8 32-36 g/dl Platelet Count 198 130-400 K/uL Mean Platelet Volume 9.0 7.4-10.4 fL Neutrophils (%) (Auto) 67.8 % Lymphocytes (%) (Auto) 14.2 % Monocytes (%) (Auto) 10.2 % Eosinophils (%) (Auto) 5.9 % Basophils (%) (Auto) 0.8 % Neutrophils # (Auto) 2.39 1.4-6.5 K/uL Lymphocytes # (Auto) 0.50 1.2-3.4 K/uL Monocytes # (Auto) 0.36 0.11-0.59 K/uL Eosinophils # (Auto) 0.21 0-0.5 K/uL Basophils # (Auto) 0.03 0-0.2 K/uL RDW Standard Deviation 74.1 36.4-46.3 fL RDW Coefficient of Variation 27.3 11.5-14.5 % Immature Granulocyte % (Auto) 1.1 % Immature Granulocyte # (Auto) 0.04 0.00-0.02 K/uL Nucleated RBC Absolute Count (auto) 0.04 0-0 K/uL Nucleated Red Blood Cells % 1.3 % Polychromasia 1+ Anisocytosis PRESENT Target Cells 1+ Sodium Level 141 136-145 mmol/L Potassium Level 3.6 3.5-5.1 mmol/L Chloride Level 105 98-107 mmol/L Carbon Dioxide Level 25 21-32 mmol/L Anion Gap 11.0 3-11 mmol/L Blood Urea Nitrogen 23 7-18 mg/dl Creatinine 0.71 0.60-1.20 mg/dl Est Creatinine Clear Calc Drug Dose 64.8 ml/min Estimated GFR () 100.0 Estimated GFR (Non- 86.3 BUN/Creatinine Ratio 32.0 10-20 Random Glucose 96 70-99 mg/dl Calcium Level 9.5 8.5-10.1 mg/dl Total Creatine Kinase 44 26-192 U/L Creatine Kinase MB 0.9 0.5-3.6 ng/ml Creatine Kinase MB Ratio 2.0 0-3.0 Lipase 71 73-393 U/L Diagnostic Radiology CXR IMPRESSION: No evidence of failure. No evidence of focal pulmonary consolidation. Impression Assessment and Plan WEAKNESS METASTATIC BREAST CANCER - admit to med/surg - recent admission for newly diagnosed breast cancer with juan daniel mets - s/p palliative radiation - unable to care for herself at home - PT/OT - wound care consult for right breast mass wound - possible transfer to SNF on Sunday HYPOXIA - ? hypoventilation from pathologic rib fractures - CXR clear - hx of RLE however s/p IVC filter - saturating well on 2L O2, wean as able - consider home O2 eval RLE DVT - s/p IVC filte - unable to anticoagulate to bleeding right breast mass wound SYSTOLIC / DIASTOLIC CHF - appears euvolemic - continue furosemide LJ - hgb at baseline - continue to monitor HYPOTHYROIDISM - patient declines medication DVT PROPHYLAXIS - s/p IVC filter CODE STATUS - Patient is a full code as per my discussion with her. DISPO - The patient will be placed as observation status for now until further work up is complete. ADDENDUM: This is a 70 year old female recently admitted and discharged on 07/07 from [facility] - she was here secondary to metastatic breast CA with mets to the bone, with a prolonged stay due to palliative radiation therapy, and complicated by lower extremity DVT and an IVC filter placement. She had been working with PT/OT but refused rehab - insisted on going home; and patient had a family meeting with counseling case manager and doctors and wanted to go home with home health and home PT; upon reaching home, patient stated that it was too difficult to ambulate and move around; felt like this was too much of a task. They presented here in hopes of getting to a rehab facility such as [facility]. Currently, patient is stable; her pain under control with medications. Plan for this patient is to continue fentanyl patch and oxycodone PRN for pain; wound care nurse for the ulcerative mass on the right breast. continue with PT/OT Observe her in med/surg and plan for discharge to [facility] Advanced Directives Existing Living Will: No Existing Power of Senior Net Programmer: No VTE Prophylaxis VTE Risk Assessment Done? Y/N: Yes Risk Level: Moderate
[2016-07-08 14:58] VITALS: BP 125/72; PULSE 88; TEMP 36.8; O2SAT 97
[2016-07-08] MEDS: CHECK FENTANYL PATCH PLACEMENT SCH (16:02)
[2016-07-08] MEDS: OXYCODONE HCL IR 5 MG TAB (IMMEDIATE RELEASE) PO PRN ×2 (16:04→21:11)
[2016-07-08] MEDS: ASCORBIC ACID 500 MG TAB PO SCH (20:00)
[2016-07-08 22:40] VITALS: BP 99/62; PULSE 100; TEMP 36.8; O2SAT 97
[2016-07-09] VITALS: O2SAT 97
[2016-07-09] MEDS: OXYCODONE HCL IR 5 MG TAB (IMMEDIATE RELEASE) PO PRN ×4 (01:07→23:07)
[2016-07-09 06:27] LABS: HEMATOCRIT 25.8 % (37-47); MEAN CELL VOLUME 78.9 fL (80-100); MEAN CORPUSCULAR HEMOGLOBIN 25.1 pg (25-34); MEAN CORPUSCULAR HGB CONC 31.8 g/dl (32-36); PLATELET COUNT 170 K/uL (130-400); RED BLOOD COUNT 3.27 M/uL (4.2-5.4); WHITE BLOOD COUNT 3.86 K/uL (4.8-10.8)
[2016-07-09 06:56] LABS: BUN/CREATININE RATIO 33.6 (10-20); CALCIUM 9.2 mg/dl (8.5-10.1); CREATININE 0.63 mg/dl (0.60-1.20); POTASSIUM 3.4 mmol/L (3.5-5.1)
[2016-07-09 07:15] VITALS: BP 101/62; PULSE 84; TEMP 36.7; O2SAT 99
[2016-07-09] MEDS ORDERED: POTASSIUM CHLORIDE 10 MEQ TABCR PO STA (07:32)
[2016-07-09] MEDS: FUROSEMIDE 20 MG TAB PO SCH (08:00)
[2016-07-09] MEDS: ASCORBIC ACID 500 MG TAB PO SCH ×2 (08:25→20:00)
[2016-07-09] MEDS: MULTIVITAMIN TAB PO SCH (08:27)
[2016-07-09] MEDS: ANASTROZOLE 1 MG TAB PO SCH (08:27)
[2016-07-09] MEDS: CHECK FENTANYL PATCH PLACEMENT SCH ×4 (08:28→23:51)
[2016-07-09] MEDS ORDERED: FENTANYL PATCH REMOVE & WASTE SCH (08:59)
[2016-07-09] MEDS ORDERED: FENTANYL 12 MCG/HR TDSY TD SCH (09:00)
[2016-07-09 15:30] VITALS: BP_SYST 100; BP_SYST 108; BP_SYST 99; BP_DIAS 66; BP_DIAS 69; PULSE 89; TEMP 37.1; O2SAT 96
--- NOTE | 2016-07-09 17:33 | Progress Note ---
Subjective Date of Service: Jul 09, 2016. 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, grade 2 Status: Acute Review of Systems Constitutional: + weakness Respiratory: No dyspnea on exertion, No shortness of breath, No wheezing Cardiac: No chest pain Abdomen: No diarrhea, No nausea, No pain, No vomiting Musculoskeletal: + joint pain (low back, ribs) Medications Current Inpatient Medications Medications (Trade) Dose Ordered Sig/Sudarshan Route Start Time Stop Time Status Last Admin Dose Admin Acetaminophen (Tylenol Tab) 650 mg Q4H PRN PO 07/08/16 11:00 08/07/16 10:59 Ondansetron HCl (Zofran Inj) 4 mg Q6H PRN IV 07/08/16 11:00 08/07/16 10:59 Anastrozole (Arimidex Tab) 1 mg QAM PO 07/09/16 08:00 08/08/16 08:59 07/09/16 08:27 1 MG Docusate Sodium (coLACE CAP) 100 mg BID PRN PO 07/08/16 11:00 08/07/16 10:59 Fentanyl (Duragesic Patch) 12 mcg Q3D@0900 TD 07/09/16 09:00 07/23/16 08:59 07/09/16 08:34 12 MCG Furosemide (Lasix Tab) 20 mg QAM PO 07/09/16 08:00 08/08/16 08:59 07/09/16 08:00 20 MG Multivitamins (Multivitamin Tab) 1 tab DAILY PO 07/09/16 08:00 08/08/16 08:59 07/09/16 08:27 1 TAB Senna (Senokot Tab) 8.6 mg HS PRN PO 07/08/16 11:00 08/07/16 10:59 Ascorbic Acid (Vitamin C Tab) 3,000 mg BID PO 07/08/16 20:00 08/07/16 20:59 07/09/16 08:25 3,000 MG Miscellaneous (Iv Fluids Completed) 1 ea PRN PRN N/A 07/08/16 12:45 07/08/17 12:44 Miscellaneous (Fentanyl Patch Remove & Waste) 1 ea Q3D@0859 N/A 07/09/16 08:59 08/08/16 08:58 07/09/16 08:28 1 EA Miscellaneous Information (Check Fentanyl Patch Placement) 1 ea QS N/A 07/08/16 16:00 08/07/16 15:59 07/09/16 16:21 1 EA Oxycodone HCl (Roxicodone Immediate Rel Tab) 5 mg Q4 PRN PO 07/08/16 23:45 07/22/16 23:44 07/09/16 12:23 5 MG Objective Vital Signs Date Time Temp Pulse Resp B/P Pulse Ox O2 Delivery O2 Flow Rate FiO2 07/09/16 16:00 Room Air 07/09/16 15:30 37.1 89 16 99/66 96 108/69 100/69 07/09/16 08:00 Room Air 07/09/16 07:15 36.7 84 18 101/62 99 Nasal Cannula 1.0 07/09/16 00:00 97 Nasal Cannula 2.0 07/08/16 22:40 36.8 100 20 99/62 97 Nasal Cannula 1.0 Physical Exam General Appearance: no apparent distress, + pertinent finding (frail) Respiratory/Chest: no respiratory distress, no accessory muscle use, + pertinent finding (right breast, dressing in place) Cardiovascular: regular rate, rhythm, no edema, no murmur Abdomen: normal bowel sounds, non tender, soft Laboratory Results Last 24 Hours Test 07/09/16 05:44 White Blood Count 3.86 K/uL Red Blood Count 3.27 M/uL Hemoglobin 8.2 g/dL Hematocrit 25.8 % Mean Corpuscular Volume 78.9 fL Mean Corpuscular Hemoglobin 25.1 pg Mean Corpuscular Hemoglobin Concent 31.8 g/dl RDW Standard Deviation 75.5 fL RDW Coefficient of Variation 27.8 % Platelet Count 170 K/uL Mean Platelet Volume 10.0 fL Nucleated RBC Absolute Count (auto) 0.04 K/uL Nucleated Red Blood Cells % 1.0 % Sodium Level 145 mmol/L Potassium Level 3.4 mmol/L Chloride Level 107 mmol/L Carbon Dioxide Level 30 mmol/L Anion Gap 8.0 mmol/L Blood Urea Nitrogen 21 mg/dl Creatinine 0.63 mg/dl Est Creatinine Clear Calc Drug Dose 71.9 ml/min Estimated GFR () 105.3 Estimated GFR (Non- 90.9 BUN/Creatinine Ratio 33.6 Random Glucose 75 mg/dl Calcium Level 9.2 mg/dl Assessment and Plan WEAKNESS METASTATIC BREAST CANCER 07/09 metastatic breast CA for pain, continue fentanyl patch and oxycodone PRN for the wound, wound care nurse consulted PT/OT for weakness discharge planning [facility] 07/09 patient is saturating well on RA occasionally using oxygen for symptomatic relief possibly hypoventilation due to the rib fractures RLE DVT 07/09 s/p IVC filter SYSTOLIC / DIASTOLIC CHF continue home medications Iron Deficiency Anemia Has required IV iron infusions x 2 during previous admission hgb stable, monitor HYPOTHYROIDISM patient declines medication DVT PROPHYLAXIS s/p IVC filter FULL CODE
[2016-07-09 23:28] VITALS: BP 108/68; PULSE 99; TEMP 37.1; O2SAT 96
[2016-07-10] VITALS (7 sets, daily range): BP systolic 100–155; BP diastolic 60–81; PULSE 82–95; TEMP 36.5–36.9; O2SAT 95–98
[2016-07-10] MEDS: OXYCODONE HCL IR 5 MG TAB (IMMEDIATE RELEASE) PO PRN ×5 (06:02→23:27)
[2016-07-10 06:24] LABS: HEMATOCRIT 26.6 % (37-47); MEAN CELL VOLUME 81.1 fL (80-100); MEAN CORPUSCULAR HEMOGLOBIN 25.3 pg (25-34); MEAN CORPUSCULAR HGB CONC 31.2 g/dl (32-36); MEAN PLATELET VOLUME 9.6 fL (7.4-10.4); PLATELET COUNT 206 K/uL (130-400); RED BLOOD COUNT 3.28 M/uL (4.2-5.4); WHITE BLOOD COUNT 3.66 K/uL (4.8-10.8)
[2016-07-10 06:50] LABS: BUN/CREATININE RATIO 28.9 (10-20); CALCIUM 9.1 mg/dl (8.5-10.1); CREATININE 0.64 mg/dl (0.60-1.20); POTASSIUM 3.5 mmol/L (3.5-5.1)
[2016-07-10] MEDS: MULTIVITAMIN TAB PO SCH (08:09)
[2016-07-10] MEDS: ASCORBIC ACID 500 MG TAB PO SCH ×2 (08:09→19:57)
[2016-07-10] MEDS: FUROSEMIDE 20 MG TAB PO SCH (08:09)
[2016-07-10] MEDS: CHECK FENTANYL PATCH PLACEMENT SCH ×3 (08:10→23:28)
[2016-07-10] MEDS: ANASTROZOLE 1 MG TAB PO SCH (08:12)
--- NOTE | 2016-07-10 12:28 | Progress Note ---
Subjective Date of Service: Jul 10, 2016. 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, grade 2 Status: Acute Review of Systems Respiratory: No cough, No dyspnea at rest, No dyspnea on exertion, No hemoptysis, No shortness of breath, No sputum, No wheezing Cardiac: No chest pain Musculoskeletal: + joint pain (right hip, low back, ribs) Medications Current Inpatient Medications Medications (Trade) Dose Ordered Sig/Sudarshan Route Start Time Stop Time Status Last Admin Dose Admin Acetaminophen (Tylenol Tab) 650 mg Q4H PRN PO 07/08/16 11:00 08/07/16 10:59 Ondansetron HCl (Zofran Inj) 4 mg Q6H PRN IV 07/08/16 11:00 08/07/16 10:59 Anastrozole (Arimidex Tab) 1 mg QAM PO 07/09/16 08:00 08/08/16 08:59 07/10/16 08:12 1 MG Docusate Sodium (coLACE CAP) 100 mg BID PRN PO 07/08/16 11:00 08/07/16 10:59 Fentanyl (Duragesic Patch) 12 mcg Q3D@0900 TD 07/09/16 09:00 07/23/16 08:59 07/09/16 08:34 12 MCG Furosemide (Lasix Tab) 20 mg QAM PO 07/09/16 08:00 08/08/16 08:59 07/10/16 08:09 20 MG Multivitamins (Multivitamin Tab) 1 tab DAILY PO 07/09/16 08:00 08/08/16 08:59 07/10/16 08:09 1 TAB Senna (Senokot Tab) 8.6 mg HS PRN PO 07/08/16 11:00 08/07/16 10:59 Ascorbic Acid (Vitamin C Tab) 3,000 mg BID PO 07/08/16 20:00 08/07/16 20:59 07/10/16 08:09 3,000 MG Miscellaneous (Iv Fluids Completed) 1 ea PRN PRN N/A 07/08/16 12:45 07/08/17 12:44 Miscellaneous (Fentanyl Patch Remove & Waste) 1 ea Q3D@0859 N/A 07/09/16 08:59 08/08/16 08:58 07/09/16 08:28 1 EA Miscellaneous Information (Check Fentanyl Patch Placement) 1 ea QS N/A 07/08/16 16:00 08/07/16 15:59 07/10/16 08:10 1 EA Oxycodone HCl (Roxicodone Immediate Rel Tab) 5 mg Q4 PRN PO 07/08/16 23:45 07/22/16 23:44 07/10/16 10:38 5 MG Objective Vital Signs Date Time Temp Pulse Resp B/P Pulse Ox O2 Delivery O2 Flow Rate FiO2 07/10/16 11:41 36.5 84 18 155/81 95 07/10/16 08:50 Nasal Cannula 0.5 07/10/16 07:16 36.8 82 18 104/60 98 Nasal Cannula 1.0 07/10/16 00:00 Room Air 07/09/16 23:28 37.1 99 20 108/68 96 Nasal Cannula 1.0 07/09/16 20:00 Room Air 07/09/16 16:00 Room Air 07/09/16 15:30 37.1 89 16 99/66 96 108/69 100/69 Physical Exam General Appearance: no apparent distress Respiratory/Chest: lungs clear, normal breath sounds, no respiratory distress, no accessory muscle use Cardiovascular: regular rate, rhythm, no edema, no murmur Extremities: + pertinent finding (RUE swelling improved) Laboratory Results Last 24 Hours Test 07/10/16 06:00 White Blood Count 3.66 K/uL Red Blood Count 3.28 M/uL Hemoglobin 8.3 g/dL Hematocrit 26.6 % Mean Corpuscular Volume 81.1 fL Mean Corpuscular Hemoglobin 25.3 pg Mean Corpuscular Hemoglobin Concent 31.2 g/dl RDW Standard Deviation 78.7 fL RDW Coefficient of Variation 28.0 % Platelet Count 206 K/uL Mean Platelet Volume 9.6 fL Nucleated RBC Absolute Count (auto) 0.05 K/uL Nucleated Red Blood Cells % 1.3 % Sodium Level 145 mmol/L Potassium Level 3.5 mmol/L Chloride Level 107 mmol/L Carbon Dioxide Level 31 mmol/L Anion Gap 7.0 mmol/L Blood Urea Nitrogen 19 mg/dl Creatinine 0.64 mg/dl Est Creatinine Clear Calc Drug Dose 70.3 ml/min Estimated GFR () 104.8 Estimated GFR (Non- 90.4 BUN/Creatinine Ratio 28.9 Random Glucose 68 mg/dl Calcium Level 9.1 mg/dl Assessment and Plan WEAKNESS METASTATIC BREAST CANCER 07/10 continue fentanyl and oxy PRN PT/OT discharge planning to [facility] 07/09 metastatic breast CA for pain, continue fentanyl patch and oxycodone PRN for the wound, wound care nurse consulted PT/OT for weakness discharge planning [facility] HYPOXIA 07/09 patient is saturating well on RA occasionally using oxygen for symptomatic relief possibly hypoventilation due to the rib fractures RLE DVT 07/09 s/p IVC filter SYSTOLIC / DIASTOLIC CHF continue home medications Iron Deficiency Anemia Has required IV iron infusions x 2 during previous admission hgb stable, monitor HYPOTHYROIDISM patient declines medication DVT PROPHYLAXIS s/p IVC filter FULL CODE
[2016-07-11 05:47] LABS: HEMATOCRIT 23.5 % (37-47); MEAN CELL VOLUME 81.3 fL (80-100); MEAN CORPUSCULAR HGB CONC 31.9 g/dl (32-36); MEAN PLATELET VOLUME 8.6 fL (7.4-10.4); PLATELET COUNT 188 K/uL (130-400); RED BLOOD COUNT 2.89 M/uL (4.2-5.4); WHITE BLOOD COUNT 3.65 K/uL (4.8-10.8)
[2016-07-11 06:19] LABS: BUN/CREATININE RATIO 26.8 (10-20); CALCIUM 9.3 mg/dl (8.5-10.1); CREATININE 0.56 mg/dl (0.60-1.20); POTASSIUM 3.7 mmol/L (3.5-5.1)
[2016-07-11 07:17] VITALS: BP 100/63; PULSE 90; TEMP 36.9; O2SAT 96
[2016-07-11] MEDS: MULTIVITAMIN TAB PO SCH (07:48)
[2016-07-11] MEDS: ASCORBIC ACID 500 MG TAB PO SCH ×2 (07:48→19:56)
[2016-07-11] MEDS: FUROSEMIDE 20 MG TAB PO SCH (07:48)
[2016-07-11] MEDS: ANASTROZOLE 1 MG TAB PO SCH (07:49)
[2016-07-11] MEDS: CHECK FENTANYL PATCH PLACEMENT SCH ×2 (07:49→23:13)
[2016-07-11 11:36] VITALS: BP 115/72; PULSE 97; TEMP 36.8; O2SAT 96
[2016-07-11] MEDS ORDERED: DEXTROSE 50% 50 ML SYR IV PRN (12:30)
[2016-07-11] MEDS ORDERED: GLUCOSE 10 TABS/TUBE PO PRN (12:30)
[2016-07-11] MEDS ORDERED: GLUCAGON FOR INJ 1 MG VIAL SQ PRN (12:30)
[2016-07-11] MEDS ORDERED: GLUCOSE 40% GEL 15 GM TUBE PO PRN (12:30)
[2016-07-11 15:22] VITALS: BP 107/67; PULSE 92; TEMP 37; O2SAT 98
[2016-07-11] MEDS: FENTANYL PATCH REMOVE & WASTE SCH (16:30)
--- NOTE | 2016-07-11 16:30 | Progress Note ---
Subjective Date of Service: Jul 11, 2016. 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, grade 2 Status: Acute Review of Systems Constitutional: No chills, No fever Respiratory: No shortness of breath Cardiac: No chest pain Abdomen: No diarrhea, No nausea, No pain, No vomiting Musculoskeletal: + joint pain (right hip; ribs) Medications Current Inpatient Medications Medications (Trade) Dose Ordered Sig/Sudarshan Route Start Time Stop Time Status Last Admin Dose Admin Acetaminophen (Tylenol Tab) 650 mg Q4H PRN PO 07/08/16 11:00 08/07/16 10:59 Ondansetron HCl (Zofran Inj) 4 mg Q6H PRN IV 07/08/16 11:00 08/07/16 10:59 Anastrozole (Arimidex Tab) 1 mg QAM PO 07/09/16 08:00 08/08/16 08:59 07/11/16 07:49 1 MG Docusate Sodium (coLACE CAP) 100 mg BID PRN PO 07/08/16 11:00 08/07/16 10:59 Fentanyl (Duragesic Patch) 12 mcg Q3D@0900 TD 07/09/16 09:00 07/23/16 08:59 07/09/16 08:34 12 MCG Furosemide (Lasix Tab) 20 mg QAM PO 07/09/16 08:00 08/08/16 08:59 07/11/16 07:48 20 MG Multivitamins (Multivitamin Tab) 1 tab DAILY PO 07/09/16 08:00 08/08/16 08:59 07/11/16 07:48 1 TAB Senna (Senokot Tab) 8.6 mg HS PRN PO 07/08/16 11:00 08/07/16 10:59 Ascorbic Acid (Vitamin C Tab) 3,000 mg BID PO 07/08/16 20:00 08/07/16 20:59 07/11/16 07:48 3,000 MG Miscellaneous (Iv Fluids Completed) 1 ea PRN PRN N/A 07/08/16 12:45 07/08/17 12:44 Miscellaneous (Fentanyl Patch Remove & Waste) 1 ea Q3D@0859 N/A 07/09/16 08:59 08/08/16 08:58 07/09/16 08:28 1 EA Miscellaneous Information (Check Fentanyl Patch Placement) 1 ea QS N/A 07/08/16 16:00 08/07/16 15:59 07/11/16 07:49 1 EA Oxycodone HCl (Roxicodone Immediate Rel Tab) 5 mg Q4 PRN PO 07/08/16 23:45 07/22/16 23:44 07/10/16 23:27 5 MG Glucose (Glucose 40% Gel) 15-30 GRAMS 15 GRAMS... UD PRN PO 07/11/16 12:30 08/10/16 12:29 Glucose (Glucose Chew Tab) 4-8 Tablets 4 Tabl... UD PRN PO 07/11/16 12:30 08/10/16 12:29 Dextrose (Dextrose 50% 50ML Syringe) 25-50ML OF 50% DW IV FOR... UD PRN IV 07/11/16 12:30 08/10/16 12:29 Glucagon (Glucagon Inj) 1 mg UD PRN SQ 07/11/16 12:30 08/10/16 12:29 Objective Vital Signs Date Time Temp Pulse Resp B/P Pulse Ox O2 Delivery O2 Flow Rate FiO2 07/11/16 15:22 37.0 92 16 107/67 98 Room Air 1.0 07/11/16 11:36 36.8 97 18 115/72 96 Nasal Cannula 1.0 07/11/16 08:01 Nasal Cannula 0.5 07/11/16 07:17 36.9 90 18 100/63 96 Nasal Cannula 1.0 07/11/16 00:00 Nasal Cannula 0.5 07/10/16 23:45 36.9 95 16 102/66 96 1.0 07/10/16 20:00 Nasal Cannula 0.5 07/10/16 20:00 36.8 93 20 111/65 97 Nasal Cannula 0.5 07/10/16 19:29 36.8 91 20 97 1.0 Physical Exam General Appearance: no apparent distress Respiratory/Chest: lungs clear, normal breath sounds, no respiratory distress, no accessory muscle use, + pertinent finding (+right breast wound is dressed) Cardiovascular: regular rate, rhythm, no edema, no murmur Abdomen: normal bowel sounds, non tender, soft Laboratory Results Last 24 Hours Test 07/11/16 05:22 White Blood Count 3.65 K/uL Red Blood Count 2.89 M/uL Hemoglobin 7.5 g/dL Hematocrit 23.5 % Mean Corpuscular Volume 81.3 fL Mean Corpuscular Hemoglobin 26.0 pg Mean Corpuscular Hemoglobin Concent 31.9 g/dl RDW Standard Deviation 79.3 fL RDW Coefficient of Variation 28.3 % Platelet Count 188 K/uL Mean Platelet Volume 8.6 fL Nucleated RBC Absolute Count (auto) 0.03 K/uL Nucleated Red Blood Cells % 0.8 % Sodium Level 144 mmol/L Potassium Level 3.7 mmol/L Chloride Level 107 mmol/L Carbon Dioxide Level 32 mmol/L Anion Gap 5.0 mmol/L Blood Urea Nitrogen 15 mg/dl Creatinine 0.56 mg/dl Est Creatinine Clear Calc Drug Dose 80.3 ml/min Estimated GFR () 109.5 Estimated GFR (Non- 94.5 BUN/Creatinine Ratio 26.8 Random Glucose 82 mg/dl Calcium Level 9.3 mg/dl Assessment and Plan WEAKNESS METASTATIC BREAST CANCER 07/11 fentanyl patch increased to 25mcg continue oxycodone PRN d/c planning to [facility] 07/10 continue fentanyl and oxy PRN PT/OT discharge planning to [facility] 07/09 metastatic breast CA for pain, continue fentanyl patch and oxycodone PRN for the wound, wound care nurse consulted PT/OT for weakness discharge [facility] 07/09 patient is saturating well on RA occasionally using oxygen for symptomatic relief possibly hypoventilation due to the rib fractures RLE DVT 07/09 s/p IVC filter SYSTOLIC / DIASTOLIC CHF continue home medications Iron Deficiency Anemia 07/11 Hgb = 7.5 IV Venofer 200mg today 07/09 Has required IV iron infusions x 2 during previous admission hgb stable, monitor HYPOTHYROIDISM patient declines medication DVT PROPHYLAXIS s/p IVC filter FULL CODE
[2016-07-11] MEDS: FENTANYL 25 MCG/HR TDSY TD SCH (17:15)
[2016-07-11] MEDS ORDERED: IRON SUCROSE INJ 200 MG in SODIUM CHLORIDE 0.9% 100ML 100 ML IV SCH (18:00)
[2016-07-11] MEDS: OXYCODONE HCL IR 5 MG TAB (IMMEDIATE RELEASE) PO PRN (20:32)
[2016-07-11 22:51] VITALS: BP 101/58; PULSE 95; TEMP 36.8; O2SAT 98
[2016-07-12] MEDS ORDERED: LEVALBUTEROL/IPRATROPIUM NEB INH STA (02:18)
[2016-07-12 02:27] VITALS: PULSE 92; O2SAT 92
[2016-07-12] MEDS ORDERED: IPRATROPIUM BROMIDE NEB SOLN 0.02% 2.5 ML VIAL INH ONE (02:30)
[2016-07-12] MEDS ORDERED: LEVALBUTEROL/IPRATROPIUM NEB INH PRN (02:30)
[2016-07-12] MEDS ORDERED: LEVALBUTEROL 1.25MG/0.5ML NEB INH ONE (02:30)
[2016-07-12] MEDS ORDERED: LEVALBUTEROL 1.25MG/0.5ML NEB INH PRN (02:30)
[2016-07-12] MEDS ORDERED: IPRATROPIUM BROMIDE NEB SOLN 0.02% 2.5 ML VIAL INH PRN (02:30)
[2016-07-12] MEDS: OXYCODONE HCL IR 5 MG TAB (IMMEDIATE RELEASE) PO PRN ×2 (05:40→14:04)
[2016-07-12 06:09] LABS: MEAN CELL VOLUME 81.3 fL (80-100); MEAN CORPUSCULAR HEMOGLOBIN 25.6 pg (25-34); MEAN CORPUSCULAR HGB CONC 31.5 g/dl (32-36); MEAN PLATELET VOLUME 9.4 fL (7.4-10.4); PLATELET COUNT 205 K/uL (130-400); WHITE BLOOD COUNT 3.54 K/uL (4.8-10.8)
[2016-07-12 06:32] LABS: BUN/CREATININE RATIO 21.8 (10-20); CALCIUM 9.3 mg/dl (8.5-10.1); CREATININE 0.61 mg/dl (0.60-1.20); POTASSIUM 3.3 mmol/L (3.5-5.1)
[2016-07-12 07:38] VITALS: BP 89/55; PULSE 85; TEMP 36.8; O2SAT 95
[2016-07-12] MEDS: FUROSEMIDE 20 MG TAB PO SCH (08:17)
[2016-07-12] MEDS: ASCORBIC ACID 500 MG TAB PO SCH ×2 (08:18→20:00)
[2016-07-12] MEDS: MULTIVITAMIN TAB PO SCH (08:19)
[2016-07-12] MEDS: ANASTROZOLE 1 MG TAB PO SCH (08:22)
[2016-07-12] MEDS: POTASSIUM CHLR 10 MEQ / WTR 10 MEQ in PREMIXED WATER 100 ML IV SCH ×2 (08:25→11:31)
[2016-07-12] MEDS: CHECK FENTANYL PATCH PLACEMENT SCH ×2 (08:30→15:11)
[2016-07-12 11:03] VITALS: BP 103/67; PULSE 91; O2SAT 99
--- NOTE | 2016-07-12 15:39 | Progress Note ---
Subjective Date of Service: Jul 12, 2016. 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, grade 2 Status: Acute Review of Systems Respiratory: No shortness of breath Cardiac: No chest pain Abdomen: No diarrhea, No nausea, No pain, No vomiting Musculoskeletal: + joint pain Medications Current Inpatient Medications Medications (Trade) Dose Ordered Sig/Sudarshan Route Start Time Stop Time Status Last Admin Dose Admin Acetaminophen (Tylenol Tab) 650 mg Q4H PRN PO 07/08/16 11:00 08/07/16 10:59 Ondansetron HCl (Zofran Inj) 4 mg Q6H PRN IV 07/08/16 11:00 08/07/16 10:59 Anastrozole (Arimidex Tab) 1 mg QAM PO 07/09/16 08:00 08/08/16 08:59 07/12/16 08:22 1 MG Docusate Sodium (coLACE CAP) 100 mg BID PRN PO 07/08/16 11:00 08/07/16 10:59 Furosemide (Lasix Tab) 20 mg QAM PO 07/09/16 08:00 08/08/16 08:59 07/12/16 08:17 20 MG Multivitamins (Multivitamin Tab) 1 tab DAILY PO 07/09/16 08:00 08/08/16 08:59 07/12/16 08:19 1 TAB Senna (Senokot Tab) 8.6 mg HS PRN PO 07/08/16 11:00 08/07/16 10:59 Ascorbic Acid (Vitamin C Tab) 3,000 mg BID PO 07/08/16 20:00 08/07/16 20:59 07/12/16 08:18 3,000 MG Miscellaneous (Iv Fluids Completed) 1 ea PRN PRN N/A 07/08/16 12:45 07/08/17 12:44 Oxycodone HCl (Roxicodone Immediate Rel Tab) 5 mg Q4 PRN PO 07/08/16 23:45 07/22/16 23:44 07/12/16 14:04 5 MG Glucose (Glucose 40% Gel) 15-30 GRAMS 15 GRAMS... UD PRN PO 07/11/16 12:30 08/10/16 12:29 Glucose (Glucose Chew Tab) 4-8 Tablets 4 Tabl... UD PRN PO 07/11/16 12:30 08/10/16 12:29 Dextrose (Dextrose 50% 50ML Syringe) 25-50ML OF 50% DW IV FOR... UD PRN IV 07/11/16 12:30 08/10/16 12:29 Glucagon (Glucagon Inj) 1 mg UD PRN SQ 07/11/16 12:30 08/10/16 12:29 Fentanyl (Duragesic Patch) 25 mcg Q3D@1600 TD 07/11/16 16:30 07/25/16 16:29 07/11/16 17:15 25 MCG Miscellaneous (Fentanyl Patch Remove & Waste) 1 ea Q3D@1600 N/A 07/11/16 16:30 08/10/16 16:29 07/11/16 16:30 1 EA Miscellaneous Information (Check Fentanyl Patch Placement) 1 ea QS N/A 07/12/16 00:00 08/11/16 00:00 07/12/16 15:11 1 EA Ipratropium [place] (Atrovent 0.02% 0.5MG/2.5ML Neb) 0.5 mg Q4H PRN INH 07/12/16 02:30 08/11/16 02:29 Levalbuterol (Xopenex 1.25MG/ 0.5ML Neb) 1.25 mg Q4H PRN INH 07/12/16 02:30 08/11/16 02:29 Objective Vital Signs Date Time Temp Pulse Resp B/P Pulse Ox O2 Delivery O2 Flow Rate FiO2 07/12/16 15:25 Room Air 07/12/16 11:03 91 103/67 99 Room Air 07/12/16 08:15 Nasal Cannula 1.0 Humidified Oxygen 07/12/16 07:38 36.8 85 18 89/55 95 1.0 07/12/16 04:00 Nasal Cannula 1.0 07/12/16 02:27 92 16 92 Nasal Cannula 1.0 07/12/16 00:00 Nasal Cannula 1.0 07/11/16 22:51 36.8 95 18 101/58 98 Nasal Cannula 1.0 Humidified Oxygen 07/11/16 16:00 Nasal Cannula 1.0 Physical Exam General Appearance: no apparent distress Respiratory/Chest: lungs clear, normal breath sounds, no respiratory distress, no accessory muscle use, + pertinent finding (right breast CA wound, dressed) Cardiovascular: regular rate, rhythm, no edema, no murmur Laboratory Results Last 24 Hours Test 07/12/16 05:48 White Blood Count 3.54 K/uL Red Blood Count 3.20 M/uL Hemoglobin 8.2 g/dL Hematocrit 26.0 % Mean Corpuscular Volume 81.3 fL Mean Corpuscular Hemoglobin 25.6 pg Mean Corpuscular Hemoglobin Concent 31.5 g/dl RDW Standard Deviation 80.3 fL RDW Coefficient of Variation 28.8 % Platelet Count 205 K/uL Mean Platelet Volume 9.4 fL Sodium Level 143 mmol/L Potassium Level 3.3 mmol/L Chloride Level 106 mmol/L Carbon Dioxide Level 29 mmol/L Anion Gap 8.0 mmol/L Blood Urea Nitrogen 13 mg/dl Creatinine 0.61 mg/dl Est Creatinine Clear Calc Drug Dose 73.7 ml/min Estimated GFR () 106.5 Estimated GFR (Non- 91.9 BUN/Creatinine Ratio 21.8 Random Glucose 82 mg/dl Calcium Level 9.3 mg/dl Assessment and Plan WEAKNESS METASTATIC BREAST CANCER 07/12 continue fentanyl patch, oxycodone PRN wound care for the right breast PT/OT anastrazole as per hem/onc d/c plan to [facility] denied, problems with [facility] - plan for [facility] at this time 07/11 fentanyl patch increased to 25mcg continue oxycodone PRN d/c planning to [facility] 07/10 continue fentanyl and oxy PRN PT/OT discharge planning to [facility] 07/09 metastatic breast CA for pain, continue fentanyl patch and oxycodone PRN for the wound, wound care nurse consulted PT/OT for weakness discharge planning [facility] - [facility] HYPOXIA 07/09 patient is saturating well on RA occasionally using oxygen for symptomatic relief possibly hypoventilation due to the rib fractures RLE DVT 07/09 s/p IVC filter SYSTOLIC / DIASTOLIC CHF continue home medications Iron Deficiency Anemia 07/11 Hgb = 7.5 IV Venofer 200mg today 07/09 Has required IV iron infusions x 2 during previous admission hgb stable, monitor HYPOTHYROIDISM patient declines medication DVT PROPHYLAXIS s/p IVC filter FULL CODE
[2016-07-12 16:04] VITALS: BP 96/67; PULSE 96; TEMP 37.1; O2SAT 91
[2016-07-12 19:50] VITALS: BP 101/68; PULSE 99; TEMP 37.4; O2SAT 93
[2016-07-13] VITALS (7 sets, daily range): BP systolic 76–128; BP diastolic 50–80; PULSE 92–106; TEMP 36.5–37; O2SAT 90–94
[2016-07-13] MEDS: CHECK FENTANYL PATCH PLACEMENT SCH ×4 (00:18→23:58)
[2016-07-13] MEDS: OXYCODONE HCL IR 5 MG TAB (IMMEDIATE RELEASE) PO PRN ×3 (01:47→21:19)
[2016-07-13 05:35] LABS: HEMATOCRIT 25.8 % (37-47); MEAN CELL VOLUME 80.4 fL (80-100); MEAN CORPUSCULAR HEMOGLOBIN 26.5 pg (25-34); MEAN CORPUSCULAR HGB CONC 32.9 g/dl (32-36); MEAN PLATELET VOLUME 8.6 fL (7.4-10.4); PLATELET COUNT 191 K/uL (130-400); RED BLOOD COUNT 3.21 M/uL (4.2-5.4); WHITE BLOOD COUNT 4.01 K/uL (4.8-10.8)
[2016-07-13 06:17] LABS: BUN/CREATININE RATIO 21.3 (10-20); CALCIUM 9.2 mg/dl (8.5-10.1); CREATININE 0.67 mg/dl (0.60-1.20); POTASSIUM 3.8 mmol/L (3.5-5.1)
[2016-07-13] MEDS: MULTIVITAMIN TAB PO SCH (08:31)
[2016-07-13] MEDS: ASCORBIC ACID 500 MG TAB PO SCH ×2 (08:32→20:00)
[2016-07-13] MEDS: SENNA 8.6 MG TAB PO PRN (08:32)
[2016-07-13] MEDS: FUROSEMIDE 20 MG TAB PO SCH (08:33)
[2016-07-13] MEDS: ANASTROZOLE 1 MG TAB PO SCH (08:37)
--- NOTE | 2016-07-13 17:17 | Progress Note ---
Subjective Date of Service: Jul 13, 2016. Subjective Pt evaluation today including: conversation w/ patient, physical exam, lab review, review of studies, review of inpatient medication list Saw/examined the patient in room 418 She's doing well today, no complaints Problem List Medical Problems: (1) Metastatic breast carcinoma Permanent Comment: [id number], stage IV Invasive ductal carcinoma, ER positive/AR negative/Her2 positive, grade 2 Status: Acute Review of Systems Respiratory: No shortness of breath Cardiac: No chest pain Abdomen: No diarrhea, No nausea, No pain, No vomiting Musculoskeletal: + joint pain (improved with medications) Medications Current Inpatient Medications Medications (Trade) Dose Ordered Sig/Sudarshan Route Start Time Stop Time Status Last Admin Dose Admin Acetaminophen (Tylenol Tab) 650 mg Q4H PRN PO 07/08/16 11:00 08/07/16 10:59 Ondansetron HCl (Zofran Inj) 4 mg Q6H PRN IV 07/08/16 11:00 08/07/16 10:59 Anastrozole (Arimidex Tab) 1 mg QAM PO 07/09/16 08:00 08/08/16 08:59 07/13/16 08:37 1 MG Docusate Sodium (coLACE CAP) 100 mg BID PRN PO 07/08/16 11:00 08/07/16 10:59 Furosemide (Lasix Tab) 20 mg QAM PO 07/09/16 08:00 08/08/16 08:59 07/13/16 08:33 20 MG Multivitamins (Multivitamin Tab) 1 tab DAILY PO 07/09/16 08:00 08/08/16 08:59 07/13/16 08:31 1 TAB Senna (Senokot Tab) 8.6 mg HS PRN PO 07/08/16 11:00 08/07/16 10:59 07/13/16 08:32 8.6 MG Ascorbic Acid (Vitamin C Tab) 3,000 mg BID PO 07/08/16 20:00 08/07/16 20:59 07/13/16 08:32 3,000 MG Miscellaneous (Iv Fluids Completed) 1 ea PRN PRN N/A 07/08/16 12:45 07/08/17 12:44 Oxycodone HCl (Roxicodone Immediate Rel Tab) 5 mg Q4 PRN PO 07/08/16 23:45 07/22/16 23:44 07/13/16 08:37 5 MG Glucose (Glucose 40% Gel) 15-30 GRAMS 15 GRAMS... UD PRN PO 07/11/16 12:30 08/10/16 12:29 Glucose (Glucose Chew Tab) 4-8 Tablets 4 Tabl... UD PRN PO 07/11/16 12:30 08/10/16 12:29 Dextrose (Dextrose 50% 50ML Syringe) 25-50ML OF 50% DW IV FOR... UD PRN IV 07/11/16 12:30 08/10/16 12:29 Glucagon (Glucagon Inj) 1 mg UD PRN SQ 07/11/16 12:30 08/10/16 12:29 Fentanyl (Duragesic Patch) 25 mcg Q3D@1600 TD 07/11/16 16:30 07/25/16 16:29 07/11/16 17:15 25 MCG Miscellaneous (Fentanyl Patch Remove & Waste) 1 ea Q3D@1600 N/A 07/11/16 16:30 08/10/16 16:29 07/11/16 16:30 1 EA Miscellaneous Information (Check Fentanyl Patch Placement) 1 ea QS N/A 07/12/16 00:00 08/11/16 00:00 07/13/16 08:00 1 EA Ipratropium [place] (Atrovent 0.02% 0.5MG/2.5ML Neb) 0.5 mg Q4H PRN INH 07/12/16 02:30 08/11/16 02:29 Levalbuterol (Xopenex 1.25MG/ 0.5ML Neb) 1.25 mg Q4H PRN INH 07/12/16 02:30 08/11/16 02:29 Objective Vital Signs Date Time Temp Pulse Resp B/P Pulse Ox O2 Delivery O2 Flow Rate FiO2 07/13/16 15:54 36.8 104 18 76/50 92 Room Air 07/13/16 15:08 106 92 07/13/16 08:00 Room Air 07/13/16 07:24 36.9 94 16 96/63 90 Room Air 07/13/16 04:38 36.5 94 18 118/80 94 Room Air 07/13/16 00:32 37.0 98 18 93/57 90 Room Air 07/13/16 00:00 Room Air 07/12/16 20:00 Room Air 07/12/16 19:50 37.4 99 18 101/68 93 Room Air Physical Exam General Appearance: no apparent distress Respiratory/Chest: no respiratory distress, no accessory muscle use, + pertinent finding (right breast wound is dressed) Neurologic/Psychiatric: alert, normal mood/affect Laboratory Results Last 24 Hours Test 07/13/16 05:25 White Blood Count 4.01 K/uL Red Blood Count 3.21 M/uL Hemoglobin 8.5 g/dL Hematocrit 25.8 % Mean Corpuscular Volume 80.4 fL Mean Corpuscular Hemoglobin 26.5 pg Mean Corpuscular Hemoglobin Concent 32.9 g/dl RDW Standard Deviation 80.6 fL RDW Coefficient of Variation 29.6 % Platelet Count 191 K/uL Mean Platelet Volume 8.6 fL Nucleated RBC Absolute Count (auto) 0.04 K/uL Nucleated Red Blood Cells % 1.1 % Sodium Level 144 mmol/L Potassium Level 3.8 mmol/L Chloride Level 107 mmol/L Carbon Dioxide Level 33 mmol/L Anion Gap 4.0 mmol/L Blood Urea Nitrogen 14 mg/dl Creatinine 0.67 mg/dl Est Creatinine Clear Calc Drug Dose 67.1 ml/min Estimated GFR () 103.2 Estimated GFR (Non- 89.1 BUN/Creatinine Ratio 21.3 Random Glucose 76 mg/dl Calcium Level 9.2 mg/dl Assessment and Plan WEAKNESS METASTATIC BREAST CANCER 07/13 higher dose of fentanyl patch seems to be working better as per patient continue oxycodone PRN for pain wound care, PT/OT anastrazole d/c planning to [facility] 07/12 continue fentanyl patch, oxycodone PRN wound care for the right breast PT/OT anastrazole as per hem/onc d/c plan to [facility] - [facility] denied, problems with [facility] - plan for [facility] at this time 07/11 fentanyl patch increased to 25mcg continue oxycodone PRN d/c planning to [facility] 07/10 continue fentanyl and oxy PRN PT/OT discharge planning to [facility] 07/09 metastatic breast CA for pain, continue fentanyl patch and oxycodone PRN for the wound, wound care nurse consulted PT/OT for weakness discharge planning [facility] HYPOXIA 07/09 patient is saturating well on RA occasionally using oxygen for symptomatic relief possibly hypoventilation due to the rib fractures RLE DVT 07/09 s/p IVC filter SYSTOLIC / DIASTOLIC CHF continue home medications Iron Deficiency Anemia 07/13 Hgb = 8.5 07/11 Hgb = 7.5 IV Venofer 200mg today 07/09 Has required IV iron infusions x 2 during previous admission hgb stable, monitor HYPOTHYROIDISM patient declines medication DVT PROPHYLAXIS s/p IVC filter FULL CODE
[2016-07-14 04:22] VITALS: BP 106/68; PULSE 92; TEMP 36.9; O2SAT 93
[2016-07-14 07:17] VITALS: BP 109/68; PULSE 92; TEMP 36.8; O2SAT 90
[2016-07-14] MEDS: MULTIVITAMIN TAB PO SCH (08:11)
[2016-07-14] MEDS: FUROSEMIDE 20 MG TAB PO SCH (08:12)
[2016-07-14] MEDS: ASCORBIC ACID 500 MG TAB PO SCH ×2 (08:12→20:00)
[2016-07-14] MEDS: CHECK FENTANYL PATCH PLACEMENT SCH ×2 (08:13→16:02)
[2016-07-14] MEDS: ANASTROZOLE 1 MG TAB PO SCH (08:14)
[2016-07-14] MEDS: OXYCODONE HCL IR 5 MG TAB (IMMEDIATE RELEASE) PO PRN ×2 (08:15→21:27)
[2016-07-14 11:30] VITALS: BP 103/66; PULSE 87; TEMP 37; O2SAT 94
[2016-07-14 15:39] VITALS: BP 110/68; PULSE 88; TEMP 36.9; O2SAT 90
[2016-07-14] MEDS: FENTANYL PATCH REMOVE & WASTE SCH (16:03)
[2016-07-14] MEDS: FENTANYL 25 MCG/HR TDSY TD SCH (16:04)
--- NOTE | 2016-07-14 16:54 | Progress Note ---
Subjective Date of Service: Jul 14, 2016. Subjective Pt evaluation today including: conversation w/ patient, physical exam, lab review, review of studies, review of inpatient medication list Saw/examined the patient in room 418 She is doing fine, no problems/issues to note Problem List Medical Problems: (1) Metastatic breast carcinoma Permanent Comment: [id number], stage IV Invasive ductal carcinoma, ER positive/MD negative/Her2 positive, grade 2 Status: Acute Review of Systems Constitutional: No chills, No fever, No weakness Respiratory: No shortness of breath Cardiac: No chest pain Abdomen: No diarrhea, No nausea, No pain, No vomiting Musculoskeletal: + joint pain (right breast, right wrist, right hip) Medications Current Inpatient Medications Medications (Trade) Dose Ordered Sig/Sudarshan Route Start Time Stop Time Status Last Admin Dose Admin Acetaminophen (Tylenol Tab) 650 mg Q4H PRN PO 07/08/16 11:00 08/07/16 10:59 Ondansetron HCl (Zofran Inj) 4 mg Q6H PRN IV 07/08/16 11:00 08/07/16 10:59 Anastrozole (Arimidex Tab) 1 mg QAM PO 07/09/16 08:00 08/08/16 08:59 07/14/16 08:14 1 MG Docusate Sodium (coLACE CAP) 100 mg BID PRN PO 07/08/16 11:00 08/07/16 10:59 07/14/16 08:13 100 MG Furosemide (Lasix Tab) 20 mg QAM PO 07/09/16 08:00 08/08/16 08:59 07/14/16 08:12 20 MG Multivitamins (Multivitamin Tab) 1 tab DAILY PO 07/09/16 08:00 08/08/16 08:59 07/14/16 08:11 1 TAB Senna (Senokot Tab) 8.6 mg HS PRN PO 07/08/16 11:00 08/07/16 10:59 07/13/16 08:32 8.6 MG Ascorbic Acid (Vitamin C Tab) 3,000 mg BID PO 07/08/16 20:00 08/07/16 20:59 07/14/16 08:12 3,000 MG Miscellaneous (Iv Fluids Completed) 1 ea PRN PRN N/A 07/08/16 12:45 07/08/17 12:44 Oxycodone HCl (Roxicodone Immediate Rel Tab) 5 mg Q4 PRN PO 07/08/16 23:45 07/22/16 23:44 07/14/16 08:15 5 MG Glucose (Glucose 40% Gel) 15-30 GRAMS 15 GRAMS... UD PRN PO 07/11/16 12:30 08/10/16 12:29 Glucose (Glucose Chew Tab) 4-8 Tablets 4 Tabl... UD PRN PO 07/11/16 12:30 08/10/16 12:29 Dextrose (Dextrose 50% 50ML Syringe) 25-50ML OF 50% DW IV FOR... UD PRN IV 07/11/16 12:30 08/10/16 12:29 Glucagon (Glucagon Inj) 1 mg UD PRN SQ 07/11/16 12:30 08/10/16 12:29 Fentanyl (Duragesic Patch) 25 mcg Q3D@1600 TD 07/11/16 16:30 07/25/16 16:29 07/14/16 16:04 25 MCG Miscellaneous (Fentanyl Patch Remove & Waste) 1 ea Q3D@1600 N/A 07/11/16 16:30 08/10/16 16:29 07/14/16 16:03 1 EA Miscellaneous Information (Check Fentanyl Patch Placement) 1 ea QS N/A 07/12/16 00:00 08/11/16 00:00 07/14/16 16:02 1 EA Ipratropium [place] (Atrovent 0.02% 0.5MG/2.5ML Neb) 0.5 mg Q4H PRN INH 07/12/16 02:30 08/11/16 02:29 Levalbuterol (Xopenex 1.25MG/ 0.5ML Neb) 1.25 mg Q4H PRN INH 07/12/16 02:30 08/11/16 02:29 Objective Vital Signs Date Time Temp Pulse Resp B/P Pulse Ox O2 Delivery O2 Flow Rate FiO2 07/14/16 15:39 36.9 88 18 110/68 90 Room Air 07/14/16 11:30 37.0 87 18 103/66 94 Room Air 07/14/16 08:10 Room Air 07/14/16 07:17 36.8 92 18 109/68 90 Room Air 07/14/16 04:22 36.9 92 18 106/68 93 Room Air 07/14/16 00:00 Room Air 07/13/16 23:49 36.9 92 20 97/64 94 Room Air 07/13/16 20:23 36.9 102 18 128/80 92 Room Air Physical Exam General Appearance: no apparent distress Respiratory/Chest: lungs clear, normal breath sounds, no respiratory distress, no accessory muscle use, + pertinent finding (right breast wound) Cardiovascular: regular rate, rhythm, no edema, no murmur Assessment and Plan WEAKNESS METASTATIC BREAST CANCER 07/14 plan is to continue pain medications continue PT/OT as tolerated d/c to SNF when available 07/13 higher dose of fentanyl patch seems to be working better as per patient continue oxycodone PRN for pain wound care, PT/OT anastrazole d/c planning to SNF 07/12 continue fentanyl patch, oxycodone PRN wound care for the right breast PT/OT anastrazole as per hem/onc d/c plan to SNF - [facility] denied, problems with [facility] - plan for [facility] at this time 07/11 fentanyl patch increased to 25mcg continue oxycodone PRN d/c planning to [facility] 07/10 continue fentanyl and oxy PRN PT/OT discharge planning to [facility] 07/09 metastatic breast CA for pain, continue fentanyl patch and oxycodone PRN for the wound, wound care nurse consulted PT/OT for weakness discharge planning eval - [facility] HYPOXIA 07/09 patient is saturating well on RA occasionally using oxygen for symptomatic relief possibly hypoventilation due to the rib fractures RLE DVT 07/09 s/p IVC filter SYSTOLIC / DIASTOLIC CHF continue home medications Iron Deficiency Anemia 07/13 Hgb = 8.5 07/11 Hgb = 7.5 IV Venofer 200mg today 07/09 Has required IV iron infusions x 2 during previous admission hgb stable, monitor HYPOTHYROIDISM patient declines medication DVT PROPHYLAXIS s/p IVC filter FULL CODE
[2016-07-14 20:42] VITALS: BP 98/64; PULSE 98; TEMP 37.3; O2SAT 90
[2016-07-14 23:53] VITALS: BP 90/50; PULSE 92; TEMP 37; O2SAT 93
[2016-07-15] VITALS (8 sets, daily range): BP systolic 82–119; BP diastolic 55–72; PULSE 86–98; TEMP 36.8–37.1; O2SAT 90–94
[2016-07-15] MEDS: CHECK FENTANYL PATCH PLACEMENT SCH ×4 (00:19→23:38)
[2016-07-15] MEDS: FUROSEMIDE 20 MG TAB PO SCH (08:01)
[2016-07-15] MEDS: MULTIVITAMIN TAB PO SCH (08:01)
[2016-07-15] MEDS: ASCORBIC ACID 500 MG TAB PO SCH ×2 (08:01→19:52)
[2016-07-15] MEDS: ANASTROZOLE 1 MG TAB PO SCH (08:02)
[2016-07-15] MEDS: OXYCODONE HCL IR 5 MG TAB (IMMEDIATE RELEASE) PO PRN ×2 (12:28→23:37)
--- NOTE | 2016-07-15 16:57 | Progress Note ---
Subjective Date of Service: Jul 15, 2016. Subjective Pt evaluation today including: conversation w/ patient, physical exam, lab review, review of studies, review of inpatient medication list Saw/examined the patient in room 418 no problems/issues to note Problem List Medical Problems: (1) Metastatic breast carcinoma Permanent Comment: [id number], stage IV Invasive ductal carcinoma, ER positive/MS negative/Her2 positive, grade 2 Status: Acute Review of Systems Respiratory: No shortness of breath Cardiac: No chest pain Abdomen: No diarrhea, No nausea, No pain, No vomiting Musculoskeletal: + joint pain Medications Current Inpatient Medications Medications (Trade) Dose Ordered Sig/Sudarshan Route Start Time Stop Time Status Last Admin Dose Admin Acetaminophen (Tylenol Tab) 650 mg Q4H PRN PO 07/08/16 11:00 08/07/16 10:59 Ondansetron HCl (Zofran Inj) 4 mg Q6H PRN IV 07/08/16 11:00 08/07/16 10:59 Anastrozole (Arimidex Tab) 1 mg QAM PO 07/09/16 08:00 08/08/16 08:59 07/15/16 08:02 1 MG Docusate Sodium (coLACE CAP) 100 mg BID PRN PO 07/08/16 11:00 08/07/16 10:59 07/14/16 08:13 100 MG Furosemide (Lasix Tab) 20 mg QAM PO 07/09/16 08:00 08/08/16 08:59 07/15/16 08:01 20 MG Multivitamins (Multivitamin Tab) 1 tab DAILY PO 07/09/16 08:00 08/08/16 08:59 07/15/16 08:01 1 TAB Senna (Senokot Tab) 8.6 mg HS PRN PO 07/08/16 11:00 08/07/16 10:59 07/13/16 08:32 8.6 MG Ascorbic Acid (Vitamin C Tab) 3,000 mg BID PO 07/08/16 20:00 08/07/16 20:59 07/15/16 08:01 3,000 MG Miscellaneous (Iv Fluids Completed) 1 ea PRN PRN N/A 07/08/16 12:45 07/08/17 12:44 Oxycodone HCl (Roxicodone Immediate Rel Tab) 5 mg Q4 PRN PO 07/08/16 23:45 07/22/16 23:44 07/15/16 12:28 5 MG Glucose (Glucose 40% Gel) 15-30 GRAMS 15 GRAMS... UD PRN PO 07/11/16 12:30 08/10/16 12:29 Glucose (Glucose Chew Tab) 4-8 Tablets 4 Tabl... UD PRN PO 07/11/16 12:30 08/10/16 12:29 Dextrose (Dextrose 50% 50ML Syringe) 25-50ML OF 50% DW IV FOR... UD PRN IV 07/11/16 12:30 08/10/16 12:29 Glucagon (Glucagon Inj) 1 mg UD PRN SQ 07/11/16 12:30 08/10/16 12:29 Fentanyl (Duragesic Patch) 25 mcg Q3D@1600 TD 07/11/16 16:30 07/25/16 16:29 07/14/16 16:04 25 MCG Miscellaneous (Fentanyl Patch Remove & Waste) 1 ea Q3D@1600 N/A 07/11/16 16:30 08/10/16 16:29 07/14/16 16:03 1 EA Miscellaneous Information (Check Fentanyl Patch Placement) 1 ea QS N/A 07/12/16 00:00 08/11/16 00:00 07/15/16 16:12 1 EA Ipratropium [place] (Atrovent 0.02% 0.5MG/2.5ML Neb) 0.5 mg Q4H PRN INH 07/12/16 02:30 08/11/16 02:29 Levalbuterol (Xopenex 1.25MG/ 0.5ML Neb) 1.25 mg Q4H PRN INH 07/12/16 02:30 08/11/16 02:29 Objective Vital Signs Date Time Temp Pulse Resp B/P Pulse Ox O2 Delivery O2 Flow Rate FiO2 07/15/16 15:28 36.8 98 18 119/72 90 Room Air 07/15/16 11:40 36.8 90 18 99/64 93 Room Air 07/15/16 07:30 90 Room Air 07/15/16 07:27 36.9 93 20 115/69 90 Room Air 07/15/16 04:10 36.8 86 20 102/63 94 Room Air 07/15/16 00:00 Room Air 07/14/16 23:53 37.0 92 20 90/50 93 Room Air 07/14/16 20:42 37.3 98 18 98/64 90 Room Air Physical Exam General Appearance: no apparent distress Respiratory/Chest: no respiratory distress, no accessory muscle use Assessment and Plan WEAKNESS METASTATIC BREAST CANCER 07/15 continue PT/OT d/c plan to SNF 07/14 plan is to continue pain medications continue PT/OT as tolerated d/c to SNF when available 07/13 higher dose of fentanyl patch seems to be working better as per patient continue oxycodone PRN for pain wound care, PT/OT anastrazole d/c planning to SNF 07/12 continue fentanyl patch, oxycodone PRN wound care for the right breast PT/OT anastrazole as per hem/onc d/c plan to SNF - [facility] denied, problems with [facility] [facility] - plan for [facility] at this time 07/11 fentanyl patch increased to 25mcg continue oxycodone PRN d/c planning to [facility] 07/10 continue fentanyl and oxy PRN PT/OT discharge planning to [facility] 07/09 metastatic breast CA for pain, continue fentanyl patch and oxycodone PRN for the wound, wound care nurse consulted PT/OT for weakness discharge planning eval - [facility] HYPOXIA 07/09 patient is saturating well on RA occasionally using oxygen for symptomatic relief possibly hypoventilation due to the rib fractures RLE DVT 07/09 s/p IVC filter SYSTOLIC / DIASTOLIC CHF continue home medications Iron Deficiency Anemia 07/13 Hgb = 8.5 07/11 Hgb = 7.5 IV Venofer 200mg today 07/09 Has required IV iron infusions x 2 during previous admission hgb stable, monitor HYPOTHYROIDISM patient declines medication DVT PROPHYLAXIS s/p IVC filter FULL CODE
[2016-07-15] MEDS ORDERED: SODIUM CHLORIDE 0.9% 250ML 250 ML IV ONE (20:30)
[2016-07-15] MEDS ORDERED: SODIUM CHLORIDE 0.9% 1000ML 1,000 ML IV ONE (20:30)
[2016-07-15 20:45] LABS: HEMATOCRIT 27.5 % (37-47)
[2016-07-15 21:14] LABS: BUN/CREATININE RATIO 21.1 (10-20); CALCIUM 8.8 mg/dl (8.5-10.1); CREATININE 0.74 mg/dl (0.60-1.20); MAGNESIUM 2.2 mg/dl (1.8-2.4); POTASSIUM 3.6 mmol/L (3.5-5.1)
[2016-07-16 03:44] VITALS: BP 133/71; PULSE 99; TEMP 36.8; O2SAT 91
[2016-07-16 07:18] VITALS: BP 103/66; PULSE 89; TEMP 36.9; O2SAT 93
[2016-07-16] MEDS: CHECK FENTANYL PATCH PLACEMENT SCH ×3 (07:46→23:24)
[2016-07-16 07:50] VITALS: O2SAT 93
[2016-07-16] MEDS: SENNA 8.6 MG TAB PO PRN (08:07)
[2016-07-16] MEDS: ASCORBIC ACID 500 MG TAB PO SCH ×2 (08:07→20:00)
[2016-07-16] MEDS: MULTIVITAMIN TAB PO SCH (08:07)
[2016-07-16] MEDS: ANASTROZOLE 1 MG TAB PO SCH (08:08)
[2016-07-16] MEDS: OXYCODONE HCL IR 5 MG TAB (IMMEDIATE RELEASE) PO PRN ×2 (08:53→16:14)
[2016-07-16 11:38] VITALS: BP 100/62; PULSE 88; TEMP 36.8; O2SAT 95
--- NOTE | 2016-07-16 13:09 | Progress Note ---
Subjective Date of Service: Jul 16, 2016. 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, grade 2 Status: Acute Review of Systems Respiratory: No shortness of breath Cardiac: No chest pain Musculoskeletal: + joint pain (ribs, right wrist) Medications Current Inpatient Medications Medications (Trade) Dose Ordered Sig/Sudarshan Route Start Time Stop Time Status Last Admin Dose Admin Acetaminophen (Tylenol Tab) 650 mg Q4H PRN PO 07/08/16 11:00 08/07/16 10:59 Ondansetron HCl (Zofran Inj) 4 mg Q6H PRN IV 07/08/16 11:00 08/07/16 10:59 Anastrozole (Arimidex Tab) 1 mg QAM PO 07/09/16 08:00 08/08/16 08:59 07/16/16 08:08 1 MG Docusate Sodium (coLACE CAP) 100 mg BID PRN PO 07/08/16 11:00 08/07/16 10:59 07/14/16 08:13 100 MG Multivitamins (Multivitamin Tab) 1 tab DAILY PO 07/09/16 08:00 08/08/16 08:59 07/16/16 08:07 1 TAB Senna (Senokot Tab) 8.6 mg HS PRN PO 07/08/16 11:00 08/07/16 10:59 07/16/16 08:07 8.6 MG Ascorbic Acid (Vitamin C Tab) 3,000 mg BID PO 07/08/16 20:00 08/07/16 20:59 07/16/16 08:07 3,000 MG Miscellaneous (Iv Fluids Completed) 1 ea PRN PRN N/A 07/08/16 12:45 07/08/17 12:44 07/16/16 06:00 1 EA Oxycodone HCl (Roxicodone Immediate Rel Tab) 5 mg Q4 PRN PO 07/08/16 23:45 07/22/16 23:44 07/16/16 08:53 5 MG Glucose (Glucose 40% Gel) 15-30 GRAMS 15 GRAMS... UD PRN PO 07/11/16 12:30 08/10/16 12:29 Glucose (Glucose Chew Tab) 4-8 Tablets 4 Tabl... UD PRN PO 07/11/16 12:30 08/10/16 12:29 Dextrose (Dextrose 50% 50ML Syringe) 25-50ML OF 50% DW IV FOR... UD PRN IV 07/11/16 12:30 08/10/16 12:29 Glucagon (Glucagon Inj) 1 mg UD PRN SQ 07/11/16 12:30 08/10/16 12:29 Fentanyl (Duragesic Patch) 25 mcg Q3D@1600 TD 07/11/16 16:30 07/25/16 16:29 07/14/16 16:04 25 MCG Miscellaneous (Fentanyl Patch Remove & Waste) 1 ea Q3D@1600 N/A 07/11/16 16:30 08/10/16 16:29 07/14/16 16:03 1 EA Miscellaneous Information (Check Fentanyl Patch Placement) 1 ea QS N/A 07/12/16 00:00 08/11/16 00:00 07/16/16 07:46 1 EA Ipratropium Donovan (Atrovent 0.02% 0.5MG/2.5ML Neb) 0.5 mg Q4H PRN INH 07/12/16 02:30 08/11/16 02:29 Levalbuterol (Xopenex 1.25MG/ 0.5ML Neb) 1.25 mg Q4H PRN INH 07/12/16 02:30 08/11/16 02:29 Objective Vital Signs Date Time Temp Pulse Resp B/P Pulse Ox O2 Delivery O2 Flow Rate FiO2 07/16/16 11:38 36.8 88 20 100/62 95 Room Air 07/16/16 07:50 93 Room Air 07/16/16 07:18 36.9 89 18 103/66 93 Room Air 07/16/16 03:44 36.8 99 20 133/71 91 Room Air 07/16/16 00:15 Room Air 07/15/16 23:26 37.0 93 18 85/55 93 Room Air 07/15/16 19:23 37.1 96 16 82/55 92 Room Air 07/15/16 16:10 90 Room Air 07/15/16 15:28 36.8 98 18 119/72 90 Room Air Physical Exam General Appearance: + mild distress (secondary to pain) Respiratory/Chest: lungs clear, normal breath sounds, no respiratory distress, no accessory muscle use, + pertinent finding (tenderness to palpation at chest wall; ribs; left sided) Cardiovascular: regular rate, rhythm, no murmur Extremities: normal inspection, no pedal edema Laboratory Results Last 24 Hours Test 07/15/16 20:34 Hemoglobin 8.6 g/dL Hematocrit 27.5 % Sodium Level 142 mmol/L Potassium Level 3.6 mmol/L Chloride Level 105 mmol/L Carbon Dioxide Level 31 mmol/L Anion Gap 6.0 mmol/L Blood Urea Nitrogen 16 mg/dl Creatinine 0.74 mg/dl Est Creatinine Clear Calc Drug Dose 60.6 ml/min Estimated GFR () 95.1 Estimated GFR (Non- 82.1 BUN/Creatinine Ratio 21.1 Random Glucose 123 mg/dl Lactic Acid Level 1.7 mmol/L Calcium Level 8.8 mg/dl Magnesium Level 2.2 mg/dl Assessment and Plan WEAKNESS METASTATIC BREAST CANCER 07/16 added baclofen continue fentanyl patch continue oxy PRN will increase these as tolerated stopped Lasix last night due to hypotension, monitor breathing status continue PT/OT plan for d/c to SNF 07/15 continue PT/OT d/c plan to SNF 07/14 plan is to continue pain medications continue PT/OT as tolerated d/c to SNF when available 07/13 higher dose of fentanyl patch seems to be working better as per patient continue oxycodone PRN for pain wound care, PT/OT anastrazole d/c planning to SNF 07/12 continue fentanyl patch, oxycodone PRN wound care for the right breast PT/OT anastrazole as per hem/onc d/c plan to SNF - [facility] denied, problems with [facility] - plan for [facility] at this time 07/11 fentanyl patch increased to 25mcg continue oxycodone PRN d/c planning to [facility] 07/10 continue fentanyl and oxy PRN PT/OT discharge planning to [facility] 07/09 metastatic breast CA for pain, continue fentanyl patch and oxycodone PRN for the wound, wound care nurse consulted PT/OT for weakness discharge planning [facility] HYPOXIA 07/09 patient is saturating well on RA occasionally using oxygen for symptomatic relief possibly hypoventilation due to the rib fractures RLE DVT 07/09 s/p IVC filter SYSTOLIC / DIASTOLIC CHF continue home medications Iron Deficiency Anemia 07/13 Hgb = 8.5 07/11 Hgb = 7.5 IV Venofer 200mg today 07/09 Has required IV iron infusions x 2 during previous admission hgb stable, monitor HYPOTHYROIDISM patient declines medication DVT PROPHYLAXIS s/p IVC filter FULL CODE
[2016-07-16 19:16] VITALS: BP 128/71; PULSE 90; TEMP 37; O2SAT 91
[2016-07-16] MEDS ORDERED: BACLOFEN 10 MG TAB PO SCH (21:00)
[2016-07-16 23:38] VITALS: BP 111/70; PULSE 88; TEMP 36.9; O2SAT 95
[2016-07-17] VITALS (7 sets, daily range): BP systolic 94–139; BP diastolic 52–83; PULSE 78–110; TEMP 36.6–37.3; O2SAT 90–96
[2016-07-17] MEDS: OXYCODONE HCL IR 5 MG TAB (IMMEDIATE RELEASE) PO PRN ×4 (02:18→21:00)
[2016-07-17] MEDS: ANASTROZOLE 1 MG TAB PO SCH (08:46)
[2016-07-17] MEDS: MULTIVITAMIN TAB PO SCH (08:47)
[2016-07-17] MEDS: ASCORBIC ACID 500 MG TAB PO SCH ×2 (08:47→20:00)
[2016-07-17] MEDS: CHECK FENTANYL PATCH PLACEMENT SCH ×2 (08:48→16:34)
--- NOTE | 2016-07-17 13:18 | Progress Note ---
Subjective Date of Service: Jul 17, 2016. Subjective Pt evaluation today including: conversation w/ patient, physical exam, lab review, review of studies, review of inpatient medication list Saw/examined the patient in room 418 no complaints/no issues Problem List Medical Problems: (1) Metastatic breast carcinoma Permanent Comment: [id number], stage IV Invasive ductal carcinoma, ER positive/NE negative/Her2 positive, grade 2 Status: Acute Review of Systems Constitutional: No weakness Respiratory: No shortness of breath Cardiac: No chest pain Musculoskeletal: + joint pain (controlled with medications) Medications Current Inpatient Medications Medications (Trade) Dose Ordered Sig/Sudarshan Route Start Time Stop Time Status Last Admin Dose Admin Acetaminophen (Tylenol Tab) 650 mg Q4H PRN PO 07/08/16 11:00 08/07/16 10:59 Ondansetron HCl (Zofran Inj) 4 mg Q6H PRN IV 07/08/16 11:00 08/07/16 10:59 Anastrozole (Arimidex Tab) 1 mg QAM PO 07/09/16 08:00 08/08/16 08:59 07/17/16 08:46 1 MG Docusate Sodium (coLACE CAP) 100 mg BID PRN PO 07/08/16 11:00 08/07/16 10:59 07/14/16 08:13 100 MG Multivitamins (Multivitamin Tab) 1 tab DAILY PO 07/09/16 08:00 08/08/16 08:59 07/17/16 08:47 1 TAB Senna (Senokot Tab) 8.6 mg HS PRN PO 07/08/16 11:00 08/07/16 10:59 07/16/16 08:07 8.6 MG Ascorbic Acid (Vitamin C Tab) 3,000 mg BID PO 07/08/16 20:00 08/07/16 20:59 07/17/16 08:47 3,000 MG Miscellaneous (Iv Fluids Completed) 1 ea PRN PRN N/A 07/08/16 12:45 07/08/17 12:44 07/16/16 06:00 1 EA Oxycodone HCl (Roxicodone Immediate Rel Tab) 5 mg Q4 PRN PO 07/08/16 23:45 07/22/16 23:44 07/17/16 08:51 5 MG Glucose (Glucose 40% Gel) 15-30 GRAMS 15 GRAMS... UD PRN PO 07/11/16 12:30 08/10/16 12:29 Glucose (Glucose Chew Tab) 4-8 Tablets 4 Tabl... UD PRN PO 07/11/16 12:30 08/10/16 12:29 Dextrose (Dextrose 50% 50ML Syringe) 25-50ML OF 50% DW IV FOR... UD PRN IV 07/11/16 12:30 08/10/16 12:29 Glucagon (Glucagon Inj) 1 mg UD PRN SQ 07/11/16 12:30 08/10/16 12:29 Fentanyl (Duragesic Patch) 25 mcg Q3D@1600 TD 07/11/16 16:30 07/25/16 16:29 07/14/16 16:04 25 MCG Miscellaneous (Fentanyl Patch Remove & Waste) 1 ea Q3D@1600 N/A 07/11/16 16:30 08/10/16 16:29 07/14/16 16:03 1 EA Miscellaneous Information (Check Fentanyl Patch Placement) 1 ea QS N/A 07/12/16 00:00 08/11/16 00:00 07/17/16 08:48 1 EA Ipratropium Gideon (Atrovent 0.02% 0.5MG/2.5ML Neb) 0.5 mg Q4H PRN INH 07/12/16 02:30 08/11/16 02:29 Levalbuterol (Xopenex 1.25MG/ 0.5ML Neb) 1.25 mg Q4H PRN INH 07/12/16 02:30 08/11/16 02:29 Baclofen (Lioresal Tab) 5 mg HS PO 07/16/16 21:00 08/15/16 20:59 07/16/16 21:28 5 MG Objective Vital Signs Date Time Temp Pulse Resp B/P Pulse Ox O2 Delivery O2 Flow Rate FiO2 07/17/16 10:56 36.6 89 18 94/52 90 Room Air 07/17/16 10:08 Room Air 07/17/16 08:30 93 Room Air 07/17/16 07:18 36.6 78 16 107/70 93 Room Air 07/17/16 00:01 Room Air 07/16/16 23:38 36.9 88 20 111/70 95 Room Air 07/16/16 19:16 37.0 90 20 128/71 91 Room Air 07/16/16 16:00 Room Air Physical Exam General Appearance: no apparent distress Respiratory/Chest: no respiratory distress, no accessory muscle use Extremities: normal inspection, no pedal edema Assessment and Plan WEAKNESS METASTATIC BREAST CANCER 07/17 d/c'd baclofen continue fentanyl patch increase oxycodone to q3 hours plan for d/c to SNF 07/16 added baclofen continue fentanyl patch continue oxy PRN will increase these as tolerated stopped Lasix last night due to hypotension, monitor breathing status continue PT/OT plan for d/c to [facility] 07/15 continue PT/OT d/c plan to SNF 07/14 plan is to continue pain medications continue PT/OT as tolerated d/c to [facility] when available 07/13 higher dose of fentanyl patch seems to be working better as per patient continue oxycodone PRN for pain wound care, PT/OT anastrazole d/c planning to [facility] 07/12 continue fentanyl patch, oxycodone PRN wound care for the right breast PT/OT anastrazole as per hem/onc d/c plan to [facility] - [facility] denied, problems with [facility] - plan for [facility] at this time 07/11 fentanyl patch increased to 25mcg continue oxycodone PRN d/c planning to [facility] 07/10 continue fentanyl and oxy PRN PT/OT discharge planning to [facility] 07/09 metastatic breast CA for pain, continue fentanyl patch and oxycodone PRN for the wound, wound care nurse consulted PT/OT for weakness discharge planning eval - [facility] HYPOXIA 07/09 patient is saturating well on RA occasionally using oxygen for symptomatic relief possibly hypoventilation due to the rib fractures RLE DVT 07/09 s/p IVC filter SYSTOLIC / DIASTOLIC CHF continue home medications Iron Deficiency Anemia 07/13 Hgb = 8.5 07/11 Hgb = 7.5 IV Venofer 200mg today 07/09 Has required IV iron infusions x 2 during previous admission hgb stable, monitor HYPOTHYROIDISM patient declines medication DVT PROPHYLAXIS s/p IVC filter FULL CODE
[2016-07-17] MEDS: FENTANYL 25 MCG/HR TDSY TD SCH (16:31)
[2016-07-17] MEDS: FENTANYL PATCH REMOVE & WASTE SCH (16:33)
[2016-07-18] VITALS (7 sets, daily range): BP systolic 91–134; BP diastolic 62–75; PULSE 92–102; TEMP 36.7–37; O2SAT 92–94
[2016-07-18] MEDS: CHECK FENTANYL PATCH PLACEMENT SCH ×3 (00:13→15:36)
[2016-07-18 05:48] LABS: HEMATOCRIT 27.5 % (37-47); MEAN CELL VOLUME 83.8 fL (80-100); MEAN CORPUSCULAR HEMOGLOBIN 26.5 pg (25-34); MEAN CORPUSCULAR HGB CONC 31.6 g/dl (32-36); MEAN PLATELET VOLUME 8.6 fL (7.4-10.4); PLATELET COUNT 182 K/uL (130-400); RED BLOOD COUNT 3.28 M/uL (4.2-5.4); WHITE BLOOD COUNT 4.16 K/uL (4.8-10.8)
[2016-07-18 06:25] LABS: CALCIUM 9.1 mg/dl (8.5-10.1); CREATININE 0.55 mg/dl (0.60-1.20)
[2016-07-18] MEDS: ASCORBIC ACID 500 MG TAB PO SCH ×2 (08:21→20:00)
[2016-07-18] MEDS: MULTIVITAMIN TAB PO SCH (08:21)
[2016-07-18] MEDS: ANASTROZOLE 1 MG TAB PO SCH (08:24)
[2016-07-18] MEDS: OXYCODONE HCL IR 5 MG TAB (IMMEDIATE RELEASE) PO PRN ×4 (08:51→23:45)
--- NOTE | 2016-07-18 19:34 | Progress Note ---
Internal Med Progress Note Date of Service: Jul 18, 2016. Provider Documentation: SUBJECTIVE: present at bedside pt mentions pain is now controlled with the Fentanyl patch taking Oxycontin and PRN oxycodone for breakthrough pain Discussed discharge planning with both patient and pt still hoping to return to home ,able to be independent to do her ADL's but wants to have her right breast wound to be taken care of /does not want to go home till it heals and not bleeding and better pain control Discuss option for Hospice at [facility] -given her widespread metastatic CA chance of getting better may not be possible -her Cancer is now at incurable stage but at any stage She wants she can always opt out of Hospice care and return home and both agrees to go for Hospice for pain control and wound care will update CM OBJECTIVE: Vital Signs-as noted below Exam: General-no sign of distress Eyes-sclera non icteric Lungs-CTA Heart-regular Abdomen-soft, Extremities-right breast malignant fungating wound , dressing present , no active bleeding noted Neuro-no focal deficit Lab data as noted below. ASSESSMENT & PLAN: METASTATIC BREAST CANCER OF RT SIDE anastrazole as per hem/onc with wide spread skeletal mets s/p radiation tx very poor prognosis pain control continue fentanyl patch increase oxycodone to q3 hours pt willing to go with Hospice care RLE DVT s/p IVC filter placement Iron Deficiency Anemia follow H&H received IV Venofer 200mg DVT PROPHYLAXIS s/p IVC filter DISPOSITION will need placement agreeable for Hospice care at [facility] Vital Signs: Date Time Temp Pulse Resp B/P Pulse Ox O2 Delivery O2 Flow Rate FiO2 07/19/16 12:43 36.8 96 18 93 Room Air 07/19/16 11:43 36.8 96 18 100/64 93 Room Air 07/19/16 10:07 Room Air 07/19/16 07:37 37.0 103 16 94/67 91 Room Air 07/19/16 03:59 36.8 100 18 95/63 92 Room Air 07/19/16 00:01 Room Air 07/18/16 23:45 36.9 97 18 106/72 92 Room Air 07/18/16 19:29 36.7 102 20 91/62 94 Room Air 07/18/16 15:15 Room Air 07/18/16 15:06 36.8 99 18 134/75 93 Room Air Lab Results:
[2016-07-19] MEDS: CHECK FENTANYL PATCH PLACEMENT SCH ×2 (00:03→09:08)
[2016-07-19 03:59] VITALS: BP 95/63; PULSE 100; TEMP 36.8; O2SAT 92
[2016-07-19] MEDS: OXYCODONE HCL IR 5 MG TAB (IMMEDIATE RELEASE) PO PRN ×4 (05:45→15:50)
[2016-07-19 07:37] VITALS: BP 94/67; PULSE 103; TEMP 37; O2SAT 91
[2016-07-19] MEDS: ASCORBIC ACID 500 MG TAB PO SCH (09:07)
[2016-07-19] MEDS: MULTIVITAMIN TAB PO SCH (09:08)
[2016-07-19] MEDS: ANASTROZOLE 1 MG TAB PO SCH (09:09)
[2016-07-19 11:43] VITALS: BP 100/64; PULSE 96; TEMP 36.8; O2SAT 93
[2016-07-19] MEDS ORDERED: XPNINS1255 INH (12:39)
[2016-07-19] MEDS ORDERED: ATRINS INH (12:39)
[2016-07-19] MEDS ORDERED: RXC5 PO (12:39)
[2016-07-19] MEDS ORDERED: DRGTP25 TD (12:39)
[2016-07-19 12:43] VITALS: BP 100/64; PULSE 96; TEMP 36.8; O2SAT 93
[2016-07-19] MEDS ORDERED: OXYC15TA89 PO (12:47)
[2016-07-19] MEDS ORDERED: OXYC10SO PO (12:47)
[2016-07-19] MEDS ORDERED: MOMLX PO (12:47)
[2016-07-19] MEDS ORDERED: SIME80CH PO (12:47)
[2016-07-19] MEDS ORDERED: SODI1ENE PR (12:47)
[2016-07-19] MEDS ORDERED: BISA-16 PO (12:55)
[2016-07-19] MEDS ORDERED: DOCU-94 PO (12:56)
--- NOTE | 2016-07-19 12:59 | Discharge Instructions ---
Discharge Instructions Date of Service Jul 19, 2016. Admission Reason for Admission: Weakness Discharge Discharge Diagnosis / Problem: METASTATIC BREAST CANCER /HOSPICE CARE Discharge Goals Goal(s): Increase independence, Improve disease control, Diagnostic testing, Therapeutic intervention Activity Recommendations Activity Level: Assistance Required . Additional Information Patient informed of condition: Yes Advance Directives: Yes DNR: Yes Level of Care: Other (HOSPICE CARE ) Communicable Disease: No Prognosis: Other (POOR /ADVANCE MALIGNANCY ) Oxygen at (LPM): 2 L VIA NASAL CANULA FOR COMFORT /NEB TREATMENT PRN FOR SOB / DISCOMFORT Lang Catheter: No Instructions / Follow-Up Instructions / Follow-Up CONTINUE COMFORT CARE -PAIN CONTROL CONTINUE WOUND CARE FOR MALIGNANT RIGHT BREAST LESION HOSPICE /PALLIATIVE CARE TO FOLLOW Current Hospital Diet Patient's current hospital diet: AHA Diet (Heart Healthy) Discharge Diet Recommended Diet: Regular Diet Pending Studies Studies pending at discharge: no Physician Orders On Transfer Dressing Changes: PLEASE SEE WOUND CARE /DRESSING CHANGE NOTE FOR RIGHT BREAST WOUND CARE AND BUTTOCK WOUND CARE Medical Emergencies . Who to Call and When: Medical Emergencies: If at any time you feel your situation is an emergency, please call 911 immediately. . Non-Emergent Contact Non-Emergency issues call your: Primary Care Provider . . "Provider Documentation" section prepared by Sravanthi Vernon. Core Measure Problem Core Measures: None
[2016-07-19] MEDS ORDERED: ATV/1 PO (13:09)
[2016-07-19] MEDS ORDERED: ONDA8TAB62 SL (13:09)
--- NOTE | 2016-07-19 13:20 | Progress Note ---
Internal Med Progress Note Date of Service: Jul 19, 2016. Provider Documentation: SUBJECTIVE: Pt seen at bedside , present as well mentions pain well controlled with Oxycodone , and fentanyl patch abdomen feels gassy had bowel movement yesterday Discussed regarding going to [facility] with Hospice care it is very close to where they live and in agreement -feels that it will be appropriate -pt wants to be comfortable , good pain control , and appropriate wound care for her left breast still hoping she may feel better and get strength back Discussed code status; explained with incurable cancer -the disease will progress /the natural process for any Malignancy but in event of terminal decline -life support /CPR will provoke more pain / discomfort , will not be able to prevent both of them were very tearful -but agrees that wants to be comfortable, in peace , in her sleep when the time comes does not want heroic measures Code status changed to level 5 DNR/DNI CM updated pt will be transferred to [facility] on Hospice care today OBJECTIVE: Vital Signs-as noted below Exam: General-no sign of distress . tearful Eyes-sclera non icteric Lungs-CTA Heart-regular Abdomen-soft, Extremities-right breast malignant fungating wound , dressing present , no active bleeding noted Neuro-no focal deficit Lab data as noted below. ASSESSMENT & PLAN: 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 : advanced stage with widespread bone mets , fungating/ulcerative rt breast mass with rt axillary lymph node involvement on anastrozole tx severe underlying cardiomyopathy decreased LVEF from 35-39%, extremely poor prognosis Hospice /palliative care appropriate WIDESPREAD METASTATIC BONE LESION /INTRACTABLE PAIN : NC BONE SCAN : extensive foci of abnormal increased uptake involving cervical , thoracic and lumber spines, There is abnormal increased uptake within the pelvis left proximal humerus, multiple ribs as well both proximal femurs-findings consistent with widespread skeletal metastasis . completed Palliative radiation tx advanced late stage disease very poor prognosis Hospice /palliative care appropriate Pt is willing to go to [facility] with Hospice care today will be continued with Fentanyl patch 25 mcg Q 72 hrs /Oxycodone PRN a added OxyContin further pain adjustment will be done by Hospice /palliative care team at [facility] cont bowel regimen to prevent Narcotic induced constipation RLE DVT due to advanced malignancy could not tolerated anticoagulation due to ongoing bleeding on rt breast mass s/p IVC filter placement CODE STATUS : DNR/DNI DISPOSITION very poor prognosis with terminal end stage malignancy agreeable for Hospice care at [facility] transfer to [facility] with [facility] today for continued Hospice care present at bedside-updated Vital Signs: Date Time Temp Pulse Resp B/P Pulse Ox O2 Delivery O2 Flow Rate FiO2 07/19/16 12:43 36.8 96 18 93 Room Air 07/19/16 11:43 36.8 96 18 100/64 93 Room Air 07/19/16 10:07 Room Air 07/19/16 07:37 37.0 103 16 94/67 91 Room Air 07/19/16 03:59 36.8 100 18 95/63 92 Room Air 07/19/16 00:01 Room Air 07/18/16 23:45 36.9 97 18 106/72 92 Room Air 07/18/16 19:29 36.7 102 20 91/62 94 Room Air 07/18/16 15:15 Room Air 07/18/16 15:06 36.8 99 18 134/75 93 Room Air
--- NOTE | 2016-07-19 13:34 | Discharge Summary ---
Discharge Summary Date of Service Jul 19, 2016. Discharge Summary Admission Date: Jul 08, 2016 at 10:50 Discharge Date: Jul 19, 2016 Discharge Disposition: [facility] facility ([facility] ) Principal Diagnosis: METASTATIC BREAST CANCER /HOSPICE CARE Medication Reconciliation New Medications: Bisacodyl (Dulcolax) 5 Mg Tab 2 TAB PO DAILY PRN for Constipation for 30 Days, TAB Docusate Sodium (Colace) 100 Mg Cap 1 CAP PO BID for 30 Days, #60 CAP Lorazepam (Ativan) 1 Mg Tab 1 MG PO Q6H PRN for Anxiety/Insomnia, #60 TAB Magnesium Hydroxide (Milk of Magnesia) 30 Ml Susp 1 EA PO Q8 PRN for Constipation for 30 Days Ondansetron Odt (Zofran Odt) 8 Mg Soltab 8 MG SL Q6H PRN for Nausea, #60 TAB Oxycodone Hcl (Roxycodone Oral Soln) 5 Mg/5 Ml Erika 10 ML PO Q6 PRN for Pain, #60 ML Oxycodone Hcl (Oxycontin) 15 Mg Tab 15 MG PO Q12 for 30 Days, #60 TAB Simethicone (Gas-X) 80 Mg Chw 1 TAB PO Q6 PRN for Gas or Constipation for 30 Days Sodium Phosphates (Fleet Enema Six Pack) 1 Nahomi Nahomi 1 EA ME DAILY PRN for Constipation for 30 Days IF NO BOWEL MOVEMENT IN 2 DAYS Fentanyl (Fentanyl) 25 Mcg Tdsy 25 MCG TD Q3D, #10 Ipratropium Porter (Ipratropium Porter) 0.5 Mg/2.5 Ml Nebu 0.5 MG INH Q4H PRN for Shortness of Breath for 30 Days Levalbuterol (Levalbuterol) 1.25 Mg/0.5 Ml Nebu 1.25 MG INH Q4H PRN for Shortness of Breath for 30 Days Oxycodone HCl (Oxycodone HCl) 5 Mg Tab 5-10 MG PO Q2H PRN for Pain, #60 TAB Continued Medications: Anastrozole (Anastrozole) 1 Mg Tab 1 MG PO QAM for 30 Days, #30 TAB Docusate Sodium (Docusate Sodium) 100 Mg Cap 100 MG PO BID PRN for Constipation Senna (Senokot) 8.6 Mg Tab 1 TAB PO HS for 30 Days, TAB Discontinued Medications: Ascorbic Acid (Vitamin C) 1,000 Mg Tab 3000 MG PO BID Fentanyl (Fentanyl) 12 Mcg Tdsy 12 MCG TD Q3D@0900 for 30 Days, #10 PATCH Furosemide (Furosemide) 20 Mg Tab 20 MG PO QAM for 30 Days, #30 TAB Multivitamin (Multivitamin) Tab 1 TAB PO DAILY, TAB Oxycodone HCl (Oxycodone HCl) 5 Mg Tab 5 MG PO Q6 PRN for Pain for 15 Days, #60 TAB Admission Information HPI (per Admitting provider): 70 year old female who presents to the ER with weakness. Patient was recently admitted to [facility] 06/20 - 07/07 for newly diagnosed metastatic breast cancer. Patient underwent palliative radiation treatments of some of the juan daniel mets sites. She was noted to have pathologic rib fractures. She was also diagnosed with RLE DVT and had an IVC filter placed. Patient was discharged home yesterday. She reports she is too weak to be at home. She is having difficulty preforming her ADLs and doing dressing changes of her right breast wound. She denies fever and chills. No chest pain or shortness of breath. She denies lightheadedness, dizziness, diaphoresis, or syncopal events. No abdominal pain, nausea, vomiting, or diarrhea. She denies urinary symptoms. In the ER, patient' s work up is unremarkable. Physical Exam (per Admitting): General Appearance: no apparent distress Head: normocephalic Eyes: normal inspection ENT: hearing grossly normal Neck: supple, no JVD Respiratory/Chest: no respiratory distress, + decreased breath sounds (BL) Cardiovascular: regular rate, rhythm, + pertinent finding (trace edema BLLE) Abdomen/GI: normal bowel sounds, non tender, soft Extremities/Musculoskelatal: normal inspection, no calf tenderness Neurologic/Psych: no motor/sensory deficits, alert, normal mood/affect, oriented x 3 Skin: + pertinent finding (dressing dry and intact to right breast) Hospital Course 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 : advanced stage with widespread bone mets , fungating/ulcerative rt breast mass with rt axillary lymph node involvement on anastrozole tx severe underlying cardiomyopathy decreased LVEF from 35-39%, extremely poor prognosis Hospice /palliative care appropriate WIDESPREAD METASTATIC BONE LESION /INTRACTABLE PAIN : NC BONE SCAN : extensive foci of abnormal increased uptake involving cervical , thoracic and lumber spines, There is abnormal increased uptake within the pelvis left proximal humerus, multiple ribs as well both proximal femurs-findings consistent with widespread skeletal metastasis . completed Palliative radiation tx advanced late stage disease very poor prognosis Hospice /palliative care appropriate Pt is willing to go to [facility] with Hospice care today will be continued with Fentanyl patch 25 mcg Q 72 hrs /Oxycodone PRN a added OxyContin further pain adjustment will be done by Hospice /palliative care team at [facility] cont bowel regimen to prevent Narcotic induced constipation RLE DVT due to advanced malignancy could not tolerated anticoagulation due to ongoing bleeding on rt breast mass s/p IVC filter placement CODE STATUS : DNR/DNI DISPOSITION very poor prognosis with terminal end stage malignancy agreeable for Hospice care at [facility] transfer to [facility] with [facility] today for continued Hospice care present at bedside-updated Total time spent on discharge = 35MINS This includes examination of the patient, discharge planning, medication reconciliation, and communication with other providers. Discharge Instructions Discharge Instructions Date of Service Jul 19, 2016. Admission Reason for Admission: Weakness Discharge Discharge Diagnosis / Problem: METASTATIC BREAST CANCER /HOSPICE CARE Discharge Goals Goal(s): Increase independence, Improve disease control, Diagnostic testing, Therapeutic intervention Activity Recommendations Activity Level: Assistance Required . Additional Information Patient informed of condition: Yes Advance Directives: Yes DNR: Yes Level of Care: Other (HOSPICE CARE ) Communicable Disease: No Prognosis: Other (POOR /ADVANCE MALIGNANCY ) Oxygen at (LPM): 2 L VIA NASAL CANULA FOR COMFORT /NEB TREATMENT PRN FOR SOB / DISCOMFORT Lang Catheter: No Instructions / Follow-Up Instructions / Follow-Up CONTINUE COMFORT CARE -PAIN CONTROL CONTINUE WOUND CARE FOR MALIGNANT RIGHT BREAST LESION HOSPICE /PALLIATIVE CARE TO FOLLOW Current Hospital Diet Patient's current hospital diet: AHA Diet (Heart Healthy) Discharge Diet Recommended Diet: Regular Diet Pending Studies Studies pending at discharge: no Physician Orders On Transfer Dressing Changes: PLEASE SEE WOUND CARE /DRESSING CHANGE NOTE FOR RIGHT BREAST WOUND CARE AND BUTTOCK WOUND CARE Medical Emergencies . Who to Call and When: Medical Emergencies: If at any time you feel your situation is an emergency, please call 911 immediately. . Non-Emergent Contact Non-Emergency issues call your: Primary Care Provider . . "Provider Documentation" section prepared by Sravanthi Vernon. Core Measure Problem Core Measures: None Additional Copies To Js Mcintyre III, M.D.
== END 2016-07-19 16:47 ==
LOC: ENRESERVTM → ENRESERVDT → CANRESERV → EDBD 09:19 → C.EDB 09:20 → C.4E 10:50 → EDBEDREQSVC 11:20
PROVIDERS: ADMIT Family Medicine; ATTEND Hospitalist
DX: R53.1 Weakness (principal); C50.911 Malignant neoplasm of unspecified site of right female breast; C79.51 Secondary malignant neoplasm of bone; C77.3 Secondary and unspecified malignant neoplasm of axilla and upper limb lymph nodes; Z51.5 Encounter for palliative care; M84.48XA Pathological fracture, other site, initial encounter for fracture; I82.411 Acute embolism and thrombosis of right femoral vein; E03.9 Hypothyroidism, unspecified; D50.9 Iron deficiency anemia, unspecified; I42.9 Cardiomyopathy, unspecified; I10 Essential (primary) hypertension; I25.10 Atherosclerotic heart disease of native coronary artery without angina pectoris; I50.40 Unspecified combined systolic (congestive) and diastolic (congestive) heart failure; Z87.891 Personal history of nicotine dependence; Z90.710 Acquired absence of both cervix and uterus; Z66 Do not resuscitate